=== PATIENT | female | born 1965 | race Caucasian/White ===

== ENCOUNTER 2020-04-22 03:11 | Emergency (ER) | payer MEDICAID, SELFPAY ==
[2020-04-22 03:37] VITALS: BP 126/36; PULSE 95; RESP 16; TEMP 36.9; O2SAT 96; BMI 70.8
[2020-04-22 04:00] VITALS: BP 117/68; PULSE 92; RESP 16; O2SAT 96
--- NOTE | 2020-04-22 04:01 | US_ITS ---
EXAMINATION: US VENOUS ULTRASOUND WITH DOPPLER LOWER EXTREMITY, BILATERAL CLINICAL INFORMATION: Swelling. Pain. COMPARISON: None TECHNIQUE: Ultrasound of the deep veins is performed from the hip to the calf with compression sonography and color and pulse Doppler assessment. Spectral analysis with color-flow imaging is performed. FINDINGS: Examination is somewhat limited by patient body habitus. RIGHT: There is normal venous compression and respiratory variation and augmented flow. The visualized common femoral vein, superficial femoral vein, profunda femoral vein, popliteal vein, and the trifurcation region shows no evidence of deep venous thrombosis. There is no significant popliteal fossa cyst. Subcutaneous edema is present at the calf. A prominent right inguinal lymph node measures 1.3 cm in short axis with a large fatty hilum, within normal limits. LEFT: There is normal venous compression and respiratory variation and augmented flow. The visualized common femoral vein, superficial femoral vein, profunda femoral vein, popliteal vein, and the trifurcation region shows no evidence of deep venous thrombosis. There is no significant popliteal fossa cyst. Subcutaneous edema is present at the calf. If the patient's symptoms persist, followup ultrasound in 5 days 7 days might be of value to exclude proximal propagation from a non-visualized calf vein. US/US venous duplex LE BI IMPRESSION: No DVT demonstrated in the bilateral lower extremities.
--- NOTE | 2020-04-22 04:01 | ED_ITS ---
HPI - Extremity Problem General Chief complaint: Extremity Problem Stated complaint: SWOLLEN LEGS Time Seen by Provider: 04/22/20 04:01 Source: patient and welt edge rounder Mode of arrival: ambulatory History of Present Illness HPI Narrative: This is a 54-year-old female who presents with worsening bilateral lower extremity edema, denies any fevers or chills but states that both of her legs hurt. She states that she does not have diabetes but but is treated for high blood pressure. She denies any recent cough, travel, smoking history. Related Data Allergies Allergy/AdvReac Type Severity Reaction Status Date / Time No Known Allergies Allergy Verified 04/22/20 03:40 Review of Systems Review of Systems: Pertinent positives and negatives as stated in HPI 10 point review systems is otherwise negative. [facility] Past Medical History Source: nursing notes reviewed Social History Social History Alcohol intake: never Smoked in Last 30 Days: No Use of substances other than those prescribed or required for medical reasons: No Advance Directives: No Physical Exam Vital Signs: Vital Signs: Last Vital Signs Temp 98.5 F 04/22/20 03:37 Pulse 91 04/22/20 06:00 Resp 20 04/22/20 06:00 BP 117/68 04/22/20 04:00 Pulse Ox 96 04/22/20 06:00 Body Mass Index 70.8 VITAL SIGNS: Reviewed. GENERAL: Morbidly obese, Well developed, well nourished, in no acute distress. HEAD: Normocephalic/atraumatic, EYES: PERRLA, EOMI NOSE: Nares patent bilateral OROPHARYNX: no oral lesions noted, posterior pharynx clear NECK: Supple, no adenopathy LUNGS: Normal breath sounds. No adventitious sounds or accessory muscle use. SpO2<96> CARDIOVASCULAR: Regular rate and rhythm without noted murmurs, no JVD or lower extremity edema. ABDOMEN: Obese, Soft, non-tender, non-distended with bowel sounds. EXTREMITIES: Bilateral lower extremities with stigmata of venous stasis with skin thickening as well as darkening SKIN: Inspection of the skin reveals no rashes. NEUROLOGIC: Alert and oriented x 4. Course Course Course Narrative: With history and clinical presentation most consistent with chronic venous stasis and skin changes secondary to patient's condition. I doubt DVT, cellulitis, or CHF. On the sedation is reviewed and there are no acute findings. Bilateral venous duplex is negative for evidence of DVT. All results and findings were discussed with the patient at bedside with a detector car operator. She was highly encouraged to follow-up with the primary care provider. MDM - Extremity (Nontraumatic) Lab Data Result diagrams: 04/22/20 04:18 04/22/20 04:18 Labs: Lab Results 04/22/20 04/22/20 04/22/20 Range/Units 04:18 04:18 04:18 WBC 5.5 (4.8-10.8) X10*3/uL RBC 4.44 (4.20-5.50) X10*6/uL Hgb 11.8 L (12.0-16.0) g/dl Hct 38.9 (37-47) % MCV 87.6 (80-98) fL MCH 26.6 L (27.0-33.0) pg MCHC 30.3 L (31.0-35.0) g/dl RDW 13.4 (11.0-16.0) % Plt Count 183 (160-400) X10*3/uL MPV 12.8 H (9.4-12.3) fL Immature Gran % (Auto) 0.2 (0.0-0.4) % Neut % (Auto) 61.2 (45-73) % Lymph % (Auto) 27.5 (20-40) % [place] % (Auto) 10.7 (2-11) % Eos % (Auto) 0.4 (0-4) % Baso % (Auto) 0.0 (0-2) % Lymph # (Auto) 1.5 (1.2-4.9) X10*3/uL [place] # (Auto) 0.6 (0.1-1.2) X10*3/uL Eos # (Auto) 0.0 (0.0-0.4) X10*3/uL Baso # (Auto) 0.0 (0.0-0.2) X10*3/uL Abs Immat Gran (auto) 0.01 (0.00-0.03) X10*3/uL Absolute Neuts (auto) 3.4 (2.0-8.3) X10*3/uL Absolute Nucleated RBC 0.000 (0.0-0.012) X10*3/uL Nucleated RBC % (auto) 0.0 (0.0-0.2) /100WBC Sodium 140 (135-145) mmol/L Potassium 3.8 (3.3-5.1) mmol/l Chloride 103 (96-108) mmol/L Carbon Dioxide 27 (22-29) mmol/L Anion Gap 14 (12-20) BUN 15 (9-16) mg/dL Creatinine 0.76 (0.5-1.4) mg/dL Estim Creat Clear Calc 140.5 Estimated GFR > 60 Random Glucose 118 H (60-115) mg/dL Calcium 9.1 (8.4-10.2) mg/dL Total Bilirubin 0.4 (0.0-1.0) mg/dL AST 21 (5-31) U/L ALT 26 (0-31) U/L Alkaline Phosphatase 108 (39-117) U/L B-Natriuretic Peptide 14 (<100) pg/mL Total Protein 6.7 (6.5-8.0) g/dL Albumin 3.8 (3.5-5.0) g/dL Discharge Plan Discharge Clinical Impression: Venous stasis of both lower extremities Patient Disposition: Home, Self-Care Instructions: Stasis Dermatitis (ED), Venous Insufficiency (DC) Additional Instructions: 1. Recomendar medias de compresi?n para las extremidades inferiores bilaterales. 2. Jody un seguimiento con santamaria proveedor de atenci?n primaria llamando al consultorio esta ma?michelle y programe saskia damaso de seguimiento para santamaria afecci?n. 3. No dude en volver al departamento de emergencias si experimenta un empeoramiento dontrell de thor s?ntomas o dificultad para respirar. Referrals: Physician,Unknown [Primary Care Provider] - 2 days (Re-evaluation of bilateral venous stasis) Print Language: Mauritian
[2020-04-22 04:22] LABS: Eosinophils Percent Auto 0.4 % (0-4); Hematocrit 38.9 % (37-47); Hemoglobin 11.8 g/dl (12.0-16.0); Imm Gran Abs Auto 0.01 X10*3/uL (0.00-0.03); Imm Gran Pct Auto 0.2 % (0.0-0.4); Lymphocytes Absolute Auto 1.5 X10*3/uL (1.2-4.9); Lymphocytes Percent Auto 27.5 % (20-40); MANUAL DIFF FLAG NO; Mean Corpuscular HGB Conc 30.3 g/dl (31.0-35.0); Mean Corpuscular Hemoglobin 26.6 pg (27.0-33.0); Mean Corpuscular Volume 87.6 fL (80-98); Mean Platelet Volume 12.8 fL (9.4-12.3); Monocytes Absolute Auto 0.6 X10*3/uL (0.1-1.2); Monocytes Percent Auto 10.7 % (2-11); Neutrophils Absolute Auto 3.4 X10*3/uL (2.0-8.3); Neutrophils Percent Auto 61.2 % (45-73); Platelet Count 183 X10*3/uL (160-400); Red Blood Count 4.44 X10*6/uL (4.20-5.50); Red Cell Distribution Width 13.4 % (11.0-16.0); White Blood Count 5.5 X10*3/uL (4.8-10.8)
[2020-04-22 04:47] LABS: B Type Natriuretic Peptide 14 pg/mL (<100)
[2020-04-22 04:55] LABS: Alanine Aminotransferase 26 U/L (0-31); Albumin Level 3.8 g/dL (3.5-5.0); Alkaline Phosphatase 108 U/L (39-117); Anion Gap 14 (12-20); Aspartate Amino Transferase 21 U/L (5-31); Bilirubin Total 0.4 mg/dL (0.0-1.0); Blood Urea Nitrogen 15 mg/dL (9-16); Calcium 9.1 mg/dL (8.4-10.2); Carbon Dioxide 27 mmol/L (22-29); Chloride 103 mmol/L (96-108); Creatinine Clr Calc Pharmacy 140.5; Estimated Glomerular Filt Rate > 60; Glucose Random 118 mg/dL (60-115); Potassium 3.8 mmol/l (3.3-5.1); Sodium 140 mmol/L (135-145); Total Protein 6.7 g/dL (6.5-8.0)
[2020-04-22 06:00] VITALS: PULSE 91; RESP 20; O2SAT 96
== END 2020-04-22 07:40 | disposition home or self-care (01) ==
PROVIDERS: Emergency Provider Student in an Organized Health Care Education/Training Program
DX: I87.8 Other specified disorders of veins (principal); I83.12 Varicose veins of left lower extremity with inflammation; I83.11 Varicose veins of right lower extremity with inflammation; M79.662 Pain in left lower leg; M79.661 Pain in right lower leg
CPT/HCPCS: 36415; 80053; 83880; 85025; 93970; 99284

== ENCOUNTER 2020-08-06 20:10 | Emergency (ER) | payer MEDICAID, SELFPAY ==
--- NOTE | ~2020-08-06 | XR_ITS ---
EXAMINATION: XR CHEST CLINICAL INFORMATION: Dyspnea COMPARISON: Multiple previous chest imaging studies with the last chest x-ray of 11/17/2019 and chest CTA of 08/09/2016 TECHNIQUE: Frontal view of the chest was obtained. FINDINGS: The cardiomediastinal silhouette is stable and likely within normal limits for technique. The lungs are hypoexpanded with the crowding of the bronchovascular markings. Mild central pulmonary vasculature prominence is similar to that seen on multiple previous studies. There is no evidence of focal consolidation, changes of overt edema, pleural effusions or pneumothorax. The regional skeleton appears intact. XR/XR chest 1V IMPRESSION: No radiographic evidence of pneumonia or changes of overt pulmonary edema.
[2020-08-06 20:19] VITALS: BP 194/93; PULSE 93; RESP 24; TEMP 36; O2SAT 98; BMI 61.9
[2020-08-06 21:13] VITALS: BP 142/54; PULSE 91; RESP 20; TEMP 36.4; O2SAT 98
--- NOTE | 2020-08-06 21:43 | ECG_ITS ---
Test Reason : CHEST PAIN Blood Pressure : / mmHG Vent. Rate : 091 BPM Atrial Rate : 091 BPM P-R Int : 154 ms QRS Dur : 090 ms QT Int : 370 ms P-R-T Axes : 059 010 075 degrees QTc Int : 455 ms Normal sinus rhythm Normal ECG When compared with ECG of 17-NOV-2019 19:39, No significant change was found Referred By: Harsh Barnes Electronically Signed By:BO SORENSON MD
--- NOTE | 2020-08-06 22:26 | ED.GENADULT ---
HPI - General Adult General Chief complaint: General Medical Stated complaint: SWELLING FEET Time Seen by Provider: 08/06/20 21:21 Source: patient and family (Daughter, Paige) Mode of arrival: ambulatory Limitations: language barrier (Eritrean speaking only, greens cutter used to obtain information) History of Present Illness HPI narrative: 55-year-old female who presents emergency department for evaluation of bilateral lower extremity swelling, dyspnea on exertion and skin breakdown of her left lower extremity. Patient states that she has noticed swelling in both her lower extremities over the past week. She states this is gotten progressively worse. She states that the skin on the medial aspect of the calf has broken down but is not bleeding and does not appear to be red or warm to the touch. She states that she has dyspnea on exertion but no shortness of breath at rest. She states that she had chest pain last night which she describes as a left-sided sharp pain which lasts seconds, this started at midnight and resolved by 1:00 a.m.. The patient states she does have pain in her legs especially when she exerts herself. She states that this pain does not resolve when she rests. She attributes this pain to her lower back pain. She denied fever, chills, cough, myalgias, arthralgias, diarrhea, loss of sense of taste or smell. The patient has not had a COVID-19 infection. She has not been vaccinated for COVID-19. Related Data Previous Rx's Medication Instructions Recorded furosemide 60 mg PO QAM 30 Days #45 tab 08/07/20 potassium chloride 10 meq PO DAILY 30 Days #30 tab 08/07/20 Allergies Allergy/AdvReac Type Severity Reaction Status Date / Time No Known Allergies Allergy Verified 08/06/20 20:26 Review of Systems Review of Systems: Yes all other systems are reviewed and are negative [facility] Past Medical History [facility] Narrative: Past medical history severe hypertension, hyperlipidemia, depression, anxiety, migraines, sleep apnea, umbilical hernia. She has had no previous abdominal surgeries. She denies tobacco, alcohol and drug use. Medical History Asthma Morbid obesity Family History Family History Daughter No problems noted. Daughter No problems noted. Daughter No problems noted. Daughter No problems noted. Daughter No problems noted. Son No problems noted. Social History Social History Alcohol intake: never Smoking Status: Never smoker Smoked in Last 30 Days: No Use of substances other than those prescribed or required for medical reasons: No Advance Directives: No Advance Directives Information Provided: Yes Physical Exam Vital Signs: Vital Signs: Last Vital Signs Temp 97.5 F 08/06/20 21:13 Pulse 94 08/06/20 23:50 Resp 22 H 08/06/20 23:50 BP 159/73 H 08/06/20 23:50 Pulse Ox 97 08/06/20 23:50 Body Mass Index 61.9 Const: General: cooperative Nutritional Appearance: obese morbidly obese Orientation/consciousness: oriented to person and oriented to place Limitations: no limitations HENMT: Head: Yes normal to inspection, Yes normocephalic and Yes atraumatic Ears: external ears normal General nose exam: Normal external nose present Face and sinus: Yes normal facial exam Mouth: Normal oral and palatal mucosa present Throat: Yes posterior oropharynx normal Eyes: Periorbital: periorbital findings normal Eyelids: Yes eyelids normal Conjunctivae: conjunctivae normal Sclerae: sclerae normal Corneas: corneas normal Pupils: Equal, round and reactive pupils present Direct Ophthalmoscopy: normal light reflex Neck: Neck: Yes full ROM, Yes no lymphadenopathy, Yes no meningeal signs, Yes trachea midline and Yes supple Chest: Chest palpation & inspection: normal inspection of the chest and normal palpation of entire chest wall Resp: Effort & Inspection: normal respiratory effort and able to speak in complete sentences Auscultation: clear to auscultation bilaterally Cardio: Rate: regular rate Rhythm: regular rhythm Heart sounds: S1 normal heart sound present, S2 normal heart sound present and no murmurs GI: Inspection: Yes normal to inspection Palpation (GI): Soft to palpation, nontender, no guarding, not rigid, No hepatosplenomegaly present and Other GI palpation findings present (Large, nontender umbilical hernia) Auscultation: normal bowel sounds : General: Yes no CVA tenderness Back/Spine/Pelvis: Back: no CVA tenderness Cervical Spine: normal cervical lordosis Thoracic/Lumbar Spine: thoracic and lumbar spine normal to inspection Skin: Lesions: no lesions Rashes: no rashes Wounds: no wounds Neuro: General: oriented to person, oriented to place and no meningeal signs Cranial nerves: Yes CN's II-XII intact bilaterally and Yes Equal, round and reactive pupils present Cognition (Neuro): normal cognition Motor exam (neuro): 5/5 motor strength present throughout Extrem: Other: One to 2+ pitting edema, symmetric, patient has a 5 x 4 cm partial skin thickness ulcerative lesion to the medial aspect of the left ankle, there is no increased warmth or increased erythema around the skin ulcer. The patient's skin is very dry, there is no erythema or increased warmth her lower extremities Psych: Appearance: well kempt Mental Status: mental status grossly normal Speech and movement: Normal speech and movement present Affect: normal affect Attitude: cooperative Thought process: Normal thought process present Thought content: Normal thought content present Course Course Course Narrative: 53-year-old female who presents emergency department for evaluation of bilateral lower extremity swelling which is symmetric with skin breakdown the left medial aspect of the calf. She has also had dyspnea on exertion with no shortness of breath and atypical chest pain. I did order a CBC, CMP, high sensitivity troponin, chest x-ray an EKG. 0110: The patient's chest x-ray revealed no evidence of pneumonia congestive heart failure. Patient's laboratory evaluation was unremarkable. The patient's troponin was detectable at 10.1 but not elevated. Twelve EKG was normal. The patient's peripheral edema is most likely secondary to fluid overload, I do not think she has congestive heart failure, renal disease or cardiac disease as the cause of the symptoms. The patient will be started on Lasix 60 mg once a day for 1 month. She was also given a prescription for potassium chloride 10 mEq once a day. She was given verbal and printed instructions and discharged home. Medical Decision Making Lab Data Result diagrams: 08/06/20 22:42 08/06/20 22:42 Labs: Lab Results 08/06/20 08/06/20 08/06/20 Range/Units 22:12 22:42 22:42 WBC 6.1 (4.8-10.8) X10*3/uL RBC 4.15 L (4.20-5.50) X10*6/uL Hgb 11.0 L (12.0-16.0) g/dl Hct 37.3 (37-47) % MCV 89.9 (80-98) fL MCH 26.5 L (27.0-33.0) pg MCHC 29.5 L (31.0-35.0) g/dl RDW 14.1 (11.0-16.0) % Plt Count 171 (160-400) X10*3/uL MPV 12.3 (9.4-12.3) fL Immature Gran % (Auto) 0.3 (0.0-0.4) % Neut % (Auto) 66.3 (45-73) % Lymph % (Auto) 25.2 (20-40) % Jones % (Auto) 7.8 (2-11) % Eos % (Auto) 0.2 (0-4) % Baso % (Auto) 0.2 (0-2) % Lymph # (Auto) 1.5 (1.2-4.9) X10*3/uL Jones # (Auto) 0.5 (0.1-1.2) X10*3/uL Eos # (Auto) 0.0 (0.0-0.4) X10*3/uL Baso # (Auto) 0.0 (0.0-0.2) X10*3/uL Abs Immat Gran (auto) 0.02 (0.00-0.03) X10*3/uL Absolute Neuts (auto) 4.0 (2.0-8.3) X10*3/uL Absolute Nucleated RBC 0.000 (0.0-0.012) X10*3/uL Nucleated RBC % (auto) 0.0 (0.0-0.2) /100WBC Sodium 141 (135-145) mmol/L Potassium 4.1 (3.3-5.1) mmol/L Chloride 107 (96-108) mmol/L Carbon Dioxide 22 (22-29) mmol/L Anion Gap 16 (12-20) BUN 16 (9-16) mg/dL Creatinine 0.74 (0.5-1.4) mg/dL Estim Creat Clear Calc 130.2 Estimated GFR > 60 Random Glucose 89 (60-115) mg/dL Calcium 8.7 (8.4-10.2) mg/dL Total Bilirubin 0.3 (0.0-1.0) mg/dL AST 23 (5-31) U/L ALT 23 (0-31) U/L Alkaline Phosphatase 96 (39-117) U/L Troponin I High Sens (<3.5-17.0) ng/L Total Protein 6.6 (6.5-8.0) g/dL Albumin 3.7 (3.5-5.0) g/dL COVID-19 (DERICK) Negative (Negative) COVID-19 Clin Com See Note 08/06/20 Range/Units 22:42 WBC (4.8-10.8) X10*3/uL RBC (4.20-5.50) X10*6/uL Hgb (12.0-16.0) g/dl Hct (37-47) % MCV (80-98) fL MCH (27.0-33.0) pg MCHC (31.0-35.0) g/dl RDW (11.0-16.0) % Plt Count (160-400) X10*3/uL MPV (9.4-12.3) fL Immature Gran % (Auto) (0.0-0.4) % Neut % (Auto) (45-73) % Lymph % (Auto) (20-40) % Jones % (Auto) (2-11) % Eos % (Auto) (0-4) % Baso % (Auto) (0-2) % Lymph # (Auto) (1.2-4.9) X10*3/uL Jones # (Auto) (0.1-1.2) X10*3/uL Eos # (Auto) (0.0-0.4) X10*3/uL Baso # (Auto) (0.0-0.2) X10*3/uL Abs Immat Gran (auto) (0.00-0.03) X10*3/uL Absolute Neuts (auto) (2.0-8.3) X10*3/uL Absolute Nucleated RBC (0.0-0.012) X10*3/uL Nucleated RBC % (auto) (0.0-0.2) /100WBC Sodium (135-145) mmol/L Potassium (3.3-5.1) mmol/L Chloride (96-108) mmol/L Carbon Dioxide (22-29) mmol/L Anion Gap (12-20) BUN (9-16) mg/dL Creatinine (0.5-1.4) mg/dL Estim Creat Clear Calc Estimated GFR Random Glucose (60-115) mg/dL Calcium (8.4-10.2) mg/dL Total Bilirubin (0.0-1.0) mg/dL AST (5-31) U/L ALT (0-31) U/L Alkaline Phosphatase (39-117) U/L Troponin I High Sens 10.1 (<3.5-17.0) ng/L Total Protein (6.5-8.0) g/dL Albumin (3.5-5.0) g/dL COVID-19 (DERICK) (Negative) COVID-19 Clin Com ECG Data Attestation: I personally reviewed and interpreted this ECG as follows: Interpretation: 2159: Normal sinus rhythm rate of 91, normal AR, QRS and QTC intervals, normal T-waves, no ST segment elevation or depression, this is a normal EKG. Discharge Plan Discharge Clinical Impression: Edema of both lower extremities due to peripheral venous insufficiency Skin ulcer Qualifiers: Non-pressure ulcer stage: limited to breakdown of skin Qualified Code(s): L98.491 - Non-pressure chronic ulcer of skin of other sites limited to breakdown of skin Patient Disposition: Home, Self-Care Instructions: Leg Edema (ED) Additional Instructions: Take Lasix (furosemide) 60 mg once a day for 1 month. This is a water pill that will make urinate for 6 hours after you take the medication. Take potassium chloride 10 mEq, 1 pill once a day with the Lasix pill. Your body is holding on to too much fluid and the Lasix will make you urinate out fluid. The goal is to make you urinary out more fluid than you take in. Only drink fluid when your thirsty. Try to restrict the amount of fluid that you drink daily to get into a negative fluid balance. Follow-up with your doctor in 2 days. Please return to the emergency department if your symptoms get worse or if you develop any symptoms that are concerning to you. Prescriptions: New furosemide 40 mg tablet 60 mg PO QAM 30 Days Qty: 45 RF: 0 potassium chloride 10 mEq tablet,ER particles/crystals 10 meq PO DAILY 30 Days Qty: 30 RF: 0
[2020-08-06 22:30] LABS: COVID-19 Test Negative (Negative)
--- NOTE | 2020-08-06 22:35 | PC.NURSE ---
attempted to place a iv, pt a very difficult iv stick due to her obesity. provider made aware and ok to just draw the labs at this time. pt in no distress.
[2020-08-06 22:47] LABS: MANUAL DIFF FLAG NO
[2020-08-06 22:48] LABS: Basophils Percent Auto 0.2 % (0-2); Eosinophils Percent Auto 0.2 % (0-4); Hematocrit 37.3 % (37-47); Imm Gran Abs Auto 0.02 X10*3/uL (0.00-0.03); Imm Gran Pct Auto 0.3 % (0.0-0.4); Lymphocytes Absolute Auto 1.5 X10*3/uL (1.2-4.9); Lymphocytes Percent Auto 25.2 % (20-40); Mean Corpuscular HGB Conc 29.5 g/dl (31.0-35.0); Mean Corpuscular Hemoglobin 26.5 pg (27.0-33.0); Mean Corpuscular Volume 89.9 fL (80-98); Mean Platelet Volume 12.3 fL (9.4-12.3); Monocytes Absolute Auto 0.5 X10*3/uL (0.1-1.2); Monocytes Percent Auto 7.8 % (2-11); Neutrophils Percent Auto 66.3 % (45-73); Platelet Count 171 X10*3/uL (160-400); Red Blood Count 4.15 X10*6/uL (4.20-5.50); Red Cell Distribution Width 14.1 % (11.0-16.0); White Blood Count 6.1 X10*3/uL (4.8-10.8)
[2020-08-06 23:12] LABS: Alanine Aminotransferase 23 U/L (0-31); Albumin Level 3.7 g/dL (3.5-5.0); Alkaline Phosphatase 96 U/L (39-117); Anion Gap 16 (12-20); Aspartate Amino Transferase 23 U/L (5-31); Bilirubin Total 0.3 mg/dL (0.0-1.0); Blood Urea Nitrogen 16 mg/dL (9-16); Calcium 8.7 mg/dL (8.4-10.2); Carbon Dioxide 22 mmol/L (22-29); Chloride 107 mmol/L (96-108); Creatinine Clr Calc Pharmacy 130.2; Estimated Glomerular Filt Rate > 60; Glucose Random 89 mg/dL (60-115); Potassium 4.1 mmol/L (3.3-5.1); Sodium 141 mmol/L (135-145); Total Protein 6.6 g/dL (6.5-8.0)
[2020-08-06 23:16] LABS: Troponin-I High Sensitivity 10.1 ng/L (<3.5-17.0)
[2020-08-06 23:50] VITALS: BP 159/73; PULSE 94; RESP 22; O2SAT 97
== END 2020-08-07 01:30 | disposition home or self-care (01) ==
PROVIDERS: Emergency Provider Emergency Medicine Emergency Medical Services; PCP Internal Medicine
DX: R60.0 Localized edema (principal); L98.491 Non-pressure chronic ulcer of skin of other sites limited to breakdown of skin; I73.9 Peripheral vascular disease, unspecified; Z20.822 Contact with and (suspected) exposure to COVID-19; Z79.899 Other long term (current) drug therapy
CPT/HCPCS: 36415; 71045; 80053; 84484; 85025; 87635; 93005; 99284

== ENCOUNTER 2020-11-04 14:37 | Outpatient (REF) | payer MEDICAID, SELFPAY ==
--- NOTE | ~2020-11-04 | US_ITS ---
EXAMINATION: US VENOUS ULTRASOUND WITH DOPPLER LOWER EXTREMITY, LEFT CLINICAL INFORMATION: Left leg swelling. COMPARISON: Bilateral lower extremity venous Doppler exam 04/22/2020 and 09/16/2019 TECHNIQUE: Ultrasound of the deep veins is performed from the hip to the calf with compression sonography and color and pulse Doppler assessment. Spectral analysis with color-flow imaging is performed. FINDINGS: There is normal venous compression and respiratory variation and augmented flow. The visualized common femoral vein, superficial femoral vein, profunda femoral vein, popliteal vein, and the trifurcation region shows no evidence of deep venous thrombosis. There is no significant popliteal fossa cyst. If the patient's symptoms persist, followup ultrasound in 5 days 7 days might be of value to exclude proximal propagation from a non-visualized calf vein. US/US venous duplex LE IMPRESSION: No DVT demonstrated in the left lower extremity.
== END 2020-11-04 14:38 | disposition home or self-care (01) ==
LOC: HO.HMGCX 14:37
PROVIDERS: Visit Provider Emergency Medicine
DX: R60.0 Localized edema (principal); M79.89 Other specified soft tissue disorders
CPT/HCPCS: 93971

== ENCOUNTER 2020-11-18 09:29 | Outpatient (RCR) | payer MEDICAID, SELFPAY | END 2020-11-22 15:04 | disposition home or self-care (01) | LOC: HO.WCC 09:29 | PROVIDERS: Visit Provider Physician Assistant | DX: I89.0 Lymphedema, not elsewhere classified (principal); E66.01 Morbid (severe) obesity due to excess calories | CPT/HCPCS: 99212 ==

== ENCOUNTER → 2020-11-30 10:16 | Outpatient (REF) | payer MEDICAID, SELFPAY ==
--- NOTE | 2020-11-30 10:20 | CA_ITS ---
Transthoracic Echocardiogram Patient (Last, First, Middle): Kaelyn Samuel, Gender: Female Date of : 1965 Age: 55 Procedure Date: 11/30/2020 Procedure Type: Transthoracic Echocardiogram Location: OP Height: 160.02 cm Weight: 192.78 kg BSA: 2.66 m2 Heart Rate: bpm BP: 120 / 70 mmHg Steel Inspector: ROQUE Referring MD: Maya Wei NP Minibus Driver: Jose Rafael Tran MD Symptoms: DYSPNEA R06.00 Study Quality: Technically Difficult ECG Rhythm: Sinus Conclusions: - 1. Normal LV systolic function with mild LVH with impaired relaxation filling pattern 2. Limited evaluation of cardiac valves with normal cardiac valvular Doppler 3. No gross pericardial effusion Findings Left Ventricle Normal left ventricular size and systolic function. There is mildly increased left ventricular wall thickness. The visually estimated ejection fraction is between 60-65%. Spectral Doppler is indicative of an impaired relaxation filling pattern. Right Ventricle The right ventricle was not well visualized. Atria The left atrium is likely dilated. Interatrial shunt cannot be excluded. The right atrium was not well visualized. Aortic Valve The aortic valve was not well visualized. There is no aortic valve stenosis. There is no aortic valve regurgitation. Mitral Valve Likely normal mitral valve structure and function. There is trace mitral valve regurgitation. There is no mitral valve stenosis. Pulmonic Valve The pulmonic valve was not well visualized. Tricuspid Valve The tricuspid valve was not well visualized. Tricuspid regurgitation envelope is inadequate for calculation of right ventricular systolic pressure. Great Vessels The aorta was not well visualized. The pulmonary artery was not well visualized. Venous The inferior vena cava is normal in size and collapses greater than 50% with inspiration. Pericardium/Pleural There is no evidence of pericardial effusion. Prior Study Comparison No previous study in the last 5 years for comparison Measurements 2D Linear Measurements IVSd: 1.26 0.6-0.9/0.6-1.0 cm LVIDd: 5.32 3.9-5.3/4.2-5.9 cm LVIDd Index: 2.23 2.4-3.2/2.2-3.1 cm/m2 LVIDs: 3.76 2.0-3.6 cm LVPWd: 1.42 0.7-1.1 cm LA Diam: 3.90 2.7-3.8/3.0-4.0 cm LAIDs Index: 1.63 1.5-2.3 cm/m2 LV Mass: 375.89 67-162/88-224 g LV Mass Index: 157.28 43-95/49-115 g/m2 LVOT Diam: 2.10 3.0+(-)1.3 cm 2D Systolic Function EF 2C: 69.60 >55% Mitral Valve MV Pk E: 0.62 MV PK A: 0.81 MV Decel Time: 181.00 E/A: 0.80 E'Lateral: 11.70 E'Medial: 6.74 E/E' Med: 9.20 E/E' Lat: 5.30 PHT: 53.00 MVA PHT: 4.15 Decel [place]: 3.41 Aortic Valve AoV Pk Jayden: 1.28 AoV Pk Grad: 7.00 LVOT LVOT Pk Jayden: 1.09 LVOT Mn Jayden: 0.70 LVOT VTI: 0.25 LVOT Pk Grad: 5.00 LVOT Mn Grad: 2.00 LVOT Diam: 2.10 LVOT Area: 3.46 Diastolic Function MV Pk E: 0.62 MV Pk A: 0.81 E/A: 0.80 E'Medial: 6.74 E/E' Med: 9.20 E' Laterial: 11.70 E/E' Lat: 5.30 Right Ventricle TAPSE (mm): 2.43 Great Vessels Aorta Ao Asc: 3.10 2.1-3.4 cm Updated in Other Vendor System with Status of Final Jose Rafael Tran MD electronically signed on 11/30/2020 1:56:07 PM with status of Final
== END ==
LOC: HO.CARD 10:16
PROVIDERS: Visit Provider Nurse Practitioner Family
DX: R06.00 Dyspnea, unspecified (principal)
CPT/HCPCS: 93306; Q9957

== ENCOUNTER 2021-01-13 15:27 | Emergency (ER) | payer MEDICAID, SELFPAY ==
--- NOTE | ~2021-01-13 | XR_ITS ---
EXAMINATION: XR KNEE, RIGHT CLINICAL INFORMATION: Pain after fall COMPARISON: None TECHNIQUE: Four views of the right knee. FINDINGS: No fracture or subluxation. Mild medial compartment joint space narrowing. Tiny tricompartmental marginal osteophytes. No joint effusion. Soft tissue swelling throughout. XR/XR knee RT 4V IMPRESSION: No acute osseous abnormality. Mild tricompartmental degenerative change.
--- NOTE | ~2021-01-13 | CT_ITS ---
EXAMINATION: CT CHEST WITHOUT CONTRAST CT ABDOMEN AND PELVIS WITHOUT CONTRAST CLINICAL INFORMATION: Fall with right-sided pain COMPARISON: 08/09/2016 TECHNIQUE: Multidetector volumetric imaging was performed through the chest, abdomen and pelvis without contrast. Sagittal and coronal reformatted images were obtained on the technologist's workstation. Axial MIP volume rendering provided. This CT examination was performed using dose optimization techniques as appropriate, variously including the following: *Automated exposure control *Adjustment of mA and/or kV according to patient size (this includes techniques or standardized protocols for targeted exams where dose is matched to indication/reason for exam; i.e. extremities or head) *Use of iterative reconstruction technique DLP: 1710 mGy-cm. FINDINGS: CHEST: Lungs: The central airways are patent. No consolidation. No pleural effusion or pneumothorax. There is a left upper lobe 0.7 cm nodule on series 4 image 179. This had measured 0.5 cm in 2017. Numerous additional smaller nodules are seen scattered in both lungs. For instance right lower lobe 0.4 cm nodule on series 4 image 319. This also is increased in prominence. Calcified granulomata noted. Mediastinum: The heart is of normal size. There is no pericardial effusion. Central vascular structures are unremarkable. No hilar or mediastinal lymphadenopathy. Chest Wall/Axilla: No lymphadenopathy. No chest wall mass. ABDOMEN/PELVIS: Liver, Gallbladder, Biliary Tree: The liver is normal in size, shape, and attenuation. No focal hepatic lesion or biliary ductal dilatation is present. Cholecystectomy. Pancreas: Unremarkable. Spleen: Unremarkable. Adrenal Glands: Unremarkable. Kidneys and Ureters: The kidneys are normal in size, shape, and attenuation. No hydronephrosis, hydroureter or calculi seen. No perinephric stranding. Bladder: Decompressed with no gross abnormality. Gastrointestinal Tract: Evaluation of the bowel in the pelvis is limited due to artifact associated with patient body habitus. The stomach and small bowel appear unremarkable. No dilated loops of bowel or evidence of obstruction. No diverticulosis. No colonic wall thickening or adjacent inflammatory changes. No free air or free fluid. A portion of bowel extends into a prominent ventral abdominal wall hernia. This is not obstructing. Hazy appearance of the fat in the lower abdomen/pelvis is potentially artifactual. Limited evaluation for the appendix. Abdominal Wall: There is a prominent ventral abdominal wall hernia below the level of the umbilicus to the left of midline containing bowel. The hernia neck measures 5.9 cm transverse by 5.3 cm CC. The hernia sac measures 18.8 x 12.6 x 16.5 cm. Lymphovascular Structures: Lymph nodes: Small retroperitoneal lymph nodes without pathologic enlargement.. Vascular: Normal caliber aorta with mild atherosclerotic calcifications. Pelvic Viscera: Anteverted uterus which appears unremarkable. Limited evaluation of the right adnexal structures due to artifact. There does appear to be some fullness in this area. OSSEOUS STRUCTURES: No acute or suspicious osseous abnormality. Degenerative changes are present throughout the spine with multilevel vacuum disc phenomenon and endplate osteophytes. Intact sternum. No displaced rib fracture is seen. The pelvis is intact. CT/CT abdomen pelvis wo con IMPRESSION: Study is limited due to artifact associated with patient body habitus. No acute traumatic findings of the chest, abdomen, or pelvis are identified. Multiple small pulmonary nodules are noted. The largest nodule measures 0.7 cm and the left upper lobe, mildly increased in size from 2017. Additional smaller nodules are also increased in size from that time. Large abdominal wall hernia containing nonobstructed bowel. Limited evaluation of the pelvis. Fullness in the right adnexal region. This can be further evaluated with pelvic ultrasound.
[2021-01-13 15:48] VITALS: BP 154/91; PULSE 104; RESP 26; TEMP 36.6; O2SAT 93; BMI 85.2
--- NOTE | 2021-01-13 19:57 | ED_ITS ---
HPI - Fall General Chief Complaint: Fall Stated Complaint: fall Time Seen by Provider: 01/13/21 19:49 Source: patient and spanish interpreter/translator Mode of arrival: ambulatory Limitations: no limitations History of Present Illness complaint: fall Onset (ago): day(s) (2) Fall from: standing Fall witnessed: no Place fall occurred: home Loss of consciousness: none Prolonged down time: no Context: tripped/slipped Location of injury: other (R flank ) Location of injury - extremities: right: knee Severity: moderate Quality: aching and throbbing Associated symptoms (after fall): other (R flank and knee pain) Related Data Previous Rx's Medication Instructions Recorded furosemide 40 mg tablet 60 mg PO QAM 30 Days #45 tab 08/07/20 potassium chloride 10 mEq 10 meq PO DAILY 30 Days #30 tab 08/07/20 tablet,extended release(part/cryst) cyclobenzaprine 10 mg tablet 10 mg PO TID PRN #14 tab 01/13/21 diclofenac sodium 1 % topical gel 2 g TOPICAL QID #100 g 01/13/21 (Voltaren Arthritis Pain) Allergies Allergy/AdvReac Type Severity Reaction Status Date / Time No Known Allergies Allergy Verified 08/06/20 20:26 Review of Systems Review of Systems: Constitutional : No Fever, No Chills ENT/Mouth : No Ear Pain, No Hoarseness, No sore throat Eyes: No Eye Pain, No Swelling, No Redness, No Foreign Body Cardiovascular : No Chest Pain, No SOB Respiratory : No Cough, No Dyspnea Gastrointestinal : No Nausea, No Vomiting, No Diarrhea, No abdominal Pain, pos flank pain Genitourinary : No Dysuria, No Hematuria Musculoskeletal : positive joint pain, No Myalgias, No Joint Swelling Skin : No Skin lacerations, No rash Neuro : No Weakness, No Numbness, No Loss of Consciousness, No Dizziness, No Headache Psych : No Anxiety/Panic, No Depression Heme/Lymph: no easy bruising, no Lymphadenopathy Endocrine : No Polyuria, No Polydipsia All other systems reviewed and are negative [facility] Past Medical History Attestation statement: The following information was validated with the patient. Medical History Asthma Morbid obesity Family History Family History Daughter No problems noted. Daughter No problems noted. Daughter No problems noted. Daughter No problems noted. Daughter No problems noted. Son No problems noted. Social History Social History (Updated 01/13/21 @ 19:58 by Carito Ann DO) Alcohol intake: never Patient Tobacco Use Status: Never used Tobacco Advance Directives: No Advance Directives Information Provided: Yes Patient : No Physical Exam Vital Signs: Vital Signs: Last Vital Signs Temp 98.2 F 01/13/21 20:17 Pulse 88 01/13/21 20:22 Resp 36 H 01/13/21 20:17 BP 182/71 H 01/13/21 20:17 Pulse Ox 96 01/13/21 20:17 Body Mass Index 85.2 Appearance: Alert. Oriented X3. No acute distress. Eyes: Pupils equal, round and reactive to light. ENT: Pharynx normal. Neck: Normal inspection. Neck supple. CVS: Normal heart rate and rhythm. Pulses normal. Respiratory: No respiratory distress. Breath sounds diffuse end exp wheezes Abdomen: Soft and nontender. very obese reports pain along entire R flank area no trauma seen Skin: Skin warm and dry. Normal skin color. Normal skin turgor. Extremities: No lower extremity edema. R knee ttp but able to ambulate without assistance Neuro: Oriented X 3. No motor deficit. No sensory deficit. Course Course Course Narrative: no acute traumatic findings found, UA contaminated, better after neb - of note she has no RLQ pain to suggest pelvic etiology it is all R flank post fall MDM - Fall MDM Narrative Medical decision making narrative: 55 yo female not on AC therapy reports a mechanical fall on Saturday developed R flank pain after the fall - will need xrays of R knee and R ribs, she is morbidly obese but I do not see any obvious trauma, CT scan for contusion fracture ordered, PO pain medications, needs baseline neb treatment as well, dispo per results and findings. Lab Data Labs: Lab Results 01/13/21 Range/Units 20:20 Urine Color YELLOW Urine Appearance HAZY Urine pH 7.0 (5.0-8.0) Ur Specific [place] 1.020 (1.005-1.025) Urine Protein 1+ H (NEG-TRACE) MG/DL Urine Glucose (UA) NEG (NEG) MG/DL Urine Ketones NEG (NEG) MG/DL Urine Blood TRACE (NEG) Urine Nitrite NEG (NEG) Ur Leukocyte Esterase TRACE H (NEG) Urine RBC 0-2 (0) /HPF Urine WBC 5-9 H (0-4) /HPF Ur Squamous Epith Cells 3+ /LPF Calcium Oxalate Crystal TRACE /LPF Amorphous Sediment TRACE /LPF Urine Bacteria 1+ /LPF Urine Mucus 2+ /LPF Discharge Plan Discharge Clinical Impression: Flank pain, Knee sprain Patient Disposition: Home, Self-Care Instructions: Knee Sprain (ED), Flank Pain (ED) Additional Instructions: return to ED for any worsening symptoms or concerns no acute fractures or trauma seen on xray or CT scan Multiple small pulmonary nodules are noted. The largest nodule measures 0.7 cm and the left upper lobe, mildly increased in size from 2017. Additional smaller nodules are also increased in size from that time. ? Prescriptions: New cyclobenzaprine 10 mg tablet 10 mg PO TID PRN (Reason: muscle spasm) Qty: 14 RF: 0 diclofenac sodium [Voltaren Arthritis Pain] 1 % gel 2 g topical QID Qty: 100 RF: 0 No Action furosemide 40 mg tablet 60 mg PO QAM 30 Days Qty: 45 RF: 0 potassium chloride 10 mEq tablet,ER particles/crystals 10 meq PO DAILY 30 Days Qty: 30 RF: 0 Referrals: Physician,Unknown J [Primary Care Provider] - 3 days (if not better)
[2021-01-13] MEDS: oxyCODONE HCl Immed Release 5 MG TABLET PO (20:06)
[2021-01-13] MEDS: Ondansetron ODT 4 MG TAB.RAPDIS TRANSLINGU (20:06)
[2021-01-13 20:17] VITALS: BP 182/71; PULSE 90; RESP 36; TEMP 36.8; O2SAT 96
[2021-01-13] MEDS: Albuterol Sulfate (0.083%) 2.5 MG/3 ML VIAL.NEB INHALE (20:21)
[2021-01-13 20:22] VITALS: PULSE 88; O2SAT 96
[2021-01-13 20:35] LABS: Appearance Urine HAZY; Color Urine YELLOW; Glucose Urine UA NEG (NEG); Leukocyte Esterase Urine TRACE (NEG); Nitrite Urine NEG (NEG); UACC Culture Trigger YES; Urine Blood TRACE (NEG); Urine Ketones NEG (NEG); Urine Protein 1+ MG/DL (NEG-TRACE)
[2021-01-13 20:37] LABS: Calcium Oxalate Crystals Urine TRACE /LPF; Squamous Epithelial Cell Urine 3+ /LPF
[2021-01-13 20:38] LABS: Mucus Urine 2+ /LPF
[2021-01-13 20:39] LABS: RBC Urine 0-2 /HPF (0)
[2021-01-13 20:40] LABS: Amorphous Sediment Urine TRACE /LPF; Bacteria Urine 1+ /LPF
[2021-01-13 22:32] VITALS: BP 123/60; PULSE 84; RESP 18; TEMP 36.7; O2SAT 97
[2021-01-13 22:36] VITALS: RESP 16
== END 2021-01-13 22:37 | disposition home or self-care (01) ==
PROVIDERS: Emergency Provider Emergency Medicine
DX: R10.9 Unspecified abdominal pain (principal); S83.91XA Sprain of unspecified site of right knee, initial encounter; J45.909 Unspecified asthma, uncomplicated; W01.0XXA Fall on same level from slipping, tripping and stumbling without subsequent striking against object, initial encounter; Y93.9 Activity, unspecified; Y92.009 Unspecified place in unspecified non-institutional (private) residence as the place of occurrence of the external cause; Y99.9 Unspecified external cause status
CPT/HCPCS: 71250; 73564; 74176; 81001; 87086; 94640; 99284

== ENCOUNTER → 2021-08-07 13:04 | Outpatient (BNVA) | payer MEDICAID, SELFPAY | PROVIDERS: PCP Nurse Practitioner Primary Care; Visit Provider Internal Medicine Pulmonary Disease | DX: G47.33 Obstructive sleep apnea (adult) (pediatric) (principal); J45.909 Unspecified asthma, uncomplicated; E66.01 Morbid (severe) obesity due to excess calories; Z68.45 Body mass index [BMI] 70 or greater, adult | CPT/HCPCS: 99202 ==

== ENCOUNTER 2021-08-23 00:16 | Inpatient (IN) | payer MEDICAID, SELFPAY ==
[2021-08-23] VITALS (16 sets, daily range): BP systolic 103–157; BP diastolic 43–81; PULSE 84–115; RESP 14–60; TEMP 36.7–37.7; O2SAT 4–100; BMI 83.0; BMI 87.6
--- NOTE | ~2021-08-23 | CT_ITS ---
EXAMINATION: CT HEAD WITHOUT CONTRAST CLINICAL INFORMATION: Altered mental status COMPARISON: January 23, 2017 TECHNIQUE: Contiguous axial imaging was performed from the skull base to vertex without intravenous administration of contrast. This CT examination was performed using dose optimization techniques as appropriate, variously including the following: *Automated exposure control *Adjustment of mA and/or kV according to patient size (this includes techniques or standardized protocols for targeted exams where dose is matched to indication/reason for exam; i.e. extremities or head) *Use of iterative reconstruction technique DLP: 1071 mGy-cm FINDINGS: There is no evidence of acute intracranial hemorrhage or territorial infarction. No abnormal mass effect or midline shift is seen. Tejeda to white matter differentiation is well preserved. No extra-axial fluid collections are identified. The ventricles are normal in size. There is no abnormal attenuation within the brain parenchyma. The osseous structures and soft tissues are normal. The mastoid air cells and visualized portions of the paranasal sinuses are well aerated. There appears be a partially empty sella. CT/CT head/brain wo con IMPRESSION: No acute intracranial pathology. Partial empty sella.
--- NOTE | ~2021-08-23 | CT_ITS ---
EXAMINATION: CT CHEST WITHOUT CONTRAST CT ABDOMEN AND PELVIS WITHOUT CONTRAST CLINICAL INFORMATION: Short of breath. Tachypnea. Nausea and vomiting. COMPARISON: 01/13/2021 TECHNIQUE: Multidetector volumetric imaging was performed through the chest, abdomen and pelvis without contrast. Sagittal and coronal reformatted images were obtained on the technologist's workstation. Axial MIP volume rendering provided. This CT examination was performed using dose optimization techniques as appropriate, variously including the following: *Automated exposure control *Adjustment of mA and/or kV according to patient size (this includes techniques or standardized protocols for targeted exams where dose is matched to indication/reason for exam; i.e. extremities or head) *Use of iterative reconstruction technique DLP: 1008 mGy-cm. FINDINGS: CHEST: Lungs: Motion is somewhat limiting to the evaluation. The central airways are patent. No consolidation. No pleural effusion or pneumothorax. There is a 0.4 cm nodule in the left lower lobe on series 4 image 362. There may be an additional 0.4 cm nodule in the left lower lobe on image 386. Mediastinum: The heart is of normal size. There is no pericardial effusion. Central vascular structures are unremarkable. No hilar or mediastinal lymphadenopathy. Chest Wall/Axilla: No lymphadenopathy. No chest wall mass. ABDOMEN/PELVIS: Liver, Gallbladder, Biliary Tree: The liver is normal in size, shape, and attenuation. No focal hepatic lesion or biliary ductal dilatation is present. Cholecystectomy. Pancreas: Unremarkable. Spleen: Unremarkable. Adrenal Glands: Unremarkable. Kidneys and Ureters: The kidneys are normal in size, shape, and attenuation. No hydronephrosis or hydroureter. 0.6 cm right lower pole renal calculus is 19 cm from the posterior axillary line. Bladder: Decompressed with Lozano catheter in place. Gastrointestinal Tract: The stomach is decompressed. Normal caliber small bowel. No obstruction. No colonic wall thickening or inflammatory change. The appendix is not seen. There is no pericecal inflammation to suggest acute appendicitis. Abdominal Wall: Prominent inflammatory stranding below the level of the umbilicus. Skin thickening present. Visually. No focal definite collection seen. Lymphovascular Structures: Lymph nodes: Normal. Vascular: Normal caliber aorta with mild atherosclerotic calcification. Pelvic Viscera: The uterus and adnexa are unremarkable. OSSEOUS STRUCTURES: No acute or suspicious osseous abnormality. Mild degenerative changes of the spine. CT/CT abdomen pelvis wo con IMPRESSION: 1. No acute finding in the lungs. Motion does limit the evaluation. 0.4 cm pulmonary nodules are seen. According to the UPDATED 2017 Fleischner Society recommendations, the advised follow-up imaging for solid nodules < 6 mm is: LOW RISK PATIENT: No routine follow-up. HIGH RISK PATIENT: Optional CT at 12 months. 2. Skin thickening of the lower abdomen below the level of the umbilicus with associated inflammatory stranding of the underlying fat. This could represent cellulitis. 3. Nonobstructing right lower pole renal calculus.
--- NOTE | ~2021-08-23 | US_ITS ---
EXAMINATION: US ABDOMEN LIMITED CLINICAL INFORMATION: Elevated LFTs. COMPARISON: CT same day TECHNIQUE: Real-time imaging of the right upper quadrant abdominal viscera. FINDINGS: Pancreas is not adequately visualized. No free fluid in the area. Liver is echogenic. Incompletely visualized. No obvious mass on the imaging submitted. Largely nondiagnostic study due to patient body habitus. Patient is status post cholecystectomy. No definitive visualization of the common duct. The right kidney is 12.2 cm. The roll shop supervisor outlines a few structures which may represent cysts. Again largely limited study due to patient body habitus. US/US abdomen limited IMPRESSION: This exam is extremely limited due to patient body habitus. The liver is incompletely visualized. The partially visualized liver is hyperechoic. This could be consistent with fatty change. Hepatitis cannot be excluded. No adjacent free fluid. Patient is status post cholecystectomy.
--- NOTE | 2021-08-23 00:42 | ECG_ITS ---
Test Reason : altered mental status Blood Pressure : / mmHG Vent. Rate : 104 BPM Atrial Rate : 104 BPM P-R Int : 146 ms QRS Dur : 096 ms QT Int : 340 ms P-R-T Axes : 052 -08 076 degrees QTc Int : 447 ms Sinus tachycardia with Premature atrial complexes Minimal voltage criteria for LVH, may be normal variant ( R in aVL ) Borderline ECG When compared with ECG of 06-AUG-2020 21:59, Premature atrial complexes are now Present Referred By: Yajaira Nieves Electronically Signed By:DANIELLE MAYES
--- NOTE | 2021-08-23 01:16 | ED_ITS ---
HPI - Altered Mental Status General Chief Complaint: Altered Mental Status Stated Complaint: AMS Time Seen by Provider: 08/23/21 00:41 Source: patient, EMS and compliance technician Mode of arrival: EMS History of Present Illness HPI narrative: 56-year-old female who is brought in by EMS and as per family has had altered mental status all day today they do report that she took her meds but did not eat much. Patient is noted by EMS to be a poor historian, however is speaking very clearly with me. She states that she is had chills, nausea, vomiting as well as abdominal discomfort since yesterday. Related Data Previous Rx's Medication Instructions Recorded furosemide 40 mg tablet 60 mg PO QAM 30 Days #45 tab 08/07/20 potassium chloride 10 mEq 10 meq PO DAILY 30 Days #30 tab 08/07/20 tablet,extended release(part/cryst) cyclobenzaprine 10 mg tablet 10 mg PO TID PRN #14 tab 01/13/21 diclofenac sodium 1 % topical gel 2 g TOPICAL QID #100 g 01/13/21 (Voltaren Arthritis Pain) Allergies Allergy/AdvReac Type Severity Reaction Status Date / Time No Known Allergies Allergy Verified 08/23/21 00:40 Review of Systems Review of Systems: Pertinent positives and negatives as stated in HPI 10 point review of systems is otherwise negative. [facility] Past Medical History Source: nursing notes reviewed Medical History Asthma Diabetes HTN (hypertension) Morbid obesity Family History Family History Daughter No problems noted. Daughter No problems noted. Daughter No problems noted. Daughter No problems noted. Daughter No problems noted. Son No problems noted. Social History Social History Alcohol intake: never Patient Tobacco Use Status: Never used Tobacco Use of substances other than those prescribed or required for medical reasons: No Advance Directives: No Physical Exam ED Vital Signs: Vital Signs - 24 hr 08/23/21 00:41 08/23/21 02:00 08/23/21 03:58 Temperature 99.8 F Pulse Rate 109 H 110 H 109 H Respiratory Rate 60 H 45 H 20 Blood Pressure 153/75 H 157/81 H Pulse Oximetry 95 95 94 BMI result Body Mass Index 87.6 VITAL SIGNS: Reviewed. GENERAL: Elevated BMI, chronically ill, in mild distress. HEAD: Normocephalic/atraumatic EYES: PERRLA, EOMI EARS: Ext canals without abnormality OROPHARYNX: no oral lesions noted, posterior pharynx clear LUNGS: Good inspiratory effort but tachypneic, decreased breath sounds bilaterally in the bases. SpO2<95> CARDIOVASCULAR: Regular rate and rhythm without noted murmurs, no JVD but lower extremity edema. ABDOMEN: Soft, non-tender, non-distended with bowel sounds. MUSCULOSKELETAL: No tenderness, deformities, or effusions noted on gross inspection. EXTREMITIES: No cyanosis, clubbing or edema. SKIN: Inspection of the skin reveals no rashes NEUROLOGIC: Alert and oriented x 4. Strength and sensation to light touch were grossly intact x 4. Course Course Course Narrative: 0151: 56-year-old female with history and clinical presentation suggestive of possible asthma exacerbation, CHF exacerbation, viral syndrome, intra-abdominal infection, or UTI. Patient received Xopenex for asthma as well as 80 mg of Lasix for elevated BNP and tachypnea, antibiotics for suspected infection. On review of all investigations findings consistent with abdominal wall cellulitis. Given patient's underlying comorbidities I discussed this case with the inpatient hospitalist who accepts admission. MDM - Altered Mental Status Lab Data Result diagrams: 08/23/21 01:12 08/23/21 01:12 Labs: Lab Results 08/23/21 08/23/21 08/23/21 Range/Units 01:12 01:12 01:12 WBC 15.4 H (4.8-10.8) X10*3/uL RBC 4.76 (4.20-5.50) X10*6/uL Hgb 11.4 L (12.0-16.0) g/dl Hct 38.6 (37.0-47.0) % MCV 81.1 (80.0-98.0) fL MCH 23.9 L (27.0-33.0) pg MCHC 29.5 L (31.0-35.0) g/dl RDW 15.1 (11.0-16.0) % Plt Count 142 L (160-400) X10*3/uL MPV 12.0 (9.4-12.3) fL Immature Gran % (Auto) 0.8 H (0.0-0.4) % Neut % (Auto) 91.8 H (45-73) % Lymph % (Auto) 4.0 L (20-40) % [place] % (Auto) 3.3 (2-11) % Eos % (Auto) 0.0 (0-4) % Baso % (Auto) 0.1 (0-2) % Lymph # (Auto) 0.6 L (1.2-4.9) X10*3/uL [place] # (Auto) 0.5 (0.1-1.2) X10*3/uL Eos # (Auto) 0.0 (0.0-0.4) X10*3/uL Baso # (Auto) 0.0 (0.0-0.2) X10*3/uL Abs Immat Gran (auto) 0.12 H (0.00-0.03) X10*3/uL Absolute Neuts (auto) 14.1 H (2.0-8.3) x10*3/uL Absolute Nucleated RBC 0.000 (0.0-0.012) X10*3/uL Nucleated RBC % (auto) 0.0 (0.0-0.2) /100WBC Smear Tech's Comments VERIFIED PT 15.7 H (9.9-13.0) SEC INR 1.4 H (0.9-1.1) VBG pH (7.32-7.43) VBG pCO2 mmHg VBG pO2 mmHg VBG HCO3 (22-26) mmol/L VBG O2 Saturation % VBG Base Excess mmol/L Sodium 138 (135-145) mmol/L Potassium 3.8 (3.3-5.1) mmol/L Chloride 102 (96-108) mmol/L Carbon Dioxide 26 (22-29) mmol/L Anion Gap 14 (12-20) BUN 12 (9-16) mg/dL Creatinine 0.85 (0.5-1.4) mg/dL Estim Creat Clear Calc 123.3 Estimated GFR > 60 Random Glucose 87 (60-115) mg/dL Lactic Acid (0.5-2.0) mmol/L Calcium 9.5 D (8.4-10.2) mg/dL Magnesium 1.6 (1.6-2.6) mg/dL Total Bilirubin 1.3 H (0.0-1.0) mg/dL AST 36 H D (5-31) U/L ALT 30 (0-31) U/L Alkaline Phosphatase 101 (39-117) U/L Troponin I High Sens (<3.5-17.0) ng/L B-Natriuretic Peptide (<100) pg/mL Total Protein 6.9 (6.5-8.0) g/dL Albumin 4.0 (3.5-5.0) g/dL Lipase 12 (8-78) U/L Urine Color Urine Appearance Urine pH (5.0-8.0) Ur Specific [place] (1.005-1.025) Urine Protein (NEG-TRACE) MG/DL Urine Glucose (UA) (NEG) MG/DL Urine Ketones (NEG) MG/DL Urine Blood (NEG) Urine Nitrite (NEG) Ur Leukocyte Esterase (NEG) Urine RBC (0) /HPF Urine WBC (0-4) /HPF Ur Squamous Epith Cells /LPF Urine Bacteria /LPF COVID-19 (DERICK) (Negative) COVID-19 Clin Com Influenza Type A (SUNITHA) (Negative) Influenza Type B (SUNITHA) (Negative) Influenza A & B Note 08/23/21 08/23/21 08/23/21 Range/Units 01:12 01:48 01:49 WBC (4.8-10.8) X10*3/uL RBC (4.20-5.50) X10*6/uL Hgb (12.0-16.0) g/dl Hct (37.0-47.0) % MCV (80.0-98.0) fL MCH (27.0-33.0) pg MCHC (31.0-35.0) g/dl RDW (11.0-16.0) % Plt Count (160-400) X10*3/uL MPV (9.4-12.3) fL Immature Gran % (Auto) (0.0-0.4) % Neut % (Auto) (45-73) % Lymph % (Auto) (20-40) % [place] % (Auto) (2-11) % Eos % (Auto) (0-4) % Baso % (Auto) (0-2) % Lymph # (Auto) (1.2-4.9) X10*3/uL [place] # (Auto) (0.1-1.2) X10*3/uL Eos # (Auto) (0.0-0.4) X10*3/uL Baso # (Auto) (0.0-0.2) X10*3/uL Abs Immat Gran (auto) (0.00-0.03) X10*3/uL Absolute Neuts (auto) (2.0-8.3) x10*3/uL Absolute Nucleated RBC (0.0-0.012) X10*3/uL Nucleated RBC % (auto) (0.0-0.2) /100WBC Smear Tech's Comments PT (9.9-13.0) SEC INR (0.9-1.1) VBG pH (7.32-7.43) VBG pCO2 mmHg VBG pO2 mmHg VBG HCO3 (22-26) mmol/L VBG O2 Saturation % VBG Base Excess mmol/L Sodium (135-145) mmol/L Potassium (3.3-5.1) mmol/L Chloride (96-108) mmol/L Carbon Dioxide (22-29) mmol/L Anion Gap (12-20) BUN (9-16) mg/dL Creatinine (0.5-1.4) mg/dL Estim Creat Clear Calc Estimated GFR Random Glucose (60-115) mg/dL Lactic Acid 1.8 (0.5-2.0) mmol/L Calcium (8.4-10.2) mg/dL Magnesium (1.6-2.6) mg/dL Total Bilirubin (0.0-1.0) mg/dL AST (5-31) U/L ALT (0-31) U/L Alkaline Phosphatase (39-117) U/L Troponin I High Sens 36.3 H (<3.5-17.0) ng/L B-Natriuretic Peptide 139 H (<100) pg/mL Total Protein (6.5-8.0) g/dL Albumin (3.5-5.0) g/dL Lipase (8-78) U/L Urine Color Urine Appearance Urine pH (5.0-8.0) Ur Specific [place] (1.005-1.025) Urine Protein (NEG-TRACE) MG/DL Urine Glucose (UA) (NEG) MG/DL Urine Ketones (NEG) MG/DL Urine Blood (NEG) Urine Nitrite (NEG) Ur Leukocyte Esterase (NEG) Urine RBC (0) /HPF Urine WBC (0-4) /HPF Ur Squamous Epith Cells /LPF Urine Bacteria /LPF COVID-19 (DERICK) (Negative) COVID-19 Clin Com Influenza Type A (SUNITHA) Negative (Negative) Influenza Type B (SUNITHA) Negative (Negative) Influenza A & B Note See Note 08/23/21 08/23/21 08/23/21 Range/Units 01:49 01:52 04:07 WBC (4.8-10.8) X10*3/uL RBC (4.20-5.50) X10*6/uL Hgb (12.0-16.0) g/dl Hct (37.0-47.0) % MCV (80.0-98.0) fL MCH (27.0-33.0) pg MCHC (31.0-35.0) g/dl RDW (11.0-16.0) % Plt Count (160-400) X10*3/uL MPV (9.4-12.3) fL Immature Gran % (Auto) (0.0-0.4) % Neut % (Auto) (45-73) % Lymph % (Auto) (20-40) % [place] % (Auto) (2-11) % Eos % (Auto) (0-4) % Baso % (Auto) (0-2) % Lymph # (Auto) (1.2-4.9) X10*3/uL [place] # (Auto) (0.1-1.2) X10*3/uL Eos # (Auto) (0.0-0.4) X10*3/uL Baso # (Auto) (0.0-0.2) X10*3/uL Abs Immat Gran (auto) (0.00-0.03) X10*3/uL Absolute Neuts (auto) (2.0-8.3) x10*3/uL Absolute Nucleated RBC (0.0-0.012) X10*3/uL Nucleated RBC % (auto) (0.0-0.2) /100WBC Smear Tech's Comments PT (9.9-13.0) SEC INR (0.9-1.1) VBG pH 7.38 (7.32-7.43) VBG pCO2 47 mmHg VBG pO2 46 mmHg VBG HCO3 28 H (22-26) mmol/L VBG O2 Saturation 74.0 % VBG Base Excess 2.7 mmol/L Sodium (135-145) mmol/L Potassium (3.3-5.1) mmol/L Chloride (96-108) mmol/L Carbon Dioxide (22-29) mmol/L Anion Gap (12-20) BUN (9-16) mg/dL Creatinine (0.5-1.4) mg/dL Estim Creat Clear Calc Estimated GFR Random Glucose (60-115) mg/dL Lactic Acid (0.5-2.0) mmol/L Calcium (8.4-10.2) mg/dL Magnesium (1.6-2.6) mg/dL Total Bilirubin (0.0-1.0) mg/dL AST (5-31) U/L ALT (0-31) U/L Alkaline Phosphatase (39-117) U/L Troponin I High Sens (<3.5-17.0) ng/L B-Natriuretic Peptide (<100) pg/mL Total Protein (6.5-8.0) g/dL Albumin (3.5-5.0) g/dL Lipase (8-78) U/L Urine Color YELLOW Urine Appearance CLEAR Urine pH 6.0 (5.0-8.0) Ur Specific [place] 1.010 (1.005-1.025) Urine Protein NEG (NEG-TRACE) MG/DL Urine Glucose (UA) NEG (NEG) MG/DL Urine Ketones NEG (NEG) MG/DL Urine Blood TRACE (NEG) Urine Nitrite NEG (NEG) Ur Leukocyte Esterase NEG (NEG) Urine RBC 1-4 (0) /HPF Urine WBC 1-4 (0-4) /HPF Ur Squamous Epith Cells 1+ /LPF Urine Bacteria 1+ /LPF COVID-19 (DERICK) Negative (Negative) COVID-19 Clin Com See Note Influenza Type A (SUNITHA) (Negative) Influenza Type B (SUNITHA) (Negative) Influenza A & B Note Procedures EJ/Peripheral Line Arm R: Time Out Performed: No Skin Cleansed in Sterile Fashion: Yes Size (gauge): 20 IV Secured and Dressing Applied: Yes Patient Tolerated Procedure: well Additional Comments: Ultrasound-guided Critical Care Time Critical Care Time Critical Care Time: Yes Total Critical Care Time: 30 Attestation: I personally attest to this time spent taking care of the patient. Discharge Plan Discharge Clinical Impression: Abdominal wall cellulitis, KENZIE (obstructive sleep apnea), Asthma, Morbid obesity, CHF exacerbation Patient Disposition: Admitted As Inpatient Prescriptions: No Action furosemide 40 mg tablet 60 mg PO QAM 30 Days Qty: 45 0RF potassium chloride 10 mEq tablet,ER particles/crystals 10 meq PO DAILY 30 Days Qty: 30 0RF cyclobenzaprine 10 mg tablet 10 mg PO TID PRN (Reason: muscle spasm) Qty: 14 0RF diclofenac sodium [Voltaren Arthritis Pain] 1 % gel 2 g topical QID Qty: 100 0RF Rx Instructions: apply to single elbow, wrist or hand; for hand includes palm/fingers/back of hand
[2021-08-23 01:32] LABS: Basophils Percent Auto 0.1 % (0-2); Mean Corpuscular Volume 81.1 fL (80.0-98.0); Red Cell Distribution Width 15.1 % (11.0-16.0); SCAN SMEAR FLAG 1
[2021-08-23 01:33] LABS: Hematocrit 38.6 % (37.0-47.0); Hemoglobin 11.4 g/dl (12.0-16.0); Imm Gran Abs Auto 0.12 X10*3/uL (0.00-0.03); Imm Gran Pct Auto 0.8 % (0.0-0.4); Lymphocytes Absolute Auto 0.6 X10*3/uL (1.2-4.9); MANUAL DIFF FLAG SCAN; Mean Corpuscular HGB Conc 29.5 g/dl (31.0-35.0); Mean Corpuscular Hemoglobin 23.9 pg (27.0-33.0); Monocytes Absolute Auto 0.5 X10*3/uL (0.1-1.2); Monocytes Percent Auto 3.3 % (2-11); Neutrophils Absolute Auto 14.1 x10*3/uL (2.0-8.3); Neutrophils Percent Auto 91.8 % (45-73); Red Blood Count 4.76 X10*6/uL (4.20-5.50); White Blood Count 15.4 X10*3/uL (4.8-10.8)
[2021-08-23 01:39] LABS: PLT ABN DIST 1
[2021-08-23 01:45] LABS: Alanine Aminotransferase 30 U/L (0-31); Alkaline Phosphatase 101 U/L (39-117); Anion Gap 14 (12-20); Aspartate Amino Transferase 36 U/L (5-31); Bilirubin Total 1.3 mg/dL (0.0-1.0); Blood Urea Nitrogen 12 mg/dL (9-16); Calcium 9.5 mg/dL (8.4-10.2); Carbon Dioxide 26 mmol/L (22-29); Chloride 102 mmol/L (96-108); Creatinine Clr Calc Pharmacy 123.3; Estimated Glomerular Filt Rate > 60; Glucose Random 87 mg/dL (60-115); Lipase 12 U/L (8-78); Magnesium 1.6 mg/dL (1.6-2.6); Potassium 3.8 mmol/L (3.3-5.1); Sodium 138 mmol/L (135-145); Total Protein 6.9 g/dL (6.5-8.0)
[2021-08-23 01:49] LABS: INTERNATIONAL NORM RATIO 1.4 (0.9-1.1); Prothrombin Time 15.7 SEC (9.9-13.0)
[2021-08-23 01:56] LABS: Platelet Count 142 X10*3/uL (160-400); SLIDE REVIEW VERIFIED
[2021-08-23 02:00] LABS: Venous Blood Gas Refer to POC result
[2021-08-23 02:01] LABS: VBG Base Excess 2.7 mmol/L; VBG HCO3 28 mmol/L (22-26); VBG pCO2 47 mmHg; VBG pH 7.38 (7.32-7.43); VBG pO2 46 mmHg
[2021-08-23 02:02] LABS: B Type Natriuretic Peptide 139 pg/mL (<100); Troponin-I High Sensitivity 36.3 ng/L (<3.5-17.0)
[2021-08-23 02:11] LABS: Lactic Acid 1.8 mmol/L (0.5-2.0)
[2021-08-23 02:20] LABS: COVID-19 Test Negative (Negative); IDNOW Serial# 16C4AD1C; Influenza A Negative (Negative); Influenza B2 Negative (Negative)
--- NOTE | 2021-08-23 02:36 | PC.NURSE ---
patient refused EKG 2x. nurse and charge nurse notified
[2021-08-23] MEDS: ondansetron HCL 4 MG/2 ML VIAL IVPUSH (02:50)
[2021-08-23] MEDS: Furosemide 100 MG/10 ML VIAL 80 MG IVPUSH (02:50)
[2021-08-23] MEDS: Piperacillin Sodium/Tazobactam 3.375 GM in 0.9 % Sodium Chloride 50 ML IV ×4 (02:53→23:44)
--- NOTE | 2021-08-23 02:56 | PC.NURSE ---
medicated per provider order. no new orders at this time.
[2021-08-23 04:17] LABS: Appearance Urine CLEAR; Color Urine YELLOW; Glucose Urine UA NEG (NEG); Leukocyte Esterase Urine NEG (NEG); Nitrite Urine NEG (NEG); UACC Culture Trigger NO; Urine Blood TRACE (NEG); Urine Ketones NEG (NEG); Urine Protein NEG (NEG-TRACE)
[2021-08-23 04:51] LABS: Bacteria Urine 1+ /LPF; Squamous Epithelial Cell Urine 1+ /LPF
[2021-08-23] MEDS: Albuterol Sulfate (0.083%) 2.5 MG/3 ML VIAL.NEB 10 MG INHALE (06:45)
--- NOTE | 2021-08-23 09:12 | P.HPHOSP_ITS ---
History of Present Illness Date of Service: 08/23/21 Chief Complaint: confusion This is a 56 yo F with a PMH of morbid obesity, asthma, KENZIE - on CPAP with poor compliance who is brought into the ED by EMS after she was noted to be confused by the family. The patient remains confused and is unable to provide a history. She denies any pain or trouble breathing. She denies any cough. She knows shes in a hospital but otherwise is disoriented. As such, the history is obtained from her daughter Dipti, who lives with the patient. Dipti reports that the day [employer]CRE[employer] PRINTING [employer] was when she first noticed her mother to be confused. She reports this epsidoe was short lived but it reoccurred later in the day. During the second episode, she noticed that her mother was shivering. She also reported a minor cough. Prior to these events, her mother was at her baseline self. No one else at home is sick. There are no reports of nausea/vomiting or diarrhea. Upon arrival to the ED, the patients work up revealed: WBC 15, Bnp 139, trop 36 .3 (repeat pending), T. Bili 1.3, lactate [address]8. Her CT chest was degredaged by motion, but lungs are reported to be clear. CT abdomen/pelvis showed inflammatory stranding below the region of the umbilicus (skin) and a non- obstructing stone ni the R lower kidney. She was given updrafts, IV lasix, IV z osyn and is now being admitted for further work up and treatment. Review of Systems Review of Systems: negative except HPI [facility] Medical History Asthma Diabetes HTN (hypertension) Morbid obesity Family History Daughter No problems noted. Daughter No problems noted. Daughter No problems noted. Daughter No problems noted. Daughter No problems noted. Son No problems noted. Social History Alcohol intake: never Patient Tobacco Use Status: Never used Tobacco Use of substances other than those prescribed or required for medical reasons: No Advance Directives: No Meds Allergies Allergy/AdvReac Type Severity Reaction Status Date / Time No Known Allergies Allergy Verified 08/23/21 00:40 Active Medications: Current Medications Acetaminophen (Acetaminophen 325 Mg Tablet) 650 mg PO Q6H PRN PRN Reason: Pain, Mild (Pain Scale 1-3) Enoxaparin Sodium (Enoxaparin Sodium 40 Mg/0.4 Ml Syringe) 40 mg SUBCUT Q12H [facility] Lactated Ringer's (Lr) 1,000 mls @ 100 mls/hr IVCONT .Q10H [facility] Stop: 08/24/21 05:14 Pharmacy Consult (Consult Rx Perform Med Rec) 1 each MISCELLANE ONCE PRN PRN Reason: Consult order Sodium Chloride (0.9 % Sodium Chloride Flush 3 Ml Syringe) 3 ml IVFLUSH QSHIFT [facility] Home Medications Medication Instructions Recorded Confirmed Last Taken Type albuterol sulfate 90 mcg/actuation 2 puff PO Q4-6H PRN 08/23/21 Unknown History aerosol inhaler (ProAir HFA) amlodipine 5 mg tablet 1 tab PO DAILY 08/23/21 Unknown History atenolol 100 mg tablet 1 tab PO QAM 08/23/21 Unknown History atorvastatin 80 mg tablet 1 tab PO QAM 08/23/21 Unknown History bupropion HCl 150 mg 24 hr tablet, 1 tab PO QAM 08/23/21 Unknown History extended release bupropion HCl 300 mg 24 hr tablet, 1 tab PO QPM 08/23/21 Unknown History extended release buspirone 15 mg tablet 1 tab PO 08/23/21 Unknown History cholecalciferol (vitamin D3) 50 2 cap PO QAM 08/23/21 Unknown History mcg (2,000 unit) capsule fluticasone 250 mcg-salmeterol 50 1 puff PO 08/23/21 Unknown History mcg/dose blistr powdr for inhalation (Advair Diskus) furosemide 40 mg tablet 40 mg PO BID@0900,1200 08/23/21 Unknown History hydralazine 25 mg tablet 1 tab PO 08/23/21 Unknown History hydroxyzine pamoate 50 mg capsule 2 cap PO BEDTIME 08/23/21 Unknown History lanolin alcohols-mineral 1 appl TOPICAL BID 08/23/21 Unknown History oil-w.petrolatum-ceresin topical cream (Minerin Creme) losartan 50 mg tablet 1 tab PO QPM 08/23/21 Unknown History paroxetine HCl 10 mg tablet 1 tab PO QAM 08/23/21 Unknown History paroxetine HCl 40 mg tablet 1 tab PO QAM 08/23/21 Unknown History topiramate 100 mg tablet 1 tab PO BID 08/23/21 Unknown History topiramate 200 mg tablet 1 tab PO BEDTIME 08/23/21 Unknown History Physical Exam Vital Signs and Narrative: Vital Signs: Last Vital Signs Temp 99.6 F 08/23/21 08:58 Pulse 103 H 08/23/21 08:58 Resp 14 08/23/21 08:58 BP 115/47 L 08/23/21 08:58 Pulse Ox 97 08/23/21 08:58 BMI result Body Mass Index 87.6 Const: Other: Constitutional - Awake and Alert, disoriented to situation, place, time; knows shes in the hospital, but thinks she is at [facility] - PERRLA, EOMI, very dry mucous membranes Cardiovascular - S1S2, rates in the low 100s; JVD -- unable to ascertain due to body habitus Respiratory - Mild tachypnea with exp wheezing; no accessory muscle usage Gastrointestinal - mid-line scar; no erythema below the umbilicus appreciated (as mentioned on CT imaging); non-tender with +bowel sounds - No CVA tenderness Extremities - no calf tenderness bilaterally, no swelling Musculoskeletal - Normal inspection Skin - Warm/Dry; b/l LE chronic skin changes without evidence of acute changes Neurological - Disoriented fully; able to obey basic commands such as lift R arm, L leg, etc; speech comprehensible Psychological - Appropriate affect Results Labs CBC and Chem 7: 08/23/21 01:12 08/23/21 01:12 Labs: Laboratory Results - last 24 hr 08/23/21 08/23/21 08/23/21 01:12 01:12 01:12 MCV 81.1 MCH 23.9 L MCHC 29.5 L RDW 15.1 Plt Count 142 L MPV 12.0 Immature Gran % (Auto) 0.8 H Neut % (Auto) 91.8 H Lymph % (Auto) 4.0 L Woodruff % (Auto) 3.3 Eos % (Auto) 0.0 Baso % (Auto) 0.1 Lymph # (Auto) 0.6 L Woodruff # (Auto) 0.5 Eos # (Auto) 0.0 Baso # (Auto) 0.0 Abs Immat Gran (auto) 0.12 H Absolute Neuts (auto) 14.1 H Absolute Nucleated RBC 0.000 Nucleated RBC % (auto) 0.0 Smear Tech's Comments VERIFIED PT 15.7 H INR 1.4 H VBG pH VBG pCO2 VBG pO2 VBG HCO3 VBG O2 Saturation VBG Base Excess Anion Gap 14 Estim Creat Clear Calc 123.3 Estimated GFR > 60 Random Glucose 87 Lactic Acid Calcium 9.5 D Magnesium 1.6 Total Bilirubin 1.3 H AST 36 H D ALT 30 Alkaline Phosphatase 101 Troponin I High Sens B-Natriuretic Peptide Total Protein 6.9 Albumin 4.0 Lipase 12 Urine Color Urine Appearance Urine pH Ur Specific [place] Urine Protein Urine Glucose (UA) Urine Ketones Urine Blood Urine Nitrite Ur Leukocyte Esterase Urine RBC Urine WBC Ur Squamous Epith Cells Urine Bacteria COVID-19 (DERICK) COVID-19 Clin Com Influenza Type A (SUNITHA) Influenza Type B (SUNITHA) Influenza A & B Note 08/23/21 08/23/21 08/23/21 01:12 01:48 01:49 MCV MCH MCHC RDW Plt Count MPV Immature Gran % (Auto) Neut % (Auto) Lymph % (Auto) Woodruff % (Auto) Eos % (Auto) Baso % (Auto) Lymph # (Auto) Woodruff # (Auto) Eos # (Auto) Baso # (Auto) Abs Immat Gran (auto) Absolute Neuts (auto) Absolute Nucleated RBC Nucleated RBC % (auto) Smear Tech's Comments PT INR VBG pH VBG pCO2 VBG pO2 VBG HCO3 VBG O2 Saturation VBG Base Excess Anion Gap Estim Creat Clear Calc Estimated GFR Random Glucose Lactic Acid 1.8 Calcium Magnesium Total Bilirubin AST ALT Alkaline Phosphatase Troponin I High Sens 36.3 H B-Natriuretic Peptide 139 H Total Protein Albumin Lipase Urine Color Urine Appearance Urine pH Ur Specific [place] Urine Protein Urine Glucose (UA) Urine Ketones Urine Blood Urine Nitrite Ur Leukocyte Esterase Urine RBC Urine WBC Ur Squamous Epith Cells Urine Bacteria COVID-19 (DERICK) COVID-19 Clin Com Influenza Type A (SUNITHA) Negative Influenza Type B (SUNITHA) Negative Influenza A & B Note See Note 08/23/21 08/23/21 08/23/21 01:49 01:52 04:07 MCV MCH MCHC RDW Plt Count MPV Immature Gran % (Auto) Neut % (Auto) Lymph % (Auto) Woodruff % (Auto) Eos % (Auto) Baso % (Auto) Lymph # (Auto) Woodruff # (Auto) Eos # (Auto) Baso # (Auto) Abs Immat Gran (auto) Absolute Neuts (auto) Absolute Nucleated RBC Nucleated RBC % (auto) Smear Tech's Comments PT INR VBG pH 7.38 VBG pCO2 47 VBG pO2 46 VBG HCO3 28 H VBG O2 Saturation 74.0 VBG Base Excess 2.7 Anion Gap Estim Creat Clear Calc Estimated GFR Random Glucose Lactic Acid Calcium Magnesium Total Bilirubin AST ALT Alkaline Phosphatase Troponin I High Sens B-Natriuretic Peptide Total Protein Albumin Lipase Urine Color YELLOW Urine Appearance CLEAR Urine pH 6.0 Ur Specific [place] 1.010 Urine Protein NEG Urine Glucose (UA) NEG Urine Ketones NEG Urine Blood TRACE Urine Nitrite NEG Ur Leukocyte Esterase NEG Urine RBC 1-4 Urine WBC 1-4 Ur Squamous Epith Cells 1+ Urine Bacteria 1+ COVID-19 (DERICK) Negative COVID-19 Clin Com See Note Influenza Type A (SUNITHA) Influenza Type B (SUNITHA) Influenza A & B Note Imaging Radiologist's Impressions: Impressions Abdomen/Pelvis CT 08/23/21 05:20 IMPRESSION: 1. No acute finding in the lungs. Motion does limit the evaluation. 0.4 cm pulmonary nodules are seen. According to the UPDATED 2017 Fleischner Society recommendations, the advised follow-up imaging for solid nodules < 6 mm is: LOW RISK PATIENT: No routine follow-up. HIGH RISK PATIENT: Optional CT at 12 months. 2. Skin thickening of the lower abdomen below the level of the umbilicus with associated inflammatory stranding of the underlying fat. This could represent cellulitis. 3. Nonobstructing right lower pole renal calculus. Chest CT 08/23/21 05:20 IMPRESSION: 1. No acute finding in the lungs. Motion does limit the evaluation. 0.4 cm pulmonary nodules are seen. According to the UPDATED 2017 Fleischner Society recommendations, the advised follow-up imaging for solid nodules < 6 mm is: LOW RISK PATIENT: No routine follow-up. HIGH RISK PATIENT: Optional CT at 12 months. 2. Skin thickening of the lower abdomen below the level of the umbilicus with associated inflammatory stranding of the underlying fat. This could represent cellulitis. 3. Nonobstructing right lower pole renal calculus. Assessment and Plan (1) Toxic metabolic encephalopathy: Status: Acute Plan This is a morbidly obese 56 yo F with a PMH of asthma, KENZIE on CPAP with intermittent compliance, ? mood disorder, who presents to the hospital with a 1 day history of sudden onset confusion, which was initially waxing and waning, but is now persistent. She was found to have wheezing in the ED but otherwise no definitive source of an infectious etiology has been identified. She will now be admitted for further work up and treatment. 1. Acute Encephalopathy -- suspected Toxic/Metabolic due to infectious etiology Patient at baseline has normal orientation; Currently she is fully disoriented. Exam is non-focal, but nonetheless will start with CT head; VBG does not show significant CO2 retention; Will check ammonia levels. 2. SIRS Tachycardia/tachypnea and leukocytosis; no confirmed source will start empiric zosyn + doxy follow culture data 3. Asthma exacerbation updrafts + IV steroids 4. Hyperbilirubinemia mild abd ultrasound to eval for stones 5. Elevated BNP/HS trop-I does not appear to be in CHF clinically repeat trop now last echo from Nov 2020 showed preserved EF with impaired relaxation 6. KENZIE CPAP at night 7. Morbid obesity would benefit from outpatient weight management / bariatric referral Full Code DVT pptx -- Lovenox BID Med Rec pending -- start home meds as appropriate once completed Quality Stroke Does the patient have a stroke diagnosis?: No VTE Prior VTE?: No VTE Risk Level:: Medical - moderate - high VTE Device Contraindication: Treatment Not Indicated VTE Drug Contraindication: N/A - Med Ordered
[2021-08-23 09:29] LABS: Ammonia 48 umol/L (13-55)
[2021-08-23] MEDS: methylPREDNISolone Sod Succ 125 MG/2 ML VIAL 60 MG IVPUSH ×2 (11:24→23:44)
[2021-08-23] MEDS: Enoxaparin Sodium 40 MG/0.4 ML SYRINGE SUBCUT ×2 (11:25→23:47)
[2021-08-23] MEDS: Doxycycline Hyclate 100 MG in 0.9 % Sodium Chloride 250 ML 166.67 MG IV (12:35)
[2021-08-23] MEDS: Ipratropium Bromide 0.5 MG/2.5 ML SOLUTION INHALE ×2 (12:40→16:18)
[2021-08-23 13:17] LABS: VBG Base Excess 0.4 mmol/L; VBG HCO3 25 mmol/L (22-26); VBG pCO2 41 mmHg; VBG pH 7.39 (7.32-7.43); VBG pO2 57 mmHg
[2021-08-23 13:18] LABS: Venous Blood Gas Refer to POC result
--- NOTE | 2021-08-23 13:25 | PHA.MEDREC ---
Pharmacy Consult ? Medication Reconciliation Pharmacy has completed the medication reconciliation. med rec obtained from pharmacy and pt's daughter
[2021-08-23 13:42] LABS: Troponin-I High Sensitivity 92.1 ng/L (<3.5-17.0)
--- NOTE | 2021-08-23 13:50 | PC.NURSE ---
Dr. Mancia and respiratory therapy made aware of patients respirations being high
[2021-08-23] MEDS: 0.9 % Sodium Chloride Flush 3 ML SYRINGE IVFLUSH (17:20)
--- NOTE | 2021-08-23 19:01 | MHC.CM.PN ---
Pt unable to answer CM questions due to confusion and AMS. CM called primary contact/daughter Dipti Hutchinson ([phone]) to conduct interview. sheet metal shop supervisor used as pt is Russian speaking only.Dipti tells CM that her mother is normally A&Ox4. She lives with her daughters, uses a walker and CPAP, and had a position Bed that broke secondary to pt weight. Pt is 447.7 lbs, with a BMI of 87.6. Dipti tells CM pt can walk with assistance. Pt sleeps on the sofa, as she cannot lie flat in a bed. Dipti is her HEDGE FUND MANAGER, 23.5 hours/week. Pt only received J&J vaccination and no booster. PCP is Adriel Bautista at [facility]. Dipti does not believe her mother has a HCP and there is not a HCP on file. Pt is confused, so HCP cannot be addressed tonight. D/C plan pending hospital course. ?VNA vs STR. Daughter will provide transportation home. CM to follow for D/C needs. Will need to interview pt when more alert.
[2021-08-23] MEDS: Losartan Potassium 50 MG TABLET PO (23:35)
[2021-08-23] MEDS: hydrALAZINE HCl 25 MG TABLET PO (23:35)
[2021-08-24] VITALS (10 sets, daily range): BP systolic 120–150; BP diastolic 54–69; PULSE 68–94; RESP 17–26; TEMP 36.1–37.2; O2SAT 92–98; BMI 85.9
[2021-08-24] MEDS: Doxycycline Hyclate 100 MG in 0.9 % Sodium Chloride 250 ML 166.7 MG IV (00:14)
--- NOTE | 2021-08-24 01:43 | PM.EVENT ---
Event Note Date of Service: 08/24/21 Event Note: Block culture from 08/23--Gram positive cocci, 05/10, starting Vanco and DC doxy
[2021-08-24] MEDS: Piperacillin Sodium/Tazobactam 3.375 GM in 0.9 % Sodium Chloride 50 ML IV ×2 (06:00→11:19)
[2021-08-24 06:40] LABS: Hematocrit 35.4 % (37.0-47.0); Hemoglobin 10.5 g/dl (12.0-16.0); Mean Corpuscular HGB Conc 29.7 g/dl (31.0-35.0); Mean Corpuscular Hemoglobin 24.2 pg (27.0-33.0); Mean Corpuscular Volume 81.8 fL (80.0-98.0); Mean Platelet Volume 13.7 fL (9.4-12.3); Platelet Count 136 X10*3/uL (160-400); Red Blood Count 4.33 X10*6/uL (4.20-5.50); Red Cell Distribution Width 15.3 % (11.0-16.0); White Blood Count 13.7 X10*3/uL (4.8-10.8)
--- NOTE | 2021-08-24 07:00 | CA_ITS ---
Transthoracic Echocardiogram Patient (Last, First, Middle): Kaelyn Samuel, Gender: Female Date of : 1965 Age: 56 Procedure Date: 08/24/2021 Procedure Type: Transthoracic Echocardiogram Location: S3E Height: 152.4 cm Weight: 203.21 kg BSA: 2.63 m2 Heart Rate: bpm BP: 115 / 47 mmHg Pediatric Dietician: TO/YR Referring MD: Tank Mancia MD Symptoms: elevated troponin; Study Quality: Technically Difficult/contrast ECG Rhythm: Sinus Conclusions: - The left ventricular systolic function is normal. The visually estimated ejection fraction is between 60-65%. - No obvious valvular pathology seen on this study. Findings Procedure Information Contrast agent, definity, is being given per protocol without apparent complications. Left Ventricle Normal left ventricular cavity size. There is mildly increased left ventricular wall thickness. The left ventricular systolic function is normal. The visually estimated ejection fraction is between 60-65%. There is no evidence of regional wall motion abnormalities. Diastolic function is normal for age. Right Ventricle Normal right ventricular cavity size and systolic function. Atria The left atrium is normal in size. The right atrium is normal in size. Aortic Valve There is a normal trileaflet aortic valve. There is no aortic valve stenosis. There is no aortic valve regurgitation. Mitral Valve The mitral valve appears normal. There is no mitral valve regurgitation. There is no mitral valve stenosis. Pulmonic Valve The pulmonic valve was not well visualized. Tricuspid Valve The tricuspid valve was not well visualized. There is trace tricuspid valve regurgitation. Tricuspid regurgitation envelope is inadequate for calculation of right ventricular systolic pressure. Great Vessels The sinuses of valsalva and asc aorta are normal in size. Small plaque is seen in the sino tubular ridge. Venous The inferior vena cava was not well visualized. Pericardium/Pleural There is no evidence of pericardial effusion. Prior Study Comparison No significant change compared to prior study dated: 11/30/2020. Recommendations, Care & Conclusions No obvious valvular pathology seen on this study. Measurements 2D Linear Measurements IVSd: 1.56 0.6-0.9/0.6-1.0 cm LVIDd: 4.95 3.9-5.3/4.2-5.9 cm LVIDd Index: 1.88 2.4-3.2/2.2-3.1 cm/m2 LVIDs: 3.01 2.0-3.6 cm LVPWd: 1.16 0.7-1.1 cm LA Diam: 3.50 2.7-3.8/3.0-4.0 cm LAIDs Index: 1.33 1.5-2.3 cm/m2 LV Mass: 343.13 67-162/88-224 g LV Mass Index: 130.47 43-95/49-115 g/m2 LVOT Diam: 2.30 3.0+(-)1.3 cm Mitral Valve MV Pk E: 0.82 MV PK A: 0.63 MV Decel Time: 182.00 E/A: 1.30 E'Lateral: 9.46 E'Medial: 7.40 E/E' Med: 11.10 E/E' Lat: 8.60 PHT: 53.00 MVA PHT: 4.15 Decel Inyo: 4.49 Aortic Valve AoV Pk Jayden: 1.45 AoV Mn Jayden: 1.02 AoV VTI: 0.29 AoV Pk Grad: 8.00 Aov Mn Grad: 5.00 SANTI Cont.VTI: 2.28 LVOT LVOT Pk Jayden: 0.85 LVOT Mn Jayden: 0.63 LVOT VTI: 0.16 LVOT Pk Grad: 3.00 LVOT Mn Grad: 2.00 LVOT Diam: 2.30 LVOT Area: 4.15 Diastolic Function MV Pk E: 0.82 MV Pk A: 0.63 E/A: 1.30 E'Medial: 7.40 E/E' Med: 11.10 E' Laterial: 9.46 E/E' Lat: 8.60 Right Ventricle TAPSE (mm): 19.40 TVS' Jayden: 11.60 Great Vessels Aorta Sinus of Valsalva: 3.54 2.0-3.[address] Ridge: 2.38 1.7-3.4 cm Ao Asc: 3.50 2.1-3.4 cm Updated in Other Vendor System with Status of Final Roby Chu MD electronically signed on 08/24/2021 4:57:21 PM with status of Final
[2021-08-24 07:04] LABS: Anion Gap 12 (12-20); Blood Urea Nitrogen 15 mg/dL (9-16); Carbon Dioxide 30 mmol/L (22-29); Chloride 103 mmol/L (96-108); Creatinine Clr Calc Pharmacy 139.6; Estimated Glomerular Filt Rate > 60; Glucose Random 191 mg/dL (60-115); Potassium 3.8 mmol/L (3.3-5.1); Sodium 141 mmol/L (135-145)
--- NOTE | 2021-08-24 07:51 | PHA.PROG ---
Admission Date/Time: August 23, 2021 09:08 Indication: BACTEREMIA Weight in k.6 kg Adjusted body weight in K.9 Rapidan body weight in K.5 Obesity Dosing Indication % IBW:337% OVER IBW Serum Creatinine - Last 168 Hours 08/23/21 08/24/21 01:12 05:24 Creatinine 0.85 0.77 Estimated CrCl and GFR - Last 168 Hours 08/23/21 08/24/21 01:12 05:24 Estim Creat Clear Calc 123.3 139.6 Estimated GFR > 60 > 60 Vancomycin Loading Dose: 2000 Current Vancomycin Dosing Regimen:1000 MG Q 12 HOURS Vancomycin Monitoring using AUC goal of 400 - 600 range with trough as surrogate marker: Date and Time for next Vancomycin Level to be drawn: Pharmacist Comments on Vancomycin Plan:PREDICTED AUC OF 445, WILL CHECK LEVEL 08/25/21 AT 1300 Vancomycin dosing will take advantage of [employer] as a clinical decision support tool that uses Bayesian modeling to calculate individual patient's pharmacokinetic parameters and forecast the patient's drug concentration time course with the target goal AUC 24 range of 400 - 600 mg/L/hr.
[2021-08-24] MEDS: Ipratropium Bromide 0.5 MG/2.5 ML SOLUTION INHALE ×3 (08:32→15:27)
[2021-08-24 09:19] LABS: Thyroid Stimulating Hormone 1.08 uIU/mL (0.32-4.0)
[2021-08-24 10:00] LABS: Cortisol Random 5.3 ug/dL
[2021-08-24] MEDS: Atorvastatin Calcium 80 MG TABLET PO (11:20)
[2021-08-24] MEDS: Cholecalciferol (Vitamin D3) 25 MCG TABLET 100 MCG PO (11:20)
[2021-08-24] MEDS: atenoloL 100 MG TABLET PO (11:20)
[2021-08-24] MEDS: Enoxaparin Sodium 40 MG/0.4 ML SYRINGE SUBCUT ×2 (11:20→21:44)
[2021-08-24] MEDS: methylPREDNISolone Sod Succ 125 MG/2 ML VIAL 60 MG IVPUSH ×2 (11:20→20:45)
[2021-08-24] MEDS: 0.9 % Sodium Chloride Flush 3 ML SYRINGE IVFLUSH ×2 (11:21→15:48)
[2021-08-24] MEDS: hydrALAZINE HCl 25 MG TABLET PO ×2 (11:21→20:46)
--- NOTE | 2021-08-24 11:46 | HO.PM.IMPN ---
Subjective Subjective Date of Service: 08/24/21 Interval History: the patient was seen and evaluated this morning Laying in bed, feels comfortable with improvement in mental status Denies any fever, chills or skin changes Having positive blood cultures No reported other overnight events. Systemic review: No fever, chills or weakness No chest pain, palpitation No shortness of breath or coughing No abdominal pain, nausea or vomiting No urinary symptoms denying any new rash or wounds Physical Exam Vital Signs: Vital Signs: Last Vital Signs Temp 98.9 F 08/24/21 11:24 Pulse 85 08/24/21 11:29 Resp 19 08/24/21 11:29 BP 137/67 08/24/21 11:24 Pulse Ox 95 08/24/21 11:24 BMI result Body Mass Index 85.9 Const: Other: Constitutional : Alert, interactive, morbidly obese,not in distress Neck : Normal inspection, Supple Cardiovascular : RRR, no JVP, no lower extremity edema Respiratory : decreased bilateral air entry, no crackles, wheezes or rhonchi Gastrointestinal: soft, lax, Normal bowel sounds, Non tender Skin : Warm, Dry, chronic skin changes in lower extremities but no open wounds or cellulitis, could not evaluate the back properly Neurological : Alert & oriented x3, No focal deficit , CN 2-12 within normal Objective Data Active Medications Acetaminophen (Acetaminophen 325 Mg Tablet) 650 mg PO Q6H PRN PRN Reason: Pain, Mild (Pain Scale 1-3) Amlodipine Besylate (Amlodipine Besylate 5 Mg Tablet) 5 mg PO DAILY@1200 [facility]; Protocol Atenolol (Atenolol 100 Mg Tablet) 100 mg PO DAILY [facility]; Protocol Last Admin: 08/24/21 11:20 Dose: 100 mg Documented by: ASHLEIGH Atorvastatin Calcium (Atorvastatin Calcium 80 Mg Tablet) 80 mg PO DAILY [facility] Last Admin: 08/24/21 11:20 Dose: 80 mg Documented by: ASHLEIGH Enoxaparin Sodium (Enoxaparin Sodium 40 Mg/0.4 Ml Syringe) 40 mg SUBCUT Q12H [facility] Last Admin: 08/24/21 11:20 Dose: 40 mg Documented by: ASHLEIGH Hydralazine HCl (Hydralazine Hcl 25 Mg Tablet) 25 mg PO BID [facility]; Protocol Last Admin: 08/24/21 11:21 Dose: 25 mg Documented by: ASHLEIGH Piperacillin Sod/Tazobactam (Sod 3.375 gm/ Sodium Chloride) 50 mls @ 100 mls/hr IV Q6H [facility] Last Admin: 08/24/21 11:19 Dose: 100 mls/hr Documented by: ASHLEIGH Vancomycin HCl 1,000 mg/ (Sodium Chloride) 270 mls @ 270 mls/hr IV Q12H [facility] Ipratropium Palmer (Ipratropium [place] 0.5 Mg/2.5 Ml Solution) 0.5 mg INHALE RQ4H WHILE AWAKE [facility] Last Admin: 08/24/21 11:11 Dose: 0.5 mg Documented by: COY Levalbuterol HCl (Levalbuterol Hcl 1.25 Mg/0.5 Ml Vial.Neb) 1.25 mg INHALE RQ4H WHILE AWAKE [facility] Last Admin: 08/24/21 11:11 Dose: 1.25 mg Documented by: COY Lidocaine (Lidocaine 4 % Patch Adh..Patch) 2 patch TRANSDERMA DAILY [facility]; Protocol Losartan Potassium (Losartan Potassium 50 Mg Tablet) 50 mg PO BEDTIME [facility]; Protocol Last Admin: 08/23/21 23:35 Dose: 50 mg Documented by: SUGEY Methylprednisolone Sodium Succinate (Methylprednisolone Sod Succ 125 Mg/2 Ml Vial) 60 mg IVPUSH BID [facility] Last Admin: 08/24/21 11:20 Dose: 60 mg Documented by: ASHLEIGH Pharmacy Consult (Consult Rx Perform Med Rec) 1 each MISCELLANE ONCE PRN PRN Reason: Consult order Pharmacy Consult (Consult Rx Vancomycin Dosing) 1 each MISCELLANE DAILY PRN PRN Reason: Consult order Sodium Chloride (0.9 % Sodium Chloride Flush 3 Ml Syringe) 3 ml IVFLUSH QSHIFT [facility] Last Admin: 08/24/21 11:21 Dose: 3 ml Documented by: ASHLEIGH Vitamin D (Cholecalciferol (Vitamin D3) 25 Mcg Tablet) 100 mcg PO DAILY [facility] Last Admin: 08/24/21 11:20 Dose: 100 mcg Documented by: ASHLEIGH Labs CBC & Chem 7: 08/24/21 05:24 08/24/21 05:24 Labs: Laboratory Results - last 24 hr 08/23/21 08/23/21 08/24/21 13:04 13:06 05:24 MCV 81.8 MCH 24.2 L MCHC 29.7 L RDW 15.3 Plt Count 136 L MPV 13.7 H Absolute Nucleated RBC 0.000 Nucleated RBC % (auto) 0.0 VBG pH 7.39 VBG pCO2 41 VBG pO2 57 VBG HCO3 25 VBG O2 Saturation 85.0 VBG Base Excess 0.4 Anion Gap Estim Creat Clear Calc Estimated GFR Random Glucose Calcium Troponin I High Sens 92.1 H* TSH Random Cortisol 08/24/21 08/24/21 05:24 05:24 MCV MCH MCHC RDW Plt Count MPV Absolute Nucleated RBC Nucleated RBC % (auto) VBG pH VBG pCO2 VBG pO2 VBG HCO3 VBG O2 Saturation VBG Base Excess Anion Gap 12 Estim Creat Clear Calc 139.6 Estimated GFR > 60 Random Glucose 191 H Calcium 9.0 Troponin I High Sens TSH 1.08 Random Cortisol 5.3 Microbiology Microbiology Results: Microbiology 08/23/21 01:12 Blood Culture - Preliminary Blood - Venous Strep agalactiae (Grp B) 08/23/21 01:48 Blood Culture - Preliminary Blood - Venous Prelim: GPC Gram Stain only Assessment and Plan (1) Toxic metabolic encephalopathy: Status: Acute (2) Bacteremia: Status: Acute Plan This is a morbidly obese 56 yo F with a PMH of asthma, KENZIE on CPAP with intermittent compliance, ? mood disorder, who presents to the hospital with a 1 day history of sudden onset confusion, which was initially waxing and waning, but is now persistent. She was found to have wheezing in the ED but otherwise no definitive source of an infectious etiology has been identified. She will now be admitted for further work up and treatment. Acute toxic Encephalopathy due to infectious etiology Resolving, to monitor Gram-positive bacteremia pending final cultures, 1 bottle growing GBS Continue vancomycin Zosyn follow culture data pending ID evaluation Asthma exacerbation updrafts + IV steroids Hyperbilirubinemia mild abd ultrasound Unable to report given body habitus Elevated BNP/HS trop-I does not appear to be in CHF clinically repeated drop went below last echo from Nov 2020 showed preserved EF with impaired relaxation KENZIE CPAP at night Morbid obesity would benefit from outpatient weight management / bariatric referral Full Code DVT pptx -- Lovenox BID the patient will continue to need overnight hospital stay and the blood cultures finalized while on IV antibiotic to prevent any decompensation for severe sepsis. Quality Stroke Does the patient have a stroke diagnosis?: No VTE Prior VTE?: No VTE Risk Level:: Medical - moderate - high VTE Device Contraindication: Treatment Not Indicated VTE Drug Contraindication: N/A - Med Ordered
--- NOTE | 2021-08-24 12:43 | P.CDIC_ITS ---
CDI Concurrent Query Documentation Clarification: PHYSICIAN'S DOCUMENTATION REQUEST Date of Query: 08/24/21 1243 Patient Name: Kaelyn Samuel Admit Date: 08/23/21 Dear Doctor, Please review the following and provide your response in the progress notes. Clinical Indicators: The diagnosis of asthma was documented in the record on [enter date]. Additional clinical indicators from the record include: Risk Factors/Clinical Indicators/Treatments H&P: 08/23 - Assessment/plan: Asthma exacerbation Updrafts and IV Steroids. Based on the above, please clarify in the Progress Notes further specificity regarding the type and acuity of the asthma: Type: * Mild intermittent - less than 2x/week * Mild persistent - more than 2x/week but not daily * Moderate persistent - daily and may restrict physical activity * Severe persistent - throughout the day with frequent attacks, limiting activities * Other ? please specify * Unable to determine Acuity: * With acute exacerbation * With status asthmaticus * Uncomplicated * Unable to determine Use of terms such as suspected, likely, concern for, or probable (associated with a specific diagnosis that is being evaluated, monitored, or treated as if it exists) are acceptable and can be coded in the inpatient setting, when documented at the time of discharge. Thank you, Kenya Oreilly [facility], CDIS Extension: [phone] Please use your independent medical judgment in providing your response. THIS QUERY IS PART OF THE PERMANENT MEDICAL RECORD Provider Response: Other Other Diagnosis: mild intermittent asthma , stable disease
[2021-08-24] MEDS: Acetaminophen 325 MG TABLET 650 MG PO ×2 (15:47→21:44)
[2021-08-24] MEDS: amLODIPine Besylate 5 MG TABLET PO (15:48)
[2021-08-24] MEDS: cefTRIAXone sodium 2 GM in 0.9 % Sodium Chloride 50 ML IV (15:48)
[2021-08-24] MEDS: Lidocaine 4 % Patch ADH..PATCH 2 PATCH TRANSDERMA (16:16)
[2021-08-24] MEDS: Losartan Potassium 50 MG TABLET PO (20:46)
[2021-08-24] MEDS: ondansetron HCL 4 MG/2 ML VIAL IVPUSH (21:44)
--- NOTE | 2021-08-24 22:40 | W.PM.IDCN ---
History of Present Illness Data of Consult Service Date: 08/24/21 Requesting physician: hTuan Mcgraw Primary Care Provider: Unknown Physician HPI Reason for consult: encephalopathy,bacteremia She presents with confusion brought in by family. She has bacteremia,Group B strep. She has abdominal wall redness and discomfort in pannus area. Review of Systems Review of Systems: Yes all other systems are reviewed and are negative [facility] Past Medical History Medical History Asthma Diabetes HTN (hypertension) Morbid obesity Family History Family History Daughter No problems noted. Daughter No problems noted. Daughter No problems noted. Daughter No problems noted. Daughter No problems noted. Son No problems noted. Family history: reviewed and not pertinent Social History Social History Household Members: Children Housing: Apartment Alcohol intake: never Patient Tobacco Use Status: Never used Tobacco service: No Current occupational status: unemployed Meds Allergies Allergy/AdvReac Type Severity Reaction Status Date / Time No Known Allergies Allergy Verified 08/23/21 00:40 Active Medications: Current Medications Acetaminophen (Acetaminophen 325 Mg Tablet) 650 mg PO Q6H PRN PRN Reason: Pain, Mild (Pain Scale 1-3) Last Admin: 08/24/21 21:44 Dose: 650 mg Documented by: Amlodipine Besylate (Amlodipine Besylate 5 Mg Tablet) 5 mg PO DAILY@1200 [facility]; Protocol Last Admin: 08/24/21 15:48 Dose: 5 mg Documented by: Atenolol (Atenolol 100 Mg Tablet) 100 mg PO DAILY [facility]; Protocol Last Admin: 08/24/21 11:20 Dose: 100 mg Documented by: Atorvastatin Calcium (Atorvastatin Calcium 80 Mg Tablet) 80 mg PO DAILY [facility] Last Admin: 08/24/21 11:20 Dose: 80 mg Documented by: Enoxaparin Sodium (Enoxaparin Sodium 40 Mg/0.4 Ml Syringe) 40 mg SUBCUT Q12H [facility] Last Admin: 08/24/21 21:44 Dose: 40 mg Documented by: Hydralazine HCl (Hydralazine Hcl 25 Mg Tablet) 25 mg PO BID [facility]; Protocol Last Admin: 08/24/21 20:46 Dose: 25 mg Documented by: Ceftriaxone Sodium 2 gm/ (Sodium Chloride) 50 mls @ 100 mls/hr IV Q24H [facility] Last Infusion: 08/24/21 16:24 Dose: Infused Documented by: Ipratropium [place] (Ipratropium [place] 0.5 Mg/2.5 Ml Solution) 0.5 mg INHALE RQ4H WHILE AWAKE [facility] Last Admin: 08/24/21 19:55 Dose: Not Given Documented by: Levalbuterol HCl (Levalbuterol Hcl 1.25 Mg/0.5 Ml Vial.Neb) 1.25 mg INHALE RQ4H WHILE AWAKE [facility] Last Admin: 08/24/21 19:55 Dose: Not Given Documented by: Lidocaine (Lidocaine 4 % Patch Adh..Patch) 2 patch TRANSDERMA DAILY [facility]; Protocol Last Admin: 08/24/21 16:16 Dose: 2 patch Documented by: Losartan Potassium (Losartan Potassium 50 Mg Tablet) 50 mg PO BEDTIME [facility]; Protocol Last Admin: 08/24/21 20:46 Dose: 50 mg Documented by: Melatonin (Melatonin 3 Mg Tablet) 6 mg PO BEDTIME PRN PRN Reason: Sleep Methylprednisolone Sodium Succinate (Methylprednisolone Sod Succ 125 Mg/2 Ml Vial) 60 mg IVPUSH BID [facility] Last Admin: 08/24/21 20:45 Dose: 60 mg Documented by: Ondansetron HCl (Ondansetron Hcl 4 Mg/2 Ml Vial) 4 mg IVPUSH Q8H PRN PRN Reason: Nausea and Vomiting Last Admin: 08/24/21 21:44 Dose: 4 mg Documented by: Pharmacy Consult (Consult Rx Perform Med Rec) 1 each MISCELLANE ONCE PRN PRN Reason: Consult order Pharmacy Consult (Consult Rx Vancomycin Dosing) 1 each MISCELLANE DAILY PRN PRN Reason: Consult order Sodium Chloride (0.9 % Sodium Chloride Flush 3 Ml Syringe) 3 ml IVFLUSH QSHIFT [facility] Last Admin: 08/24/21 15:48 Dose: 3 ml Documented by: Vitamin D (Cholecalciferol (Vitamin D3) 25 Mcg Tablet) 100 mcg PO DAILY [facility] Last Admin: 08/24/21 11:20 Dose: 100 mcg Documented by: Home Medications Medication Instructions Recorded Confirmed Last Taken Type albuterol sulfate 0.63 mg/3 mL 1 amp INHALATION Q4-6H PRN 08/23/21 08/23/21 Unknown History solution for nebulization albuterol sulfate 90 mcg/actuation 2 puff PO Q4-6H PRN 08/23/21 08/23/21 Unknown History aerosol inhaler (ProAir HFA) amlodipine 5 mg tablet 1 tab PO DAILY@1200 08/23/21 08/23/21 08/22/21 History atenolol 100 mg tablet 1 tab PO DAILY 08/23/21 08/23/21 08/23/21 History atorvastatin 80 mg tablet 1 tab PO QAM 08/23/21 08/23/21 08/22/21 History budesonide-formoterol HFA 160 2 puff INHALATION BID 08/23/21 08/23/21 08/23/21 History mcg-4.5 mcg/actuation aerosol inhaler (Symbicort) bupropion HCl 150 mg 24 hr tablet, 1 tab PO QAM 08/23/21 08/23/21 08/23/21 History extended release bupropion HCl 300 mg 24 hr tablet, 1 tab PO QPM 08/23/21 08/23/21 08/22/21 History extended release buspirone 15 mg tablet 1 tab PO BID 08/23/21 08/23/21 08/23/21 History cholecalciferol (vitamin D3) 50 2 cap PO DAILY 08/23/21 08/23/21 08/23/21 History mcg (2,000 unit) capsule furosemide 40 mg tablet 40 mg PO BID@0900,1200 08/23/21 08/23/21 08/23/21 History hydralazine 25 mg tablet 1 tab PO BID 08/23/21 08/23/21 08/23/21 History hydroxyzine pamoate 50 mg capsule 2 cap PO BEDTIME 08/23/21 08/23/21 08/22/21 History lanolin alcohols-mineral 1 appl TOPICAL BID 08/23/21 08/23/21 Unknown History oil-w.petrolatum-ceresin topical cream (Minerin Creme) losartan 50 mg tablet 1 tab PO QPM 08/23/21 08/23/21 08/22/21 History paroxetine HCl 10 mg tablet 1 tab PO DAILY 08/23/21 08/23/21 08/23/21 History paroxetine HCl 40 mg tablet 1 tab PO DAILY 08/23/21 08/23/21 08/23/21 History topiramate 100 mg tablet 1 tab PO BID@0900,1800 08/23/21 08/23/21 08/23/21 History topiramate 200 mg tablet 1 tab PO BEDTIME 08/23/21 08/23/21 08/22/21 History Physical Exam Vital Signs: Vital Signs: Last Vital Signs Temp 96.9 F 08/24/21 20:00 Pulse 70 08/24/21 20:00 Resp 18 08/24/21 20:00 BP 131/69 08/24/21 20:00 Pulse Ox 92 08/24/21 20:00 BMI result Body Mass Index 85.9 Const: General: cooperative Eyes: General: appearance normal, both eyes and all related structures Resp: Effort & Inspection: normal respiratory effort Cardio: Rate: regular rate Rhythm: regular rhythm GI: Palpation (GI): Soft to palpation and nontender Skin: Other: discomfort and erythema pannus area Results Labs CBC & Chem 7: 08/24/21 05:24 08/24/21 05:24 Labs: Short CBC 08/24/21 Range/Units 05:24 WBC 13.7 H (4.8-10.8) X10*3/uL Hgb 10.5 L (12.0-16.0) g/dl Hct 35.4 L (37.0-47.0) % Plt Count 136 L (160-400) X10*3/uL BMP 08/24/21 05:24 Sodium 141 Potassium 3.8 Chloride 103 Carbon Dioxide 30 H BUN 15 Creatinine 0.77 Calcium 9.0 Microbiology Microbiology Results: Microbiology 08/23/21 01:12 Blood - Venous Blood Culture - Preliminary Strep agalactiae (Grp B) 08/23/21 01:48 Blood - Venous Blood Culture - Preliminary Prelim: GPC Gram Stain only Assessment and Plan (1) Bacteremia: Status: Acute Group B strep is likely due to abdominal wall cellulitis. She is at risk due to BMI This likely caused encephalopathy. (2) Toxic metabolic encephalopathy: Status: Acute Plan Would stop Vancomycin and Zosyn. Ceftriaxone cover bacteremia. Check echo due to encephalopathy as wel If no endocarditis finish with po Ceftin 500 mg po bid for 14 d
[2021-08-25] VITALS (7 sets, daily range): BP systolic 118–139; BP diastolic 56–68; PULSE 62–72; RESP 15–20; TEMP 36–36.9; O2SAT 91–96
[2021-08-25] MEDS: 0.9 % Sodium Chloride Flush 3 ML SYRINGE IVFLUSH ×2 (00:02→09:20)
[2021-08-25] MEDS: Acetaminophen 325 MG TABLET 650 MG PO ×2 (02:59→11:47)
[2021-08-25 05:43] LABS: Hemoglobin 10.3 g/dl (12.0-16.0); PLT ABN DIST 1; PLT CLUMP 1
[2021-08-25 05:45] LABS: Hematocrit 34.6 % (37.0-47.0); Mean Corpuscular HGB Conc 29.8 g/dl (31.0-35.0); Mean Corpuscular Hemoglobin 24.3 pg (27.0-33.0); Mean Corpuscular Volume 81.6 fL (80.0-98.0); Red Blood Count 4.24 X10*6/uL (4.20-5.50); Red Cell Distribution Width 15.6 % (11.0-16.0)
[2021-08-25 05:49] LABS: Platelet Count 153 X10*3/uL (160-400); White Blood Count 12.8 X10*3/uL (4.8-10.8)
[2021-08-25 06:02] LABS: Anion Gap 10 (12-20); Blood Urea Nitrogen 24 mg/dL (9-16); Calcium 9.2 mg/dL (8.4-10.2); Carbon Dioxide 31 mmol/L (22-29); Chloride 101 mmol/L (96-108); Creatinine Clr Calc Pharmacy 126.5; Estimated Glomerular Filt Rate > 60; Glucose Random 262 mg/dL (60-115); Potassium 4.2 mmol/L (3.3-5.1); Sodium 138 mmol/L (135-145)
[2021-08-25] MEDS: Ipratropium Bromide 0.5 MG/2.5 ML SOLUTION INHALE ×2 (08:08→11:31)
[2021-08-25] MEDS: Lidocaine 4 % Patch ADH..PATCH 2 PATCH TRANSDERMA (09:20)
[2021-08-25] MEDS: hydrALAZINE HCl 25 MG TABLET PO (09:21)
[2021-08-25] MEDS: atenoloL 100 MG TABLET PO (09:21)
[2021-08-25] MEDS: Enoxaparin Sodium 40 MG/0.4 ML SYRINGE SUBCUT (09:21)
[2021-08-25] MEDS: Atorvastatin Calcium 80 MG TABLET PO (09:21)
[2021-08-25] MEDS: methylPREDNISolone Sod Succ 125 MG/2 ML VIAL 60 MG IVPUSH (09:21)
[2021-08-25] MEDS: Cholecalciferol (Vitamin D3) 25 MCG TABLET 100 MCG PO (09:21)
[2021-08-25] MEDS: amLODIPine Besylate 5 MG TABLET PO (11:44)
--- NOTE | 2021-08-25 12:06 | PM.DS ---
DS: Providers Provider Date of Service: 08/25/21 Date of admission: 08/23/21 09:08 Primary care physician: Adriel Bautista MD Consults: 08/24/21 01:45 Consult to Infectious Diseases Routine Consulting Provider: Roseanna Parker Reason for consultation: gram positive cocci bacteremia Has provider been notified: No DS: Diagnosis Discharge Diagnosis (1) Bacteremia: Status: Acute (2) Toxic metabolic encephalopathy: Status: Acute (3) Asthma: Status: Acute (4) Asthma: Status: Acute (5) Abdominal wall cellulitis: Status: Acute DS: Summary Hospital Course Hospital Course: admission note HPI This is a 56 yo F with a PMH of morbid obesity, asthma, KENZIE - on CPAP with poor compliance who is brought into the ED by EMS after she was noted to be confused by the family. The patient remains confused and is unable to provide a history. She denies any pain or trouble breathing. She denies any cough. She knows shes in a hospital but otherwise is disoriented. As such, the history is obtained from her daughter Dipti, who lives with the patient. Dipti reports that the day [employer] was when she first noticed her mother to be confused. She reports this epsidoe was short lived but it reoccurred later in the day. During the second episode, she noticed that her mother was shivering. She also reported a minor cough. Prior to these events, her mother was at her baseline self. No one else at home is sick. There are no reports of nausea/vomiting or diarrhea. Upon arrival to the ED, the patients work up revealed: WBC 15, Bnp 139, trop 36.3 (repeat pending), T. Bili 1.3, lactate 1.8. Her CT chest was degredaged by motion, but lungs are reported to be clear. CT abdomen/pelvis showed inflammatory stranding below the region of the umbilicus (skin) and a non-obstructing stone ni the R lower kidney. She was given updrafts, IV lasix, IV zosyn and is now being admitted for further work up and treatment. Hospital course The patient was admitted to the hospital for evaluation of altered mentation and difficulty breathing. Found to have an evidence of skin infection her abdominal wall treated with broad-spectrum antibiotics of Zosyn and addition of vancomycin as her blood cultures grew gram-positive cocci. Final cultures showed group B Streptococcus in 1 bottle and coagulase negative Staph in the other bottle. Evaluated by infectious disease specialist who recommended treatment with 500 mg of Ceftin twice daily for the next 14 days. her mental status improved back to baseline. She was treated with bronchodilator nebulizers and steroids for asthma exacerbation with fair response. To continue 14 days of oral Ceftin continue prednisone for 3 more days Time Spent with Patient Time attestation: Total time spent providing and/or coordinating discharge services: Discharge coordination time: Greater than 30 minutes Quality: Safe Use of Opioids Does Pt have an Active Cancer Diagnosis on the Problem List?: No Quality: Stroke Does the patient have a stroke diagnosis?: No Physical Exam Vital Signs: Vital Signs: Last Vital Signs Temp 97.8 F 08/25/21 11:26 Pulse 72 08/25/21 11:32 Resp 20 08/25/21 11:32 BP 139/68 08/25/21 11:26 Pulse Ox 94 08/25/21 11:26 BMI result Body Mass Index 85.9 Const: Other: Constitutional : Alert, interactive, morbidly obese,not in distress Neck : Normal inspection, Supple Cardiovascular : RRR, no JVP, no lower extremity edema Respiratory : decreased bilateral air entry, no crackles, wheezes or rhonchi Gastrointestinal: soft, lax, Normal bowel sounds, Non tender Skin : Warm, Dry, chronic skin changes in lower extremities but no open wounds or cellulitis , abdominal wall cellulitis with decreased tenderness and erythema. Neurological : Alert & oriented x3, No focal deficit , CN 2-12 within normal DS: Data Data Completed and Pending Labs on day of discharge: Laboratory Results - last 24 hr 08/25/21 08/25/21 05:17 05:17 WBC 12.8 H RBC 4.24 Hgb 10.3 L Hct 34.6 L MCV 81.6 MCH 24.3 L MCHC 29.8 L RDW 15.6 Plt Count 153 L MPV TNP Absolute Nucleated RBC 0.000 Nucleated RBC % (auto) 0.0 Sodium 138 Potassium 4.2 Chloride 101 Carbon Dioxide 31 H Anion Gap 10 L BUN 24 H D Creatinine 0.85 Estim Creat Clear Calc 126.5 Estimated GFR > 60 Random Glucose 262 H Calcium 9.2 Preliminary micro results at discharge 08/24/21 08:37 Blood Culture - Preliminary Blood - Venous No growth after 24 hours. 08/24/21 08:42 Blood Culture - Preliminary Blood - Venous No growth after 24 hours. Discharge Plan Discharge Patient Disposition: Home, Self-Care Discharge Diagnosis: group B Streptococcus bacteremia Skin infection Referrals: Name,MD Adriel [Primary Care Provider] - 1 Week Discharge Medications: New cefuroxime axetil 500 mg tablet 500 mg PO BID Qty: 28 0RF prednisone 20 mg tablet 40 mg PO DAILY Qty: 6 0RF Continued diclofenac sodium [Voltaren Arthritis Pain] 1 % gel 2 g topical QID Qty: 100 0RF Rx Instructions: apply to single elbow, wrist or hand; for hand includes palm/fingers/back of hand losartan 50 mg tablet 1 tab PO QPM 0RF atorvastatin 80 mg tablet 1 tab PO QAM 0RF paroxetine HCl 10 mg tablet 1 tab PO DAILY 0RF atenolol 100 mg tablet 1 tab PO DAILY 0RF hydroxyzine pamoate 50 mg capsule 2 cap PO BEDTIME 0RF hydralazine 25 mg tablet 1 tab PO BID 0RF amlodipine 5 mg tablet 1 tab PO DAILY@1200 0RF topiramate 200 mg tablet 1 tab PO BEDTIME 0RF albuterol sulfate [ProAir HFA] 90 mcg/actuation HFA aerosol inhaler 2 puff PO Q4-6H PRN (Reason: Wheezing) 0RF paroxetine HCl 40 mg tablet 1 tab PO DAILY 0RF topiramate 100 mg tablet 1 tab PO BID@0900,1800 0RF buspirone 15 mg tablet 1 tab PO BID 0RF bupropion HCl 300 mg tablet extended release 24 hr 1 tab PO QPM 0RF bupropion HCl 150 mg tablet extended release 24 hr 1 tab PO QAM 0RF cholecalciferol (vitamin D3) 50 mcg (2,000 unit) capsule 2 cap PO DAILY 0RF Minerin Creme Cream 1 appl topical BID 0RF furosemide 40 mg tablet 40 mg PO BID@0900,1200 0RF albuterol sulfate 0.63 mg/3 mL solution for nebulization 1 amp inhalation Q4-6H PRN (Reason: wheezing) 0RF budesonide-formoterol [Symbicort] 160-4.5 mcg/actuation HFA aerosol inhaler 2 puff inhalation BID 0RF Discharge Orders: Discharge Order (Routine); Ordered 08/25/21 Ordered By: Khaled Abuhashmeh Diet: advance to usual diet and low salt diet Activity on Discharge: As tolerated Stand Alone Forms: Patient Portal Discharge page Care Plan Goals: Read below Health Concerns: Read below Plan of Treatment: Read below Assessment: you were admitted to the hospital for evaluation of altered mentation. Found to have been evidence of skin infection as your blood culture grew group B Streptococcus in your blood. Evaluated by infectious disease specialist who recommended 2 weeks of oral Ceftin at home. Continue prednisone for asthma exacerbation along with your home Medications
--- NOTE | 2021-08-25 12:18 | MHC.CM.PN ---
PATIENT IS DC HOME - SELF CARE. FAMILY TO TRANSPORT.
[2021-08-25] MEDS: Omeprazole 40 MG CAPSULE.DR PO (13:48)
[2021-08-25] MEDS: cefTRIAXone sodium 2 GM in 0.9 % Sodium Chloride 50 ML IV (13:48)
[2021-08-25 14:39] LABS: Vancomycin Trough < 3.0 mcg/mL (10.0-20.0)
== END 2021-08-25 18:05 | disposition home or self-care (01) | DRG 141 ==
LOC: HO.ED 06:23 → HO.EDOVER 09:20 → HO.S3 08-24 03:51
PROVIDERS: Internal Medicine; Admitting Provider Family Medicine; Emergency Provider Student in an Organized Health Care Education/Training Program; PCP Internal Medicine Geriatric Medicine; Visit Provider Student in an Organized Health Care Education/Training Program
DX: J45.21 Mild intermittent asthma with (acute) exacerbation (principal); G92.8 Other toxic encephalopathy; R78.81 Bacteremia; L03.311 Cellulitis of abdominal wall; Z68.45 Body mass index [BMI] 70 or greater, adult; E66.01 Morbid (severe) obesity due to excess calories; G47.33 Obstructive sleep apnea (adult) (pediatric); Z20.822 Contact with and (suspected) exposure to COVID-19; Z91.19 Patient's noncompliance with other medical treatment and regimen; Z79.52 Long term (current) use of systemic steroids; Z79.899 Other long term (current) drug therapy; B95.1 Streptococcus, group B, as the cause of diseases classified elsewhere
CPT/HCPCS: 36415; 70450; 71250; 74176; 76705; 80048; 80053; 80202; 81001; 82140; 82533; 82803; 83605; 83690; 83735; 83880; 84443; 84484; 85025; 85027; 85610; 87040; 87147; 87186; 87205; 87502; 87635; 93005; 93306; 94640; 94644; 96365; 96375; 99285; J0696; J1650; J1940; J2405; J2543; J2930; J3370; Q9957

== ENCOUNTER 2021-10-11 14:45 | Emergency (ER) | payer MEDICAID, SELFPAY ==
--- NOTE | ~2021-10-11 | XR_ITS ---
EXAMINATION: XR CHEST CLINICAL INFORMATION: Shortness of breath. COMPARISON: 10/11/2021 from earlier today. TECHNIQUE: Frontal view of the chest was obtained. FINDINGS: No significant abnormality is noted involving the heart, lungs, mediastinum, bony thorax or soft tissues. XR/XR chest 1V IMPRESSION: No acute cardiopulmonary process.
--- NOTE | ~2021-10-11 | XR_ITS ---
EXAMINATION: XR CHEST CLINICAL INFORMATION: Difficulty breathing COMPARISON: August 06, 2020 TECHNIQUE: AP view of the chest was obtained. FINDINGS: Evaluation is somewhat limited due to underpenetration related to large body habitus. No confluent disease identified. There is some prominence of central vasculature but without evidence of airspace edema or significant interstitial edema. The heart is upper limits of normal in size. No pneumothorax or pleural effusion identified. XR/XR chest 1V IMPRESSION: No significant acute parenchymal disease appreciated.
[2021-10-11 15:05] VITALS: BP 157/70; PULSE 94; RESP 18; TEMP 36.7; O2SAT 97; BMI 185.7
[2021-10-11 20:22] VITALS: BP 194/68; PULSE 80; RESP 26; O2SAT 95
--- NOTE | 2021-10-11 20:36 | ED_ITS ---
HPI - General Adult General Chief complaint: General Medical Stated complaint: high bp, Time Seen by Provider: 10/11/21 20:32 Source: patient Mode of arrival: ambulatory Limitations: language barrier History of Present Illness HPI narrative: 56-year-old female presents for elevated blood pressure, shortness of breath, abdominal pain, UTI symptoms, and lower extremity edema. She presents from her ic designer custom's appointment. She was referred to the emergency department by cardiology [employer]CHNICIAN to be evaluated for elevated blood pressure. Onset (ago): unknown Radiation: non-radiation Severity: moderate Relieving factors: none Exacerbating factors: movement Associated symptoms: shortness of breath Treatments prior to arrival: none Related Data Home Medications Medication Instructions Recorded Confirmed albuterol sulfate 0.63 mg/3 mL 1 amp inhalation Q4-6H PRN wheezing 08/23/21 08/23/21 solution for nebulization albuterol sulfate 90 mcg/actuation 2 puff PO Q4-6H PRN Wheezing 08/23/21 08/23/21 aerosol inhaler (ProAir HFA) amlodipine 5 mg tablet 1 tab PO DAILY@1200 08/23/21 08/23/21 atenolol 100 mg tablet 1 tab PO DAILY 08/23/21 08/23/21 atorvastatin 80 mg tablet 1 tab PO QAM 08/23/21 08/23/21 budesonide-formoterol HFA 160 2 puff inhalation BID 08/23/21 08/23/21 mcg-4.5 mcg/actuation aerosol inhaler (Symbicort) bupropion HCl 150 mg 24 hr tablet, 1 tab PO QAM 08/23/21 08/23/21 extended release bupropion HCl 300 mg 24 hr tablet, 1 tab PO QPM 08/23/21 08/23/21 extended release buspirone 15 mg tablet 1 tab PO BID 08/23/21 08/23/21 cholecalciferol (vitamin D3) 50 2 cap PO DAILY 08/23/21 08/23/21 mcg (2,000 unit) capsule furosemide 40 mg tablet 40 mg PO BID@0900,1200 08/23/21 08/23/21 hydralazine 25 mg tablet 1 tab PO BID 08/23/21 08/23/21 hydroxyzine pamoate 50 mg capsule 2 cap PO BEDTIME 08/23/21 08/23/21 lanolin alcohols-mineral 1 appl topical BID 08/23/21 08/23/21 oil-w.petrolatum-ceresin topical cream (Minerin Creme) losartan 50 mg tablet 1 tab PO QPM 08/23/21 08/23/21 paroxetine HCl 10 mg tablet 1 tab PO DAILY 08/23/21 08/23/21 paroxetine HCl 40 mg tablet 1 tab PO DAILY 08/23/21 08/23/21 topiramate 100 mg tablet 1 tab PO BID@0900,1800 08/23/21 08/23/21 topiramate 200 mg tablet 1 tab PO BEDTIME 08/23/21 08/23/21 Previous Rx's Medication Instructions Recorded diclofenac sodium 1 % topical gel 2 g topical QID #100 grams 01/13/21 (Voltaren Arthritis Pain) cefuroxime axetil 500 mg tablet 500 mg PO BID #28 tabs 08/25/21 prednisone 20 mg tablet 40 mg PO DAILY #6 tabs 08/25/21 fluconazole 150 mg tablet 150 mg PO ONCE 1 day #1 tab 10/11/21 (Diflucan) Allergies Allergy/AdvReac Type Severity Reaction Status Date / Time No Known Allergies Allergy Verified 10/11/21 15:05 Review of Systems Review of Systems: Constitutional: No Fever, No Chills ENT/Mouth: No Ear Pain, No Hoarseness, No sore throat Eyes: No Eye Pain, No Swelling, No Redness, No Foreign Body Cardiovascular: No Chest Pain, positive SOB, positive edema Respiratory: No Cough, positive Dyspnea Gastrointestinal: No Nausea, No Vomiting, No Diarrhea, positive abdominal Pain Genitourinary: Positive Dysuria, No Hematuria Musculoskeletal: No joint pain, positive Myalgias, No Joint Swelling Skin: No Skin lacerations, No rash Neuro: No Weakness, No Numbness, No Paresthesias, No Loss of Consciousness, No Dizziness, No Headache Psych: No Anxiety/Panic, No Depression Heme/Lymph: no easy bruising, no Lymphadenopathy Endocrine: No Polyuria, No Polydipsia Yes all other systems are reviewed and are negative [facility] Past Medical History Attestation statement: The following information was validated with the patient. Source: old records reviewed Medical History Asthma Asthma Diabetes HTN (hypertension) Morbid obesity KENZIE (obstructive sleep apnea) Family History Family History Daughter No problems noted. Daughter No problems noted. Daughter No problems noted. Daughter No problems noted. Daughter No problems noted. Son No problems noted. Social History Social History Household Members: Children Housing: Apartment Alcohol intake: never Patient Tobacco Use Status: Never used Tobacco Advance Directives: No Advance Directives Information Provided: Yes service: No Current occupational status: unemployed Physical Exam ED Vital Signs: Vital Signs - 24 hr 10/11/21 15:05 10/11/21 20:22 10/11/21 22:14 Temperature 98.0 F Pulse Rate 94 80 91 Respiratory Rate 18 26 H 18 Blood Pressure 157/70 H 194/68 H 154/72 H Pulse Oximetry 97 95 98 Oxygen Delivery Method Room Air Room Air Room Air BMI result Body Mass Index 185.7 Appearance: Alert. Oriented X3. No acute distress. Eyes: Pupils equal, round and reactive to light. Sclera nonicteric. ENT: Pharynx normal. Neck: Normal inspection. Neck supple. CVS: Normal heart rate and rhythm. Pulses normal. Respiratory: No respiratory distress. Breath sounds normal. Abdomen: Soft and nontender. Morbidly obese. Skin: Skin warm and dry. Normal skin color. Normal skin turgor. Extremities: Bilateral nonpitting edema. Neuro: No motor deficit. No sensory deficit. Cranial nerves 2-12 intact Course Course Course Narrative: 56-year-old female with past medical history of morbid obesity, asthma, ob structive sleep apnea with poor compliance with CPAP, edema, hypertension, hyperlipidemia, depression and anxiety presents from her ic designer custom's office for elevated blood pressure. Patient also reports multiple other complaints which seemed to be chronic for her which include edema, chronically elevated blood pressure, and shortness of breath. Labs were drawn and resulted while patient was in the emergency department waiting room. White cell count is 3.8 which is consistent with prior values, improved from 08/25 which was 12.8, does have chronic anemia, hemoglobin 11.2 which is consistent with prior values, chemistries are within normal limits. No indication of LEIDY. Creatinine is 0.77 which is consistent with prior values, GFR is greater than 60. Glucose at this time is 01:06 which is a significant improvement from her prior values of 262. Troponin is 10.6, prior value on 08/06 8 was 105. Chest x-ray indicates no acute cardiopulmonary process. EKG is normal sinus with LVH, consistent with prior EKGs in the past and COPD. Urinalysis is negative. Blood pressures continue to be elevated at 157/70, however this blood pressure is not elevated enough for emergent intervention. Case reviewed by Dr. Barnes, he agrees with my plan of care discharge home as patient does not have any significant values requiring treatment or indication for admission. Patient does complain of dysuria, does have a yeast rash to skin folds under the abdomen, between the groin, and under the breasts. Will order Diflucan 1 tablet here and have patient repeat in 3 days from now. Is highly recommended that patient be compliant with her medications, and CPAP. Will have patient follow- up with her primary care physician. Patient's family use as supervisor partial denture department per patient request. Patient verbalized understanding of and agrees to plan of care discharge home. Verbalized understanding of signs and symptoms indicating need for emergent intervention. Medical Decision Making Differential Diagnosis Differential Diagnosis: Hypertension, cellulitis, edema, pneumonia, ACS Medical Records Medical records reviewed: Yes I reviewed the patient's medical records. Lab Data Lab results reviewed: Yes I reviewed the patient's lab results. Result diagrams: 10/11/21 20:22 10/11/21 20:22 Labs: Lab Results 10/11/21 10/11/21 10/11/21 Range/Units 20:22 20:22 20:22 WBC 3.8 L (4.8-10.8) X10*3/uL RBC 4.44 (4.20-5.50) X10*6/uL Hgb 11.2 L (12.0-16.0) g/dl Hct 38.2 (37.0-47.0) % MCV 86.0 (80.0-98.0) fL MCH 25.2 L (27.0-33.0) pg MCHC 29.3 L (31.0-35.0) g/dl RDW 15.3 (11.0-16.0) % Plt Count 170 (160-400) X10*3/uL MPV 12.4 H (9.4-12.3) fL Immature Gran % (Auto) 0.5 H (0.0-0.4) % Neut % (Auto) 57.4 (45-73) % Lymph % (Auto) 32.2 (20-40) % [place] % (Auto) 9.6 (2-11) % Eos % (Auto) 0.0 (0-4) % Baso % (Auto) 0.3 (0-2) % Lymph # (Auto) 1.2 (1.2-4.9) X10*3/uL [place] # (Auto) 0.4 (0.1-1.2) X10*3/uL Eos # (Auto) 0.0 (0.0-0.4) X10*3/uL Baso # (Auto) 0.0 (0.0-0.2) X10*3/uL Abs Immat Gran (auto) 0.02 (0.00-0.03) X10*3/uL Absolute Neuts (auto) 2.2 (2.0-8.3) x10*3/uL Absolute Nucleated RBC 0.000 (0.0-0.012) X10*3/uL Nucleated RBC % (auto) 0.0 (0.0-0.2) /100WBC Sodium 142 (135-145) mmol/L Potassium 4.2 (3.3-5.1) mmol/L Chloride 107 (96-108) mmol/L Carbon Dioxide 28 (22-29) mmol/L Anion Gap 11 L (12-20) BUN 9 D (9-16) mg/dL Creatinine 0.77 (0.5-1.4) mg/dL Estim Creat Clear Calc 92.8 Estimated GFR > 60 Random Glucose 106 (60-115) mg/dL Calcium 9.1 (8.4-10.2) mg/dL Magnesium 1.8 (1.6-2.6) mg/dL Total Bilirubin 0.3 (0.0-1.0) mg/dL Direct Bilirubin < 0.2 (0.0-0.5) mg/dL AST 28 (5-31) U/L ALT 27 (0-31) U/L Alkaline Phosphatase 100 (39-117) U/L Troponin I High Sens (<3.5-17.0) ng/L B-Natriuretic Peptide (<100) pg/mL Total Protein 6.9 (6.5-8.0) g/dL Albumin 4.0 (3.5-5.0) g/dL Lipase 22 (8-78) U/L Urine Color YELLOW Urine Appearance HAZY Urine pH 7.5 (5.0-8.0) Ur Specific [place] 1.020 (1.005-1.025) Urine Protein NEG (NEG-TRACE) MG/DL Urine Glucose (UA) NEG (NEG) MG/DL Urine Ketones NEG (NEG) MG/DL Urine Blood NEG (NEG) Urine Nitrite NEG (NEG) Ur Leukocyte Esterase NEG (NEG) COVID-19 (DERICK) (Negative) COVID-19 Clin Com Influenza Type A (SUNITHA) (Negative) Influenza Type B (SUNITHA) (Negative) Influenza A & B Note 10/11/21 10/11/21 10/11/21 Range/Units 20:22 20:50 20:50 WBC (4.8-10.8) X10*3/uL RBC (4.20-5.50) X10*6/uL Hgb (12.0-16.0) g/dl Hct (37.0-47.0) % MCV (80.0-98.0) fL MCH (27.0-33.0) pg MCHC (31.0-35.0) g/dl RDW (11.0-16.0) % Plt Count (160-400) X10*3/uL MPV (9.4-12.3) fL Immature Gran % (Auto) (0.0-0.4) % Neut % (Auto) (45-73) % Lymph % (Auto) (20-40) % [place] % (Auto) (2-11) % Eos % (Auto) (0-4) % Baso % (Auto) (0-2) % Lymph # (Auto) (1.2-4.9) X10*3/uL [place] # (Auto) (0.1-1.2) X10*3/uL Eos # (Auto) (0.0-0.4) X10*3/uL Baso # (Auto) (0.0-0.2) X10*3/uL Abs Immat Gran (auto) (0.00-0.03) X10*3/uL Absolute Neuts (auto) (2.0-8.3) x10*3/uL Absolute Nucleated RBC (0.0-0.012) X10*3/uL Nucleated RBC % (auto) (0.0-0.2) /100WBC Sodium (135-145) mmol/L Potassium (3.3-5.1) mmol/L Chloride (96-108) mmol/L Carbon Dioxide (22-29) mmol/L Anion Gap (12-20) BUN (9-16) mg/dL Creatinine (0.5-1.4) mg/dL Estim Creat Clear Calc Estimated GFR Random Glucose (60-115) mg/dL Calcium (8.4-10.2) mg/dL Magnesium (1.6-2.6) mg/dL Total Bilirubin (0.0-1.0) mg/dL Direct Bilirubin (0.0-0.5) mg/dL AST (5-31) U/L ALT (0-31) U/L Alkaline Phosphatase (39-117) U/L Troponin I High Sens 10.6 D (<3.5-17.0) ng/L B-Natriuretic Peptide 17 (<100) pg/mL Total Protein (6.5-8.0) g/dL Albumin (3.5-5.0) g/dL Lipase (8-78) U/L Urine Color Urine Appearance Urine pH (5.0-8.0) Ur Specific [place] (1.005-1.025) Urine Protein (NEG-TRACE) MG/DL Urine Glucose (UA) (NEG) MG/DL Urine Ketones (NEG) MG/DL Urine Blood (NEG) Urine Nitrite (NEG) Ur Leukocyte Esterase (NEG) COVID-19 (DERICK) Negative (Negative) COVID-19 Clin Com See Note Influenza Type A (SUNITHA) Negative (Negative) Influenza Type B (SUNITHA) Negative (Negative) Influenza A & B Note See Note Imaging Data Chest x-ray: Attestation: I personally reviewed and interpreted this imaging study as follows: Radiologist's impression: EXAMINATION: XR CHEST CLINICAL INFORMATION: Shortness of breath. COMPARISON: 10/11/2021 from earlier today. TECHNIQUE: Frontal view of the chest was obtained. FINDINGS: No significant abnormality is noted involving the heart, lungs, mediastinum, bony thorax or soft tissues. XR/XR chest 1V IMPRESSION: No acute cardiopulmonary process. ? ECG Data Attestation: I personally reviewed and interpreted this ECG as follows: Prior ECG tracings: available for review Interpretation: Vent. rate 89 BPM MN interval 178 ms QRS duration 88 ms QT/QTc 370/450 ms P-R-T axes 51 4 67 Normal sinus rhythm Minimal voltage criteria for LVH, may be normal variant ( R in aVL ) Borderline ECG When compared with ECG of 23-AUG-2021 08:49, Premature atrial complexes are no longer Present 11-OCT-2021 20:46:14 Scores Heart Score History: -1- moderately suspicious ECG: -1- non specific repolarization disturbance Age: -1- >45 - <65 Risk factory: -1- 1 or 2 risk factors Troponin: -0- < or = normal limit Score: 4 Risk: 16.6% Discharge Plan Discharge Clinical Impression: Chronic shortness of breath, Hypertension, Edema, Yeast infection of the skin Patient Disposition: Home, Self-Care Instructions: Asthma (ED), Hypertension (ED), Skin Yeast Infection (ED), Shortness of Breath (ED) Additional Instructions: Fuiste evaluado por m?ltiples quejas. Santamaria CBC estuvo dentro de sydney l?mites normales. No hay indicios de infecci?n. [place] qu?micas son normales. [place] enzimas card?acas son negativas. Santamaria radiograf?a de t?rax es normal. Santamaria electr ocardiograma es normal. Santamaria an?lisis de orina es negativo. El ardor al orinar es consistente con s[place]ia candidiasis en la piel. Le dieron 1 dosis de Diflucan mientras estaba en el departamento de emergencias. [place] segunda dosis dentro de 3 d?as a partir de ahora. Holli un seguimiento con santamaria m?dico de atenci?n primaria esta semana. Contin?e tomando sydney medicamentos para la presi?n arterial. Filippo por elegir jose miguel departamento de emergencias para santamaria evaluaci?n. Por favor, holli un seguimiento con el m?dico de atenci?n primaria seg?n sea necesario. Regrese al departamento de emergencias por cualquier s?ntoma nuevo, preocupante o que empeore. You were evaluated for multiple complaints. Your CBC was within your normal limits. There is no indication of infection. Your chemistries are normal. Her cardiac enzymes are negative. Your chest x-ray is normal. Your EKG is normal. Your urinalysis is negative. The burning on urination is consistent with a skin yeast infection. Gave you 1 dose of Diflucan while you were in the emergency department. Please take a 2nd dose in 3 days from now. Follow up with her primary care physician this week. Please continue to take your blood pressure medications. Thank you for choosing this emergency department for evaluation. Please follow-up with primary care physician as needed. Return to the emergency department for any new, concerning, or worsening symptoms. Prescriptions: New fluconazole [Diflucan] 150 mg tablet 150 mg PO ONCE 1 Days Qty: 1 0RF Rx Instructions: Take medication on 10/14/2021. First dose given in the emergency department on 10/11/2021 No Action diclofenac sodium [Voltaren Arthritis Pain] 1 % gel 2 g topical QID Qty: 100 0RF Rx Instructions: apply to single elbow, wrist or hand; for hand includes palm/fingers/back of hand losartan 50 mg tablet 1 tab PO QPM atorvastatin 80 mg tablet 1 tab PO QAM paroxetine HCl 10 mg tablet 1 tab PO DAILY atenolol 100 mg tablet 1 tab PO DAILY hydroxyzine pamoate 50 mg capsule 2 cap PO BEDTIME hydralazine 25 mg tablet 1 tab PO BID amlodipine 5 mg tablet 1 tab PO DAILY@1200 topiramate 200 mg tablet 1 tab PO BEDTIME albuterol sulfate [ProAir HFA] 90 mcg/actuation HFA aerosol inhaler 2 puff PO Q4-6H PRN (Reason: Wheezing) paroxetine HCl 40 mg tablet 1 tab PO DAILY topiramate 100 mg tablet 1 tab PO BID@0900,1800 buspirone 15 mg tablet 1 tab PO BID bupropion HCl 300 mg tablet extended release 24 hr 1 tab PO QPM bupropion HCl 150 mg tablet extended release 24 hr 1 tab PO QAM cholecalciferol (vitamin D3) 50 mcg (2,000 unit) capsule 2 cap PO DAILY Minerin Creme Cream 1 appl topical BID furosemide 40 mg tablet 40 mg PO BID@0900,1200 albuterol sulfate 0.63 mg/3 mL solution for nebulization 1 amp inhalation Q4-6H PRN (Reason: wheezing) budesonide-formoterol [Symbicort] 160-4.5 mcg/actuation HFA aerosol inhaler 2 puff inhalation BID cefuroxime axetil 500 mg tablet 500 mg PO BID Qty: 28 0RF prednisone 20 mg tablet 40 mg PO DAILY Qty: 6 0RF Interventions: ED Discharge Assessment Last Done: 10/11/21 22:33 Discharge Date/Time: 10/11/21 22:35
--- NOTE | 2021-10-11 20:37 | ECG_ITS ---
Test Reason : DYSPNEA Blood Pressure : / mmHG Vent. Rate : 089 BPM Atrial Rate : 089 BPM P-R Int : 178 ms QRS Dur : 088 ms QT Int : 370 ms P-R-T Axes : 051 004 067 degrees QTc Int : 450 ms Normal sinus rhythm Minimal voltage criteria for LVH, may be normal variant ( R in aVL ) Borderline ECG When compared with ECG of 23-AUG-2021 08:49, Premature atrial complexes are no longer Present Referred By: Thelma Jeffery Electronically Signed By:Sabas Maldonado
[2021-10-11 20:48] LABS: MANUAL DIFF FLAG NO
[2021-10-11 20:51] LABS: Appearance Urine HAZY; Basophils Percent Auto 0.3 % (0-2); Color Urine YELLOW; Glucose Urine UA NEG (NEG); Hematocrit 38.2 % (37.0-47.0); Hemoglobin 11.2 g/dl (12.0-16.0); Imm Gran Abs Auto 0.02 X10*3/uL (0.00-0.03); Imm Gran Pct Auto 0.5 % (0.0-0.4); Leukocyte Esterase Urine NEG (NEG); Lymphocytes Absolute Auto 1.2 X10*3/uL (1.2-4.9); Lymphocytes Percent Auto 32.2 % (20-40); Mean Corpuscular HGB Conc 29.3 g/dl (31.0-35.0); Mean Corpuscular Hemoglobin 25.2 pg (27.0-33.0); Mean Platelet Volume 12.4 fL (9.4-12.3); Monocytes Absolute Auto 0.4 X10*3/uL (0.1-1.2); Monocytes Percent Auto 9.6 % (2-11); Neutrophils Absolute Auto 2.2 x10*3/uL (2.0-8.3); Neutrophils Percent Auto 57.4 % (45-73); Nitrite Urine NEG (NEG); PH 7.5 (5.0-8.0); Platelet Count 170 X10*3/uL (160-400); Red Blood Count 4.44 X10*6/uL (4.20-5.50); Red Cell Distribution Width 15.3 % (11.0-16.0); Urine Blood NEG (NEG); Urine Ketones NEG (NEG); Urine Protein NEG (NEG-TRACE); White Blood Count 3.8 X10*3/uL (4.8-10.8)
[2021-10-11 21:05] LABS: Alanine Aminotransferase 27 U/L (0-31); Alkaline Phosphatase 100 U/L (39-117); Aspartate Amino Transferase 28 U/L (5-31); Bilirubin Direct < 0.2 mg/dL (0.0-0.5); Bilirubin Total 0.3 mg/dL (0.0-1.0); Lipase 22 U/L (8-78); Magnesium 1.8 mg/dL (1.6-2.6); Total Protein 6.9 g/dL (6.5-8.0)
[2021-10-11 21:09] LABS: COVID-19 Test Negative (Negative); IDNOW Serial# 16C4AD1C; Influenza A Negative (Negative); Influenza B2 Negative (Negative)
[2021-10-11 21:12] LABS: B Type Natriuretic Peptide 17 pg/mL (<100); Troponin-I High Sensitivity 10.6 ng/L (<3.5-17.0)
[2021-10-11 21:38] LABS: Anion Gap 11 (12-20); Blood Urea Nitrogen 9 mg/dL (9-16); Calcium 9.1 mg/dL (8.4-10.2); Carbon Dioxide 28 mmol/L (22-29); Chloride 107 mmol/L (96-108); Creatinine Clr Calc Pharmacy 92.8; Estimated Glomerular Filt Rate > 60; Glucose Random 106 mg/dL (60-115); Potassium 4.2 mmol/L (3.3-5.1); Sodium 142 mmol/L (135-145)
[2021-10-11 22:14] VITALS: BP 154/72; PULSE 91; RESP 18; O2SAT 98
[2021-10-11] MEDS: Fluconazole 150 MG TABLET PO (22:19)
== END 2021-10-11 22:35 | disposition home or self-care (01) ==
PROVIDERS: Emergency Provider Nurse Practitioner Family
DX: R06.02 Shortness of breath (principal); I10 Essential (primary) hypertension; R60.0 Localized edema; B37.2 Candidiasis of skin and nail; Z20.822 Contact with and (suspected) exposure to COVID-19; E11.9 Type 2 diabetes mellitus without complications; J45.909 Unspecified asthma, uncomplicated
CPT/HCPCS: 36415; 71045; 80048; 80076; 81003; 83690; 83735; 83880; 84484; 85025; 87502; 87635; 93005; 99202; 99212; 99283

== ENCOUNTER → 2021-10-26 13:05 | Outpatient (BNVA) | payer MEDICAID, SELFPAY | PROVIDERS: PCP Nurse Practitioner Primary Care; Visit Provider Physician Assistant Surgical | DX: E66.01 Morbid (severe) obesity due to excess calories (principal); Z68.45 Body mass index [BMI] 70 or greater, adult | CPT/HCPCS: 99202; 99212 ==

== ENCOUNTER → 2021-11-15 15:03 | Outpatient (BNVA) | payer MEDICAID, SELFPAY | PROVIDERS: PCP Nurse Practitioner Primary Care; Visit Provider Physician Assistant Surgical | DX: E66.01 Morbid (severe) obesity due to excess calories (principal); Z68.45 Body mass index [BMI] 70 or greater, adult | CPT/HCPCS: 99212 ==

== ENCOUNTER 2021-11-24 12:51 | Outpatient (REF) | payer MEDICAID, SELFPAY ==
--- NOTE | 2021-11-24 17:31 | PFT_ITS ---
FLOWS: FEV1 61% of predicted at 1.58 L. FVC 57% of predicted at 1.85 L. FEV1 to FVC ratio of 0.86. No bronchodilator response. LUNG VOLUMES: Total lung capacity 72% of predicted at 3.57 L. Residual volume 97% of predicted at 1.81 L. Slow vital capacity 57% of predicted at 1.76 L. Expiratory reserve volume 23% of predicted at 0.21 L. Diffusion capacity is mildly decreased, diffusion capacity corrects to normal after adjustment for alveolar ventilation. IMPRESSION: Moderate restrictive ventilatory defect with no bronchodilator response. Decreased expiratory reserve volume suggests extrathoracic restriction likely secondary to abdominal obesity. Kaleb Brar MD AP/MODL / [id number]
== END 2021-11-24 12:52 | disposition home or self-care (01) ==
LOC: HO.RESP 12:51
PROVIDERS: PCP Nurse Practitioner Primary Care; Visit Provider Internal Medicine Pulmonary Disease
DX: R06.00 Dyspnea, unspecified (principal); J45.909 Unspecified asthma, uncomplicated
CPT/HCPCS: 94060; 94727; 94729

== ENCOUNTER → 2021-12-18 14:03 | Outpatient (BNVA) | payer MEDICAID, SELFPAY | PROVIDERS: PCP Nurse Practitioner Primary Care; Visit Provider Physician Assistant Surgical | DX: E66.01 Morbid (severe) obesity due to excess calories (principal); Z68.45 Body mass index [BMI] 70 or greater, adult | CPT/HCPCS: 99212 ==

== ENCOUNTER 2022-10-09 01:43 | Emergency (ER) | payer MEDICAID, SELFPAY ==
[2022-10-09] VITALS (9 sets, daily range): BP systolic 126–155; BP diastolic 36–70; PULSE 66–79; RESP 16–20; TEMP 36.1–36.7; O2SAT 93–96; BMI 80.2
--- NOTE | 2022-10-09 | ECG_ITS ---
Test Reason : CHEST PAIN Blood Pressure : / mmHG Vent. Rate : 074 BPM Atrial Rate : 074 BPM P-R Int : 180 ms QRS Dur : 094 ms QT Int : 380 ms P-R-T Axes : 000 180 116 degrees QTc Int : 421 ms Normal sinus rhythm Right axis deviation Abnormal ECG When compared with ECG of 11-OCT-2021 20:46, QRS axis Shifted right - could be related to lead placement
--- NOTE | 2022-10-09 02:08 | MHC.EDTECH ---
PATIENT CAME IN VIA [facility] ,PATIENT CLOTHING WAS SOAKED ,PATIENT WAS ASSISTED TO CHANGE INTO HOSPITAL ATTIRE ,EKG TAKEN AND WAS READ BY DR PHILIPPE ,VITALS SIGN TAKEN AND PATIENT WAS HOOKED UP TO SHUTTLE BUS DRIVER ,LYLE GARCIA IN ROOM TRIAGING PATIENT ,DAUGHTER AT BEDSIDE .
--- NOTE | 2022-10-09 02:34 | MHC.EDTECH ---
PATIENT BLOOD DRAWN AND SENT TO LAB .
--- OUTSIDE RECORDS SUMMARY | 2022-10-09 02:34 | XMS_ITS | Continuity of Care Document ---
Author Name Unknown Organization [facility] Address Unknown Care Team Providers Care It Audit Manager Name Role Phone Onel KHAN, Bryant Ley Primary Care Physician [place] [facility] [place]13[place] - 03/15/21 [facility] Allergies, Adverse Reactions, Alerts Substance Reaction Severity Status NKA Active
--- OUTSIDE RECORDS SUMMARY | 2022-10-09 02:34 | XMS_ITS | Continuity of Care Document ---
Demographics [place] [id number]
--- NOTE | 2022-10-09 03:45 | MHC.EDTECH ---
Patient asked for help using the bathroom. Staff was able to get a bariatric commode. Patient needed staff and security assistance to get off the bed and on to the commode. Patient did urinate on the floor a little but most of the urine was in the commode. Patient was cleaned and assisted back into bed and made more comfortable. Patient showing no signs of distress at this time. Patient still stating that they are having chest pain. Nurse aware.
--- NOTE | 2022-10-09 03:55 | ED.CHESTPAIN ---
HPI - Chest Pain General Chief Complaint: Chest Pain Stated Complaint: chest pain and shortness of breath Time Seen by Provider: 10/09/22 03:31 Source: patient Mode of arrival: EMS Limitations: no limitations History of Present Illness HPI narrative: Patient comes in the emergency room complaining of chest pain that started around noon yesterday, 15 hours ago. Patient states that it hurts mostly when she coughs. Patient states that approximately 15 hours ago when she started coughing and having chest pain she called 911, EMS wanted to bring her to the hospital but then she refused. Prior to arrival, patient called 911 and accepted to come to the emergency room. Patient states it is substernal chest pain with coughing. MD complaint: chest pain Related Data Home Medications Medication Instructions Recorded Confirmed albuterol sulfate 0.63 mg/3 mL 1 amp inhalation Q4-6H PRN wheezing 08/23/21 12/18/21 solution for nebulization albuterol sulfate 90 mcg/actuation 2 puff PO Q4-6H PRN Wheezing 08/23/21 12/18/21 aerosol inhaler (ProAir HFA) amlodipine 5 mg tablet 1 tab PO DAILY@1200 08/23/21 12/18/21 atenolol 100 mg tablet 1 tab PO DAILY 08/23/21 12/18/21 atorvastatin 80 mg tablet 1 tab PO QAM 08/23/21 12/18/21 budesonide-formoterol HFA 160 2 puff inhalation BID 08/23/21 12/18/21 mcg-4.5 mcg/actuation aerosol inhaler (Symbicort) bupropion HCl 150 mg 24 hr tablet, 1 tab PO QAM 08/23/21 12/18/21 extended release bupropion HCl 300 mg 24 hr tablet, 1 tab PO QPM 08/23/21 12/18/21 extended release buspirone 15 mg tablet 1 tab PO BID 08/23/21 12/18/21 cholecalciferol (vitamin D3) 50 2 cap PO DAILY 08/23/21 12/18/21 mcg (2,000 unit) capsule furosemide 40 mg tablet 40 mg PO BID@0900,1200 08/23/21 12/18/21 hydralazine 25 mg tablet 1 tab PO BID 08/23/21 12/18/21 hydroxyzine pamoate 50 mg capsule 2 cap PO BEDTIME 08/23/21 12/18/21 lanolin alcohols-mineral 1 appl topical BID 08/23/21 12/18/21 oil-w.petrolatum-ceresin topical cream (Minerin Creme topical) losartan 50 mg tablet 1 tab PO QPM 08/23/21 12/18/21 paroxetine HCl 10 mg tablet 1 tab PO DAILY 08/23/21 12/18/21 paroxetine HCl 40 mg tablet 1 tab PO DAILY 08/23/21 12/18/21 topiramate 100 mg tablet 1 tab PO BID@0900,1800 08/23/21 12/18/21 topiramate 200 mg tablet 1 tab PO BEDTIME 08/23/21 12/18/21 Previous Rx's Medication Instructions Recorded diclofenac sodium 1 % topical gel 2 g topical QID #100 grams 01/13/21 (Voltaren Arthritis Pain) Allergies Allergy/AdvReac Type Severity Reaction Status Date / Time No Known Allergies Allergy Verified 12/18/21 14:14 Review of Systems Review of Systems: Constitutional : No Weight loss, No Fever, No Chills, No Night Sweats, No Fatigue, No Malaise ENT/Mouth : No Hearing loss, No Ear Pain, No Nasal Congestion, No Sinus Pain, No Hoarseness, No sore throat, No Rhinorrhea, No Swallowing Difficulty Eyes: No Eye Pain, No Swelling, No Redness, No Foreign Body, No Discharge, No Vision Changes Cardiovascular : Chest pain with coughing No SOB, No Dyspnea on Exertion, No Orthopnea, No Edema, No Palpitations Respiratory : DrAditi Cough, No Sputum, No Wheezing, No Smoke Exposure, No Dyspnea Gastrointestinal : No Nausea, No Vomiting, No Diarrhea, No Constipation, No abdominal Pain, No Hematochezia, No Melena Genitourinary : no irregular bleeding, No Dysuria, No Urinary Frequency, No Hematuria, No Urinary Incontinence, No Urgency, No Flank Pain, No Urinary Flow Changes, No Hesitancy Musculoskeletal : No joint pain, No Myalgias, No Joint Swelling Skin : Complaining of lower extremity pain with walking Neuro : No Weakness, No Numbness, No Paresthesias, No Loss of Consciousness, No Dizziness, No Headache Psych : No Anxiety/Panic, No Depression, No SI/HI/AH/VH, No Social Issues, Heme/Lymph: No Bruising, No Bleeding,No Lymphadenopathy Endocrine : No Polyuria, No Polydipsia, No Temperature Intolerance [facility] Past Medical History Medical History Asthma Asthma Diabetes HTN (hypertension) Morbid obesity KENZIE (obstructive sleep apnea) Family History Family History Daughter No problems noted. Daughter No problems noted. Daughter No problems noted. Daughter No problems noted. Daughter No problems noted. Son No problems noted. Social History Social History Household Members: Children Housing: Apartment Alcohol intake: never Patient Tobacco Use Status: Never used Tobacco Smoked in Last 30 Days: No Use of substances other than those prescribed or required for medical reasons: No Advance Directives: No Advance Directives Information Provided: Yes Patient : No service: No Current occupational status: unemployed Physical Exam Vital Signs: Vital Signs: Last Vital Signs Temp 97.7 F 10/09/22 05:12 Pulse 66 10/09/22 05:12 Resp 20 10/09/22 05:12 BP 139/45 L 10/09/22 05:12 Pulse Ox 93 10/09/22 05:12 O2 Del Method Room Air 10/09/22 05:12 BMI result Body Mass Index 80.2 Const: Other: Appearance: Alert. Oriented X3. No acute distress. Eyes: Pupils equal, round and reactive to light. ENT: Pharynx normal. Neck: Normal inspection. Neck supple. No lymph nodes noted. No crepitus CVS: Normal heart rate and rhythm. Pulses normal. Normal S1 and S2 Respiratory: No respiratory distress. Breath sounds normal. No Wheezing. No rales Abdomen: Soft and nontender. No rigidity. No distention. Skin: Skin warm and dry. Normal skin color. Normal skin turgor. Extremities: Patient has chronic lymphedema. Neuro: Oriented X 3. No motor deficit. No sensory deficit. Moving all extremities. No slurred speech. CN 2 through 12 grossly intact Psych: calm, cooperative, normal affect Medical Decision Making Medical Decision Making MDM Narrative: -patient came in complaining of shortness of breath, chest pain, admission was considered -after a prolonged conversation with the patient, patient finally stated that the chest pain is specific to coughing episodes -my interpretation of EKG: Normal sinus rhythm, heart rate 74, no ST segment depression or elevation, no T-wave inversion, QTC 421 -I reviewed the patient's labs, patient's troponin negative given after 12 hours of symptoms. Unlikely to be chest pain of cardiac etiology, most likely musculoskeletal from coughing. -chest x-ray my interpretation difficult to read, does not seem to have consolidations -patient also states that she has trouble walking, she has 2 daughters who help take care of her at home but she needs more help. Patient requesting to b seen by case management -case management consult pending -difficulty walking due to body habitus Differential Diagnosis Differential Diagnoses: The differential diagnosis associated with the presentation includes (Asthma exacerbation, pneumonia) Admission/Observation Consideration of admission/observation: Escalation of care including admission/observation considered Lab Data MDM Lab Attestation statement: I reviewed the patient's lab results. 10/09/22 02:28 10/09/22 02:28 Labs: Lab Results 10/09/22 10/09/22 10/09/22 Range/Units 02:28 02:28 02:28 WBC 6.8 (4.8-10.8) X10*3/uL RBC 4.58 (4.20-5.50) X10*6/uL Hgb 12.0 (12.0-16.0) g/dl Hct 40.4 (37.0-47.0) % MCV 88.2 (80.0-98.0) fL MCH 26.2 L (27.0-33.0) pg MCHC 29.7 L (31.0-35.0) g/dl RDW 14.0 (11.0-16.0) % Plt Count 167 (160-400) X10*3/uL MPV 12.7 H (9.4-12.3) fL Immature Gran % (Auto) 0.6 H (0.0-0.4) % Neut % (Auto) 60.1 (45-73) % Lymph % (Auto) 28.8 (20-40) % [place] % (Auto) 10.1 (2-11) % Eos % (Auto) 0.1 (0-4) % Baso % (Auto) 0.3 (0-2) % Lymph # (Auto) 2.0 (1.2-4.9) X10*3/uL [place] # (Auto) 0.7 (0.1-1.2) X10*3/uL Eos # (Auto) 0.0 (0.0-0.4) X10*3/uL Baso # (Auto) 0.0 (0.0-0.2) X10*3/uL Abs Immat Gran (auto) 0.04 H (0.00-0.03) X10*3/uL Absolute Neuts (auto) 4.1 (2.0-8.3) x10*3/uL Absolute Nucleated RBC 0.000 (0.0-0.012) X10*3/uL Nucleated RBC % (auto) 0.0 (0.0-0.2) /100WBC Sodium 140 (135-145) mmol/L Potassium 4.3 (3.3-5.1) mmol/L Chloride 103 (96-108) mmol/L Carbon Dioxide 27 (22-29) mmol/L Anion Gap 14 (12-20) BUN 14 (9-16) mg/dL Creatinine 0.77 (0.5-1.4) mg/dL Estim Creat Clear Calc 161.9 Estimated GFR > 60 Random Glucose 97 (60-115) mg/dL Calcium 9.7 D (8.4-10.2) mg/dL Total Bilirubin 0.5 (0.0-1.0) mg/dL AST 21 (5-31) U/L ALT 21 (0-31) U/L Alkaline Phosphatase 99 (39-117) U/L Troponin I High Sens 6.7 (<3.5-17.0) ng/L B-Natriuretic Peptide (<100) pg/mL Total Protein 7.3 (6.5-8.0) g/dL Albumin 3.9 (3.5-5.0) g/dL COVID-19 (DERICK) (Negative) COVID-19 Clin Com 10/09/22 10/09/22 Range/Units 02:28 02:28 WBC (4.8-10.8) X10*3/uL RBC (4.20-5.50) X10*6/uL Hgb (12.0-16.0) g/dl Hct (37.0-47.0) % MCV (80.0-98.0) fL MCH (27.0-33.0) pg MCHC (31.0-35.0) g/dl RDW (11.0-16.0) % Plt Count (160-400) X10*3/uL MPV (9.4-12.3) fL Immature Gran % (Auto) (0.0-0.4) % Neut % (Auto) (45-73) % Lymph % (Auto) (20-40) % [place] % (Auto) (2-11) % Eos % (Auto) (0-4) % Baso % (Auto) (0-2) % Lymph # (Auto) (1.2-4.9) X10*3/uL [place] # (Auto) (0.1-1.2) X10*3/uL Eos # (Auto) (0.0-0.4) X10*3/uL Baso # (Auto) (0.0-0.2) X10*3/uL Abs Immat Gran (auto) (0.00-0.03) X10*3/uL Absolute Neuts (auto) (2.0-8.3) x10*3/uL Absolute Nucleated RBC (0.0-0.012) X10*3/uL Nucleated RBC % (auto) (0.0-0.2) /100WBC Sodium (135-145) mmol/L Potassium (3.3-5.1) mmol/L Chloride (96-108) mmol/L Carbon Dioxide (22-29) mmol/L Anion Gap (12-20) BUN (9-16) mg/dL Creatinine (0.5-1.4) mg/dL Estim Creat Clear Calc Estimated GFR Random Glucose (60-115) mg/dL Calcium (8.4-10.2) mg/dL Total Bilirubin (0.0-1.0) mg/dL AST (5-31) U/L ALT (0-31) U/L Alkaline Phosphatase (39-117) U/L Troponin I High Sens (<3.5-17.0) ng/L B-Natriuretic Peptide 34 (<100) pg/mL Total Protein (6.5-8.0) g/dL Albumin (3.5-5.0) g/dL COVID-19 (DERICK) Negative (Negative) COVID-19 Clin Com See Note Radiology Impression Discussion of test interpretation with radiology: I have reviewed the radiologist's reading. Radiologist Impression: FINDINGS: No significant abnormality is noted involving the heart, lungs, mediastinum, bony thorax or soft tissues. XR/XR chest 1V IMPRESSION: Unremarkable examination. Critical Care Time Critical Care Time Critical Care Time: Yes Total Critical Care Time: 30 Attestation: I have personally provided critical care time. Time includes review of lab data, radiology results, discussion with consultants, and monitoring for potential decompensation. Intervention performed as documented. Discharge Plan Discharge Clinical Impression: Atypical chest pain, Difficulty walking Patient Disposition: Still a Patient Prescriptions: No Action diclofenac sodium [Voltaren Arthritis Pain] 1 % gel 2 g topical QID Qty: 100 0RF Rx Instructions: apply to single elbow, wrist or hand; for hand includes palm/fingers/back of hand losartan 50 mg tablet 1 tab PO QPM atorvastatin 80 mg tablet 1 tab PO QAM paroxetine HCl 10 mg tablet 1 tab PO DAILY atenolol 100 mg tablet 1 tab PO DAILY hydroxyzine pamoate 50 mg capsule 2 cap PO BEDTIME hydralazine 25 mg tablet 1 tab PO BID amlodipine 5 mg tablet 1 tab PO DAILY@1200 topiramate 200 mg tablet 1 tab PO BEDTIME albuterol sulfate [ProAir HFA] 90 mcg/actuation HFA aerosol inhaler 2 puff PO Q4-6H PRN (Reason: Wheezing) paroxetine HCl 40 mg tablet 1 tab PO DAILY topiramate 100 mg tablet 1 tab PO BID@0900,1800 buspirone 15 mg tablet 1 tab PO BID bupropion HCl 300 mg tablet extended release 24 hr 1 tab PO QPM bupropion HCl 150 mg tablet extended release 24 hr 1 tab PO QAM cholecalciferol (vitamin D3) 50 mcg (2,000 unit) capsule 2 cap PO DAILY Minerin Creme Cream 1 appl topical BID furosemide 40 mg tablet 40 mg PO BID@0900,1200 albuterol sulfate 0.63 mg/3 mL solution for nebulization 1 amp inhalation Q4-6H PRN (Reason: wheezing) budesonide-formoterol [Symbicort] 160-4.5 mcg/actuation HFA aerosol inhaler 2 puff inhalation BID
--- NOTE | 2022-10-09 03:59 | PC.NURSE ---
Pt assisted to commode with 2 assist. Pt maintaining O2 saturation 95%
--- NOTE | 2022-10-09 04:58 | PC.NURSE ---
On arrival, pt required multiple staff members to assist with pivot from EMS stretcher to hospital stretcher. transfer completed safely. Pt c/o acute on chronic chest pain and shortness of breath. pt brought in on 10L via mask for comfort per EMS. Room air saturation as documented in triage. pt stated chest pain primarily precipitated by eating. Labs ordered and EKG performed. MD made aware of pt arrival.
--- NOTE | 2022-10-09 08:40 | PC.NURSE ---
Addendum entered by Vero Singh 10/09/22 08:47: attempt to use pam steady for transfer was unsuccessful. Pt's knees can't fit between the bars of the device. Original Note: late entry for aprox 8am. Pt was moved to overflow and assisted to transfer to a bariatric bed. Pt was able to stand with assist to a walker and urinated by squatting over a bed dela cruz. daughter assisted with bed dela cruz. transfer into/out of beds is spencer difficult with high risk for fall. patient refuses to try a pure wick for safety at this time. pt is SOB with minimal exertion. report given at bedside to Garth ALVARENGA.
--- NOTE | 2022-10-09 08:53 | PHA.MEDREC ---
Pharmacy Consult ? Medication Reconciliation Pharmacy has completed the medication reconciliation.Spoke with pt and daughter at bedside. Neither one knows any names or doses of medications. States that they only take medications from, [facility]. Used claim history to complete med rec. Pt and daughter claim she is still taking all confirmed medications once I listed names and explained what they were for or described them.
--- NOTE | 2022-10-09 11:13 | MHC.CM.ED ---
Received consult for assessment of d/c needs: Attempted to meet with pt: both pt and her guest were sleeping: pt asked CM to return at a later time. Per EMR and discussion w/RN: pt not able to manage at home d/t mobility limitations (BMI 80) and lack of caregivers and equipment to assist her. PT eval ordered and will be completed on 10/10. ED CM to return later today w/clay pigeon setter as pt is more comfortable w/Serbian.
--- NOTE | 2022-10-09 14:15 | PC.NURSE ---
Gave this patient her 9am dose at 11:15 am as patient was not in Overflow yet and had to wait for med reconcile to be done. per pharmacy they said to do a unscheduled give of this medication which I did and gave her for 1400 pm.
--- NOTE | 2022-10-09 15:25 | MHC.CM.ED ---
Received consult for assessment of d/c needs: Pt presented to ED w/chest pain and bilat thigh pain/swelling/weakness. No clinical finding to admit: Met w/pt using tumbling instructor: pt states she lives alone, has 6 hours of COUNT TEAM CLERK care per day and support w/transportation from her daughters. PCP is a male provider at [facility]. HCP offered but declined at this time. Pt has a walker but would like a w/c. Pt understands PT will see her tomorrow and assess for home vs STR. Pt receptive to broad referral search (will be difficult to place d/t body habitus: BMI 80 and Medicaid payor source) Referrals initiated. ED CM to follow.
--- NOTE | 2022-10-09 18:32 | PC.NURSE ---
Had to use a purewick for patient today as unable to physically get up or use a bedpan due to the size of this patient.
[2022-10-10] VITALS: TEMP 36.3
--- NOTE | 2022-10-10 01:14 | PC.NURSE ---
Assumed care of patient at 2300. Patient resting quietly at present. Will continue to monitor.
[2022-10-10 05:21] VITALS: BP 144/67; PULSE 68; RESP 18; TEMP 36.4; O2SAT 93
--- NOTE | 2022-10-10 09:33 | PC.NURSE ---
Spoke with ed case manager regarding plan for patient. Patient is to be discharged home today with VNA services. Son will be at this facility at approximately 11am to bring patient home.
--- NOTE | 2022-10-10 09:36 | MHC.CM.ED ---
Addendum entered by Juju Almaguer 10/10/22 09:57: At this time [facility] is only agency able to accept patient. Will not be able to start care for 3-4 days. Katherine RAO aware and agreeable. Original Note: Patient remains in ER overflow. Physical therapy eval completed. Home PT & OT are being recommended. Referral being broadcasted at this time. Attempted to meet with patient in regards to discharge planning. Patient is currently in the bathroom. Patient's daughter is bedside. Daughter aware patient will discharge home with VNA. Patient's son will be here around 1030am to transport patient home. Patient, daughter, Kathleen ALVARENGA and Katherine RAO aware. Continue to monitor for d/c needs.
--- NOTE | 2022-10-10 10:00 | PC.NURSE ---
Patient washed up with daughter.
[2022-10-10 11:30] VITALS: BP 133/72; PULSE 65; RESP 20; O2SAT 94
== END 2022-10-10 11:35 | disposition home or self-care (01) ==
PROVIDERS: Emergency Provider Emergency Medicine; PCP Nurse Practitioner Primary Care
DX: R07.89 Other chest pain (principal); R26.2 Difficulty in walking, not elsewhere classified; R06.02 Shortness of breath; I10 Essential (primary) hypertension; E11.9 Type 2 diabetes mellitus without complications; J45.909 Unspecified asthma, uncomplicated; G47.33 Obstructive sleep apnea (adult) (pediatric); E66.01 Morbid (severe) obesity due to excess calories; Z68.45 Body mass index [BMI] 70 or greater, adult
CPT/HCPCS: 71045; 80053; 82947; 83880; 84484; 85025; 87635; 93005; 97162; 99285

== ENCOUNTER 2023-03-02 15:46 | Emergency (ER) | payer MEDICAID, SELFPAY ==
--- NOTE | ~2023-03-02 | XR_ITS ---
EXAMINATION: XR CHEST CLINICAL INFORMATION: Shortness of breath COMPARISON: 10/09/2022 TECHNIQUE: Frontal view of the chest was obtained. FINDINGS: Examination is technically limited due to the patient's body habitus. Lungs are poorly expanded but clear. Cardiomediastinal silhouette is prominent. XR/XR chest 1V IMPRESSION: No active cardiopulmonary disease. Limited study
--- NOTE | ~2023-03-02 | US_ITS ---
EXAMINATION: US PELVIS CLINICAL INFORMATION: Pain and bleeding COMPARISON: CT abdomen pelvis 08/23/2021 TECHNIQUE: Ultrasound of the pelvis is performed using both transabdominal and transvaginal transducers along with Doppler. Transvaginal imaging is performed due to inadequate visualization transabdominally, however the transvaginal portion had to be terminated as the patient could not tolerate this. FINDINGS: The uterus and neither ovary could could not be seen transabdominally. The exam had to be terminated because the patient was unable to tolerate the endovaginal study. US/US pelvic and transvaginal IMPRESSION: Nondiagnostic study with nonvisualization of uterus or ovaries. On the prior CT scan from August 2021, uterus and adnexa appeared normal.
--- NOTE | ~2023-03-02 | CT_ITS ---
EXAMINATION: CT ABDOMEN AND PELVIS WITH CONTRAST CLINICAL INFORMATION: Pelvic pain and bloating. COMPARISON: Pelvic ultrasound dated 03/02/2023; abdominal ultrasound dated 08/23/2021; CT abdomen and pelvis dated 08/23/2021. TECHNIQUE: Multidetector volumetric images were obtained from the superior aspect of the liver through the pubic symphysis following administration of 100 mL of Omnipaque 350 intravenous contrast. Sagittal and coronal reformatted images were obtained on the technologist's workstation. Oral contrast: No This CT examination was performed using dose optimization techniques as appropriate, variously including the following: *Automated exposure control *Adjustment of mA and/or kV according to patient size (this includes techniques or standardized protocols for targeted exams where dose is matched to indication/reason for exam; i.e. extremities or head) *Use of iterative reconstruction technique DLP: 1590 mGy-cm FINDINGS: LUNG BASES: There is mild scar/subsegmental atelectasis at the medial right base. There is an adjacent benign, calcified granuloma. LIVER, GALLBLADDER, AND BILIARY TREE: The liver is normal in size, shape, and generally diminished in attenuation. No focal hepatic lesion or biliary ductal dilatation is present. The gallbladder is surgically absent. PANCREAS: Unremarkable. SPLEEN: Unremarkable. ADRENAL GLANDS: Unremarkable. KIDNEYS AND URETERS: The kidneys are normal in size, shape, and attenuation. Multiple nonobstructing bilateral renal calculi are seen, the largest on the right at the lower pole, measuring 1.3 cm, and on the left at the lower pole, measuring 6 mm (3:36 and 37). No perinephric stranding. BLADDER: Unremarkable. GASTROINTESTINAL TRACT: There is vigorous fat stranding of the mesentery, most pronounced adjacent to the mid sigmoid colon (3:72). The possibility of diverticulitis is raised. There is only a very mild underlying mild colonic diverticulosis. No obstruction, free intraperitoneal air or abscess is seen. There is no focal bowel wall thickening. The vermiform appendix is not identified with certainty; however, there is no finding to suggest appendicitis. ABDOMINAL WALL: There is a diastases rectus. There is a healed infraumbilical incision. No sizable hernia defect is noted. LYMPH NODES: Normal. VASCULAR: There is mild aortoiliac atherosclerotic calcification. No abdominal aortic aneurysm or dissection is seen. PELVIC VISCERA: The uterus and adnexa are unremarkable. There is fat stranding within the left adnexal region abutting the ovary and uterine fundus. OSSEOUS STRUCTURES: There is multi-level marked lower thoracic spondylosis. There is marked degenerative disc disease at T10-T11 and L5-S1. No acute or aggressive osseous finding is noted. CT/CT abdomen pelvis w IV con IMPRESSION: 1. There is vigorous mesenteric fat stranding, most pronounced adjacent to the mid sigmoid colon and left adnexal region. The possibility of acute diverticulitis is raised. Recommend clinical correlation and follow-up imaging as clinically indicated to ensure resolution. No obstruction, free intraperitoneal air or abscess is seen. The vermiform appendix is not identified; however, there is no finding to suggest appendicitis. 2. There is hepatic steatosis. 3. There are nonobstructing bilateral renal calculi. 4. There are multi-level degenerative changes of the thoracolumbar spine. Degenerative disc disease is most pronounced at T10-T11 and L5-S1. Fleischner guidelines were followed.
[2023-03-02 16:09] VITALS: BP 192/80; PULSE 105; RESP 24; TEMP 36.2; O2SAT 93; BMI 62.6
--- NOTE | 2023-03-02 16:09 | ED_ITS ---
HPI - General Adult General Chief complaint: GI Bleed Stated complaint: rectal bleeding Time Seen by Provider: 03/02/23 17:33 Source: patient, family, RN notes reviewed, old records reviewed and spanish medical interpreter Mode of arrival: ambulatory Limitations: language barrier History of Present Illness HPI narrative: 57-year-old female with past medical history significant for obstructive sleep apnea, morbid obesity, hypertension, asthma presents for evaluation of vaginal bleeding. Per the patient and her daughter who is bedside, the patient has had topical treatment for hemorrhoids about one month ago. Per the patient's daughter, the patient started to have bleeding about 1 week ago. They suspected it may have been rectal bleeding but were unsure if it was more vaginal bleeding. She is not on any anticoagulation Denies any history of similar The patient is postmenopausal She denies any significant pain from the area but has noticed blood clots Denies any burning with urination Related Data Home Medications Medication Instructions Recorded Confirmed albuterol sulfate 0.63 mg/3 mL 1 amp inhalation Q4-6H PRN wheezing 08/23/21 10/09/22 solution for nebulization albuterol sulfate 90 mcg/actuation 2 puff PO Q4-6H PRN Wheezing 08/23/21 10/09/22 aerosol inhaler (ProAir HFA) amlodipine 5 mg tablet 1 tab PO DAILY@1200 08/23/21 10/09/22 atenolol 100 mg tablet 100 mg PO DAILY 08/23/21 10/09/22 atorvastatin 80 mg tablet 1 tab PO DAILY 08/23/21 10/09/22 budesonide-formoterol HFA 160 2 puff inhalation BID 08/23/21 10/09/22 mcg-4.5 mcg/actuation aerosol inhaler (Symbicort) bupropion HCl 150 mg 24 hr tablet, 1 tab PO DAILY 08/23/21 10/09/22 extended release bupropion HCl 300 mg 24 hr tablet, 1 tab PO BEDTIME 08/23/21 10/09/22 extended release cholecalciferol (vitamin D3) 50 2 cap PO DAILY 08/23/21 10/09/22 mcg (2,000 unit) capsule furosemide 40 mg tablet 40 mg PO BID@0900,1200 08/23/21 10/09/22 hydralazine 25 mg tablet 1 tab PO BIDWM 08/23/21 10/09/22 hydroxyzine pamoate 50 mg capsule 2 cap PO BEDTIME 08/23/21 10/09/22 lanolin alcohols-mineral 1 appl topical BID 08/23/21 10/09/22 oil-w.petrolatum-ceresin topical cream (Minerin Creme topical) losartan 50 mg tablet 1 tab PO BEDTIME 08/23/21 10/09/22 paroxetine HCl 10 mg tablet 1 tab PO DAILY 08/23/21 10/09/22 paroxetine HCl 40 mg tablet 1 tab PO DAILY 08/23/21 10/09/22 topiramate 100 mg tablet 1 tab PO BID@0900,1800 08/23/21 10/09/22 topiramate 200 mg tablet 1 tab PO BEDTIME 08/23/21 10/09/22 buspirone 10 mg tablet 10 mg PO BEDTIME 10/09/22 10/09/22 buspirone 15 mg tablet 15 mg PO BID@0900,1800 10/09/22 10/09/22 Previous Rx's Medication Instructions Recorded diclofenac sodium 1 % topical gel 2 g topical QID #100 grams 01/13/21 (Voltaren Arthritis Pain) amoxicillin 875 mg-potassium 1 tab PO TID #20 tabs 03/02/23 clavulanate 125 mg tablet Allergies Allergy/AdvReac Type Severity Reaction Status Date / Time No Known Allergies Allergy Verified 03/02/23 16:15 Review of Systems 2 Constitutional: Constitutional: Denies chills and Denies fever(s) Cardiovascular: Cardiovascular: Denies chest pain and Denies dyspnea Respiratory: Respiratory: Denies cough and Denies dyspnea Gastrointestinal: Gastrointestinal: Reports abdominal pain (LLQ) and Reports hematochezia Genitourinary: Genitourinary: Reports abnormal vaginal bleeding Musculoskeletal: Musculoskeletal: Denies back pain Integumentary/Breasts: Skin/Breast: Denies rash PMFSH Past Medical History Medical History Asthma Asthma Diabetes HTN (hypertension) Morbid obesity KENZIE (obstructive sleep apnea) Family History Family History Daughter No problems noted. Daughter No problems noted. Daughter No problems noted. Daughter No problems noted. Daughter No problems noted. Son No problems noted. Social History Household Members: Children Housing: Apartment Alcohol intake: never Patient Tobacco Use Status: Never used Tobacco Smoked in Last 30 Days: No Use of substances other than those prescribed or required for medical reasons: No Advance Directives: No Advance Directives Information Provided: No service: No Current occupational status: unemployed Physical Exam ED Vital Signs: Vital Signs - 24 hr 03/02/23 16:09 03/02/23 19:53 03/02/23 22:13 Temperature 97.2 F 97.6 F Pulse Rate 105 H 86 79 Respiratory Rate 24 H 26 H 28 H Blood Pressure 192/80 H 168/70 H 162/72 H Pulse Oximetry 93 97 96 Oxygen Delivery Method Room Air Room Air Room Air BMI result Body Mass Index 62.6 Const General: healthy appearing, comfortable, no acute distress, alert and awake Nutritional Appearance: well nourished Orientation/consciousness: patient oriented x3 HENMT Head: Yes normocephalic and Yes atraumatic Eyes Eyelids: Yes eyelids normal Conjunctivae: conjunctivae normal Sclerae: sclerae normal Corneas: corneas normal Pupils: Equal, round and reactive pupils present EOM: EOMs intact bilaterally Neck Neck: Yes full ROM Resp Effort & Inspection: normal respiratory effort, able to speak in complete sentences and not labored Cardio Rate: regular rate Rhythm: regular rhythm GI Other: Visual inspection of the rectum was difficult due to patient's large body habitus. There were not any obvious external hemorrhoids or obvious source rectal bleeding. Inspection: No distended, Yes Abdominal panniculus present and Yes obesity (morbid obesity) Palpation (GI): Soft to palpation, not firm, nontender, no guarding and not rigid Rectal Exam - Female: visual inspection normal and No External hemorrhoid(s) present General: Yes no CVA tenderness Back/Spine/Pelvis Back: no CVA tenderness Skin General skin exam: elasticity normal Neuro General: patient oriented x3 Cranial nerves: Yes Equal, round and reactive pupils present and Yes Bilaterally intact EOM present Cognition (Neuro): normal cognition Extrem Other: Moving all extremities well without any obvious deformities Course Course Course Narrative: RME:?57 year old female w/ hx of KENZIE (on cpap), morbid obesity, DM, HTN, asthma, presents to ED today for eval of LLQ pain and rectal bleeding x1 week. Reports dark blood in the toilet bowl and bright red blood on wiping. Admits to passing clots. Reports hx of hemorrhoids 1 week ago which resolved with ointment. States this is different in that there is more blood/ clotting. Last BM this morning. LLQ pain does not radiate. Reports chronic SOB, worsening over last 3 days. Does not use home O2. PE: rrr, lungs cta b/l. obese abd. TTP of LLQ. no rebound or guarding. Plan: labs, OBS Full HPI, ROS and PE to be performed by the primary ED provider. Reevaluation(s) Reevaluation #1: Unfortunately patient's pelvic ultrasound was 9 diagnostic likely due to body habitus. A CT scan was ordered which shows possible sigmoid diverticulitis. The uterus appears normal on CT scan. I discussed with the patient. She declined pelvic examination at this time. We will treat her UTI and diverticulitis with Augmentin which should cover both. Time: 23:16 Medications Administered Discontinued Medications Generic Name Dose Route Start Last Admin Trade Name Jovana PRN Reason Stop Dose Admin Acetaminophen 975 mg 03/02/23 19:59 03/02/23 20:03 Acetaminophen 325 Mg Tablet PO 03/02/23 20:00 975 mg ONCE ONE Administration Iohexol 100 ml 03/02/23 20:52 03/02/23 20:52 Iohexol 350 Mg/Ml 100 Ml Infus..Btl IV 03/02/23 20:53 100 ml ONCE ONE Administration Medical Decision Making Medical Decision Making [facility] Narrative: [age] of female presents for evaluation of bleeding that appears to be more pelvic bleeding/vaginal bleeding as there are blood clots within the vaginal introitus. No obvious lesions to the skin or perineum. Will attempt to get a pelvic ultrasound. I discussed with CT scan, the patient should be able to get a pelvic CT if recommended based on weight but clear unsure if the patient's size would prohibit CT imaging. Patient's H&H are stable when compared to baseline. Differential Diagnosis Differential Diagnoses: The differential diagnosis associated with the presentation includes Admission/Observation Consideration of admission/observation: Escalation of care including admission/observation considered Lab Data MDM Lab Attestation statement: I reviewed the patient's lab results. Patient has a mild leukopenia and mild anemia consistent with baseline. No significant electrolyte abnormalities. Glucose elevated to 119 with no evidence of DKA 03/02/23 17:12 03/02/23 17:12 Labs: Lab Results 03/02/23 03/02/23 03/02/23 Range/Units 16:56 17:12 18:07 WBC 4.7 L (4.8-10.8) X10*3/uL RBC 4.62 (4.20-5.50) X10*6/uL Hgb 11.8 L (12.0-16.0) g/dl Hct 40.2 (37.0-47.0) % MCV 87.0 (80.0-98.0) fL MCH 25.5 L (27.0-33.0) pg MCHC 29.4 L (31.0-35.0) g/dl RDW 15.3 (11.0-16.0) % Plt Count 195 (160-400) X10*3/uL MPV 12.1 (9.4-12.3) fL Immature Gran % (Auto) 0.2 (0.0-0.4) % Neut % (Auto) 69.4 (45-73) % Lymph % (Auto) 22.7 (20-40) % [place] % (Auto) 7.3 (2-11) % Eos % (Auto) 0.4 (0-4) % Baso % (Auto) 0.0 (0-2) % Lymph # (Auto) 1.1 L (1.2-4.9) X10*3/uL [place] # (Auto) 0.3 (0.1-1.2) X10*3/uL Eos # (Auto) 0.0 (0.0-0.4) X10*3/uL Baso # (Auto) 0.0 (0.0-0.2) X10*3/uL Abs Immat Gran (auto) 0.01 (0.00-0.03) X10*3/uL Absolute Neuts (auto) 3.2 (2.0-8.3) x10*3/uL Absolute Nucleated RBC 0.000 (0.0-0.012) X10*3/uL Nucleated RBC % (auto) 0.0 (0.0-0.2) /100WBC PT 12.5 (11.1-13.3) SEC INR 1.0 (0.9-1.1) Sodium 143 (135-145) mmol/L Potassium 4.1 (3.3-5.1) mmol/L Chloride 107 (96-108) mmol/L Carbon Dioxide 28 (22-29) mmol/L Anion Gap 12 (12-20) BUN 10 (9-16) mg/dL Creatinine 0.73 (0.5-1.4) mg/dL Estim Creat Clear Calc 148.8 Estimated GFR > 60 Random Glucose 119 H (60-115) mg/dL Calcium 9.3 (8.4-10.2) mg/dL Magnesium 1.7 (1.6-2.6) mg/dL Total Bilirubin 0.4 (0.0-1.0) mg/dL AST 23 (5-31) U/L ALT 21 (0-31) U/L Alkaline Phosphatase 103 (39-117) U/L Total Protein 7.7 (6.5-8.0) g/dL Albumin 3.6 (3.5-5.0) g/dL Lipase 13 (8-78) U/L Urine Color Red A Urine Appearance Turbid Urine pH 6.5 (5.0-9.0) Ur Specific [place] 1.020 (1.005-1.025) Urine Protein 100 (2+) H (Neg-Trace) mg/dL Urine Glucose (UA) Negative (Negative) mg/dL Urine Ketones Negative (Negative) mg/dL Urine Blood Large (3+) H (Negative) Urine Nitrite Positive H (Negative) Ur Leukocyte Esterase Moderate (2+) H (Negative) Urine RBC >20 H (0-2) /HPF Urine WBC 21-50 H (0-5) /HPF Ur Squamous Epith Cells 0-2 (0-2) /HPF Urine Bacteria 4+ (None Seen) Hyaline Casts 0-2 (0-2) /LPF COVID-19 (DERICK) Negative (Negative) COVID-19 Clin Com See Note Radiology Impression Discussion of test interpretation with radiology: I have reviewed the radiologist's reading. (Concern for diverticulitis is raised) Discharge Plan Discharge Clinical Impression: Anovulatory (dysfunctional uterine) bleeding, Diverticulitis, UTI (urinary tract infection) Patient Disposition: Home, Self-Care Instructions: Diverticulitis (ED) Additional Instructions: Take Augmentin 3 times daily for the next 7 days This will treat both diverticulitis and urinary tract infection Call Dr. Fair OBJUNITO office Saturday to schedule follow-up Return for new or worsening symptoms Prescriptions: New amoxicillin-pot clavulanate 875-125 mg tablet 1 tab PO TID Qty: 20 0RF No Action diclofenac sodium [Voltaren Arthritis Pain] 1 % gel 2 g topical QID Qty: 100 0RF Rx Instructions: apply to single elbow, wrist or hand; for hand includes palm/fingers/back of hand losartan 50 mg tablet 1 tab PO BEDTIME atorvastatin 80 mg tablet 1 tab PO DAILY paroxetine HCl 10 mg tablet 1 tab PO DAILY atenolol 100 mg tablet 100 mg PO DAILY hydroxyzine pamoate 50 mg capsule 2 cap PO BEDTIME hydralazine 25 mg tablet 1 tab PO BIDWM amlodipine 5 mg tablet 1 tab PO DAILY@1200 topiramate 200 mg tablet 1 tab PO BEDTIME albuterol sulfate [ProAir HFA] 90 mcg/actuation HFA aerosol inhaler 2 puff PO Q4-6H PRN (Reason: Wheezing) paroxetine HCl 40 mg tablet 1 tab PO DAILY topiramate 100 mg tablet 1 tab PO BID@0900,1800 bupropion HCl 300 mg tablet extended release 24 hr 1 tab PO BEDTIME bupropion HCl 150 mg tablet extended release 24 hr 1 tab PO DAILY cholecalciferol (vitamin D3) 50 mcg (2,000 unit) capsule 2 cap PO DAILY Minerin Creme Cream 1 appl topical BID furosemide 40 mg tablet 40 mg PO BID@0900,1200 albuterol sulfate 0.63 mg/3 mL solution for nebulization 1 amp inhalation Q4-6H PRN (Reason: wheezing) budesonide-formoterol [Symbicort] 160-4.5 mcg/actuation HFA aerosol inhaler 2 puff inhalation BID buspirone 10 mg tablet 10 mg PO BEDTIME buspirone 15 mg tablet 15 mg PO BID@0900,1800 Referrals: Tony Fair MD [Physician] - (dysfunctional uterine bleeding)
--- NOTE | 2023-03-02 17:07 | PC.NURSE ---
pt brought straight from triage to ER bay. a@o x4, pleasant, calm, and cooperative. attempted to get OBS, no success due to position of pt and unable to roll. when placing purewick for pt, noted that bleeding appears to be coming from vagina. large clot noted. purewick in place. 22G IV placed to left forearm. tech currently grabbing labs. pt daughter and granddaughter at bedside. call mchugh within reach.
[2023-03-02 17:17] LABS: MANUAL DIFF FLAG NO
[2023-03-02 17:18] LABS: COVID-19 Test Negative (Negative); IDNOW Serial# 08D9AD1C
[2023-03-02 17:19] LABS: Eosinophils Percent Auto 0.4 % (0-4); Hematocrit 40.2 % (37.0-47.0); Hemoglobin 11.8 g/dl (12.0-16.0); Imm Gran Abs Auto 0.01 X10*3/uL (0.00-0.03); Imm Gran Pct Auto 0.2 % (0.0-0.4); Lymphocytes Absolute Auto 1.1 X10*3/uL (1.2-4.9); Lymphocytes Percent Auto 22.7 % (20-40); Mean Corpuscular HGB Conc 29.4 g/dl (31.0-35.0); Mean Corpuscular Hemoglobin 25.5 pg (27.0-33.0); Mean Platelet Volume 12.1 fL (9.4-12.3); Monocytes Absolute Auto 0.3 X10*3/uL (0.1-1.2); Monocytes Percent Auto 7.3 % (2-11); Neutrophils Absolute Auto 3.2 x10*3/uL (2.0-8.3); Neutrophils Percent Auto 69.4 % (45-73); Platelet Count 195 X10*3/uL (160-400); Red Blood Count 4.62 X10*6/uL (4.20-5.50); Red Cell Distribution Width 15.3 % (11.0-16.0); White Blood Count 4.7 X10*3/uL (4.8-10.8)
[2023-03-02 17:24] LABS: Prothrombin Time 12.5 SEC (11.1-13.3)
[2023-03-02 17:35] LABS: Alanine Aminotransferase 21 U/L (0-31); Albumin Level 3.6 g/dL (3.5-5.0); Alkaline Phosphatase 103 U/L (39-117); Anion Gap 12 (12-20); Aspartate Amino Transferase 23 U/L (5-31); Bilirubin Total 0.4 mg/dL (0.0-1.0); Blood Urea Nitrogen 10 mg/dL (9-16); Calcium 9.3 mg/dL (8.4-10.2); Carbon Dioxide 28 mmol/L (22-29); Chloride 107 mmol/L (96-108); Creatinine Clr Calc Pharmacy 148.8; Estimated Glomerular Filt Rate > 60; Glucose Random 119 mg/dL (60-115); Lipase 13 U/L (8-78); Magnesium 1.7 mg/dL (1.6-2.6); Potassium 4.1 mmol/L (3.3-5.1); Sodium 143 mmol/L (135-145); Total Protein 7.7 g/dL (6.5-8.0)
[2023-03-02 18:20] LABS: Appearance Urine Turbid; Color Urine Red; Glucose Urine UA Negative (Negative); Leukocyte Esterase Urine Moderate (2+) (Negative); Nitrite Urine Positive (Negative); PH 6.5 (5.0-9.0); UMIC TRIGGER UACC YES; Urine Blood Large (3+) (Negative); Urine Ketones Negative (Negative); Urine Protein 100 (2+) mg/dL (Neg-Trace)
[2023-03-02 18:21] LABS: Bacteria Urine 4+ (None Seen); Hyaline Casts Urine 0-2 /LPF (0-2); RBC Urine >20 /HPF (0-2); Squamous Epithelial Cell Urine 0-2 /HPF (0-2); UACC Culture Trigger YES; WBC Urine 21-50 /HPF (0-5)
--- NOTE | 2023-03-02 18:44 | PC.NURSE ---
non destructive testing technician attempted trans vaginal ultrasound on pt. pt not able to tolerate due to pain. pt cleaned up and new purewick put in place. pt resting quietly with daughter at bedside. rr even/unlabored. pt sating 98% on room air.
[2023-03-02 19:53] VITALS: BP 168/70; PULSE 86; RESP 26; TEMP 36.4; O2SAT 97
[2023-03-02] MEDS: Acetaminophen 325 MG TABLET 975 MG PO (20:03)
[2023-03-02] MEDS: iohexoL 350 MG/ML 100 ML INFUS..BTL IV (20:52)
[2023-03-02 22:13] VITALS: BP 162/72; PULSE 79; RESP 28; O2SAT 96
[2023-03-02 23:48] VITALS: BP 142/48; PULSE 88; RESP 26; O2SAT 99
[2023-03-02] MEDS: Amoxicillin/Potassium Clav 875 MG TABLET PO (23:49)
== END 2023-03-03 00:17 | disposition home or self-care (01) ==
PROVIDERS: Physician Assistant; Physician Assistant Medical; Emergency Provider Emergency Medicine Emergency Medical Services
DX: N97.0 Female infertility associated with anovulation (principal); K57.32 Diverticulitis of large intestine without perforation or abscess without bleeding; N39.0 Urinary tract infection, site not specified; Z11.52 Encounter for screening for COVID-19; E11.9 Type 2 diabetes mellitus without complications; I10 Essential (primary) hypertension; G47.33 Obstructive sleep apnea (adult) (pediatric); Z79.899 Other long term (current) drug therapy
CPT/HCPCS: 36415; 71045; 74177; 76830; 76856; 80053; 81001; 83690; 83735; 85025; 85610; 87086; 87088; 87186; 87635; 99284; Q9967

== ENCOUNTER 2023-04-04 10:52 | Observation (INO) | payer MEDICAID, SELFPAY ==
[2023-04-04] VITALS (12 sets, daily range): BP systolic 119–190; BP diastolic 53–71; PULSE 93–113; RESP 19–32; TEMP 36.2–36.7; O2SAT 92–99; BMI 53.1
--- NOTE | ~2023-04-04 | US_ITS ---
EXAMINATION: US EXTREMITY NONVASCULAR CLINICAL INFORMATION: Redness and pain right distal thigh COMPARISON: None available. TECHNIQUE: Real-time ultrasound of the right distal thigh over the area of redness and pain indicated by the patient FINDINGS: Ultrasound of the right distal thigh over the area of redness and pain indicated by the patient demonstrates no focal fluid collection or other abnormality to suggest an abscess. US/US extremity nonvascular IMPRESSION: No abscess demonstrated.
--- NOTE | ~2023-04-04 | XR_ITS ---
EXAMINATION: XR CHEST CLINICAL INFORMATION: Wheezing and abnormal breath sounds COMPARISON: 03/02/2023 TECHNIQUE: 2 views of the chest were obtained. FINDINGS: Heart size normal with normal caliber pulmonary vessels. Lungs grossly clear. XR/XR chest 2V IMPRESSION: No active disease. No change.
--- NOTE | ~2023-04-04 | CT_ITS ---
EXAMINATION: CT ABDOMEN AND PELVIS WITHOUT CONTRAST CLINICAL INFORMATION: Left lower quadrant pain/rectal bleed. COMPARISON: CT abdomen/pelvis 03/02/2023. TECHNIQUE: Multidetector volumetric imaging was performed from the superior aspect of the liver through the pubic symphysis. Sagittal and coronal reformatted images were obtained on the technologist's workstation. This CT examination was performed using dose optimization techniques as appropriate, variously including the following: *Automated exposure control *Adjustment of mA and/or kV according to patient size (this includes techniques or standardized protocols for targeted exams where dose is matched to indication/reason for exam; i.e. extremities or head) *Use of iterative reconstruction technique DLP: 1758 mGy-cm FINDINGS: Limited examination secondary to patient body habitus, motion and lack of IV contrast. LUNG BASES: The visualized lung bases are unremarkable. LIVER, GALLBLADDER, AND BILIARY TREE: The liver is enlarged measuring 20 cm craniocaudally and demonstrates decreased attenuation consistent with hepatic steatosis. Otherwise, the liver is normal in shape without discrete focal lesion. Cholecystectomy. No biliary ductal dilatation. PANCREAS: Limited examination in the absence of IV contrast and secondary to motion. No main ductal dilatation. No significant peripancreatic fat stranding or free fluid. SPLEEN: Unremarkable. ADRENAL GLANDS: Unremarkable. KIDNEYS AND URETERS: Multiple right greater than left nonobstructive renal calculi measuring up to approximately 4 mm in the right kidney. No hydronephrosis. No perinephric fat stranding. BLADDER: Unremarkable. GASTROINTESTINAL TRACT: The stomach and the small bowel are nondilated. No significant inflammatory changes in the right lower quadrant to suspect acute appendicitis. Mild colonic diverticulosis without significant pericolonic fat stranding or free fluid. No bowel obstruction. ABDOMINAL WALL: Scarring and stranding in the midline lower abdominal wall, unchanged. No significant hernia. LYMPH NODES: No lymphadenopathy. VASCULAR: Atherosclerotic disease within normal caliber of the abdominal aorta. PELVIC VISCERA: Redemonstration of a left ovarian/adnexal mass measuring 4 x 3.8 cm attenuation of 63 Hounsfield units, not significantly changed compared to 03/02/2023, new compared to 08/23/2021. OSSEOUS STRUCTURES: No acute or aggressive appearing osseous findings. Degenerative changes of the spine. CT/CT abdomen pelvis wo IV con IMPRESSION: Limited examination secondary to patient habitus, motion and lack of IV contrast; evaluation of acute GI bleed is essentially nondiagnostic in the absence of IV contrast. 1. Hepatomegaly and hepatic steatosis. 2. Right greater than left nonobstructive bilateral renal calculi. 3. Colonic diverticulosis without findings to indicate acute diverticulitis. No significant pericolonic nor perirectal inflammatory changes. No evidence of bowel obstruction. 4. Redemonstration of a complicated left ovarian/adnexal mass measuring 4 cm, 63 Hounsfield units, unchanged compared to 03/02/2023 but new compared to 08/23/2021. Recommend prompt further characterization with pelvic ultrasound.
--- NOTE | 2023-04-04 11:22 | ED.SKABFB ---
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 She also notes a brief episode of chest pain she cannot describe happening at rest yesterday. She had to walk into the hospital and had significant wheezing which she states happens to her every day. She uses nebs and INH but her wheezes never improves. She notes she is compliant with her medications. She finally came for the ulcer today as it is getting bigger and she has hx of skin infection before. MD complaint: rash and lesion Onset (ago): day(s) (4) Tetanus up to date: yes Location: RLE Severity: moderate Quality: aching, dull and constant Pain Consistency: constant Relieving factors: rest Exacerbating factors: palpation and movement Context: other (hx of group b strep) Associated symptoms: fever and other (asthma exacerbation post having to walk into ED) Related Data Home Medications Medication Instructions Recorded Confirmed albuterol sulfate 0.63 mg/3 mL 1 amp inhalation Q4-6H PRN wheezing 08/23/21 04/04/23 solution for nebulization albuterol sulfate 90 mcg/actuation 2 puff PO Q4-6H PRN Wheezing 08/23/21 04/04/23 aerosol inhaler (ProAir HFA) amlodipine 5 mg tablet 1 tab PO DAILY@1200 08/23/21 04/04/23 atenolol 100 mg tablet 100 mg PO DAILY 08/23/21 04/04/23 atorvastatin 80 mg tablet 1 tab PO DAILY 08/23/21 04/04/23 budesonide-formoterol HFA 160 2 puff inhalation BID 08/23/21 04/04/23 mcg-4.5 mcg/actuation aerosol inhaler (Symbicort) bupropion HCl 150 mg 24 hr tablet, 1 tab PO DAILY 08/23/21 04/04/23 extended release bupropion HCl 300 mg 24 hr tablet, 1 tab PO BEDTIME 08/23/21 04/04/23 extended release cholecalciferol (vitamin D3) 50 2 cap PO DAILY 08/23/21 04/04/23 mcg (2,000 unit) capsule furosemide 40 mg tablet 40 mg PO BID@0900,1200 08/23/21 04/04/23 hydralazine 25 mg tablet 1 tab PO BIDWM 08/23/21 04/04/23 lanolin alcohols-mineral 1 appl topical BID PRN Dry Skin 08/23/21 04/04/23 oil-w.petrolatum-ceresin topical cream (Minerin Creme topical) losartan 50 mg tablet 1 tab PO BEDTIME 08/23/21 04/04/23 paroxetine HCl 10 mg tablet 1 tab PO DAILY 08/23/21 04/04/23 paroxetine HCl 40 mg tablet 1 tab PO DAILY 08/23/21 04/04/23 topiramate 100 mg tablet 1 tab PO BID@0900,1800 08/23/21 04/04/23 topiramate 200 mg tablet 1 tab PO BEDTIME 08/23/21 04/04/23 buspirone 10 mg tablet 10 mg PO BEDTIME 10/09/22 04/04/23 buspirone 15 mg tablet 15 mg PO BID@0900,1800 10/09/22 04/04/23 dulaglutide 1.5 mg/0.5 mL 1.5 mg subcut TH@0900 04/04/23 04/04/23 subcutaneous pen injector (Trulicity) sennosides 8.6 mg-docusate sodium 1 tab PO DAILY 04/04/23 04/04/23 50 mg tablet (Stimulant Laxative Plus) Allergies Allergy/AdvReac Type Severity Reaction Status Date / Time No Known Allergies Allergy Verified 03/02/23 16:15 Review of Systems Review of Systems: Constitutional : No Fever, No Chills ENT/Mouth : No Hoarseness, No sore throat, No Rhinorrhea Eyes: No Redness, No Discharge, No Vision Changes Cardiovascular : No Chest Pain, positive SOB, positive Dyspnea on Exertion, No Edema Respiratory : positive Cough, No Sputum, positive Wheezing, Gastrointestinal : No Nausea, No Vomiting, No Diarrhea, No abdominal Pain Genitourinary : No Dysuria, No Hematuria Musculoskeletal : No joint pain, No Myalgias Skin : No rash, pos skin lesion Neuro : No Weakness, No Numbness, No Headache Psych : No anxiety, depression Heme/Lymph: No Bruising, No Bleeding Endocrine : No Polyuria, No Polydipsia All other systems reviewed and are negative [facility] Past Medical History Attestation statement: The following information was validated with the patient. Source: old records reviewed Medical History Asthma Asthma Diabetes HTN (hypertension) Morbid obesity KENZIE (obstructive sleep apnea) Family History Family History Daughter No problems noted. Daughter No problems noted. Daughter No problems noted. Daughter No problems noted. Daughter No problems noted. Son No problems noted. Social History Social History Household Members: Children Housing: Apartment Alcohol intake: never Patient Tobacco Use Status: Never used Tobacco Advance Directives: No Advance Directives Information Provided: Yes service: No Current occupational status: unemployed Physical Exam Vital Signs: Vital Signs: Last Vital Signs Temp 97.9 F 04/04/23 13:43 Pulse 100 04/04/23 13:43 Resp 25 H 04/04/23 13:43 BP 142/53 H 04/04/23 13:43 Pulse Ox 97 04/04/23 13:43 O2 Del Method Room Air 04/04/23 13:43 BMI result Body Mass Index 53.1 Appearance: Alert. Oriented X3. Mild acute distress. Eyes: Pupils equal, round and reactive to light. ENT: Pharynx normal. Neck: Normal inspection. Neck supple. CVS: Normal heart rate and rhythm. Pulses normal. Respiratory: mild respiratory distress retractions and tachypnea. Breath sounds bilateral diffuse insp and exp wheezes - audible Abdomen: Soft and nontender. Skin: Skin warm and dry. Normal skin color. Normal skin turgor. Extremities: 2+ pitting bilateral LE edema - inside R knee there is diffuse erythema and warmth with ulcerated rash noted and yellow drainage but not nila purulence it is tender to touch, no fluctuance no crepitus Neuro: Oriented X 3. No motor deficit. No sensory deficit. Course Course Course Narrative: RME:?57 yo female w/ phx of KENZIE, DM, HTN, asthma here w/ open wound to right thigh, worsening x4 days. reports swelling, redness, blistering to right thigh. +subjective fevers at home. on lasix. endorses increasing SOB > wheezing worsening. denies chest pain/ palpitations. exam limited in triage. +audible wheezing, dyspnea at rest. +bilateral expiratory wheezes Plan: labs, CXR, Full HPI, ROS and PE to be performed by the primary ED provider. Reevaluation(s) Reevaluation #1: lactic acid increased due to albuterol use and not infection or severe sepsis Medications Administered Discontinued Medications Generic Name Dose Route Start Last Admin Trade Name Freq PRN Reason Stop Dose Admin Albuterol Sulfate 12 puff 04/04/23 12:11 04/04/23 12:22 Albuterol Sulfate 90 Mcg 8 Gm Inhaler INHALE 04/04/23 12:12 12 puff ONCE ONE Administration Albuterol Sulfate 2.5 mg/ 0 mg 04/04/23 12:32 04/04/23 12:35 Albuterol/Ipratropium 3 ml INHALE 04/04/23 12:33 Not Given ONCE ONE Albuterol Sulfate 5 mg/ 0 mg 04/04/23 12:34 04/04/23 12:36 Albuterol/Ipratropium 3 ml INHALE 04/04/23 12:35 7.5 each ONCE ONE Administration Piperacillin Sod/Tazobactam 50 mls @ 100 mls/hr 04/04/23 12:46 04/04/23 14:33 Sod 3.375 gm/ Sodium Chloride IV 04/04/23 13:15 Infused ONCE ONE Infusion Sodium Chloride 500 mls @ 500 mls/hr 04/04/23 13:15 04/04/23 13:08 Ns IV 04/04/23 14:14 500 mls/hr .Q1H FREDA Administration Methylprednisolone Sodium Succinate 60 mg 04/04/23 12:46 04/04/23 13:08 Methylprednisolone Sod Succ 125 Mg/2 Ml Vial IVPUSH 04/04/23 12:47 60 mg ONCE ONE Administration Medical Decision Making Medical Decision Making MDM Narrative: 57 yo female with PMH of KENZIE, DM, HTN, morbid obesity, asthma not on home O2, chronic lower ext edema, group b strep bacteremia at this time 2 complaints 1.) RLE cellulitis - labs, cultures, IV zosyn and DVT study. 2.) asthma after walking into the ED repeat nebs, viral panel, IV steroids - she will need admission for her leg. At this time doubt VTE but DVT study is ordered. Planned admit. Differential Diagnosis Differential Diagnoses: The differential diagnosis associated with the presentation includes cellulitis, asthma, morbidy obesity Admission/Observation Consideration of admission/observation: Escalation of care including admission/observation considered admit for IV antibiotics Consult Healthcare Provider Management of the patient was discussed with: Hospitalist (will admit) Lab Data MDM Lab Attestation statement: I reviewed the patient's lab results. 04/04/23 11:40 04/04/23 11:40 Labs: Lab Results 04/04/23 04/04/23 Range/Units 11:40 14:18 WBC 6.5 (4.8-10.8) X10*3/uL RBC 4.65 (4.20-5.50) X10*6/uL Hgb 11.8 L (12.0-16.0) g/dl Hct 40.7 (37.0-47.0) % MCV 87.5 (80.0-98.0) fL MCH 25.4 L (27.0-33.0) pg MCHC 29.0 L (31.0-35.0) g/dl RDW 15.1 (11.0-16.0) % Plt Count 207 (160-400) X10*3/uL MPV 12.0 (9.4-12.3) fL Immature Gran % (Auto) 0.5 H (0.0-0.4) % Neut % (Auto) 63.3 (45-73) % Lymph % (Auto) 29.8 (20-40) % [place] % (Auto) 6.1 (2-11) % Eos % (Auto) 0.3 (0-4) % Baso % (Auto) 0.0 (0-2) % Lymph # (Auto) 1.9 (1.2-4.9) X10*3/uL [place] # (Auto) 0.4 (0.1-1.2) X10*3/uL Eos # (Auto) 0.0 (0.0-0.4) X10*3/uL Baso # (Auto) 0.0 (0.0-0.2) X10*3/uL Abs Immat Gran (auto) 0.03 (0.00-0.03) X10*3/uL Absolute Neuts (auto) 4.1 (2.0-8.3) x10*3/uL Absolute Nucleated RBC 0.000 (0.0-0.012) X10*3/uL Nucleated RBC % (auto) 0.0 (0.0-0.2) /100WBC ESR 59 H (0-20) MM/HR PT 12.2 (11.1-13.3) SEC INR 1.0 (0.9-1.1) Sodium 141 (135-145) mmol/L Potassium 3.8 (3.3-5.1) mmol/L Chloride 105 (96-108) mmol/L Carbon Dioxide 29 (22-29) mmol/L Anion Gap 11 L (12-20) BUN 12 (9-16) mg/dL Creatinine 0.77 (0.5-1.4) mg/dL Estim Creat Clear Calc 110.6 Estimated GFR > 60 Random Glucose 138 H (60-115) mg/dL Lactic Acid 2.7 H* (0.5-2.0) mmol/L Lactic Acid F/U @ 2Hr 3.0 H* (0.5-2.0) mmol/L Calcium 9.3 (8.4-10.2) mg/dL Magnesium 1.8 (1.6-2.6) mg/dL Total Bilirubin 0.4 (0.0-1.0) mg/dL AST 25 (5-31) U/L ALT 20 (0-31) U/L Alkaline Phosphatase 111 (39-117) U/L Troponin I High Sens 5.3 (<3.5-17.0) ng/L C-Reactive Protein 2.44 H (< or = 0.50) mg/dL B-Natriuretic Peptide 13 (<100) pg/mL Total Protein 7.9 (6.5-8.0) g/dL Albumin 3.8 (3.5-5.0) g/dL Lipase 13 (8-78) U/L Influenza Type A (PCR) NEGATIVE (Negative) Influenza Type B (PCR) NEGATIVE (Negative) RSV RNA Qual (PCR) NEGATIVE (Negative) SARS-CoV-2 RNA (RT-PCR) NEGATIVE (Negative) Independent Interpretation I performed an independent interpretation of an: EKG, Plain X-Ray and Ultrasound (could not do DVT study per tech - only able to do R pop patient would not tolerate groin study) Interpretation: Rate: 100 Rhythm: NSR [place]: left, LVH Normal P waves. Normal DONNELL. Normal QRS complex. ST T wave : inverted t wave aVL, no ADAM qTC: 448 prior studies: unchanged from prior The study has been interpreted contemporaneously by me. . Radiology Impression Discussion of test interpretation with radiology: I have reviewed the radiologist's reading. External Record Review External record reviewed: Inpatient record Critical Care Time Critical Care Time Critical Care Time: Yes Total Critical Care Time: 40 Attestation: repeat hour long neb, immediate respiratory intervention for asthma I attest to this time spent taking care of the patient Discharge Plan Discharge Clinical Impression: Morbid obesity Asthma Qualifiers: Asthma severity: moderate Asthma persistence: persistent Asthma complication type: with acute exacerbation Qualified Code(s): J45.41 - Moderate persistent asthma with (acute) exacerbation Cellulitis Qualifiers: Site of cellulitis: extremity Site of cellulitis of extremity: lower extremity Laterality: right Qualified Code(s): L03.115 - Cellulitis of right lower limb Patient Disposition: Admitted As Inpatient
[2023-04-04 11:50] LABS: MANUAL DIFF FLAG NO
[2023-04-04 11:52] LABS: Eosinophils Percent Auto 0.3 % (0-4); Hematocrit 40.7 % (37.0-47.0); Hemoglobin 11.8 g/dl (12.0-16.0); Imm Gran Abs Auto 0.03 X10*3/uL (0.00-0.03); Imm Gran Pct Auto 0.5 % (0.0-0.4); Lymphocytes Absolute Auto 1.9 X10*3/uL (1.2-4.9); Lymphocytes Percent Auto 29.8 % (20-40); Mean Corpuscular Hemoglobin 25.4 pg (27.0-33.0); Mean Corpuscular Volume 87.5 fL (80.0-98.0); Monocytes Absolute Auto 0.4 X10*3/uL (0.1-1.2); Monocytes Percent Auto 6.1 % (2-11); Neutrophils Absolute Auto 4.1 x10*3/uL (2.0-8.3); Neutrophils Percent Auto 63.3 % (45-73); Platelet Count 207 X10*3/uL (160-400); Red Blood Count 4.65 X10*6/uL (4.20-5.50); Red Cell Distribution Width 15.1 % (11.0-16.0); White Blood Count 6.5 X10*3/uL (4.8-10.8)
[2023-04-04 12:01] LABS: Prothrombin Time 12.2 SEC (11.1-13.3)
[2023-04-04 12:07] LABS: Alanine Aminotransferase 20 U/L (0-31); Albumin Level 3.8 g/dL (3.5-5.0); Alkaline Phosphatase 111 U/L (39-117); Anion Gap 11 (12-20); Aspartate Amino Transferase 25 U/L (5-31); Bilirubin Total 0.4 mg/dL (0.0-1.0); Blood Urea Nitrogen 12 mg/dL (9-16); C Reactive Protein 2.44 mg/dL (< or = 0.50); Calcium 9.3 mg/dL (8.4-10.2); Carbon Dioxide 29 mmol/L (22-29); Chloride 105 mmol/L (96-108); Creatinine Clr Calc Pharmacy 110.6; Estimated Glomerular Filt Rate > 60; Glucose Random 138 mg/dL (60-115); Lactic Acid 2.7 mmol/L (0.5-2.0); Lipase 13 U/L (8-78); Magnesium 1.8 mg/dL (1.6-2.6); Potassium 3.8 mmol/L (3.3-5.1); Sodium 141 mmol/L (135-145); Total Protein 7.9 g/dL (6.5-8.0)
[2023-04-04] MEDS: Albuterol Sulfate 90 MCG 8 GM INHALER 12 PUFF INHALE (12:22)
--- NOTE | 2023-04-04 12:30 | ECG_ITS ---
Test Reason : DYSPNEA Blood Pressure : / mmHG Vent. Rate : 100 BPM Atrial Rate : 100 BPM P-R Int : 170 ms QRS Dur : 094 ms QT Int : 348 ms P-R-T Axes : 052 001 070 degrees QTc Int : 448 ms Normal sinus rhythm Minimal voltage criteria for LVH, may be normal variant ( R in aVL ) Borderline ECG When compared with ECG of 09-OCT-2022 01:55, QRS axis Shifted left Referred By: Lacey Ann Electronically Signed By:DANIELLE MAYES
[2023-04-04 12:31] LABS: Influenza A PCR NEGATIVE (Negative); Influenza B PCR NEGATIVE (Negative); Resp Syncy Virus RNA Qual PCR NEGATIVE (Negative); SARS COV2 PCR INHOUSE NEGATIVE (Negative)
[2023-04-04 12:33] LABS: Erythrocyte Sedimentation Rate 59 MM/HR (0-20)
[2023-04-04] MEDS: Albuterol Sulfate 5 MG, Albuterol/Iprat 2.5/0.5MG 3 ML 3 ML INHALE (12:36)
[2023-04-04 12:54] LABS: Troponin-I High Sensitivity 5.3 ng/L (<3.5-17.0)
[2023-04-04 12:58] LABS: B Type Natriuretic Peptide 13 pg/mL (<100)
[2023-04-04] MEDS: Piperacillin Sodium/Tazobactam 3.375 GM in 0.9 % Sodium Chloride 50 ML IV ×2 (13:06→18:12)
[2023-04-04] MEDS: 0.9 % Sodium Chloride 500 ML IV (13:08)
[2023-04-04] MEDS: methylPREDNISolone Sod Succ 125 MG/2 ML VIAL 60 MG IVPUSH (13:08)
[2023-04-04 13:48] LABS: Reflex Lactate? Lactic Acid Added
--- NOTE | 2023-04-04 14:54 | PHA.MEDREC ---
Pharmacy Consult ? Medication Reconciliation Pharmacy has completed the medication reconciliation. Utilized animal caregiver services. Patient confirmed Trulicity, inhalers, minerin creme. Called pharmacy per patient's request to confirm medbox meds. Medbox department at pharmacy stated that buspirone 10mg at bedtime was not in medbox, but received in separate vial. Bupropion 300mg XL at PM and 150 mg XL at AM.
[2023-04-04] MEDS: Albuterol/Iprat 2.5/0.5MG 3 ML AMPUL.NEB INHALE ×3 (15:56→23:08)
[2023-04-04 16:21] LABS: Reflex Lactate? 2 Y
--- NOTE | 2023-04-04 16:21 | P.HPHOSP_ITS ---
History of Present Illness Date of Service: 04/04/23 Attending physician on admission: Shady Malhotra Chief Complaint: lower thigh cellulitis right side 57 yo female with PMH of KENZIE, DM, HTN, morbid obesity, asthma not on home O2, chronic lower ext edema, group b strep bacteremia here with c/o R leg cellulitis 4-5 days duration-patient is poor historian even with the help of stapler hand: She says that she had some question of blister initially on the right lower thigh area and which subsequently become more painful and now has more cellulitis in the area and even could not able to tell where it is due to her body habitus, and as well as given history of strep B bacteremia in the past ED physician requested admission for IV antibiotics since chances of getting cellulitis worsening more with self-care and also has history of group B strep bacteremia. In addition patient has shortness of breath when she came and wheezing: Patient has history of asthma received nebs and steroids in the ED, still short of breath with minimal exertion. Denies any new complaint of chest pain or abdominal pain or fever or chills or nausea or vomiting Denies any cough Denies any weakness or numbness. labs,imaging ,ekg reviewed: CBC: Seems fine, BMP: fine. crp: 2.44 lactic acid elevated 2.7-3 US/US extremity nonvascular IMPRESSION: No abscess demonstrated. ekg: nsr,lvh seems similar to previous. Review of Systems 2 Review of Systems: Yes all other systems are reviewed and are negative [facility] Medical History Asthma HTN (hypertension) Diabetes KENZIE (obstructive sleep apnea) Morbid obesity Asthma Family History Daughter No problems noted. Daughter No problems noted. Daughter No problems noted. Daughter No problems noted. Daughter No problems noted. Son No problems noted. Social History Household Members: Children Housing: Apartment Alcohol intake: never Patient Tobacco Use Status: Never used Tobacco Advance Directives: No Advance Directives Information Provided: Yes service: No Current occupational status: unemployed Meds Allergies Allergy/AdvReac Type Severity Reaction Status Date / Time No Known Allergies Allergy Verified 03/02/23 16:15 Active Medications: Current Medications Albuterol/Ipratropium (Albuterol/Iprat 2.5/0.5mg 3 Ml Ampul.Neb) 3 ml INHALE RQ4H [facility] Last Admin: 04/04/23 15:56 Dose: 3 ml Albuterol/Ipratropium (Albuterol/Iprat 2.5/0.5mg 3 Ml Ampul.Neb) 3 ml INHALE Q3H PRN PRN Reason: sob Amlodipine Besylate (Amlodipine Besylate 5 Mg Tablet) 5 mg PO DAILY@1200 [facility]; Protocol Atenolol (Atenolol 100 Mg Tablet) 100 mg PO DAILY FREDA; Protocol Atorvastatin Calcium (Atorvastatin Calcium 80 Mg Tablet) 80 mg PO DAILY [facility] Bupropion HCl (Bupropion Hcl Xl 150 Mg Tab.Er.24h) 150 mg PO DAILY [facility] Bupropion HCl (Bupropion Hcl Xl 300 Mg Tab.Er.24h) 300 mg PO BEDTIME [facility] Buspirone HCl (Buspirone Hcl 10 Mg Tablet) 10 mg PO BEDTIME [facility]EDA Buspirone HCl (Buspirone Hcl 5 Mg Tablet) 15 mg PO BID@0900,1800 [facility] Fluticasone/Vilanterol (Fluticasone/Vilanterol 200/25 Blst.W.Dev) 1 puff INHALE RDAILY [facility] Furosemide (Furosemide 40 Mg Tablet) 40 mg PO BID@0900,1200 [facility]; Protocol Hydralazine HCl (Hydralazine Hcl 25 Mg Tablet) 25 mg PO BIDWM [facility]; Protocol Losartan Potassium (Losartan Potassium 50 Mg Tablet) 50 mg PO BEDTIME [facility]; Protocol Methylprednisolone Sodium Succinate (Methylprednisolone Sod Succ 40 Mg/Ml Vial) 40 mg IVPUSH DAILY [facility] Multi-Ingred Cream/Lotion/Oil/Oint (Mineral Oil/Petrolatum,White 106 Gm Tube) 1 appl TOPICAL BID PRN PRN Reason: Dry Skin Paroxetine HCl (Paroxetine Hcl 10 Mg Tablet) 10 mg PO DAILY [facility] Paroxetine HCl (Paroxetine Hcl 40 Mg Tablet) 40 mg PO DAILY [facility] Senna/Docusate Sodium (Sennosides/Docusate Sodium Tablet) 1 tab PO DAILY [facility] Sodium Chloride (0.9 % Sodium Chloride Flush 3 Ml Syringe) 3 ml IVFLUSH QSHIFT [facility] Last Admin: 04/04/23 16:04 Dose: Not Given Topiramate (Topiramate 100 Mg Tablet) 100 mg PO BID@0900,1800 [facility] Topiramate (Topiramate 100 Mg Tablet) 200 mg PO BEDTIME [facility] Vitamin D (Cholecalciferol (Vitamin D3) 25 Mcg Tablet) 100 mcg PO DAILY [facility] Home Medications Medication Instructions Recorded Confirmed Last Taken Type albuterol sulfate 0.63 mg/3 mL 1 amp inhalation Q4-6H PRN wheezing 08/23/21 04/04/23 Unknown History solution for nebulization albuterol sulfate 90 mcg/actuation 2 puff PO Q4-6H PRN Wheezing 08/23/21 04/04/23 Unknown History aerosol inhaler (ProAir HFA) amlodipine 5 mg tablet 1 tab PO DAILY@1200 08/23/21 04/04/23 04/04/23 09:00 History atenolol 100 mg tablet 100 mg PO DAILY 08/23/21 04/04/23 04/04/23 09:00 History atorvastatin 80 mg tablet 1 tab PO DAILY 08/23/21 04/04/23 04/04/23 09:00 History budesonide-formoterol HFA 160 2 puff inhalation BID 08/23/21 04/04/23 04/04/23 09:00 History mcg-4.5 mcg/actuation aerosol inhaler (Symbicort) bupropion HCl 150 mg 24 hr tablet, 1 tab PO DAILY 08/23/21 04/04/23 04/04/23 09:00 History extended release bupropion HCl 300 mg 24 hr tablet, 1 tab PO BEDTIME 08/23/21 04/04/23 10/08/22 History extended release cholecalciferol (vitamin D3) 50 2 cap PO DAILY 08/23/21 04/04/23 04/04/23 09:00 History mcg (2,000 unit) capsule furosemide 40 mg tablet 40 mg PO BID@0900,1200 08/23/21 04/04/23 04/04/23 09:00 History hydralazine 25 mg tablet 1 tab PO BIDWM 08/23/21 04/04/23 04/04/23 09:00 History lanolin alcohols-mineral 1 appl topical BID PRN Dry Skin 08/23/21 04/04/23 10/08/22 History oil-w.petrolatum-ceresin topical cream (Minerin Creme topical) losartan 50 mg tablet 1 tab PO BEDTIME 08/23/21 04/04/23 10/08/22 History paroxetine HCl 10 mg tablet 1 tab PO DAILY 08/23/21 04/04/23 04/04/23 09:00 History paroxetine HCl 40 mg tablet 1 tab PO DAILY 08/23/21 04/04/23 04/04/23 09:00 History topiramate 100 mg tablet 1 tab PO BID@0900,1800 08/23/21 04/04/23 04/04/23 09:00 History topiramate 200 mg tablet 1 tab PO BEDTIME 08/23/21 04/04/23 10/08/22 History buspirone 10 mg tablet 10 mg PO BEDTIME 10/09/22 04/04/23 10/08/22 History buspirone 15 mg tablet 15 mg PO BID@0900,1800 10/09/22 04/04/23 04/04/23 09:00 History dulaglutide 1.5 mg/0.5 mL 1.5 mg subcut TH@0900 04/04/23 04/04/23 03/28/23 History subcutaneous pen injector (Trulicity) sennosides 8.6 mg-docusate sodium 1 tab PO DAILY 04/04/23 04/04/23 04/04/23 09:00 History 50 mg tablet (Stimulant Laxative Plus) Physical Exam 2 Vital Signs and Narrative: Vital Signs: Last Vital Signs Temp 97.9 F 04/04/23 13:43 Pulse 106 H 04/04/23 15:56 Resp 21 H 04/04/23 15:56 BP 142/53 H 04/04/23 13:43 Pulse Ox 97 04/04/23 13:43 O2 Del Method Room Air 04/04/23 13:43 BMI result Body Mass Index 53.1 Appearance: Alert.? Oriented X3.sob. Eyes: Pupils equal, round and reactive to light.? Sclera nonicteric.? ENT: Pharynx normal.? Moist mucous membranes. cvs: rrr, [id number]. res: air entry diminshed at bases ,has wheezing. abd: no rebound or guarding ,nt, bs present. ext pulses present , no cyanosis ,right lower thigh -some swellin ,erosion/erythema . neuro: axo3 , nonfocal. Results Labs 04/04/23 11:40 04/04/23 11:40 Labs: Laboratory Results - last 24 hr 04/04/23 04/04/23 11:40 14:18 MCV 87.5 MCH 25.4 L MCHC 29.0 L RDW 15.1 Plt Count 207 MPV 12.0 Immature Gran % (Auto) 0.5 H Neut % (Auto) 63.3 Lymph % (Auto) 29.8 [place] % (Auto) 6.1 Eos % (Auto) 0.3 Baso % (Auto) 0.0 Lymph # (Auto) 1.9 [place] # (Auto) 0.4 Eos # (Auto) 0.0 Baso # (Auto) 0.0 Abs Immat Gran (auto) 0.03 Absolute Neuts (auto) 4.1 Absolute Nucleated RBC 0.000 Nucleated RBC % (auto) 0.0 ESR 59 H PT 12.2 INR 1.0 Anion Gap 11 L Estim Creat Clear Calc 110.6 Estimated GFR > 60 Random Glucose 138 H Lactic Acid 2.7 H* Lactic Acid F/U @ 2Hr 3.0 H* Calcium 9.3 Magnesium 1.8 Total Bilirubin 0.4 AST 25 ALT 20 Alkaline Phosphatase 111 C-Reactive Protein 2.44 H B-Natriuretic Peptide 13 Total Protein 7.9 Albumin 3.8 Lipase 13 Influenza Type A (PCR) NEGATIVE Influenza Type B (PCR) NEGATIVE RSV RNA Qual (PCR) NEGATIVE SARS-CoV-2 RNA (RT-PCR) NEGATIVE Imaging Radiologist's Impressions: Impressions Chest X-Ray 04/04/23 11:51 IMPRESSION: No active disease. No change. Extremity Ultrasound 04/04/23 13:17 IMPRESSION: No abscess demonstrated. Assessment and Plan (1) Cellulitis: Qualifiers: Laterality: right Site of cellulitis: extremity Site of cellulitis of extremity: lower extremity Qualified Code(s): L03.115 - Cellulitis of right lower limb Status: Acute (2) KENZIE (obstructive sleep apnea): Status: Acute (3) Morbid obesity: Status: Acute (4) Asthma: Qualifiers: Asthma severity: moderate Asthma persistence: persistent Asthma complication type: with acute exacerbation Qualified Code(s): J45.41 - Moderate persistent asthma with (acute) exacerbation Status: Acute Plan 57 yo female with PMH of KENZIE, DM, HTN, morbid obesity, asthma not on home O2, chronic lower ext edema, group b strep bacteremia here with c/o R leg cellulitis 4-5 days duration-possible asthma execerbation and cellulitis . Asthma exacerbation(possible mild persistent asthma): tachycardia ,tachypnea sec to asthma/nebs. Continue nebs, steroids. possible cellulitis aof right leg: not septic mild elevated crp,blood culture pending Turn, out out of bed to chair, incentive spirometry continue zosyn acute lactic acidosis: possible realted to nebs . No further trending unless clinically worsening. KENZIE-seems noncompliant with CPAP Will start CPAP if agrees. ? hx dm: not on any meds mild hyperglycemia sec to steriods will check hba1c levels moniter fs Hypertension: Blood pressure stable. Continue home medications Morbid obesity: Advised to lose weight and cutdown calories. PT evaluation Patient patient may benefit from 24-48 hour stay: Due to cellulitis of upper leg in the setting of morbid obesity, also concern of self-care which might cause worsening of cellulitis, history of strep bacteremia-need IV antibiotics, in addition patient need IV steroids and nebs for asthma exacerbation. Above management discussed the patient detail and she understand and agreement with above plan, time spent 70 minute. Quality Stroke Does the patient have a stroke diagnosis?: No VTE Prior VTE?: No VTE Risk Level:: Medical - moderate - high VTE Device Contraindication: N/A - Device Ordered VTE Drug Contraindication: N/A - Med Ordered
[2023-04-04 16:36] LABS: MRSA Nasal PCR NEGATIVE (Negative); SA Nasal PCR NEGATIVE (Negative)
[2023-04-04 17:00] LABS: Glucose, Whole Blood 173 mg/dL (60-115)
[2023-04-04] MEDS: Enoxaparin Sodium 40 MG/0.4 ML SYRINGE SUBCUT (17:17)
[2023-04-04] MEDS: Topiramate 100 MG TABLET PO (17:17)
[2023-04-04] MEDS: busPIRone HCl 5 MG TABLET 15 MG PO (17:18)
[2023-04-04] MEDS: hydrALAZINE HCl 25 MG TABLET PO (17:18)
[2023-04-04 17:20] LABS: ~Lactic Acid-LAB USE ONLY 3.8 mmol/L (0.5-2.0)
[2023-04-04 17:43] LABS: Estimated Average Glucose 108 mg/dL; Hemoglobin A1c % 5.4 % (<6.0)
--- NOTE | 2023-04-04 18:09 | PC.NURSE ---
Critical lab results given to this RN, Lactic acid 3.8, previous lactic acid 3.0. MD Dr Vincent and Dr Malhotra notified. No new orders. Per MD Dr Malhotra stop trending unless she has any clinical deterioration. Pt resting in bed with meal tray on bedside table, alert and oriented, respirations even and unlabored, no complaints of pain.
[2023-04-04] MEDS: Acetaminophen 325 MG TABLET 650 MG PO (19:18)
[2023-04-04] MEDS: Losartan Potassium 50 MG TABLET PO (20:33)
[2023-04-04] MEDS: Topiramate 100 MG TABLET 200 MG PO (20:33)
[2023-04-04] MEDS: busPIRone HCl 10 MG TABLET PO (20:33)
[2023-04-04] MEDS: buPROPion HCl XL 300 MG TAB.ER.24H PO (20:33)
[2023-04-04] MEDS: 0.9 % Sodium Chloride Flush 3 ML SYRINGE IVFLUSH (20:34)
[2023-04-04 21:01] LABS: Glucose, Whole Blood 194 mg/dL (60-115)
[2023-04-05] VITALS (13 sets, daily range): BP systolic 133–171; BP diastolic 61–78; PULSE 64–102; RESP 16–20; TEMP 35.8–36.4; O2SAT 92–97
[2023-04-05] MEDS: Piperacillin Sodium/Tazobactam 3.375 GM in 0.9 % Sodium Chloride 50 ML IV ×3 (00:45→12:36)
[2023-04-05] MEDS: Albuterol/Iprat 2.5/0.5MG 3 ML AMPUL.NEB INHALE ×5 (04:16→20:31)
[2023-04-05] MEDS: Acetaminophen 325 MG TABLET 650 MG PO ×3 (06:37→21:05)
[2023-04-05] MEDS: Fluticasone/Vilanterol 200/25 BLST.W.DEV 1 PUFF INHALE (08:33)
[2023-04-05] MEDS: buPROPion HCl XL 150 MG TAB.ER.24H PO (09:13)
[2023-04-05] MEDS: methylPREDNISolone Sod Succ 40 MG/ML VIAL IVPUSH (09:13)
[2023-04-05] MEDS: PARoxetine HCL 10 MG TABLET PO (09:13)
[2023-04-05] MEDS: Cholecalciferol (Vitamin D3) 25 MCG TABLET 100 MCG PO (09:13)
[2023-04-05] MEDS: Atorvastatin Calcium 80 MG TABLET PO (09:13)
[2023-04-05] MEDS: busPIRone HCl 5 MG TABLET 15 MG PO ×2 (09:13→17:06)
[2023-04-05] MEDS: 0.9 % Sodium Chloride Flush 3 ML SYRINGE IVFLUSH ×3 (09:13→21:06)
[2023-04-05] MEDS: atenoloL 100 MG TABLET PO (09:14)
[2023-04-05] MEDS: hydrALAZINE HCl 25 MG TABLET PO ×2 (09:14→17:06)
[2023-04-05] MEDS: Furosemide 40 MG TABLET PO ×2 (09:14→12:36)
[2023-04-05] MEDS: Topiramate 100 MG TABLET PO ×2 (09:14→17:06)
[2023-04-05] MEDS: PARoxetine HCL 40 MG TABLET PO (09:14)
[2023-04-05] MEDS: Sennosides/Docusate Sodium TABLET 1 TAB PO (09:14)
--- NOTE | 2023-04-05 09:16 | MHC.CM.PN ---
Addendum entered by Hannah Whitney 04/05/23 14:38: [facility] declined to accept the patient. Additional referrals were sent. [facility] and [facility] are both following for discharge. She has been changed from OBS to INPT. DP STR via BLS. Original Note: B[place]TON 04/05/23 Female 57 DX cellulitis. Patient lives with her Dtr/PCP Nico. A new HCP has been documented today. Patient uses a walker to ambulate. AUTOMATION DRIVER assists with ADLs. PT evaluated the patient this morning. The recommendation is STR. Met with Pt and dtr via phone. Preferences for STR were obtained. The referrals were sent. [facility] is 1st choice. DP STR via BLS.
[2023-04-05] MEDS: predniSONE 20 MG TABLET 40 MG PO (10:21)
--- NOTE | 2023-04-05 12:13 | HO.PM.IMPN ---
Subjective Subjective Date of Service: 04/05/23 Interval History: sob improving now has b/l areas of cellulitis lower thigh,soraness no fever Review of Systems Review of Systems: Yes all other systems are reviewed and are negative Physical Exam Vital Signs: Vital Signs: Last Vital Signs Temp 96.8 F 04/05/23 11:49 Pulse 87 04/05/23 11:49 Resp 19 04/05/23 11:49 BP 147/69 H 04/05/23 11:49 Pulse Ox 95 04/05/23 11:49 O2 Del Method Room Air 04/05/23 11:49 BMI result Body Mass Index 53.1 Appearance: Alert.? Oriented X3.sob improving. cvs: rrr, [id number]. res: air entry diminshed at bases ,has wheezing. abd: no rebound or guarding ,nt, bs present. ext pulses present , no cyanosis ,b/l lower thigh -some swellin ,erosion/erythema . neuro: axo3 , nonfocal. Objective Data Active Medications Acetaminophen (Acetaminophen 325 Mg Tablet) 650 mg PO Q6H PRN PRN Reason: Pain, Mild (Pain Scale 1-3) Last Admin: 04/05/23 06:37 Dose: 650 mg Documented By: CONRAD Albuterol/Ipratropium (Albuterol/Iprat 2.5/0.5mg 3 Ml Ampul.Neb) 3 ml INHALE RQ4H [facility] Last Admin: 04/05/23 11:30 Dose: 3 ml Documented By: YM Albuterol/Ipratropium (Albuterol/Iprat 2.5/0.5mg 3 Ml Ampul.Neb) 3 ml INHALE Q3H PRN PRN Reason: sob Amlodipine Besylate (Amlodipine Besylate 5 Mg Tablet) 5 mg PO DAILY@1200 [facility]; Protocol Atenolol (Atenolol 100 Mg Tablet) 100 mg PO DAILY [facility]; Protocol Last Admin: 04/05/23 09:14 Dose: 100 mg Documented By: BECKI Atorvastatin Calcium (Atorvastatin Calcium 80 Mg Tablet) 80 mg PO DAILY [facility] Last Admin: 04/05/23 09:13 Dose: 80 mg Documented By: BECKI Bupropion HCl (Bupropion Hcl Xl 150 Mg Tab.Er.24h) 150 mg PO DAILY [facility] Last Admin: 04/05/23 09:13 Dose: 150 mg Documented By: BECKI Bupropion HCl (Bupropion Hcl Xl 300 Mg Tab.Er.24h) 300 mg PO BEDTIME [facility] Last Admin: 04/04/23 20:33 Dose: 300 mg Documented By: CONRAD Buspirone HCl (Buspirone Hcl 10 Mg Tablet) 10 mg PO BEDTIME [facility] Last Admin: 04/04/23 20:33 Dose: 10 mg Documented By: CONRAD Buspirone HCl (Buspirone Hcl 5 Mg Tablet) 15 mg PO BID@0900,1800 [facility] Last Admin: 04/05/23 09:13 Dose: 15 mg Documented By: BECKI Enoxaparin Sodium (Enoxaparin Sodium 40 Mg/0.4 Ml Syringe) 40 mg SUBCUT Q24H [facility] Last Admin: 04/04/23 17:17 Dose: 40 mg Documented By: LD Fluticasone/Vilanterol (Fluticasone/Vilanterol 200/25 Blst.W.Dev) 1 puff INHALE RDAILY [facility] Last Admin: 04/05/23 08:33 Dose: 1 puff Documented By: MY Furosemide (Furosemide 40 Mg Tablet) 40 mg PO BID@0900,1200 [facility]; Protocol Last Admin: 04/05/23 09:14 Dose: 40 mg Documented By: BECKI Hydralazine HCl (Hydralazine Hcl 25 Mg Tablet) 25 mg PO BIDWM [facility]; Protocol Last Admin: 04/05/23 09:14 Dose: 25 mg Documented By: BECKI Piperacillin Sod/Tazobactam (Sod 3.375 gm/ Sodium Chloride) 50 mls @ 100 mls/hr IV Q6H [facility] Last Infusion: 04/05/23 07:06 Dose: Infused Documented By: BECKI Losartan Potassium (Losartan Potassium 50 Mg Tablet) 50 mg PO BEDTIME [facility]; Protocol Last Admin: 04/04/23 20:33 Dose: 50 mg Documented By: CONRAD Multi-Ingred Cream/Lotion/Oil/Oint (Mineral Oil/Petrolatum,White 106 Gm Tube) 1 appl TOPICAL BID PRN PRN Reason: Dry Skin Paroxetine HCl (Paroxetine Hcl 10 Mg Tablet) 10 mg PO DAILY [facility] Last Admin: 04/05/23 09:13 Dose: 10 mg Documented By: BECKI Paroxetine HCl (Paroxetine Hcl 40 Mg Tablet) 40 mg PO DAILY [facility] Last Admin: 04/05/23 09:14 Dose: 40 mg Documented By: BECKI Prednisone (Prednisone 20 Mg Tablet) 40 mg PO DAILY [facility] Last Admin: 04/05/23 10:21 Dose: 40 mg Documented By: BECKI Senna/Docusate Sodium (Sennosides/Docusate Sodium Tablet) 1 tab PO DAILY [facility] Last Admin: 04/05/23 09:14 Dose: 1 tab Documented By: BECKI Sodium Chloride (0.9 % Sodium Chloride Flush 3 Ml Syringe) 3 ml IVFLUSH QSHIFT [facility] Last Admin: 04/05/23 09:13 Dose: 3 ml Documented By: BECKI Topiramate (Topiramate 100 Mg Tablet) 100 mg PO BID@0900,1800 [facility] Last Admin: 04/05/23 09:14 Dose: 100 mg Documented By: BECKI Topiramate (Topiramate 100 Mg Tablet) 200 mg PO BEDTIME [facility] Last Admin: 04/04/23 20:33 Dose: 200 mg Documented By: CONRAD Vitamin D (Cholecalciferol (Vitamin D3) 25 Mcg Tablet) 100 mcg PO DAILY [facility] Last Admin: 04/05/23 09:13 Dose: 100 mcg Documented By: BECKI Labs 04/04/23 11:40 04/04/23 11:40 Labs: Laboratory Results - last 24 hr 04/04/23 04/04/23 04/04/23 11:40 13:57 14:18 ESR 59 H POC Glucose Estimat Average Glucose Hemoglobin A1c % Lactic Acid F/U @ 2Hr 3.0 H* Lactic Acid F/U @ 4Hr B-Natriuretic Peptide 13 Nasal Screen MRSA (PCR) NEGATIVE Nasal S. aureus Screen NEGATIVE Nasal MRSA/S.aureus Interp SEE NOTE Influenza Type A (PCR) NEGATIVE Influenza Type B (PCR) NEGATIVE RSV RNA Qual (PCR) NEGATIVE SARS-CoV-2 RNA (RT-PCR) NEGATIVE 04/04/23 04/04/23 04/04/23 16:51 17:01 17:31 ESR POC Glucose 173 H Estimat Average Glucose 108 Hemoglobin A1c % 5.4 Lactic Acid F/U @ 2Hr Lactic Acid F/U @ 4Hr 3.8 H* B-Natriuretic Peptide Nasal Screen MRSA (PCR) Nasal S. aureus Screen Nasal MRSA/S.aureus Interp Influenza Type A (PCR) Influenza Type B (PCR) RSV RNA Qual (PCR) SARS-CoV-2 RNA (RT-PCR) 04/04/23 20:50 ESR POC Glucose 194 H Estimat Average Glucose Hemoglobin A1c % Lactic Acid F/U @ 2Hr Lactic Acid F/U @ 4Hr B-Natriuretic Peptide Nasal Screen MRSA (PCR) Nasal S. aureus Screen Nasal MRSA/S.aureus Interp Influenza Type A (PCR) Influenza Type B (PCR) RSV RNA Qual (PCR) SARS-CoV-2 RNA (RT-PCR) Assessment and Plan (1) Cellulitis: Status: Acute (2) KENZIE (obstructive sleep apnea): Status: Acute Plan 57 yo female with PMH of KENZIE, DM, HTN, morbid obesity, asthma not on home O2, chronic lower ext edema, group b strep bacteremia here with c/o R leg cellulitis 4-5 days duration-possible asthma execerbation and cellulitis . Asthma exacerbation(possible mild persistent asthma): sob seems improving tachycardia ,tachypnea improved. Continue nebs, steroids. possible cellulitis aof right leg: not septic mild elevated crp,blood culture pending Turn, out out of bed to chair, incentive spirometry continue zosyn acute lactic acidosis: possible realted to nebs . No further trending unless clinically worsening. KENZIE-seems noncompliant with CPAP Will start CPAP if agrees. ? hx dm: not on any meds mild hyperglycemia sec to steriods will check hba1c levels moniter fs Hypertension: Blood pressure stable. Continue home medications Morbid obesity: Advised to lose weight and cutdown calories. PT evaluation Patient patient may benefit from 48-72 hour stay: Due to cellulitis of upper leg (not improving), now also has left lower thigh cellulitis also in the setting of morbid obesity, also concern of self-care which might cause worsening of cellulitis, history of strep bacteremia-need IV antibiotics, in addition patient needs steroids and nebs for asthma exacerbation Quality Stroke Does the patient have a stroke diagnosis?: No VTE Prior VTE?: No VTE Risk Level:: Medical - moderate - high VTE Device Contraindication: N/A - Device Ordered VTE Drug Contraindication: N/A - Med Ordered
[2023-04-05] MEDS: amLODIPine Besylate 5 MG TABLET PO (12:36)
--- NOTE | 2023-04-05 13:41 | P.CONGS_ITS ---
History of Present Illness Consult details Consult date: 04/05/23 Requesting physician: Shady Malhotra Narrative: 57 yo female with PMH of KENZIE, DM, HTN, morbid obesity, asthma, chronic lower extremity edema, group b strep bacteremia here with complaints of R leg redness and pain of her inner thigh. Patient reports symptoms began 4-5 days ago. She is a poor historian. She thinks she had a small blister on her right inner thigh. This area then became red and more painful and she sought evaluation. US of the extremity showed no abscess. She was admitted to the hospitalist service for IV abx. She denies fever, chills at home. Review of Systems 2 Constitutional: Constitutional: Denies chills and Denies fever(s) Cardiovascular: Cardiovascular: Denies chest pain Gastrointestinal: Gastrointestinal: Denies abdominal pain, Denies diarrhea and Denies nausea Integumentary/Breasts: Skin/Breast: Reports as per [facility] Past Medical History Medical History Asthma HTN (hypertension) Diabetes KENZIE (obstructive sleep apnea) Morbid obesity Asthma Family History Family History Daughter No problems noted. Daughter No problems noted. Daughter No problems noted. Daughter No problems noted. Daughter No problems noted. Son No problems noted. Social History Social History Household Members: Children Housing: Apartment Alcohol intake: never Patient Tobacco Use Status: Never used Tobacco Currently Displaying Signs/Symptoms of Drug Intoxication Withdrawal: No Advance Directives: No Advance Directives Information Provided: Yes service: No Current occupational status: unemployed Meds Allergies Allergy/AdvReac Type Severity Reaction Status Date / Time No Known Allergies Allergy Verified 03/02/23 16:15 Active Medications: Current Medications Acetaminophen (Acetaminophen 325 Mg Tablet) 650 mg PO Q6H PRN PRN Reason: Pain, Mild (Pain Scale 1-3) Last Admin: 04/05/23 06:37 Dose: 650 mg Albuterol/Ipratropium (Albuterol/Iprat 2.5/0.5mg 3 Ml Ampul.Neb) 3 ml INHALE RQ4H [facility] Last Admin: 04/05/23 11:30 Dose: 3 ml Albuterol/Ipratropium (Albuterol/Iprat 2.5/0.5mg 3 Ml Ampul.Neb) 3 ml INHALE Q3H PRN PRN Reason: sob Amlodipine Besylate (Amlodipine Besylate 5 Mg Tablet) 5 mg PO DAILY@1200 [facility]; Protocol Last Admin: 04/05/23 12:36 Dose: 5 mg Atenolol (Atenolol 100 Mg Tablet) 100 mg PO DAILY [facility]; Protocol Last Admin: 04/05/23 09:14 Dose: 100 mg Atorvastatin Calcium (Atorvastatin Calcium 80 Mg Tablet) 80 mg PO DAILY [facility] Last Admin: 04/05/23 09:13 Dose: 80 mg Bupropion HCl (Bupropion Hcl Xl 150 Mg Tab.Er.24h) 150 mg PO DAILY [facility] Last Admin: 04/05/23 09:13 Dose: 150 mg Bupropion HCl (Bupropion Hcl Xl 300 Mg Tab.Er.24h) 300 mg PO BEDTIME [facility] Last Admin: 04/04/23 20:33 Dose: 300 mg Buspirone HCl (Buspirone Hcl 10 Mg Tablet) 10 mg PO BEDTIME [facility] Last Admin: 04/04/23 20:33 Dose: 10 mg Buspirone HCl (Buspirone Hcl 5 Mg Tablet) 15 mg PO BID@0900,1800 [facility] Last Admin: 04/05/23 09:13 Dose: 15 mg Enoxaparin Sodium (Enoxaparin Sodium 40 Mg/0.4 Ml Syringe) 40 mg SUBCUT Q24H [facility] Last Admin: 04/04/23 17:17 Dose: 40 mg Fluticasone/Vilanterol (Fluticasone/Vilanterol 200/25 Blst.W.Dev) 1 puff INHALE RDAILY [facility] Last Admin: 04/05/23 08:33 Dose: 1 puff Furosemide (Furosemide 40 Mg Tablet) 40 mg PO BID@0900,1200 [facility]; Protocol Last Admin: 04/05/23 12:36 Dose: 40 mg Hydralazine HCl (Hydralazine Hcl 25 Mg Tablet) 25 mg PO BIDWM [facility]; Protocol Last Admin: 04/05/23 09:14 Dose: 25 mg Piperacillin Sod/Tazobactam (Sod 3.375 gm/ Sodium Chloride) 50 mls @ 100 mls/hr IV Q6H [facility] Last Infusion: 04/05/23 13:10 Dose: Infused Losartan Potassium (Losartan Potassium 50 Mg Tablet) 50 mg PO BEDTIME [facility]; Protocol Last Admin: 04/04/23 20:33 Dose: 50 mg Multi-Ingred Cream/Lotion/Oil/Oint (Mineral Oil/Petrolatum,White 106 Gm Tube) 1 appl TOPICAL BID PRN PRN Reason: Dry Skin Paroxetine HCl (Paroxetine Hcl 10 Mg Tablet) 10 mg PO DAILY [facility] Last Admin: 04/05/23 09:13 Dose: 10 mg Paroxetine HCl (Paroxetine Hcl 40 Mg Tablet) 40 mg PO DAILY [facility] Last Admin: 04/05/23 09:14 Dose: 40 mg Prednisone (Prednisone 20 Mg Tablet) 40 mg PO DAILY [facility] Last Admin: 04/05/23 10:21 Dose: 40 mg Senna/Docusate Sodium (Sennosides/Docusate Sodium Tablet) 1 tab PO DAILY [facility] Last Admin: 04/05/23 09:14 Dose: 1 tab Sodium Chloride (0.9 % Sodium Chloride Flush 3 Ml Syringe) 3 ml IVFLUSH QSHIFT [facility] Last Admin: 04/05/23 09:13 Dose: 3 ml Topiramate (Topiramate 100 Mg Tablet) 100 mg PO BID@0900,1800 [facility] Last Admin: 04/05/23 09:14 Dose: 100 mg Topiramate (Topiramate 100 Mg Tablet) 200 mg PO BEDTIME [facility] Last Admin: 04/04/23 20:33 Dose: 200 mg Vitamin D (Cholecalciferol (Vitamin D3) 25 Mcg Tablet) 100 mcg PO DAILY [facility] Last Admin: 04/05/23 09:13 Dose: 100 mcg Home Medications Medication Instructions Recorded Confirmed Last Taken Type albuterol sulfate 0.63 mg/3 mL 1 amp inhalation Q4-6H PRN wheezing 08/23/21 04/04/23 Unknown History solution for nebulization albuterol sulfate 90 mcg/actuation 2 puff PO Q4-6H PRN Wheezing 08/23/21 04/04/23 Unknown History aerosol inhaler (ProAir HFA) amlodipine 5 mg tablet 1 tab PO DAILY@1200 08/23/21 04/04/23 04/04/23 09:00 History atenolol 100 mg tablet 100 mg PO DAILY 08/23/21 04/04/23 04/04/23 09:00 History atorvastatin 80 mg tablet 1 tab PO DAILY 08/23/21 04/04/23 04/04/23 09:00 History budesonide-formoterol HFA 160 2 puff inhalation BID 08/23/21 04/04/23 04/04/23 09:00 History mcg-4.5 mcg/actuation aerosol inhaler (Symbicort) bupropion HCl 150 mg 24 hr tablet, 1 tab PO DAILY 08/23/21 04/04/23 04/04/23 09:00 History extended release bupropion HCl 300 mg 24 hr tablet, 1 tab PO BEDTIME 08/23/21 04/04/23 10/08/22 History extended release cholecalciferol (vitamin D3) 50 2 cap PO DAILY 08/23/21 04/04/23 04/04/23 09:00 History mcg (2,000 unit) capsule furosemide 40 mg tablet 40 mg PO BID@0900,1200 08/23/21 04/04/23 04/04/23 09:00 History hydralazine 25 mg tablet 1 tab PO BIDWM 08/23/21 04/04/23 04/04/23 09:00 History lanolin alcohols-mineral 1 appl topical BID PRN Dry Skin 08/23/21 04/04/23 10/08/22 History oil-w.petrolatum-ceresin topical cream (Minerin Creme topical) losartan 50 mg tablet 1 tab PO BEDTIME 08/23/21 04/04/23 10/08/22 History paroxetine HCl 10 mg tablet 1 tab PO DAILY 08/23/21 04/04/23 04/04/23 09:00 History paroxetine HCl 40 mg tablet 1 tab PO DAILY 08/23/21 04/04/23 04/04/23 09:00 History topiramate 100 mg tablet 1 tab PO BID@0900,1800 08/23/21 04/04/23 04/04/23 09:00 History topiramate 200 mg tablet 1 tab PO BEDTIME 08/23/21 04/04/23 10/08/22 History buspirone 10 mg tablet 10 mg PO BEDTIME 10/09/22 04/04/23 10/08/22 History buspirone 15 mg tablet 15 mg PO BID@0900,1800 10/09/22 04/04/23 04/04/23 09:00 History dulaglutide 1.5 mg/0.5 mL 1.5 mg subcut TH@0900 04/04/23 04/04/23 03/28/23 History subcutaneous pen injector (Trulicity) sennosides 8.6 mg-docusate sodium 1 tab PO DAILY 04/04/23 04/04/23 04/04/23 09:00 History 50 mg tablet (Stimulant Laxative Plus) Physical Exam 2 Vital Signs: Vital Signs: Last Vital Signs Temp 96.8 F 04/05/23 11:49 Pulse 87 04/05/23 11:49 Resp 19 04/05/23 11:49 BP 147/69 H 04/05/23 11:49 Pulse Ox 95 04/05/23 11:49 O2 Del Method Room Air 04/05/23 11:49 BMI result Body Mass Index 53.1 Const: General: comfortable, no acute distress and alert Nutritional Appearance: obese (morbidly ) Orientation/consciousness: patient oriented x3 Resp: Effort & Inspection: normal respiratory effort Cardio: Rate: regular rate Neuro: General: patient oriented x3 Extrem: Other: right lower extremity, upper medial aspect centrally with deep erythema with maceration of skin and superficial skin breakdown, no palpable fluctuance, b/l legs edematous Results Labs 04/04/23 11:40 04/04/23 11:40 Labs: Abnormal lab results 04/04/23 04/04/23 04/04/23 Range/Units 14:18 16:51 17:01 POC Glucose 173 H (60-115) mg/dL Lactic Acid F/U @ 2Hr 3.0 H* (0.5-2.0) mmol/L Lactic Acid F/U @ 4Hr 3.8 H* (0.5-2.0) mmol/L 04/04/23 Range/Units 20:50 POC Glucose 194 H (60-115) mg/dL Lactic Acid F/U @ 2Hr (0.5-2.0) mmol/L Lactic Acid F/U @ 4Hr (0.5-2.0) mmol/L All other labs normal. Assessment and Plan (1) Cellulitis: Qualifiers: Laterality: right Site of cellulitis: extremity Site of cellulitis of extremity: lower extremity Qualified Code(s): L03.115 - Cellulitis of right lower limb Status: Acute Plan 57 yo female with PMH of KENZIE, DM, HTN, morbid obesity, asthma, chronic lower extremity edema admitted for right lower leg cellulitis. No appreciable abscess on exam or suggested on ultrasound. No acute intervention currently necessary. Continue abx, leg elevation to reduce edema, weight loss recommended. Procedures Date of Service Date of Service: 04/05/23
--- NOTE | 2023-04-05 15:33 | MHC.CLN ---
RECOMMEND 1800DM DIET TO PROMOTE WT LOSS A1C WNL MONITOR PO INTAKE
[2023-04-05] MEDS: Enoxaparin Sodium 40 MG/0.4 ML SYRINGE SUBCUT (17:05)
[2023-04-05] MEDS: Linezolid 600 MG TABLET PO (17:06)
[2023-04-05] MEDS: buPROPion HCl XL 300 MG TAB.ER.24H PO (21:05)
[2023-04-05] MEDS: Losartan Potassium 50 MG TABLET PO (21:05)
[2023-04-05] MEDS: busPIRone HCl 10 MG TABLET PO (21:05)
[2023-04-05] MEDS: Topiramate 100 MG TABLET 200 MG PO (21:06)
[2023-04-06] VITALS (13 sets, daily range): BP systolic 119–169; BP diastolic 57–78; PULSE 59–82; RESP 16–24; TEMP 36.3–37.1; O2SAT 92–97
[2023-04-06] MEDS: Albuterol/Iprat 2.5/0.5MG 3 ML AMPUL.NEB INHALE ×5 (00:16→20:12)
[2023-04-06] MEDS: Acetaminophen 325 MG TABLET 650 MG PO (04:32)
[2023-04-06] MEDS: Linezolid 600 MG TABLET PO ×2 (04:32→15:59)
[2023-04-06] MEDS: Morphine Sulfate 2 MG/ML CARTRIDGE IVPUSH (05:54)
[2023-04-06] MEDS: Fluticasone/Vilanterol 200/25 BLST.W.DEV 1 PUFF INHALE (09:21)
[2023-04-06] MEDS: 0.9 % Sodium Chloride Flush 3 ML SYRINGE IVFLUSH ×3 (10:01→20:41)
[2023-04-06] MEDS: oxyCODONE HCl Immed Release 5 MG TABLET PO ×2 (10:01→18:10)
[2023-04-06] MEDS: atenoloL 100 MG TABLET PO (10:02)
[2023-04-06] MEDS: busPIRone HCl 5 MG TABLET 15 MG PO ×2 (10:02→18:07)
[2023-04-06] MEDS: Gabapentin 100 MG CAPSULE PO ×3 (10:02→20:40)
[2023-04-06] MEDS: predniSONE 20 MG TABLET 40 MG PO (10:02)
[2023-04-06] MEDS: PARoxetine HCL 40 MG TABLET PO (10:02)
[2023-04-06] MEDS: PARoxetine HCL 10 MG TABLET PO (10:02)
[2023-04-06] MEDS: Cholecalciferol (Vitamin D3) 25 MCG TABLET 100 MCG PO (10:02)
[2023-04-06] MEDS: Sennosides/Docusate Sodium TABLET 1 TAB PO (10:03)
[2023-04-06] MEDS: hydrALAZINE HCl 25 MG TABLET PO ×2 (10:03→15:59)
[2023-04-06] MEDS: buPROPion HCl XL 150 MG TAB.ER.24H PO (10:03)
[2023-04-06] MEDS: Topiramate 100 MG TABLET PO ×2 (10:03→18:07)
[2023-04-06] MEDS: Atorvastatin Calcium 80 MG TABLET PO (10:03)
[2023-04-06] MEDS: Furosemide 40 MG TABLET PO ×2 (10:03→11:48)
--- NOTE | 2023-04-06 11:22 | HO.PM.IMPN ---
Subjective Subjective Date of Service: 04/06/23 Interval History: sob improved now has b/l areas of cellulitis lower thigh,soraness no fever Review of Systems Review of Systems: Yes all other systems are reviewed and are negative Physical Exam Vital Signs: Vital Signs: Last Vital Signs Temp 98.2 F 04/06/23 11:20 Pulse 73 04/06/23 11:20 Resp 22 H 04/06/23 11:20 BP 119/57 L 04/06/23 11:20 Pulse Ox 94 04/06/23 11:20 O2 Del Method Room Air 04/06/23 11:20 BMI result Body Mass Index 53.1 Appearance: Alert.? Oriented X3.sob improving. cvs: [id number], [id number]. res: air entry diminshed at bases ,has wheezing. abd: no rebound or guarding ,nt, bs present. ext pulses present , no cyanosis ,b/l lower thigh -erosion/erythema with some improving. neuro: axo3 , nonfocal. Objective Data Active Medications Acetaminophen (Acetaminophen 325 Mg Tablet) 650 mg PO Q6H PRN PRN Reason: Pain, Mild (Pain Scale 1-3) Last Admin: 04/06/23 04:32 Dose: 650 mg Documented By: BRENDA Albuterol/Ipratropium (Albuterol/Iprat 2.5/0.5mg 3 Ml Ampul.Neb) 3 ml INHALE RQ4H [facility] Last Admin: 04/06/23 09:21 Dose: 3 ml Documented By: MY Albuterol/Ipratropium (Albuterol/Iprat 2.5/0.5mg 3 Ml Ampul.Neb) 3 ml INHALE Q3H PRN PRN Reason: sob Amlodipine Besylate (Amlodipine Besylate 5 Mg Tablet) 5 mg PO DAILY@1200 [facility]; Protocol Last Admin: 04/05/23 12:36 Dose: 5 mg Documented By: BECKI Atenolol (Atenolol 100 Mg Tablet) 100 mg PO DAILY [facility]; Protocol Last Admin: 04/06/23 10:02 Dose: 100 mg Documented By: BECKI Atorvastatin Calcium (Atorvastatin Calcium 80 Mg Tablet) 80 mg PO DAILY [facility] Last Admin: 04/06/23 10:03 Dose: 80 mg Documented By: BECKI Bupropion HCl (Bupropion Hcl Xl 150 Mg Tab.Er.24h) 150 mg PO DAILY [facility] Last Admin: 04/06/23 10:03 Dose: 150 mg Documented By: BECKI Bupropion HCl (Bupropion Hcl Xl 300 Mg Tab.Er.24h) 300 mg PO BEDTIME [facility] Last Admin: 04/05/23 21:05 Dose: 300 mg Documented By: BRENDA Buspirone HCl (Buspirone Hcl 10 Mg Tablet) 10 mg PO BEDTIME [facility] Last Admin: 04/05/23 21:05 Dose: 10 mg Documented By: BRENDA Buspirone HCl (Buspirone Hcl 5 Mg Tablet) 15 mg PO BID@0900,1800 [facility] Last Admin: 04/06/23 10:02 Dose: 15 mg Documented By: BECKI Enoxaparin Sodium (Enoxaparin Sodium 40 Mg/0.4 Ml Syringe) 40 mg SUBCUT Q24H [facility] Last Admin: 04/05/23 17:05 Dose: 40 mg Documented By: BECKI Fluticasone/Vilanterol (Fluticasone/Vilanterol 200/25 Blst.W.Dev) 1 puff INHALE RDAILY [facility] Last Admin: 04/06/23 09:21 Dose: 1 puff Documented By: MY Furosemide (Furosemide 40 Mg Tablet) 40 mg PO BID@0900,1200 [facility]; Protocol Last Admin: 04/06/23 10:03 Dose: 40 mg Documented By: BECKI Gabapentin (Gabapentin 100 Mg Capsule) 100 mg PO TID [facility] Last Admin: 04/06/23 10:02 Dose: 100 mg Documented By: BECKI Hydralazine HCl (Hydralazine Hcl 25 Mg Tablet) 25 mg PO BIDWM [facility]; Protocol Last Admin: 04/06/23 10:03 Dose: 25 mg Documented By: BECKI Linezolid (Linezolid 600 Mg Tablet) 600 mg PO Q12H [facility] Last Admin: 04/06/23 04:32 Dose: 600 mg Documented By: BRENDA Losartan Potassium (Losartan Potassium 50 Mg Tablet) 50 mg PO BEDTIME [facility]; Protocol Last Admin: 04/05/23 21:05 Dose: 50 mg Documented By: HO.OZORALB Multi-Ingred Cream/Lotion/Oil/Oint (Mineral Oil/Petrolatum,White 106 Gm Tube) 1 appl TOPICAL BID PRN PRN Reason: Dry Skin Oxycodone HCl (Oxycodone Hcl Immed Release 5 Mg Tablet) 5 mg PO Q6H PRN PRN Reason: Pain, Mild (Pain Scale 1-3) Last Admin: 04/06/23 10:01 Dose: 5 mg Documented By: BECKI Paroxetine HCl (Paroxetine Hcl 10 Mg Tablet) 10 mg PO DAILY [facility] Last Admin: 04/06/23 10:02 Dose: 10 mg Documented By: BECKI Paroxetine HCl (Paroxetine Hcl 40 Mg Tablet) 40 mg PO DAILY [facility] Last Admin: 04/06/23 10:02 Dose: 40 mg Documented By: BECKI Prednisone (Prednisone 20 Mg Tablet) 40 mg PO DAILY [facility] Last Admin: 04/06/23 10:02 Dose: 40 mg Documented By: BECKI Senna/Docusate Sodium (Sennosides/Docusate Sodium Tablet) 1 tab PO DAILY [facility] Last Admin: 04/06/23 10:03 Dose: 1 tab Documented By: BECKI Sodium Chloride (0.9 % Sodium Chloride Flush 3 Ml Syringe) 3 ml IVFLUSH QSHIFT [facility] Last Admin: 04/06/23 10:01 Dose: 3 ml Documented By: BECKI Topiramate (Topiramate 100 Mg Tablet) 100 mg PO BID@0900,1800 [facility] Last Admin: 04/06/23 10:03 Dose: 100 mg Documented By: BECKI Topiramate (Topiramate 100 Mg Tablet) 200 mg PO BEDTIME [facility] Last Admin: 04/05/23 21:06 Dose: 200 mg Documented By: BRENDA Vitamin D (Cholecalciferol (Vitamin D3) 25 Mcg Tablet) 100 mcg PO DAILY [facility] Last Admin: 04/06/23 10:02 Dose: 100 mcg Documented By: BECKI Labs 04/04/23 11:40 04/04/23 11:40 Microbiology Microbiology Results: Microbiology 04/04/23 12:34 Blood Culture - Preliminary Blood - Venous No growth after 24 hours. 04/04/23 11:40 Blood Culture - Preliminary Blood - Venous No growth after 24 hours. Assessment and Plan (1) Cellulitis: Status: Acute (2) KENZIE (obstructive sleep apnea): Status: Acute Plan 57 yo female with PMH of KENZIE, DM, HTN, morbid obesity, asthma not on home O2, chronic lower ext edema, group b strep bacteremia here with c/o R leg cellulitis 4-5 days duration-possible asthma execerbation and cellulitis . Asthma exacerbation(possible mild persistent asthma): sob seems improving tachycardia ,tachypnea improved. Continue nebs, steroids. possible cellulitis aof right leg: not septic mild elevated crp,blood culture pending Turn, out out of bed to chair, incentive spirometry continue zosyn acute lactic acidosis: possible realted to nebs . No further trending unless clinically worsening. KENZIE-seems noncompliant with CPAP Will start CPAP if agrees. ? hx dm: not on any meds mild hyperglycemia sec to steriods will check hba1c levels moniter fs Hypertension: Blood pressure stable. Continue home medications Morbid obesity: Advised to lose weight and cutdown calories. PT evaluation Patient patient may benefit from 48-72 hour stay: Due to cellulitis of upper leg (not improving), now also has left lower thigh cellulitis also in the setting of morbid obesity, also concern of self-care which might cause worsening of cellulitis, history of strep bacteremia-need IV antibiotics, in addition patient needs steroids and nebs for asthma exacerbation Quality Stroke Does the patient have a stroke diagnosis?: No VTE Prior VTE?: No VTE Risk Level:: Medical - moderate - high VTE Device Contraindication: N/A - Device Ordered VTE Drug Contraindication: N/A - Med Ordered
[2023-04-06] MEDS: amLODIPine Besylate 5 MG TABLET PO (11:48)
[2023-04-06] MEDS: Enoxaparin Sodium 40 MG/0.4 ML SYRINGE SUBCUT (15:58)
[2023-04-06] MEDS: busPIRone HCl 10 MG TABLET PO (20:39)
[2023-04-06] MEDS: buPROPion HCl XL 300 MG TAB.ER.24H PO (20:39)
[2023-04-06] MEDS: Losartan Potassium 50 MG TABLET PO (20:39)
[2023-04-06] MEDS: Topiramate 100 MG TABLET 200 MG PO (20:40)
[2023-04-07] VITALS (12 sets, daily range): BP systolic 117–137; BP diastolic 54–68; PULSE 58–80; RESP 16–25; TEMP 36.1–36.7; O2SAT 93–98
[2023-04-07] MEDS: oxyCODONE HCl Immed Release 5 MG TABLET PO ×3 (02:14→20:28)
[2023-04-07] MEDS: Acetaminophen 325 MG TABLET 650 MG PO ×3 (02:14→20:27)
[2023-04-07] MEDS: Albuterol/Iprat 2.5/0.5MG 3 ML AMPUL.NEB INHALE ×4 (04:12→19:29)
[2023-04-07] MEDS: Linezolid 600 MG TABLET PO ×2 (05:41→17:59)
[2023-04-07] MEDS: Morphine Sulfate 2 MG/ML CARTRIDGE IVPUSH (06:24)
[2023-04-07] MEDS: Fluticasone/Vilanterol 200/25 BLST.W.DEV 1 PUFF INHALE (08:21)
[2023-04-07] MEDS: 0.9 % Sodium Chloride Flush 3 ML SYRINGE IVFLUSH ×3 (09:59→20:16)
[2023-04-07] MEDS: buPROPion HCl XL 150 MG TAB.ER.24H PO (09:59)
[2023-04-07] MEDS: Cholecalciferol (Vitamin D3) 25 MCG TABLET 100 MCG PO (09:59)
[2023-04-07] MEDS: PARoxetine HCL 10 MG TABLET PO (10:00)
[2023-04-07] MEDS: atenoloL 100 MG TABLET PO (10:00)
[2023-04-07] MEDS: Furosemide 40 MG TABLET PO ×2 (10:00→12:15)
[2023-04-07] MEDS: Atorvastatin Calcium 80 MG TABLET PO (10:00)
[2023-04-07] MEDS: PARoxetine HCL 40 MG TABLET PO (10:00)
[2023-04-07] MEDS: busPIRone HCl 5 MG TABLET 15 MG PO ×2 (10:00→17:59)
[2023-04-07] MEDS: Gabapentin 100 MG CAPSULE PO ×3 (10:00→20:16)
[2023-04-07] MEDS: predniSONE 20 MG TABLET 40 MG PO (10:00)
[2023-04-07] MEDS: Sennosides/Docusate Sodium TABLET 1 TAB PO (10:00)
[2023-04-07] MEDS: hydrALAZINE HCl 25 MG TABLET PO ×2 (10:00→17:59)
[2023-04-07] MEDS: Topiramate 100 MG TABLET PO ×2 (10:00→17:59)
[2023-04-07] MEDS: amLODIPine Besylate 5 MG TABLET PO (12:15)
--- NOTE | 2023-04-07 13:48 | HO.PM.IMPN ---
Subjective Subjective Date of Service: 04/07/23 Interval History: b/l areas of cellulitis lower thigh Review of Systems seems improving,less pain Physical Exam Vital Signs: Vital Signs: Last Vital Signs Temp 97.7 F 04/07/23 12:00 Pulse 58 04/07/23 12:33 Resp 18 04/07/23 12:33 BP 125/60 04/07/23 12:00 Pulse Ox 95 04/07/23 12:00 O2 Del Method Nasal Cannula 04/07/23 12:00 O2 Flow Rate 2 04/07/23 12:00 BMI result Body Mass Index 53.1 Appearance: Alert.? Oriented X3.sob improving. cvs: rrr, [id number]. res: air entry diminshed at bases ,has wheezing. abd: no rebound or guarding ,nt, bs present. ext pulses present , no cyanosis ,b/l lower thigh -erosion/erythema with some improving. neuro: axo3 , nonfocal. Objective Data Active Medications Acetaminophen (Acetaminophen 325 Mg Tablet) 650 mg PO Q6H PRN PRN Reason: Pain, Mild (Pain Scale 1-3) Last Admin: 04/07/23 10:26 Dose: 650 mg Documented By: BECKI Albuterol/Ipratropium (Albuterol/Iprat 2.5/0.5mg 3 Ml Ampul.Neb) 3 ml INHALE RQ4H [facility] Last Admin: 04/07/23 12:33 Dose: 3 ml Documented By: MY Albuterol/Ipratropium (Albuterol/Iprat 2.5/0.5mg 3 Ml Ampul.Neb) 3 ml INHALE Q3H PRN PRN Reason: sob Amlodipine Besylate (Amlodipine Besylate 5 Mg Tablet) 5 mg PO DAILY@1200 [facility]; Protocol Last Admin: 04/07/23 12:15 Dose: 5 mg Documented By: BECKI Atenolol (Atenolol 100 Mg Tablet) 100 mg PO DAILY [facility]; Protocol Last Admin: 04/07/23 10:00 Dose: 100 mg Documented By: BECKI Atorvastatin Calcium (Atorvastatin Calcium 80 Mg Tablet) 80 mg PO DAILY [facility] Last Admin: 04/07/23 10:00 Dose: 80 mg Documented By: BECKI Bupropion HCl (Bupropion Hcl Xl 150 Mg Tab.Er.24h) 150 mg PO DAILY [facility] Last Admin: 04/07/23 09:59 Dose: 150 mg Documented By: BECKI Bupropion HCl (Bupropion Hcl Xl 300 Mg Tab.Er.24h) 300 mg PO BEDTIME [facility] Last Admin: 04/06/23 20:39 Dose: 300 mg Documented By: BRENDA Buspirone HCl (Buspirone Hcl 10 Mg Tablet) 10 mg PO BEDTIME [facility] Last Admin: 04/06/23 20:39 Dose: 10 mg Documented By: BRENDA Buspirone HCl (Buspirone Hcl 5 Mg Tablet) 15 mg PO BID@0900,1800 [facility] Last Admin: 04/07/23 10:00 Dose: 15 mg Documented By: BECKI Enoxaparin Sodium (Enoxaparin Sodium 40 Mg/0.4 Ml Syringe) 40 mg SUBCUT Q24H [facility] Last Admin: 04/06/23 15:58 Dose: 40 mg Documented By: BECKI Fluticasone/Vilanterol (Fluticasone/Vilanterol 200/25 Blst.W.Dev) 1 puff INHALE RDAILY [facility] Last Admin: 04/07/23 08:21 Dose: 1 puff Documented By: DEVEN Furosemide (Furosemide 40 Mg Tablet) 40 mg PO BID@0900,1200 [facility]; Protocol Last Admin: 04/07/23 12:15 Dose: 40 mg Documented By: BECKI Gabapentin (Gabapentin 100 Mg Capsule) 100 mg PO TID [facility] Last Admin: 04/07/23 10:00 Dose: 100 mg Documented By: BECKI Hydralazine HCl (Hydralazine Hcl 25 Mg Tablet) 25 mg PO BIDWM [facility]; Protocol Last Admin: 04/07/23 10:00 Dose: 25 mg Documented By: BECKI Linezolid (Linezolid 600 Mg Tablet) 600 mg PO Q12H [facility] Last Admin: 04/07/23 05:41 Dose: 600 mg Documented By: BRENDA Losartan Potassium (Losartan Potassium 50 Mg Tablet) 50 mg PO BEDTIME [facility]; Protocol Last Admin: 04/06/23 20:39 Dose: 50 mg Documented By: BRENDA Multi-Ingred Cream/Lotion/Oil/Oint (Mineral Oil/Petrolatum,White 106 Gm Tube) 1 appl TOPICAL BID PRN PRN Reason: Dry Skin Oxycodone HCl (Oxycodone Hcl Immed Release 5 Mg Tablet) 5 mg PO Q6H PRN PRN Reason: Pain, Mild (Pain Scale 1-3) Last Admin: 04/07/23 10:26 Dose: 5 mg Documented By: BECKI Paroxetine HCl (Paroxetine Hcl 10 Mg Tablet) 10 mg PO DAILY [facility] Last Admin: 04/07/23 10:00 Dose: 10 mg Documented By: BECKI Paroxetine HCl (Paroxetine Hcl 40 Mg Tablet) 40 mg PO DAILY [facility] Last Admin: 04/07/23 10:00 Dose: 40 mg Documented By: BECKI Prednisone (Prednisone 20 Mg Tablet) 40 mg PO DAILY [facility] Last Admin: 04/07/23 10:00 Dose: 40 mg Documented By: BECKI Senna/Docusate Sodium (Sennosides/Docusate Sodium Tablet) 1 tab PO DAILY [facility] Last Admin: 04/07/23 10:00 Dose: 1 tab Documented By: BECKI Sodium Chloride (0.9 % Sodium Chloride Flush 3 Ml Syringe) 3 ml IVFLUSH QSHIFT [facility] Last Admin: 04/07/23 09:59 Dose: 3 ml Documented By: BECKI Topiramate (Topiramate 100 Mg Tablet) 100 mg PO BID@0900,1800 [facility] Last Admin: 04/07/23 10:00 Dose: 100 mg Documented By: BECKI Topiramate (Topiramate 100 Mg Tablet) 200 mg PO BEDTIME [facility] Last Admin: 04/06/23 20:40 Dose: 200 mg Documented By: BRENDA Vitamin D (Cholecalciferol (Vitamin D3) 25 Mcg Tablet) 100 mcg PO DAILY [facility] Last Admin: 04/07/23 09:59 Dose: 100 mcg Documented By: BECKI Labs 04/04/23 11:40 04/04/23 11:40 Microbiology Microbiology Results: Microbiology 04/04/23 12:34 Blood Culture - Preliminary Blood - Venous No growth after 48 hours. 04/04/23 11:40 Blood Culture - Preliminary Blood - Venous No growth after 48 hours. Assessment and Plan (1) Cellulitis: Status: Acute (2) KENZIE (obstructive sleep apnea): Status: Acute Plan 57 yo female with PMH of KENZIE, DM, HTN, morbid obesity, asthma not on home O2, chronic lower ext edema, group b strep bacteremia here with c/o R leg cellulitis 4-5 days duration-possible asthma execerbation and cellulitis . Asthma exacerbation(possible mild persistent asthma): sob seems improving tachycardia ,tachypnea improved. Continue nebs, steroids. possible cellulitis aof right leg: not septic mild elevated crp,blood culture pending Turn, out out of bed to chair, incentive spirometry continue zosyn acute lactic acidosis: possible realted to nebs . No further trending unless clinically worsening. KENZIE-seems noncompliant with CPAP CPAP if agrees. ? hx dm: not on any meds mild hyperglycemia sec to steriods hba1c levels: 5.4 moniter fs Hypertension: Blood pressure stable. Continue home medications Morbid obesity: Advised to lose weight and cutdown calories. PT evaluation-need rehab. ongoing hospitlisation need : need rehab placement. Quality Stroke Does the patient have a stroke diagnosis?: No VTE Prior VTE?: No VTE Risk Level:: Medical - moderate - high VTE Device Contraindication: N/A - Device Ordered VTE Drug Contraindication: N/A - Med Ordered
[2023-04-07 16:20] LABS: Hematocrit 39.6 % (37.0-47.0); Hemoglobin 11.4 g/dl (12.0-16.0); Mean Corpuscular HGB Conc 28.8 g/dl (31.0-35.0); Mean Corpuscular Hemoglobin 25.7 pg (27.0-33.0); Mean Corpuscular Volume 89.2 fL (80.0-98.0); Mean Platelet Volume 12.9 fL (9.4-12.3); Platelet Count 208 X10*3/uL (160-400); Red Blood Count 4.44 X10*6/uL (4.20-5.50); Red Cell Distribution Width 15.5 % (11.0-16.0); White Blood Count 6.2 X10*3/uL (4.8-10.8)
[2023-04-07 16:40] LABS: Anion Gap 14 (12-20); Blood Urea Nitrogen 21 mg/dL (9-16); Calcium 9.4 mg/dL (8.4-10.2); Carbon Dioxide 27 mmol/L (22-29); Chloride 104 mmol/L (96-108); Creatinine Clr Calc Pharmacy 102.6; Estimated Glomerular Filt Rate > 60; Glucose Random 146 mg/dL (60-115); Potassium 4.2 mmol/L (3.3-5.1); Sodium 141 mmol/L (135-145)
[2023-04-07] MEDS: Piperacillin Sodium/Tazobactam 3.375 GM in 0.9 % Sodium Chloride 50 ML IV ×2 (17:53→22:22)
[2023-04-07 18:31] LABS: OBS Int Ctl Valid YES; OBS1 NEGATIVE (NEGATIVE)
[2023-04-07] MEDS: Topiramate 100 MG TABLET 200 MG PO (20:16)
[2023-04-07] MEDS: busPIRone HCl 10 MG TABLET PO (20:16)
[2023-04-07] MEDS: Losartan Potassium 50 MG TABLET PO (20:16)
[2023-04-07] MEDS: buPROPion HCl XL 300 MG TAB.ER.24H PO (20:16)
--- NOTE | 2023-04-07 23:39 | W.PM.IDCN ---
History of Present Illness Data of Consult Service Date: 04/06/23 Requesting physician: Sahdy Malhotra Primary Care Provider: [facility] Reason for consult: erythema bilateral legs She presents with redness bilateral legs. She has this present worsening for last two days. She had prior abdominal cellultis. Review of Systems Review of Systems: Yes all other systems are reviewed and are negative [facility] Past Medical History Medical History Asthma HTN (hypertension) Diabetes KENZIE (obstructive sleep apnea) Morbid obesity Asthma Family History Family History Daughter No problems noted. Daughter No problems noted. Daughter No problems noted. Daughter No problems noted. Daughter No problems noted. Son No problems noted. Family history: reviewed and not pertinent Social History Social History Household Members: Children Housing: Apartment Alcohol intake: never Patient Tobacco Use Status: Never used Tobacco Currently Displaying Signs/Symptoms of Drug Intoxication Withdrawal: No Advance Directives: No Advance Directives Information Provided: Yes service: No Current occupational status: unemployed Meds Allergies Allergy/AdvReac Type Severity Reaction Status Date / Time No Known Allergies Allergy Verified 03/02/23 16:15 Active Medications: Current Medications Acetaminophen (Acetaminophen 325 Mg Tablet) 650 mg PO Q6H PRN PRN Reason: Pain, Mild (Pain Scale 1-3) Last Admin: 04/07/23 20:27 Dose: 650 mg Albuterol/Ipratropium (Albuterol/Iprat 2.5/0.5mg 3 Ml Ampul.Neb) 3 ml INHALE RQ4H [facility] Last Admin: 04/07/23 19:29 Dose: 3 ml Albuterol/Ipratropium (Albuterol/Iprat 2.5/0.5mg 3 Ml Ampul.Neb) 3 ml INHALE Q3H PRN PRN Reason: sob Amlodipine Besylate (Amlodipine Besylate 5 Mg Tablet) 5 mg PO DAILY@1200 [facility]; Protocol Last Admin: 04/07/23 12:15 Dose: 5 mg Atenolol (Atenolol 100 Mg Tablet) 100 mg PO DAILY [facility]; Protocol Last Admin: 04/07/23 10:00 Dose: 100 mg Atorvastatin Calcium (Atorvastatin Calcium 80 Mg Tablet) 80 mg PO DAILY [facility] Last Admin: 04/07/23 10:00 Dose: 80 mg Bupropion HCl (Bupropion Hcl Xl 150 Mg Tab.Er.24h) 150 mg PO DAILY [facility] [place] Last Admin: 04/07/23 09:59 Dose: 150 mg Bupropion HCl (Bupropion Hcl Xl 300 Mg Tab.Er.24h) 300 mg PO BEDTIME [facility] Last Admin: 04/07/23 20:16 Dose: 300 mg Buspirone HCl (Buspirone Hcl 10 Mg Tablet) 10 mg PO BEDTIME [facility] Last Admin: 04/07/23 20:16 Dose: 10 mg Buspirone HCl (Buspirone Hcl 5 Mg Tablet) 15 mg PO BID@0900,1800 [facility] [place] Last Admin: 04/07/23 17:59 Dose: 15 mg Enoxaparin Sodium (Enoxaparin Sodium 40 Mg/0.4 Ml Syringe) 40 mg SUBCUT Q24H [facility] Last Admin: 04/07/23 15:45 Dose: Not Given Fluticasone/Vilanterol (Fluticasone/Vilanterol 200/25 Blst.W.Dev) 1 puff INHALE RDAILY [facility] [place] Last Admin: 04/07/23 08:21 Dose: 1 puff Furosemide (Furosemide 40 Mg Tablet) 40 mg PO BID@0900,1200 [facility] [place]; Protocol Last Admin: 04/07/23 12:15 Dose: 40 mg Gabapentin (Gabapentin 100 Mg Capsule) 100 mg PO TID [facility] [place] Last Admin: 04/07/23 20:16 Dose: 100 mg Hydralazine HCl (Hydralazine Hcl 25 Mg Tablet) 25 mg PO BIDWM [facility]; Protocol Last Admin: 04/07/23 17:59 Dose: 25 mg Piperacillin Sod/Tazobactam (Sod 3.375 gm/ Sodium Chloride) 50 mls @ 100 mls/hr IV Q6H [facility] [place] Last Infusion: 04/07/23 23:29 Dose: Infused Linezolid (Linezolid 600 Mg Tablet) 600 mg PO Q12H [facility] [place] Last Admin: 04/07/23 17:59 Dose: 600 mg Losartan Potassium (Losartan Potassium 50 Mg Tablet) 50 mg PO BEDTIME [facility] [place]; Protocol Last Admin: 04/07/23 20:16 Dose: 50 mg Morphine Sulfate (Morphine Sulfate 2 Mg/Ml Cartridge) 2 mg IVPUSH Q4H [facility]; Protocol PRN Reason: Pain, Mild (Pain Scale 1-3) Multi-Ingred Cream/Lotion/Oil/Oint (Mineral Oil/Petrolatum,White 106 Gm Tube) 1 appl TOPICAL BID PRN PRN Reason: Dry Skin Oxycodone HCl (Oxycodone Hcl Immed Release 5 Mg Tablet) 5 mg PO Q6H PRN PRN Reason: Pain, Mild (Pain Scale 1-3) Last Admin: 04/07/23 20:28 Dose: 5 mg Paroxetine HCl (Paroxetine Hcl 10 Mg Tablet) 10 mg PO DAILY [facility] [place] Last Admin: 04/07/23 10:00 Dose: 10 mg Paroxetine HCl (Paroxetine Hcl 40 Mg Tablet) 40 mg PO DAILY [facility] [place] Last Admin: 04/07/23 10:00 Dose: 40 mg Prednisone (Prednisone 20 Mg Tablet) 40 mg PO DAILY [facility] [place] Last Admin: 04/07/23 10:00 Dose: 40 mg Senna/Docusate Sodium (Sennosides/Docusate Sodium Tablet) 1 tab PO DAILY [facility] [place] Last Admin: 04/07/23 10:00 Dose: 1 tab Sodium Chloride (0.9 % Sodium Chloride Flush 3 Ml Syringe) 3 ml IVFLUSH QSHIFT [facility] [place] Last Admin: 04/07/23 20:16 Dose: 3 ml Topiramate (Topiramate 100 Mg Tablet) 100 mg PO BID@0900,1800 [facility] [place] Last Admin: 04/07/23 17:59 Dose: 100 mg Topiramate (Topiramate 100 Mg Tablet) 200 mg PO BEDTIME [facility] [place] Last Admin: 04/07/23 20:16 Dose: 200 mg Vitamin D (Cholecalciferol (Vitamin D3) 25 Mcg Tablet) 100 mcg PO DAILY [facility] [place] Last Admin: 04/07/23 09:59 Dose: 100 mcg Home Medications Medication Instructions Recorded Confirmed Last Taken Type albuterol sulfate 0.63 mg/3 mL 1 amp inhalation Q4-6H PRN wheezing 08/23/21 04/04/23 Unknown History solution for nebulization albuterol sulfate 90 mcg/actuation 2 puff PO Q4-6H PRN Wheezing 08/23/21 04/04/23 Unknown History aerosol inhaler (ProAir HFA) amlodipine 5 mg tablet 1 tab PO DAILY@1200 05/04/04/23 04/04/23 09:00 History atenolol 100 mg tablet 100 mg PO DAILY 08/23/21 04/04/23 04/04/23 09:00 History atorvastatin 80 mg tablet 1 tab PO DAILY 08/23/21 04/04/23 04/04/23 09:00 History budesonide-formoterol HFA 160 2 puff inhalation BID 08/23/21 04/04/23 04/04/23 09:00 History mcg-4.5 mcg/actuation aerosol inhaler (Symbicort) bupropion HCl 150 mg 24 hr tablet, 1 tab PO DAILY 08/23/21 04/04/23 04/04/23 09:00 History extended release bupropion HCl 300 mg 24 hr tablet, 1 tab PO BEDTIME 08/23/21 04/04/23 10/08/22 History extended release cholecalciferol (vitamin D3) 50 2 cap PO DAILY 08/23/21 04/04/23 04/04/23 09:00 History mcg (2,000 unit) capsule furosemide 40 mg tablet 40 mg PO BID@0900,1200 08/23/21 04/04/23 04/04/23 09:00 History hydralazine 25 mg tablet 1 tab PO BIDWM 08/23/21 04/04/23 04/04/23 09:00 History lanolin alcohols-mineral 1 appl topical BID PRN Dry Skin 08/23/21 04/04/23 10/08/22 History oil-w.petrolatum-ceresin topical cream (Minerin Creme topical) losartan 50 mg tablet 1 tab PO BEDTIME 08/23/21 04/04/23 10/08/22 History paroxetine HCl 10 mg tablet 1 tab PO DAILY 08/23/21 04/04/23 04/04/23 09:00 History paroxetine HCl 40 mg tablet 1 tab PO DAILY 08/23/21 04/04/23 04/04/23 09:00 History topiramate 100 mg tablet 1 tab PO BID@0900,1800 08/23/21 04/04/23 04/04/23 09:00 History topiramate 200 mg tablet 1 tab PO BEDTIME 08/23/21 04/04/23 10/08/22 History buspirone 10 mg tablet 10 mg PO BEDTIME 10/09/22 04/04/23 10/08/22 History buspirone 15 mg tablet 15 mg PO BID@0900,1800 10/09/22 04/04/23 04/04/23 09:00 History dulaglutide 1.5 mg/0.5 mL 1.5 mg subcut TH@0900 04/04/23 04/04/23 03/28/23 History subcutaneous pen injector (Trulicity) sennosides 8.6 mg-docusate sodium 1 tab PO DAILY 04/04/23 04/04/23 04/04/23 09:00 History 50 mg tablet (Stimulant Laxative Plus) Physical Exam Vital Signs: Vital Signs: Last Vital Signs Temp 96.9 F 04/07/23 20:00 Pulse 80 04/07/23 20:00 Resp 20 04/07/23 20:00 BP 117/54 L 04/07/23 20:00 Pulse Ox 94 04/07/23 20:00 O2 Del Method Room Air 04/07/23 20:00 O2 Flow Rate 2 04/07/23 16:00 BMI result Body Mass Index 53.1 Const: General: cooperative HEENT: Head: Yes normal to inspection Face and sinus: Yes normal facial exam Mouth: Normal oral and palatal mucosa present Teeth and gingiva: dentition normal Eyes: General: appearance normal, both eyes and all related structures Pupils: Equal, round and reactive pupils present Resp: Effort & Inspection: normal respiratory effort Cardio: Rate: regular rate Rhythm: regular rhythm GI: Palpation (GI): Soft to palpation and nontender : General: Yes no CVA tenderness Back/Spine/Pelvis: Back: no CVA tenderness Skin: General skin exam: no rashes or lesions noted Neuro: General: moves all extremities Cranial nerves: Yes Equal, round and reactive pupils present Extrem: Other: mild erythema bilateral legs Psych: Appearance: grossly normal Results Labs 04/07/23 16:05 04/07/23 16:05 Labs: Short CBC 04/07/23 Range/Units 16:05 WBC 6.2 (4.8-10.8) X10*3/uL Hgb 11.4 L (12.0-16.0) g/dl Hct 39.6 (37.0-47.0) % Plt Count 208 (160-400) X10*3/uL BMP 04/07/23 16:05 Sodium 141 Potassium 4.2 Chloride 104 Carbon Dioxide 27 BUN 21 H Creatinine 0.83 Calcium 9.4 Microbiology Microbiology Results: Microbiology 04/04/23 12:34 Blood - Venous Blood Culture - Preliminary No growth after 48 hours. 04/04/23 11:40 Blood - Venous Blood Culture - Preliminary No growth after 48 hours. Assessment and Plan (1) Cellulitis: Qualifiers: Laterality: right Site of cellulitis: extremity Site of cellulitis of extremity: lower extremity Qualified Code(s): L03.115 - Cellulitis of right lower limb Status: Acute She has cellulitis ,strep or staph. Prior Group B strep abdominal wall. (2) Diabetes: Status: Acute Plan As long as continues to improve po linezolid for 10 days.
[2023-04-08] VITALS (12 sets, daily range): BP systolic 110–137; BP diastolic 57–69; PULSE 64–78; RESP 16–20; TEMP 36.1–36.9; O2SAT 65–96
[2023-04-08] MEDS: Albuterol/Iprat 2.5/0.5MG 3 ML AMPUL.NEB INHALE ×6 (00:15→19:29)
[2023-04-08] MEDS: Linezolid 600 MG TABLET PO ×2 (04:26→16:59)
[2023-04-08] MEDS: Piperacillin Sodium/Tazobactam 3.375 GM in 0.9 % Sodium Chloride 50 ML IV (04:27)
[2023-04-08] MEDS: Acetaminophen 325 MG TABLET 650 MG PO ×2 (04:27→10:55)
[2023-04-08] MEDS: oxyCODONE HCl Immed Release 5 MG TABLET PO ×3 (04:27→16:59)
[2023-04-08] MEDS: Fluticasone/Vilanterol 200/25 BLST.W.DEV 1 PUFF INHALE (08:12)
[2023-04-08] MEDS: PARoxetine HCL 10 MG TABLET PO (08:17)
[2023-04-08] MEDS: Sennosides/Docusate Sodium TABLET 1 TAB PO (08:17)
[2023-04-08] MEDS: Topiramate 100 MG TABLET PO ×2 (08:17→16:59)
[2023-04-08] MEDS: Cholecalciferol (Vitamin D3) 25 MCG TABLET 100 MCG PO (08:17)
[2023-04-08] MEDS: buPROPion HCl XL 150 MG TAB.ER.24H PO (08:17)
[2023-04-08] MEDS: Atorvastatin Calcium 80 MG TABLET PO (08:17)
[2023-04-08] MEDS: Gabapentin 100 MG CAPSULE PO ×3 (08:17→19:57)
[2023-04-08] MEDS: PARoxetine HCL 40 MG TABLET PO (08:17)
[2023-04-08] MEDS: atenoloL 100 MG TABLET PO (08:17)
[2023-04-08] MEDS: hydrALAZINE HCl 25 MG TABLET PO ×2 (08:17→16:59)
[2023-04-08] MEDS: Furosemide 40 MG TABLET PO ×2 (08:17→11:41)
[2023-04-08] MEDS: busPIRone HCl 5 MG TABLET 15 MG PO ×2 (08:17→16:59)
[2023-04-08] MEDS: predniSONE 20 MG TABLET 40 MG PO (08:17)
[2023-04-08] MEDS: 0.9 % Sodium Chloride Flush 3 ML SYRINGE IVFLUSH ×3 (08:18→19:57)
[2023-04-08 09:15] LABS: Hematocrit 39.1 % (37.0-47.0); Hemoglobin 11.3 g/dl (12.0-16.0)
[2023-04-08] MEDS: amLODIPine Besylate 5 MG TABLET PO (11:41)
--- NOTE | 2023-04-08 11:54 | PM.GICN ---
History of Present Illness Data of Consult Service Date: 04/08/23 Requesting physician: Shady Malhotra Primary Care Provider: [facility] Reason for consult: LLQ abdominal pain, rectal bleeding PMFSH Past Medical History Medical History Asthma HTN (hypertension) Diabetes KENZIE (obstructive sleep apnea) Morbid obesity Asthma Family History Family History Daughter No problems noted. Daughter No problems noted. Daughter No problems noted. Daughter No problems noted. Daughter No problems noted. Son No problems noted. Family history: reviewed and not pertinent Social History Social History Household Members: Children Housing: Apartment Alcohol intake: never Patient Tobacco Use Status: Never used Tobacco Currently Displaying Signs/Symptoms of Drug Intoxication Withdrawal: No Advance Directives: No Advance Directives Information Provided: Yes service: No Current occupational status: unemployed Meds Allergies Allergy/AdvReac Type Severity Reaction Status Date / Time No Known Allergies Allergy Verified 03/02/23 16:15 Active Medications: Current Medications Acetaminophen (Acetaminophen 325 Mg Tablet) 650 mg PO Q6H PRN PRN Reason: Pain, Mild (Pain Scale 1-3) Last Admin: 04/08/23 10:55 Dose: 650 mg Albuterol/Ipratropium (Albuterol/Iprat 2.5/0.5mg 3 Ml Ampul.Neb) 3 ml INHALE RQ4H [facility] Last Admin: 04/08/23 08:12 Dose: 3 ml Albuterol/Ipratropium (Albuterol/Iprat 2.5/0.5mg 3 Ml Ampul.Neb) 3 ml INHALE Q3H PRN PRN Reason: sob Amlodipine Besylate (Amlodipine Besylate 5 Mg Tablet) 5 mg PO DAILY@1200 [facility]; Protocol Last Admin: 04/08/23 11:41 Dose: 5 mg Atenolol (Atenolol 100 Mg Tablet) 100 mg PO DAILY [facility]; Protocol Last Admin: 04/08/23 08:17 Dose: 100 mg Atorvastatin Calcium (Atorvastatin Calcium 80 Mg Tablet) 80 mg PO DAILY [facility] Last Admin: 04/08/23 08:17 Dose: 80 mg Bupropion HCl (Bupropion Hcl Xl 150 Mg Tab.Er.24h) 150 mg PO DAILY [facility] Last Admin: 04/08/23 08:17 Dose: 150 mg Bupropion HCl (Bupropion Hcl Xl 300 Mg Tab.Er.24h) 300 mg PO BEDTIME [facility] Last Admin: 04/07/23 20:16 Dose: 300 mg Buspirone HCl (Buspirone Hcl 10 Mg Tablet) 10 mg PO BEDTIME [facility] Last Admin: 04/07/23 20:16 Dose: 10 mg Buspirone HCl (Buspirone Hcl 5 Mg Tablet) 15 mg PO BID@0900,1800 [facility] Last Admin: 04/08/23 08:17 Dose: 15 mg Enoxaparin Sodium (Enoxaparin Sodium 40 Mg/0.4 Ml Syringe) 40 mg SUBCUT Q24H [facility] Last Admin: 04/07/23 15:45 Dose: Not Given Fluticasone/Vilanterol (Fluticasone/Vilanterol 200/25 Blst.W.Dev) 1 puff INHALE RDAILY [facility] Last Admin: 04/08/23 08:12 Dose: 1 puff Furosemide (Furosemide 40 Mg Tablet) 40 mg PO BID@0900,1200 [facility]; Protocol Last Admin: 04/08/23 11:41 Dose: 40 mg Gabapentin (Gabapentin 100 Mg Capsule) 100 mg PO TID [facility] Last Admin: 04/08/23 08:17 Dose: 100 mg Hydralazine HCl (Hydralazine Hcl 25 Mg Tablet) 25 mg PO BIDWM [facility]; Protocol Last Admin: 04/08/23 08:17 Dose: 25 mg Linezolid (Linezolid 600 Mg Tablet) 600 mg PO Q12H [facility] Last Admin: 04/08/23 04:26 Dose: 600 mg Losartan Potassium (Losartan Potassium 50 Mg Tablet) 50 mg PO BEDTIME [facility]; Protocol Last Admin: 04/07/23 20:16 Dose: 50 mg Morphine Sulfate (Morphine Sulfate 2 Mg/Ml Cartridge) 2 mg IVPUSH Q4H PRN; Protocol PRN Reason: Pain, Mild (Pain Scale 1-3) Multi-Ingred Cream/Lotion/Oil/Oint (Mineral Oil/Petrolatum,White 106 Gm Tube) 1 appl TOPICAL BID PRN PRN Reason: Dry Skin Oxycodone HCl (Oxycodone Hcl Immed Release 5 Mg Tablet) 5 mg PO Q6H PRN PRN Reason: Pain, Mild (Pain Scale 1-3) Last Admin: 04/08/23 10:55 Dose: 5 mg Paroxetine HCl (Paroxetine Hcl 10 Mg Tablet) 10 mg PO DAILY [facility] Last Admin: 04/08/23 08:17 Dose: 10 mg Paroxetine HCl (Paroxetine Hcl 40 Mg Tablet) 40 mg PO DAILY [facility] Last Admin: 04/08/23 08:17 Dose: 40 mg Prednisone (Prednisone 20 Mg Tablet) 40 mg PO DAILY [facility] Last Admin: 04/08/23 08:17 Dose: 40 mg Senna/Docusate Sodium (Sennosides/Docusate Sodium Tablet) 1 tab PO DAILY [facility] Last Admin: 04/08/23 08:17 Dose: 1 tab Sodium Chloride (0.9 % Sodium Chloride Flush 3 Ml Syringe) 3 ml IVFLUSH QSHIFT [facility] Last Admin: 04/08/23 08:18 Dose: 3 ml Topiramate (Topiramate 100 Mg Tablet) 100 mg PO BID@0900,1800 [facility] Last Admin: 04/08/23 08:17 Dose: 100 mg Topiramate (Topiramate 100 Mg Tablet) 200 mg PO BEDTIME [facility] Last Admin: 04/07/23 20:16 Dose: 200 mg Vitamin D (Cholecalciferol (Vitamin D3) 25 Mcg Tablet) 100 mcg PO DAILY [facility] Last Admin: 04/08/23 08:17 Dose: 100 mcg Home Medications Medication Instructions Recorded Confirmed Last Taken Type albuterol sulfate 0.63 mg/3 mL 1 amp inhalation Q4-6H PRN wheezing 08/23/21 04/04/23 Unknown History solution for nebulization albuterol sulfate 90 mcg/actuation 2 puff PO Q4-6H PRN Wheezing 08/23/21 04/04/23 Unknown History aerosol inhaler (ProAir HFA) amlodipine 5 mg tablet 1 tab PO DAILY@1200 08/23/21 04/04/23 04/04/23 09:00 History atenolol 100 mg tablet 100 mg PO DAILY 08/23/21 04/04/23 04/04/23 09:00 History atorvastatin 80 mg tablet 1 tab PO DAILY 08/23/21 04/04/23 04/04/23 09:00 History budesonide-formoterol HFA 160 2 puff inhalation BID 08/23/21 04/04/23 04/04/23 09:00 History mcg-4.5 mcg/actuation aerosol inhaler (Symbicort) bupropion HCl 150 mg 24 hr tablet, 1 tab PO DAILY 08/23/21 04/04/23 04/04/23 09:00 History extended release bupropion HCl 300 mg 24 hr tablet, 1 tab PO BEDTIME 08/23/21 04/04/23 10/08/22 History extended release cholecalciferol (vitamin D3) 50 2 cap PO DAILY 08/23/21 04/04/23 04/04/23 09:00 History mcg (2,000 unit) capsule furosemide 40 mg tablet 40 mg PO BID@0900,1200 08/23/21 04/04/23 04/04/23 09:00 History hydralazine 25 mg tablet 1 tab PO BIDWM 08/23/21 04/04/23 04/04/23 09:00 History lanolin alcohols-mineral 1 appl topical BID PRN Dry Skin 08/23/21 04/04/23 10/08/22 History oil-w.petrolatum-ceresin topical cream (Minerin Creme topical) losartan 50 mg tablet 1 tab PO BEDTIME 08/23/21 04/04/23 10/08/22 History paroxetine HCl 10 mg tablet 1 tab PO DAILY 08/23/21 04/04/23 04/04/23 09:00 History paroxetine HCl 40 mg tablet 1 tab PO DAILY 08/23/21 04/04/23 04/04/23 09:00 History topiramate 100 mg tablet 1 tab PO BID@0900,1800 08/23/21 04/04/23 04/04/23 09:00 History topiramate 200 mg tablet 1 tab PO BEDTIME 08/23/21 04/04/23 10/08/22 History buspirone 10 mg tablet 10 mg PO BEDTIME 10/09/22 04/04/23 10/08/22 History buspirone 15 mg tablet 15 mg PO BID@0900,1800 10/09/22 04/04/23 04/04/23 09:00 History dulaglutide 1.5 mg/0.5 mL 1.5 mg subcut TH@0900 04/04/23 04/04/23 03/28/23 History subcutaneous pen injector (Trulicity) sennosides 8.6 mg-docusate sodium 1 tab PO DAILY 04/04/23 04/04/23 04/04/23 09:00 History 50 mg tablet (Stimulant Laxative Plus) Physical Exam Vital Signs: Vital Signs: Last Vital Signs Temp 97.7 F 04/08/23 07:15 Pulse 74 04/08/23 08:12 Resp 18 04/08/23 08:12 BP 110/57 L 04/08/23 11:39 Pulse Ox 65 L 04/08/23 11:39 O2 Del Method Room Air 04/08/23 07:15 O2 Flow Rate 2 04/07/23 16:00 BMI result Body Mass Index 53.1 Results Labs 04/08/23 08:31 04/07/23 16:05 Labs: Short CBC 04/07/23 04/08/23 Range/Units 16:05 08:31 WBC 6.2 (4.8-10.8) X10*3/uL Hgb 11.4 L 11.3 L (12.0-16.0) g/dl Hct 39.6 39.1 (37.0-47.0) % Plt Count 208 (160-400) X10*3/uL BMP 04/07/23 16:05 Sodium 141 Potassium 4.2 Chloride 104 Carbon Dioxide 27 BUN 21 H Creatinine 0.83 Calcium 9.4 Microbiology Microbiology Results: Microbiology 04/04/23 12:34 Blood - Venous Blood Culture - Preliminary No growth after 48 hours. 04/04/23 11:40 Blood - Venous Blood Culture - Preliminary No growth after 48 hours. Procedures Date of Service Date of Service: 04/08/23
--- NOTE | 2023-04-08 14:44 | P.PNIM_ITS ---
Subjective Subjective Date of Service: 04/08/23 Interval History: ? possible vaginal /rectal bleedin Review of Systems as per family-she had some bleeding overnight also had llq pain no fevers Physical Exam 2 Vital Signs: Vital Signs: Last Vital Signs Temp 97.7 F 04/08/23 07:15 Pulse 68 04/08/23 12:02 Resp 18 04/08/23 12:02 BP 110/57 L 04/08/23 11:39 Pulse Ox 65 L 04/08/23 11:39 O2 Del Method Room Air 04/08/23 07:15 O2 Flow Rate 2 04/07/23 16:00 BMI result Body Mass Index 53.1 Appearance: Alert.? Oriented X3.sob improving. cvs: rrr, [id number]. res: air entry diminshed at bases ,has wheezing. abd: no rebound or guarding ,llq pain similar, bs present. ext pulses present , no cyanosis ,b/l lower thigh -erosion/erythema with some improving. neuro: axo3 , nonfocal Objective Data Active Medications Acetaminophen (Acetaminophen 325 Mg Tablet) 650 mg PO Q6H PRN PRN Reason: Pain, Mild (Pain Scale 1-3) Last Admin: 04/08/23 10:55 Dose: 650 mg Documented By: TUNG Albuterol/Ipratropium (Albuterol/Iprat 2.5/0.5mg 3 Ml Ampul.Neb) 3 ml INHALE RQ4H [facility] Last Admin: 04/08/23 12:02 Dose: 3 ml Documented By: DEVIN Albuterol/Ipratropium (Albuterol/Iprat 2.5/0.5mg 3 Ml Ampul.Neb) 3 ml INHALE Q3H PRN PRN Reason: sob Amlodipine Besylate (Amlodipine Besylate 5 Mg Tablet) 5 mg PO DAILY@1200 [facility]; Protocol Last Admin: 04/08/23 11:41 Dose: 5 mg Documented By: LD Atenolol (Atenolol 100 Mg Tablet) 100 mg PO DAILY [facility]; Protocol Last Admin: 04/08/23 08:17 Dose: 100 mg Documented By: LD Atorvastatin Calcium (Atorvastatin Calcium 80 Mg Tablet) 80 mg PO DAILY [facility] Last Admin: 04/08/23 08:17 Dose: 80 mg Documented By: LD Bupropion HCl (Bupropion Hcl Xl 150 Mg Tab.Er.24h) 150 mg PO DAILY [facility] Last Admin: 04/08/23 08:17 Dose: 150 mg Documented By: LD Bupropion HCl (Bupropion Hcl Xl 300 Mg Tab.Er.24h) 300 mg PO BEDTIME [facility] Last Admin: 04/07/23 20:16 Dose: 300 mg Documented By: SADIA Buspirone HCl (Buspirone Hcl 10 Mg Tablet) 10 mg PO BEDTIME [facility] Last Admin: 04/07/23 20:16 Dose: 10 mg Documented By: SADIA Buspirone HCl (Buspirone Hcl 5 Mg Tablet) 15 mg PO BID@0900,1800 [facility] Last Admin: 04/08/23 08:17 Dose: 15 mg Documented By: LD Enoxaparin Sodium (Enoxaparin Sodium 40 Mg/0.4 Ml Syringe) 40 mg SUBCUT Q24H [facility] Last Admin: 04/07/23 15:45 Dose: Not Given Documented By: BECKI Non-Admin Reason: vaginal and rectal bleeding Fluticasone/Vilanterol (Fluticasone/Vilanterol 200/25 Blst.W.Dev) 1 puff INHALE RDAILY [facility] Last Admin: 04/08/23 08:12 Dose: 1 puff Documented By: DEVIN Furosemide (Furosemide 40 Mg Tablet) 40 mg PO BID@0900,1200 [facility]; Protocol Last Admin: 04/08/23 11:41 Dose: 40 mg Documented By: LD Gabapentin (Gabapentin 100 Mg Capsule) 100 mg PO TID [facility] Last Admin: 04/08/23 08:17 Dose: 100 mg Documented By: LD Hydralazine HCl (Hydralazine Hcl 25 Mg Tablet) 25 mg PO BIDWM [facility]; Protocol Last Admin: 04/08/23 08:17 Dose: 25 mg Documented By: LD Linezolid (Linezolid 600 Mg Tablet) 600 mg PO Q12H [facility] Last Admin: 04/08/23 04:26 Dose: 600 mg Documented By: SADIA Losartan Potassium (Losartan Potassium 50 Mg Tablet) 50 mg PO BEDTIME [facility]; Protocol Last Admin: 04/07/23 20:16 Dose: 50 mg Documented By: SADIA Morphine Sulfate (Morphine Sulfate 2 Mg/Ml Cartridge) 2 mg IVPUSH Q4H PRN; Protocol PRN Reason: Pain, Mild (Pain Scale 1-3) Multi-Ingred Cream/Lotion/Oil/Oint (Mineral Oil/Petrolatum,White 106 Gm Tube) 1 appl TOPICAL BID PRN PRN Reason: Dry Skin Oxycodone HCl (Oxycodone Hcl Immed Release 5 Mg Tablet) 5 mg PO Q6H PRN PRN Reason: Pain, Mild (Pain Scale 1-3) Last Admin: 04/08/23 10:55 Dose: 5 mg Documented By: TUNG Paroxetine HCl (Paroxetine Hcl 10 Mg Tablet) 10 mg PO DAILY [facility] Last Admin: 04/08/23 08:17 Dose: 10 mg Documented By: LD Paroxetine HCl (Paroxetine Hcl 40 Mg Tablet) 40 mg PO DAILY [facility] Last Admin: 04/08/23 08:17 Dose: 40 mg Documented By: LD Prednisone (Prednisone 20 Mg Tablet) 40 mg PO DAILY [facility] Last Admin: 04/08/23 08:17 Dose: 40 mg Documented By: LD Senna/Docusate Sodium (Sennosides/Docusate Sodium Tablet) 1 tab PO DAILY [facility] Last Admin: 04/08/23 08:17 Dose: 1 tab Documented By: LD Sodium Chloride (0.9 % Sodium Chloride Flush 3 Ml Syringe) 3 ml IVFLUSH QSHIFT [facility] Last Admin: 04/08/23 08:18 Dose: 3 ml Documented By: LD Topiramate (Topiramate 100 Mg Tablet) 100 mg PO BID@0900,1800 [facility] Last Admin: 04/08/23 08:17 Dose: 100 mg Documented By: LD Topiramate (Topiramate 100 Mg Tablet) 200 mg PO BEDTIME [facility] Last Admin: 04/07/23 20:16 Dose: 200 mg Documented By: SADIA Vitamin D (Cholecalciferol (Vitamin D3) 25 Mcg Tablet) 100 mcg PO DAILY [facility] Last Admin: 04/08/23 08:17 Dose: 100 mcg Documented By: LD Labs 04/08/23 08:31 04/07/23 16:05 Labs: Laboratory Results - last 24 hr 04/07/23 04/07/23 04/07/23 16:05 16:28 18:20 MCV 89.2 MCH 25.7 L MCHC 28.8 L RDW 15.5 Plt Count 208 MPV 12.9 H Absolute Nucleated RBC 0.000 Nucleated RBC % (auto) 0.0 Anion Gap 14 Estim Creat Clear Calc 102.6 Estimated GFR > 60 Random Glucose 146 H Calcium 9.4 Stool Occult Blood NEGATIVE Blood Type A Positive Antibody Screen NEGATIVE Assessment and Plan (1) Cellulitis: Status: Acute (2) Vaginal bleeding: Status: Acute Plan 57 yo female with PMH of KENZIE, DM, HTN, morbid obesity, asthma not on home O2, chronic lower ext edema, group b strep bacteremia here with c/o R leg cellulitis 4-5 days duration-possible asthma execerbation and cellulitis . ? vaginal bleeding rectal bleed hx as per family -last time thought to be due to diverticulitis last night 1 episode bleedin h/hstable ,type and cross ct abd: hepatic steatosis,diverticulosis ,left complicated left ovarian/adnexal mass measuring 4 cm. need Polymer Engineer eval -considering left adnexal mass, bleeding,? Question vaginal bleeding , also need IV pain medications for pain in left lower quadrant area. Gi- d/w may need outpatient colonoscopy . Asthma exacerbation(possible mild persistent asthma): sob seems improving tachycardia ,tachypnea improved. Continue nebs, hold steroids-bleeding. possible cellulitis aof right leg: not septic mild elevated crp, blood culture negative@48hrs Turn, out out of bed to chair, incentive spirometry switched to linezolid. acute lactic acidosis: possible realted to nebs . No further trending unless clinically worsening. KENZIE-seems noncompliant with CPAP CPAP if agrees. ? hx dm: not on any meds mild hyperglycemia sec to steriods hba1c levels: 5.4 moniter fs Hypertension: Blood pressure stable. Continue home medications Morbid obesity: Advised to lose weight and cutdown calories. PT evaluation-need rehab. ongoing hospitlisation need : vaginal bleed?: need h/h monitering ,adenxalmass - need ivpain meds and need expert yarn man consultation for adenxal mass. Quality Stroke Does the patient have a stroke diagnosis?: No VTE Prior VTE?: No VTE Risk Level:: Medical - moderate - high VTE Device Contraindication: N/A - Device Ordered VTE Drug Contraindication: N/A - Med Ordered
[2023-04-08] MEDS: Morphine Sulfate 2 MG/ML CARTRIDGE IVPUSH (19:24)
[2023-04-08] MEDS: Topiramate 100 MG TABLET 200 MG PO (19:56)
[2023-04-08] MEDS: busPIRone HCl 10 MG TABLET PO (19:57)
[2023-04-08] MEDS: Losartan Potassium 50 MG TABLET PO (19:57)
[2023-04-08] MEDS: buPROPion HCl XL 300 MG TAB.ER.24H PO (19:57)
[2023-04-09] VITALS (10 sets, daily range): BP systolic 125–139; BP diastolic 60–63; PULSE 68–81; RESP 18–21; TEMP 36.4; O2SAT 93–98
[2023-04-09] MEDS: Albuterol/Iprat 2.5/0.5MG 3 ML AMPUL.NEB INHALE ×5 (01:09→19:49)
[2023-04-09] MEDS: Morphine Sulfate 2 MG/ML CARTRIDGE IVPUSH ×3 (03:48→17:17)
[2023-04-09] MEDS: Linezolid 600 MG TABLET PO ×2 (03:49→17:09)
[2023-04-09 07:02] LABS: Hematocrit 39.8 % (37.0-47.0); Hemoglobin 11.4 g/dl (12.0-16.0); Mean Corpuscular HGB Conc 28.6 g/dl (31.0-35.0); Mean Corpuscular Hemoglobin 25.7 pg (27.0-33.0); Mean Corpuscular Volume 89.6 fL (80.0-98.0); Platelet Count 202 X10*3/uL (160-400); Red Blood Count 4.44 X10*6/uL (4.20-5.50); Red Cell Distribution Width 15.4 % (11.0-16.0); White Blood Count 9.5 X10*3/uL (4.8-10.8)
[2023-04-09] MEDS: Fluticasone/Vilanterol 200/25 BLST.W.DEV 1 PUFF INHALE (08:10)
[2023-04-09] MEDS: 0.9 % Sodium Chloride Flush 3 ML SYRINGE IVFLUSH ×3 (09:05→21:52)
[2023-04-09] MEDS: atenoloL 100 MG TABLET PO (09:11)
[2023-04-09] MEDS: hydrALAZINE HCl 25 MG TABLET PO ×2 (09:11→17:09)
[2023-04-09] MEDS: Sennosides/Docusate Sodium TABLET 1 TAB PO (09:11)
[2023-04-09] MEDS: buPROPion HCl XL 150 MG TAB.ER.24H PO (09:11)
[2023-04-09] MEDS: Atorvastatin Calcium 80 MG TABLET PO (09:11)
[2023-04-09] MEDS: PARoxetine HCL 40 MG TABLET PO (09:11)
[2023-04-09] MEDS: Gabapentin 100 MG CAPSULE PO ×3 (09:11→21:51)
[2023-04-09] MEDS: busPIRone HCl 5 MG TABLET 15 MG PO ×2 (09:11→17:09)
[2023-04-09] MEDS: Topiramate 100 MG TABLET PO ×2 (09:12→17:09)
[2023-04-09] MEDS: Furosemide 40 MG TABLET PO ×2 (09:12→11:32)
[2023-04-09] MEDS: predniSONE 20 MG TABLET 40 MG PO (09:12)
[2023-04-09] MEDS: PARoxetine HCL 10 MG TABLET PO (09:12)
[2023-04-09] MEDS: amLODIPine Besylate 5 MG TABLET PO (11:32)
--- NOTE | 2023-04-09 14:57 | HO.PM.IMPN ---
Subjective Subjective Date of Service: 04/09/23 Interval History: No acute issues overnight Review of Systems Denies chest pain Denies shortness of breath Denies nausea vomiting diarrhea Denies fever chills Physical Exam Vital Signs: Vital Signs: Last Vital Signs Temp 97.5 F 04/09/23 08:00 Pulse 81 04/09/23 12:17 Resp 19 04/09/23 12:17 BP 139/61 04/09/23 08:00 Pulse Ox 95 04/09/23 08:00 O2 Del Method Room Air 04/09/23 08:00 O2 Flow Rate 2 04/07/23 16:00 BMI result Body Mass Index 53.1 Const: Other: Awake alert no acute distress Resp: Other: Clear to auscultation bilaterally no rales rhonchi or wheezes Cardio: Other: No S4; positive S1-S2; no S3 murmurs rubs or gallops GI: Other: Soft nontender nondistended normoactive bowel sounds Extrem: Other: Bilateral edema Objective Data Active Medications Acetaminophen (Acetaminophen 325 Mg Tablet) 650 mg PO Q6H PRN PRN Reason: Pain, Mild (Pain Scale 1-3) Last Admin: 04/08/23 10:55 Dose: 650 mg Documented By: TUNG Albuterol/Ipratropium (Albuterol/Iprat 2.5/0.5mg 3 Ml Ampul.Neb) 3 ml INHALE RQ4H [facility] Last Admin: 04/09/23 12:16 Dose: 3 ml Documented By: ELIAN Albuterol/Ipratropium (Albuterol/Iprat 2.5/0.5mg 3 Ml Ampul.Neb) 3 ml INHALE Q3H PRN PRN Reason: sob Amlodipine Besylate (Amlodipine Besylate 5 Mg Tablet) 5 mg PO DAILY@1200 [facility]; Protocol Last Admin: 04/09/23 11:32 Dose: 5 mg Documented By: BEBE Atenolol (Atenolol 100 Mg Tablet) 100 mg PO DAILY [facility]; Protocol Last Admin: 04/09/23 09:11 Dose: 100 mg Documented By: BEBE Atorvastatin Calcium (Atorvastatin Calcium 80 Mg Tablet) 80 mg PO DAILY [facility] Last Admin: 04/09/23 09:11 Dose: 80 mg Documented By: BEBE Bupropion HCl (Bupropion Hcl Xl 150 Mg Tab.Er.24h) 150 mg PO DAILY [facility] Last Admin: 04/09/23 09:11 Dose: 150 mg Documented By: BEBE Bupropion HCl (Bupropion Hcl Xl 300 Mg Tab.Er.24h) 300 mg PO BEDTIME [facility] Last Admin: 04/08/23 19:57 Dose: 300 mg Documented By: SADIA Buspirone HCl (Buspirone Hcl 10 Mg Tablet) 10 mg PO BEDTIME [facility] Last Admin: 04/08/23 19:57 Dose: 10 mg Documented By: SADIA Buspirone HCl (Buspirone Hcl 5 Mg Tablet) 15 mg PO BID@0900,1800 [facility] Last Admin: 04/09/23 09:11 Dose: 15 mg Documented By: BEBE Enoxaparin Sodium (Enoxaparin Sodium 40 Mg/0.4 Ml Syringe) 40 mg SUBCUT Q24H [facility] Last Admin: 04/08/23 15:44 Dose: Not Given Documented By: DL Non-Admin Reason: Patient Refused Fluticasone/Vilanterol (Fluticasone/Vilanterol 200/25 Blst.W.Dev) 1 puff INHALE RDAILY [facility] Last Admin: 04/09/23 08:10 Dose: 1 puff Documented By: AGNES Furosemide (Furosemide 40 Mg Tablet) 40 mg PO BID@0900,1200 [facility]; Protocol Last Admin: 04/09/23 11:32 Dose: 40 mg Documented By: BEBE Gabapentin (Gabapentin 100 Mg Capsule) 100 mg PO TID [facility] Last Admin: 04/09/23 09:11 Dose: 100 mg Documented By: BEBE Hydralazine HCl (Hydralazine Hcl 25 Mg Tablet) 25 mg PO BIDWM [facility]; Protocol Last Admin: 04/09/23 09:11 Dose: 25 mg Documented By: BEBE Linezolid (Linezolid 600 Mg Tablet) 600 mg PO Q12H [facility] Last Admin: 04/09/23 03:49 Dose: 600 mg Documented By: SADIA Losartan Potassium (Losartan Potassium 50 Mg Tablet) 50 mg PO BEDTIME [facility]; Protocol Last Admin: 04/08/23 19:57 Dose: 50 mg Documented By: SADIA Morphine Sulfate (Morphine Sulfate 2 Mg/Ml Cartridge) 2 mg IVPUSH Q4H PRN; Protocol PRN Reason: Pain, Mild (Pain Scale 1-3) Last Admin: 04/09/23 09:10 Dose: 2 mg Documented By: BEBE Multi-Ingred Cream/Lotion/Oil/Oint (Mineral Oil/Petrolatum,White 106 Gm Tube) 1 appl TOPICAL BID PRN PRN Reason: Dry Skin Oxycodone HCl (Oxycodone Hcl Immed Release 5 Mg Tablet) 5 mg PO Q6H PRN PRN Reason: Pain, Mild (Pain Scale 1-3) Last Admin: 04/08/23 16:59 Dose: 5 mg Documented By: LD Paroxetine HCl (Paroxetine Hcl 10 Mg Tablet) 10 mg PO DAILY [facility] Last Admin: 04/09/23 09:12 Dose: 10 mg Documented By: BEBE Paroxetine HCl (Paroxetine Hcl 40 Mg Tablet) 40 mg PO DAILY [facility] Last Admin: 04/09/23 09:11 Dose: 40 mg Documented By: BEBE Prednisone (Prednisone 20 Mg Tablet) 40 mg PO DAILY [facility] Last Admin: 04/09/23 09:12 Dose: 40 mg Documented By: BEBE Senna/Docusate Sodium (Sennosides/Docusate Sodium Tablet) 1 tab PO DAILY [facility] Last Admin: 04/09/23 09:11 Dose: 1 tab Documented By: BEBE Sodium Chloride (0.9 % Sodium Chloride Flush 3 Ml Syringe) 3 ml IVFLUSH QSHIFT [facility] Last Admin: 04/09/23 09:05 Dose: 3 ml Documented By: BEBE Topiramate (Topiramate 100 Mg Tablet) 100 mg PO BID@0900,1800 [facility] Last Admin: 04/09/23 09:12 Dose: 100 mg Documented By: BEBE Topiramate (Topiramate 100 Mg Tablet) 200 mg PO BEDTIME [facility] Last Admin: 04/08/23 19:56 Dose: 200 mg Documented By: SADIA Vitamin D (Cholecalciferol (Vitamin D3) 25 Mcg Tablet) 100 mcg PO DAILY [facility] Last Admin: 04/09/23 10:37 Dose: Not Given Documented By: BEBE Non-Admin Reason: Med Not Available Labs 04/09/23 06:01 04/07/23 16:05 Labs: Laboratory Results - last 24 hr 04/09/23 06:01 MCV 89.6 MCH 25.7 L MCHC 28.6 L RDW 15.4 Plt Count 202 MPV 13.0 H Absolute Nucleated RBC 0.000 Nucleated RBC % (auto) 0.0 Microbiology Microbiology Results: Microbiology 04/04/23 12:34 Blood Culture - Final Blood - Venous No growth after 5 days. 04/04/23 11:40 Blood Culture - Final Blood - Venous No growth after 5 days. Assessment and Plan (1) Asthma: Status: Acute (2) Cellulitis: Status: Acute Plan 57 yo female with PMH of KENZIE, DM, HTN, morbid obesity, asthma not on home O2, chronic lower ext edema, group b strep bacteremia here with c/o R leg cellulitis 4-5 days duration-possible asthma execerbation and cellulitis . 1.Asthma exacerbation(possible mild persistent asthma): Minimal exacerbation this admission. Responded well to therapies -continue outpatient therapies -titrate O2 2.Cellulitis RLE Responded well to initial therapy; started on p.o. linezolid without issue -complete 10 day course of linezolid -outpatient follow-up 3.Hypertension Not her major issue this admission. Well controlled -adjust as indicated Lovenox Full code Requires ongoing hospitalization pending safe placement Quality Stroke Does the patient have a stroke diagnosis?: No VTE Prior VTE?: No VTE Risk Level:: Medical - moderate - high VTE Device Contraindication: N/A - Device Ordered VTE Drug Contraindication: N/A - Med Ordered
[2023-04-09] MEDS: Enoxaparin Sodium 40 MG/0.4 ML SYRINGE SUBCUT (15:26)
--- NOTE | 2023-04-09 16:03 | MHC.CM.PN ---
[facility] HAS OFFERED A BED PENDING EC APPROVAL AND LESS THAN 30 DAY STAY ORDER. PT UPDATED AND IS DECLINING REHAB. DAUGHTER/HCP/CAREGIVER IS UNABLE TO TAKE PT HOME UNTIL AFTER REHAB SHE CANNOT PHYSICALLY CARE FOR HER UNTIL SHE IS STRONGER. CM WILL CONTINUE TO ENCOURAGE REHAB AND FOLLOW FOR ANY CHANGE IN DC PLAN
[2023-04-09] MEDS: Topiramate 100 MG TABLET 200 MG PO (21:50)
[2023-04-09] MEDS: busPIRone HCl 10 MG TABLET PO (21:51)
[2023-04-09] MEDS: buPROPion HCl XL 300 MG TAB.ER.24H PO (21:51)
[2023-04-09] MEDS: Losartan Potassium 50 MG TABLET PO (21:51)
[2023-04-10] VITALS (11 sets, daily range): BP systolic 112–126; BP diastolic 56–64; PULSE 62–73; RESP 16–21; TEMP 36.1–36.4; O2SAT 91–96
[2023-04-10] MEDS: Morphine Sulfate 2 MG/ML CARTRIDGE IVPUSH ×3 (00:34→13:27)
[2023-04-10] MEDS: Albuterol/Iprat 2.5/0.5MG 3 ML AMPUL.NEB INHALE ×7 (00:55→23:05)
[2023-04-10] MEDS: Linezolid 600 MG TABLET PO ×2 (05:14→16:24)
[2023-04-10] MEDS: Acetaminophen 325 MG TABLET 650 MG PO ×2 (05:18→22:15)
[2023-04-10] MEDS: oxyCODONE HCl Immed Release 5 MG TABLET PO ×2 (05:19→22:14)
[2023-04-10 06:08] LABS: MANUAL DIFF FLAG NO
[2023-04-10 06:18] LABS: Basophils Percent Auto 0.1 % (0-2); Eosinophils Percent Auto 0.3 % (0-4); Hematocrit 40.3 % (37.0-47.0); Hemoglobin 11.7 g/dl (12.0-16.0); Imm Gran Abs Auto 0.04 X10*3/uL (0.00-0.03); Imm Gran Pct Auto 0.4 % (0.0-0.4); Lymphocytes Absolute Auto 2.6 X10*3/uL (1.2-4.9); Lymphocytes Percent Auto 28.7 % (20-40); Mean Corpuscular Hemoglobin 25.3 pg (27.0-33.0); Mean Corpuscular Volume 87.2 fL (80.0-98.0); Mean Platelet Volume 12.3 fL (9.4-12.3); Monocytes Absolute Auto 0.8 X10*3/uL (0.1-1.2); Monocytes Percent Auto 9.1 % (2-11); Neutrophils Absolute Auto 5.6 x10*3/uL (2.0-8.3); Neutrophils Percent Auto 61.4 % (45-73); Platelet Count 199 X10*3/uL (160-400); Red Blood Count 4.62 X10*6/uL (4.20-5.50); Red Cell Distribution Width 15.7 % (11.0-16.0); White Blood Count 9.1 X10*3/uL (4.8-10.8)
[2023-04-10 06:32] LABS: Alanine Aminotransferase 26 U/L (0-31); Albumin Level 3.8 g/dL (3.5-5.0); Alkaline Phosphatase 89 U/L (39-117); Anion Gap 12 (12-20); Aspartate Amino Transferase 21 U/L (5-31); Bilirubin Total 0.3 mg/dL (0.0-1.0); Blood Urea Nitrogen 21 mg/dL (9-16); Calcium 9.2 mg/dL (8.4-10.2); Carbon Dioxide 31 mmol/L (22-29); Chloride 104 mmol/L (96-108); Creatinine Clr Calc Pharmacy 101.3; Estimated Glomerular Filt Rate > 60; Glucose Fasting 98 mg/dL (60-99); Potassium 3.8 mmol/L (3.3-5.1); Sodium 143 mmol/L (135-145); Total Protein 7.5 g/dL (6.5-8.0)
[2023-04-10] MEDS: 0.9 % Sodium Chloride Flush 3 ML SYRINGE IVFLUSH ×3 (08:29→19:44)
[2023-04-10] MEDS: predniSONE 20 MG TABLET 40 MG PO (08:30)
[2023-04-10] MEDS: Cholecalciferol (Vitamin D3) 25 MCG TABLET 100 MCG PO (08:30)
[2023-04-10] MEDS: Topiramate 100 MG TABLET PO ×2 (08:30→17:31)
[2023-04-10] MEDS: busPIRone HCl 5 MG TABLET 15 MG PO ×2 (08:30→17:32)
[2023-04-10] MEDS: Gabapentin 100 MG CAPSULE PO ×3 (08:30→19:37)
[2023-04-10] MEDS: Furosemide 40 MG TABLET PO ×2 (08:30→13:29)
[2023-04-10] MEDS: buPROPion HCl XL 150 MG TAB.ER.24H PO (08:30)
[2023-04-10] MEDS: Sennosides/Docusate Sodium TABLET 1 TAB PO (08:30)
[2023-04-10] MEDS: hydrALAZINE HCl 25 MG TABLET PO ×2 (08:31→16:24)
[2023-04-10] MEDS: atenoloL 100 MG TABLET PO (08:31)
[2023-04-10] MEDS: Atorvastatin Calcium 80 MG TABLET PO (08:31)
[2023-04-10] MEDS: PARoxetine HCL 40 MG TABLET PO (08:31)
[2023-04-10] MEDS: PARoxetine HCL 10 MG TABLET PO (08:31)
[2023-04-10] MEDS: Fluticasone/Vilanterol 200/25 BLST.W.DEV 1 PUFF INHALE (08:33)
[2023-04-10] MEDS: amLODIPine Besylate 5 MG TABLET PO (13:28)
--- NOTE | 2023-04-10 13:55 | HO.PM.IMPN ---
Subjective Subjective Date of Service: 04/10/23 Interval History: No acute issues overnight;willing to accept placement Review of Systems Denies chest pain Denies shortness of breath Denies nausea vomiting diarrhea Denies fever chills Physical Exam Vital Signs: Vital Signs: Last Vital Signs Temp 97.3 F 04/10/23 07:34 Pulse 66 04/10/23 11:54 Resp 18 04/10/23 11:54 BP 112/56 L 04/10/23 07:34 Pulse Ox 91 L 04/10/23 07:34 O2 Del Method Room Air 04/10/23 07:34 O2 Flow Rate 2 04/07/23 16:00 BMI result Body Mass Index 53.1 Const: Other: Awake alert no acute distress Resp: Other: Clear to auscultation bilaterally no rales rhonchi or wheezes Cardio: Other: No S4; positive S1-S2; no S3 murmurs rubs or gallops GI: Other: Soft nontender nondistended normoactive bowel sounds Extrem: Other: Bilateral edema Objective Data Active Medications Acetaminophen (Acetaminophen 325 Mg Tablet) 650 mg PO Q6H PRN PRN Reason: Pain, Mild (Pain Scale 1-3) Last Admin: 04/10/23 05:18 Dose: 650 mg Documented By: JIMMY Albuterol/Ipratropium (Albuterol/Iprat 2.5/0.5mg 3 Ml Ampul.Neb) 3 ml INHALE RQ4H [facility] Last Admin: 04/10/23 11:54 Dose: 3 ml Documented By: MY Albuterol/Ipratropium (Albuterol/Iprat 2.5/0.5mg 3 Ml Ampul.Neb) 3 ml INHALE Q3H PRN PRN Reason: sob Amlodipine Besylate (Amlodipine Besylate 5 Mg Tablet) 5 mg PO DAILY@1200 [facility]; Protocol Last Admin: 04/10/23 13:28 Dose: 5 mg Documented By: BEBE Atenolol (Atenolol 100 Mg Tablet) 100 mg PO DAILY [facility]; Protocol Last Admin: 04/10/23 08:31 Dose: 100 mg Documented By: BEBE Atorvastatin Calcium (Atorvastatin Calcium 80 Mg Tablet) 80 mg PO DAILY [facility] Last Admin: 04/10/23 08:31 Dose: 80 mg Documented By: BEBE Bupropion HCl (Bupropion Hcl Xl 150 Mg Tab.Er.24h) 150 mg PO DAILY [facility] Last Admin: 04/10/23 08:30 Dose: 150 mg Documented By: BEBE Bupropion HCl (Bupropion Hcl Xl 300 Mg Tab.Er.24h) 300 mg PO BEDTIME [facility] Last Admin: 04/09/23 21:51 Dose: 300 mg Documented By: JIMMY Buspirone HCl (Buspirone Hcl 10 Mg Tablet) 10 mg PO BEDTIME [facility] Last Admin: 04/09/23 21:51 Dose: 10 mg Documented By: JIMMY Buspirone HCl (Buspirone Hcl 5 Mg Tablet) 15 mg PO BID@0900,1800 [facility] Last Admin: 04/10/23 08:30 Dose: 15 mg Documented By: BEBE Enoxaparin Sodium (Enoxaparin Sodium 40 Mg/0.4 Ml Syringe) 40 mg SUBCUT Q24H [facility] Last Admin: 04/09/23 15:26 Dose: 40 mg Documented By: BEBE Fluticasone/Vilanterol (Fluticasone/Vilanterol 200/25 Blst.W.Dev) 1 puff INHALE RDAILY [facility] Last Admin: 04/10/23 08:33 Dose: 1 puff Documented By: LORI Furosemide (Furosemide 40 Mg Tablet) 40 mg PO BID@0900,1200 [facility]; Protocol Last Admin: 04/10/23 13:29 Dose: 40 mg Documented By: BEBE Gabapentin (Gabapentin 100 Mg Capsule) 100 mg PO TID [facility] Last Admin: 04/10/23 08:30 Dose: 100 mg Documented By: BEBE Hydralazine HCl (Hydralazine Hcl 25 Mg Tablet) 25 mg PO BIDWM [facility]; Protocol Last Admin: 04/10/23 08:31 Dose: 25 mg Documented By: BEBE Linezolid (Linezolid 600 Mg Tablet) 600 mg PO Q12H [facility] Last Admin: 04/10/23 05:14 Dose: 600 mg Documented By: JIMMY Losartan Potassium (Losartan Potassium 50 Mg Tablet) 50 mg PO BEDTIME [facility]; Protocol Last Admin: 04/09/23 21:51 Dose: 50 mg Documented By: JIMMY Morphine Sulfate (Morphine Sulfate 2 Mg/Ml Cartridge) 2 mg IVPUSH Q4H PRN; Protocol PRN Reason: Pain, Mild (Pain Scale 1-3) Last Admin: 04/10/23 13:27 Dose: 2 mg Documented By: BEBE Multi-Ingred Cream/Lotion/Oil/Oint (Mineral Oil/Petrolatum,White 106 Gm Tube) 1 appl TOPICAL BID PRN PRN Reason: Dry Skin Oxycodone HCl (Oxycodone Hcl Immed Release 5 Mg Tablet) 5 mg PO Q6H PRN PRN Reason: Pain, Mild (Pain Scale 1-3) Last Admin: 04/10/23 05:19 Dose: 5 mg Documented By: JMIMY Paroxetine HCl (Paroxetine Hcl 10 Mg Tablet) 10 mg PO DAILY [facility] Last Admin: 04/10/23 08:31 Dose: 10 mg Documented By: BEBE Paroxetine HCl (Paroxetine Hcl 40 Mg Tablet) 40 mg PO DAILY [facility] Last Admin: 04/10/23 08:31 Dose: 40 mg Documented By: BEBE Prednisone (Prednisone 20 Mg Tablet) 40 mg PO DAILY [facility] Last Admin: 04/10/23 08:30 Dose: 40 mg Documented By: BEBE Senna/Docusate Sodium (Sennosides/Docusate Sodium Tablet) 1 tab PO DAILY [facility] Last Admin: 04/10/23 08:30 Dose: 1 tab Documented By: BEBE Sodium Chloride (0.9 % Sodium Chloride Flush 3 Ml Syringe) 3 ml IVFLUSH QSHIFT [facility] Last Admin: 04/10/23 08:29 Dose: 3 ml Documented By: BEBE Topiramate (Topiramate 100 Mg Tablet) 100 mg PO BID@0900,1800 [facility] Last Admin: 04/10/23 08:30 Dose: 100 mg Documented By: BEBE Topiramate (Topiramate 100 Mg Tablet) 200 mg PO BEDTIME [facility] Last Admin: 04/09/23 21:50 Dose: 200 mg Documented By: JIMMY Vitamin D (Cholecalciferol (Vitamin D3) 25 Mcg Tablet) 100 mcg PO DAILY [facility] Last Admin: 04/10/23 08:30 Dose: 100 mcg Documented By: BEBE Labs 04/10/23 05:57 04/10/23 05:57 Labs: Laboratory Results - last 24 hr 04/10/23 05:57 MCV 87.2 MCH 25.3 L MCHC 29.0 L RDW 15.7 Plt Count 199 MPV 12.3 Immature Gran % (Auto) 0.4 Neut % (Auto) 61.4 Lymph % (Auto) 28.7 [place] % (Auto) 9.1 Eos % (Auto) 0.3 Baso % (Auto) 0.1 Lymph # (Auto) 2.6 [place] # (Auto) 0.8 Eos # (Auto) 0.0 Baso # (Auto) 0.0 Abs Immat Gran (auto) 0.04 H Absolute Neuts (auto) 5.6 Absolute Nucleated RBC 0.000 Nucleated RBC % (auto) 0.0 Anion Gap 12 Estim Creat Clear Calc 101.3 Estimated GFR > 60 Fasting Glucose 98 Calcium 9.2 Total Bilirubin 0.3 AST 21 ALT 26 Alkaline Phosphatase 89 Total Protein 7.5 Albumin 3.8 Microbiology Microbiology Results: Microbiology 04/04/23 12:34 Blood Culture - Final Blood - Venous No growth after 5 days. 04/04/23 11:40 Blood Culture - Final Blood - Venous No growth after 5 days. Assessment and Plan (1) Cellulitis: Status: Acute Plan 57 yo female with PMH of KENZIE, DM, HTN, morbid obesity, asthma not on home O2, chronic lower ext edema, group b strep bacteremia here with c/o R leg cellulitis 4-5 days duration-possible asthma execerbation and cellulitis . 1.Asthma exacerbation(possible mild persistent asthma): Minimal exacerbation this admission. Responded well to therapies -continue outpatient therapies -titrate O2 2.Cellulitis RLE Responded well to initial therapy; started on p.o. linezolid without issue -complete 10 day course of linezolid (last dose 04/15/2023) -outpatient follow-up 3.Hypertension Not her major issue this admission. Well controlled -adjust as indicated Lovenox Full code Requires ongoing hospitalization pending safe placement Quality Stroke Does the patient have a stroke diagnosis?: No VTE Prior VTE?: No VTE Risk Level:: Medical - moderate - high VTE Device Contraindication: N/A - Device Ordered VTE Drug Contraindication: N/A - Med Ordered
--- NOTE | 2023-04-10 15:08 | MHC.CM.PN ---
Patient given IV morphine this morning. Plan is transition to PO today [facility] is offering a bed pending [facility] review and acceptance and patient tolerating PO pain medication. Plan would be to transfer patient tomorrow (04/11/2023) to facility
[2023-04-10] MEDS: Enoxaparin Sodium 40 MG/0.4 ML SYRINGE SUBCUT (16:24)
[2023-04-10] MEDS: busPIRone HCl 10 MG TABLET PO (19:37)
[2023-04-10] MEDS: buPROPion HCl XL 300 MG TAB.ER.24H PO (19:37)
[2023-04-10] MEDS: Losartan Potassium 50 MG TABLET PO (19:37)
[2023-04-10] MEDS: Topiramate 100 MG TABLET 200 MG PO (19:40)
[2023-04-11] VITALS (8 sets, daily range): BP systolic 118–132; BP diastolic 61–66; PULSE 70–74; RESP 16–20; TEMP 36.2–36.8; O2SAT 90–96
[2023-04-11] MEDS: Albuterol/Iprat 2.5/0.5MG 3 ML AMPUL.NEB INHALE ×3 (04:08→11:52)
[2023-04-11] MEDS: Linezolid 600 MG TABLET PO ×2 (04:20→17:17)
[2023-04-11] MEDS: Acetaminophen 325 MG TABLET 650 MG PO (04:20)
[2023-04-11] MEDS: oxyCODONE HCl Immed Release 5 MG TABLET PO (04:20)
[2023-04-11] MEDS: Fluticasone/Vilanterol 200/25 BLST.W.DEV 1 PUFF INHALE (07:52)
[2023-04-11] MEDS: 0.9 % Sodium Chloride Flush 3 ML SYRINGE IVFLUSH ×2 (08:59→15:42)
[2023-04-11] MEDS: Cholecalciferol (Vitamin D3) 25 MCG TABLET 100 MCG PO (09:00)
[2023-04-11] MEDS: hydrALAZINE HCl 25 MG TABLET PO ×2 (09:00→17:18)
[2023-04-11] MEDS: Topiramate 100 MG TABLET PO ×2 (09:00→17:17)
[2023-04-11] MEDS: PARoxetine HCL 10 MG TABLET PO (09:00)
[2023-04-11] MEDS: Sennosides/Docusate Sodium TABLET 1 TAB PO (09:00)
[2023-04-11] MEDS: atenoloL 100 MG TABLET PO (09:01)
[2023-04-11] MEDS: Furosemide 40 MG TABLET PO ×2 (09:01→12:11)
[2023-04-11] MEDS: PARoxetine HCL 40 MG TABLET PO (09:01)
[2023-04-11] MEDS: Atorvastatin Calcium 80 MG TABLET PO (09:01)
[2023-04-11] MEDS: buPROPion HCl XL 150 MG TAB.ER.24H PO (09:01)
[2023-04-11] MEDS: predniSONE 20 MG TABLET 40 MG PO (09:01)
[2023-04-11] MEDS: busPIRone HCl 5 MG TABLET 15 MG PO (09:02)
[2023-04-11] MEDS: amLODIPine Besylate 5 MG TABLET PO (12:11)
--- NOTE | 2023-04-11 12:34 | HO.PM.IMPN ---
Subjective Subjective Date of Service: 04/11/23 Interval History: No acute issues. Awaiting placement Review of Systems Denies chest pain Denies shortness of breath Denies nausea vomiting diarrhea Denies fever chills Physical Exam Vital Signs: Vital Signs: Last Vital Signs Temp 97.6 F 04/11/23 08:00 Pulse 73 04/11/23 11:52 Resp 18 04/11/23 11:52 BP 132/61 04/11/23 10:16 Pulse Ox 91 L 04/11/23 10:16 O2 Del Method Room Air 04/11/23 08:00 O2 Flow Rate 2 04/10/23 19:32 BMI result Body Mass Index 53.1 Const: Other: Awake alert no acute distress Resp: Other: Clear to auscultation bilaterally no rales rhonchi or wheezes Cardio: Other: No S4; positive S1-S2; no S3 murmurs rubs or gallops GI: Other: Soft nontender nondistended normoactive bowel sounds Extrem: Other: Bilateral edema Objective Data Active Medications Acetaminophen (Acetaminophen 325 Mg Tablet) 650 mg PO Q6H PRN PRN Reason: Pain, Mild (Pain Scale 1-3) Last Admin: 04/11/23 04:20 Dose: 650 mg Documented By: JIMMY Albuterol/Ipratropium (Albuterol/Iprat 2.5/0.5mg 3 Ml Ampul.Neb) 3 ml INHALE RQ4H [facility] Last Admin: 04/11/23 11:52 Dose: 3 ml Documented By: MY Albuterol/Ipratropium (Albuterol/Iprat 2.5/0.5mg 3 Ml Ampul.Neb) 3 ml INHALE Q3H PRN PRN Reason: sob Amlodipine Besylate (Amlodipine Besylate 5 Mg Tablet) 5 mg PO DAILY@1200 [facility]; Protocol Last Admin: 04/11/23 12:11 Dose: 5 mg Documented By: BOLA Atenolol (Atenolol 100 Mg Tablet) 100 mg PO DAILY [facility]; Protocol Last Admin: 04/11/23 09:01 Dose: 100 mg Documented By: BOLA Atorvastatin Calcium (Atorvastatin Calcium 80 Mg Tablet) 80 mg PO DAILY [facility] Last Admin: 04/11/23 09:01 Dose: 80 mg Documented By: BOLA Bupropion HCl (Bupropion Hcl Xl 150 Mg Tab.Er.24h) 150 mg PO DAILY [facility] Last Admin: 04/11/23 09:01 Dose: 150 mg Documented By: BOLA Bupropion HCl (Bupropion Hcl Xl 300 Mg Tab.Er.24h) 300 mg PO BEDTIME [facility] Last Admin: 04/10/23 19:37 Dose: 300 mg Documented By: JIMMY Buspirone HCl (Buspirone Hcl 10 Mg Tablet) 10 mg PO BEDTIME [facility] Last Admin: 04/10/23 19:37 Dose: 10 mg Documented By: JIMMY Buspirone HCl (Buspirone Hcl 5 Mg Tablet) 15 mg PO BID@0900,1800 [facility] Last Admin: 04/11/23 09:02 Dose: 15 mg Documented By: BOLA Enoxaparin Sodium (Enoxaparin Sodium 40 Mg/0.4 Ml Syringe) 40 mg SUBCUT Q24H [facility] Last Admin: 04/10/23 16:24 Dose: 40 mg Documented By: BEBE Fluticasone/Vilanterol (Fluticasone/Vilanterol 200/25 Blst.W.Dev) 1 puff INHALE RDAILY [facility] Last Admin: 04/11/23 07:52 Dose: 1 puff Documented By: MY Furosemide (Furosemide 40 Mg Tablet) 40 mg PO BID@0900,1200 [facility]; Protocol Last Admin: 04/11/23 12:11 Dose: 40 mg Documented By: BOLA Gabapentin (Gabapentin 100 Mg Capsule) 100 mg PO TID [facility] Last Admin: 04/11/23 09:02 Dose: 100 mg Documented By: BOLA Hydralazine HCl (Hydralazine Hcl 25 Mg Tablet) 25 mg PO BIDWM [facility]; Protocol Last Admin: 04/11/23 09:00 Dose: 25 mg Documented By: BOLA Linezolid (Linezolid 600 Mg Tablet) 600 mg PO Q12H [facility] Last Admin: 04/11/23 04:20 Dose: 600 mg Documented By: JIMMY Losartan Potassium (Losartan Potassium 50 Mg Tablet) 50 mg PO BEDTIME [facility]; Protocol Last Admin: 04/10/23 19:37 Dose: 50 mg Documented By: JIMMY Multi-Ingred Cream/Lotion/Oil/Oint (Mineral Oil/Petrolatum,White 106 Gm Tube) 1 appl TOPICAL BID PRN PRN Reason: Dry Skin Paroxetine HCl (Paroxetine Hcl 10 Mg Tablet) 10 mg PO DAILY [facility] Last Admin: 04/11/23 09:00 Dose: 10 mg Documented By: BOLA Paroxetine HCl (Paroxetine Hcl 40 Mg Tablet) 40 mg PO DAILY [facility] Last Admin: 04/11/23 09:01 Dose: 40 mg Documented By: BOLA Prednisone (Prednisone 20 Mg Tablet) 40 mg PO DAILY [facility] Last Admin: 04/11/23 09:01 Dose: 40 mg Documented By: BOLA Senna/Docusate Sodium (Sennosides/Docusate Sodium Tablet) 1 tab PO DAILY [facility] Last Admin: 04/11/23 09:00 Dose: 1 tab Documented By: BOLA Sodium Chloride (0.9 % Sodium Chloride Flush 3 Ml Syringe) 3 ml IVFLUSH QSHIFT [facility] Last Admin: 04/11/23 08:59 Dose: 3 ml Documented By: BOLA Topiramate (Topiramate 100 Mg Tablet) 100 mg PO BID@0900,1800 [facility] Last Admin: 04/11/23 09:00 Dose: 100 mg Documented By: BOLA Topiramate (Topiramate 100 Mg Tablet) 200 mg PO BEDTIME [facility] Last Admin: 04/10/23 19:40 Dose: 200 mg Documented By: JIMMY Comments: pt gos to bed early Vitamin D (Cholecalciferol (Vitamin D3) 25 Mcg Tablet) 100 mcg PO DAILY [facility] Last Admin: 04/11/23 09:00 Dose: 100 mcg Documented By: BOLA Labs 04/10/23 05:57 04/10/23 05:57 Assessment and Plan (1) Asthma: Status: Acute Plan 57 yo female with PMH of KENZIE, DM, HTN, morbid obesity, asthma not on home O2, chronic lower ext edema, group b strep bacteremia here with c/o R leg cellulitis 4-5 days duration-possible asthma execerbation and cellulitis . 1.Asthma exacerbation(possible mild persistent asthma): Minimal exacerbation this admission. Responded well to therapies -continue outpatient therapies -titrate O2 2.Cellulitis RLE Responded well to initial therapy; started on p.o. linezolid without issue -complete 10 day course of linezolid (last dose 04/15/2023) -outpatient follow-up 3.Hypertension Not her major issue this admission. Well controlled -adjust as indicated Lovenox Full code Requires ongoing hospitalization pending safe placement Quality Stroke Does the patient have a stroke diagnosis?: No VTE Prior VTE?: No VTE Risk Level:: Medical - moderate - high VTE Device Contraindication: N/A - Device Ordered VTE Drug Contraindication: N/A - Med Ordered
--- NOTE | 2023-04-11 13:22 | MHC.CM.PN ---
Addendum entered by Evelyn Soria 04/11/23 15:57: PLAN IS FOR PT TO DC TO [facility] TOMORROW PENDING [facility] APPROVAL Original Note: PT WAITING FOR [facility] APPROVAL TO GO TO [facility] CM SPOKE TO [facility] LIAISON WHO STILL HAD NOT HEARD BACK FROM [facility] CM SPOKE TO NOELLE GONSALEZ AT [facility], SHE INDICATED SHE WAS MISSING PTS MH FORM AND A COPY OF THE [facility] FAXED HER PTS MH FORM AND SENT HER FAX NUMBER TO DANIEL AT [facility] WHO STATED SHE WOULD SEND A COPY OF PTS PAS CM WILL SEND PTS DCS AND LESS THAN 30 ORDER TO [facility] ONCE AVAILABLE
--- NOTE | 2023-04-11 14:59 | PM.DS ---
DS: Providers Provider Date of Service: 04/11/23 Date of admission: 04/04/23 15:31 Date of discharge: 04/11/23 Primary care physician: Alea Salinas NP Consults: 04/06/23 08:00 Consult to Infectious Diseases ONCE Consulting Provider: [facility] Infectious Disease Reason for consultation: LINEZOLID 04/07/23 16:18 Consult to Gastroenterology Routine Consulting Provider: [facility] Gastroenterology Services Reason for consultation: llq pain -hx of diverticulitis /renal stone Has provider been notified: No 04/08/23 14:40 Consult to Obstetrics / Gynecology Routine Consulting Provider: Tony Fair Reason for consultation: vaginal bleeding/left adexal mass Has provider been notified: No DS: Diagnosis Discharge Diagnosis (1) Asthma: Status: Inactive DS: Summary Hospital Course Hospital Course: History of presenting illness. Date of Service: 04/04/23 Attending physician on admission: Shady Malhotra Chief Complaint: lower thigh cellulitis right side 57 yo female with PMH of KENZIE, DM, HTN, morbid obesity, asthma not on home O2, chronic lower ext edema, group b strep bacteremia here with c/o R leg cellulitis 4-5 days duration-patient is poor historian even with the help of japanese interpreter: She says that she had some question of blister initially on the right lower thigh area and which subsequently become more painful and now has more cellulitis in the area and even could not able to tell where it is due to her body habitus, and as well as given history of strep B bacteremia in the past ED physician requested admission for IV antibiotics since chances of getting cellulitis worsening more with self-care and also has history of group B strep bacteremia. In addition patient has shortness of breath when she came and wheezing: Patient has history of asthma received nebs and steroids in the ED, still short of breath with minimal exertion. Denies any new complaint of chest pain or abdominal pain or fever or chills or nausea or vomiting Denies any cough Denies any weakness or numbness. labs,imaging ,ekg reviewed: CBC: Seems fine, BMP: fine. crp: 2.44 lactic acid elevated 2.7-3 US/US extremity nonvascular IMPRESSION: No abscess demonstrated. ekg: nsr,lvh seems similar to previous. Hospital course: 57 yo female with PMH of KENZIE, DM, HTN, morbid obesity, asthma not on home O2, chronic lower ext edema, group b strep bacteremia here with c/o R leg cellulitis 4-5 days duration-admitted for right leg cellulitis and asthma execerbation . 1.Asthma exacerbation with history of possible mild persistent asthma patient treated with nebulizers and steroids with good response, currently oxygenation stable on room air will discharge on home inhalers. 2.Cellulitis RLE patient treated with IV Zosyn initially later seen by infectious disease she recommended linezolid for total 10 days, end date 04/15/2023 3.Hypertension continue home medications,Stable blood pressures. 4. Question Vaginal bleed patient noted to have blood on pad question vaginal versus rectal bleed, urine is clear, as per family patient has history of rectal bleed, CT abdomen and pelvis showed hepatic steatosis, diverticulosis, left complicated left ovarian/adnexal mass measuring 4 cm, recommend outpatient controlled area checker evaluation, and outpatient colonoscopy , hematocrit stable, stool guaiac negative, no active bleeding noted prior to discharge. Time Attestation Discharge coordination time: Greater than 30 minutes Quality: Safe Use of Opioids Does Pt have an Active Cancer Diagnosis on the Problem List?: No Quality: Stroke Does the patient have a stroke diagnosis?: No Physical Exam Vital Signs: Vital Signs: Last Vital Signs Temp 97.6 F 04/11/23 08:00 Pulse 73 04/11/23 11:52 Resp 18 04/11/23 11:52 BP 132/61 04/11/23 10:16 Pulse Ox 91 L 04/11/23 10:16 O2 Del Method Room Air 04/11/23 08:00 O2 Flow Rate 2 04/10/23 19:32 BMI result Body Mass Index 53.1 Const: Other: Awake alert no acute distress Resp: Other: Clear to auscultation bilaterally no rales rhonchi or wheezes Cardio: Other: No S4; positive S1-S2; no S3 murmurs rubs or gallops GI: Other: Soft nontender nondistended normoactive bowel sounds Extrem: Other: Bilateral edema DS: Data Data Completed and Pending Completed studies during hospitalization [Text1]: Procedures Insertion of Infusion Device into Upper Vein, Percutaneous Approach (08/23/21) Discharge Plan Discharge Patient Disposition: Xfer Inpatient Rehab Fac Discharge Diagnosis: cellulitis Referrals: [facility] [Outside] Salinas,Alea, [facility] [Primary Care Provider] - 1 Week Discharge Medications: New linezolid 600 mg Tablet 600 mg PO Q12H Qty: 14 0RF Continued losartan 50 mg tablet 1 tab PO BEDTIME atorvastatin 80 mg tablet 1 tab PO DAILY paroxetine HCl 10 mg tablet 1 tab PO DAILY Rx Instructions: with 40 mg atenolol 100 mg tablet 100 mg PO DAILY hydralazine 25 mg tablet 1 tab PO BIDWM amlodipine 5 mg tablet 1 tab PO DAILY@1200 topiramate 200 mg tablet 1 tab PO BEDTIME albuterol sulfate [ProAir HFA] 90 mcg/actuation HFA aerosol inhaler 2 puff PO Q4-6H PRN (Reason: Wheezing) paroxetine HCl 40 mg tablet 1 tab PO DAILY Rx Instructions: with 10 mg topiramate 100 mg tablet 1 tab PO BID@0900,1800 bupropion HCl 300 mg tablet extended release 24 hr 1 tab PO BEDTIME bupropion HCl 150 mg tablet extended release 24 hr 1 tab PO DAILY cholecalciferol (vitamin D3) 50 mcg (2,000 unit) capsule 2 cap PO DAILY Minerin Creme Cream 1 appl topical BID PRN (Reason: Dry Skin) furosemide 40 mg tablet 40 mg PO BID@0900,1200 albuterol sulfate 0.63 mg/3 mL solution for nebulization 1 amp inhalation Q4-6H PRN (Reason: wheezing) budesonide-formoterol [Symbicort] 160-4.5 mcg/actuation HFA aerosol inhaler 2 puff inhalation BID buspirone 10 mg tablet 10 mg PO BEDTIME buspirone 15 mg tablet 15 mg PO BID@0900,1800 sennosides-docusate sodium [Stimulant Laxative Plus] 8.6-50 mg tablet 1 tab PO DAILY Trulicity 1.5 mg/0.5 mL pen injector 1.5 mg subcut TH@0900 Discharge Orders: Discharge Order (Routine); Ordered 04/12/23 Ordered By: Maggy Vincent Diet: Diabetic diet Activity on Discharge: As tolerated Stand Alone Forms: Patient Portal Discharge page Care Plan Goals: Resume all prehospital meds Outpatient certified orthotist follow-up, outpatient colonoscopy. Health Concerns: complete Linezolid as ordered Plan of Treatment: as per receiving facility Assessment: see dc summary Discharge Date/Time: 04/12/23 15:12
[2023-04-11] MEDS: Enoxaparin Sodium 40 MG/0.4 ML SYRINGE SUBCUT (15:41)
[2023-04-11] MEDS: Topiramate 100 MG TABLET 200 MG PO (21:26)
[2023-04-11] MEDS: Losartan Potassium 50 MG TABLET PO (21:26)
[2023-04-12] MEDS: 0.9 % Sodium Chloride Flush 3 ML SYRINGE IVFLUSH ×2 (00:28→09:06)
[2023-04-12 00:44] VITALS: PULSE 20; RESP 16; O2SAT 95
[2023-04-12 04:00] VITALS: BP 125/58; PULSE 70; RESP 18; TEMP 37.1; O2SAT 95
[2023-04-12] MEDS: Linezolid 600 MG TABLET PO (05:41)
[2023-04-12 08:00] VITALS: BP 120/57; PULSE 75; RESP 24; TEMP 36.9; O2SAT 97
[2023-04-12] MEDS: Fluticasone/Vilanterol 200/25 BLST.W.DEV 1 PUFF INHALE (08:26)
[2023-04-12 08:28] VITALS: PULSE 75; RESP 20; O2SAT 99
[2023-04-12] MEDS: PARoxetine HCL 40 MG TABLET PO (09:05)
[2023-04-12] MEDS: atenoloL 100 MG TABLET PO (09:05)
[2023-04-12] MEDS: buPROPion HCl XL 150 MG TAB.ER.24H PO (09:05)
[2023-04-12] MEDS: PARoxetine HCL 10 MG TABLET PO (09:05)
[2023-04-12] MEDS: Topiramate 100 MG TABLET PO (09:05)
[2023-04-12] MEDS: hydrALAZINE HCl 25 MG TABLET PO (09:06)
[2023-04-12] MEDS: Furosemide 40 MG TABLET PO ×2 (09:06→10:52)
[2023-04-12] MEDS: Sennosides/Docusate Sodium TABLET 1 TAB PO (09:06)
[2023-04-12] MEDS: Atorvastatin Calcium 80 MG TABLET PO (09:06)
[2023-04-12 10:51] VITALS: BP 112/60; PULSE 70
[2023-04-12] MEDS: Acetaminophen 325 MG TABLET 650 MG PO (10:52)
[2023-04-12] MEDS: amLODIPine Besylate 5 MG TABLET PO (10:52)
--- NOTE | 2023-04-12 10:53 | MHC.CM.PN ---
SNF indicates auth obtained for Pt to admit today. Transport set w/Venkat for 14:00pm. MD, nurse and unit operator all notified. Med nec completed and handed to unit operator and SNF notified of D/C time for today.
--- NOTE | 2023-04-12 10:59 | PM.DS ---
DS: Providers Provider Date of Service: 04/12/23 Date of admission: 04/04/23 15:31 Primary care physician: Alea Salinas NP Consults: 04/06/23 08:00 Consult to Infectious Diseases ONCE Consulting Provider: [facility] [place] Infectious Disease Reason for consultation: LINEZOLID 04/07/23 16:18 Consult to Gastroenterology Routine Consulting Provider: [facility] [place] Gastroenterology Services Reason for consultation: llq pain -hx of diverticulitis /renal stone Has provider been notified: No 04/08/23 14:40 Consult to Obstetrics / Gynecology Routine Consulting Provider: Tony Fair Reason for consultation: vaginal bleeding/left adexal mass Has provider been notified: No DS: Diagnosis Discharge Diagnosis (1) Asthma: Status: Acute DS: Summary Hospital Course Hospital Course: History of presenting illness. Date of Service: 04/04/23 Attending physician on admission: Shady Malhotra Chief Complaint: lower thigh cellulitis right side 57 yo female with PMH of KENZIE, DM, HTN, morbid obesity, asthma not on home O2, chronic lower ext edema, group b strep bacteremia here with c/o R leg cellulitis 4-5 days duration-patient is poor historian even with the help of japanese interpreter: She says that she had some question of blister initially on the right lower thigh area and which subsequently become more painful and now has more cellulitis in the area and even could not able to tell where it is due to her body habitus, and as well as given history of strep B bacteremia in the past ED physician requested admission for IV antibiotics since chances of getting cellulitis worsening more with self-care and also has history of group B strep bacteremia. In addition patient has shortness of breath when she came and wheezing: Patient has history of asthma received nebs and steroids in the ED, still short of breath with minimal exertion. Denies any new complaint of chest pain or abdominal pain or fever or chills or nausea or vomiting Denies any cough Denies any weakness or numbness. labs,imaging ,ekg reviewed: CBC: Seems fine, BMP: fine. crp: 2.44 lactic acid elevated 2.7-3 US/US extremity nonvascular IMPRESSION: No abscess demonstrated. ekg: nsr,lvh seems similar to previous. Hospital course: 57 yo female with PMH of KENZIE, DM, HTN, morbid obesity, asthma not on home O2, chronic lower ext edema, group b strep bacteremia here with c/o R leg cellulitis 4-5 days duration-admitted for right leg cellulitis and asthma execerbation . 1.Asthma exacerbation with history of possible mild persistent asthma patient treated with nebulizers and steroids with good response, currently oxygenation stable on room air will discharge on home inhalers. 2.Cellulitis RLE patient treated with IV Zosyn initially later seen by infectious disease she recommended linezolid for total 10 days, end date 04/15/2023 3.Hypertension continue home medications,Stable blood pressures. 4. Question Vaginal bleed patient noted to have blood on pad question vaginal versus rectal bleed, urine is clear, as per family patient has history of rectal bleed, CT abdomen and pelvis showed hepatic steatosis, diverticulosis, left complicated left ovarian/adnexal mass measuring 4 cm, recommend outpatient inhalation therapist evaluation, and outpatient colonoscopy , hematocrit stable, stool guaiac negative, no active bleeding noted prior to discharge. Time Attestation Discharge coordination time: Greater than 30 minutes Quality: Safe Use of Opioids Does Pt have an Active Cancer Diagnosis on the Problem List?: No Quality: Stroke Does the patient have a stroke diagnosis?: No Physical Exam Vital Signs: Vital Signs: Last Vital Signs Temp 98.5 F 04/12/23 08:00 Pulse 70 04/12/23 10:51 Resp 20 04/12/23 08:28 BP 112/60 04/12/23 10:51 Pulse Ox 97 04/12/23 08:00 O2 Del Method Room Air 04/12/23 08:00 O2 Flow Rate 2 04/10/23 19:32 BMI result Body Mass Index 53.1 Const: Other: General awake alert x3 morbidly obese, resting comfortably in no acute distress. Neck supple no JVD. CVS regular rate rhythm, Respiratory lungs clear to auscultation, diminished no respiratory distress, no wheeze, no rhonchi. Gastrointestinal abdomen soft, non tender, bowel sounds audible, no guarding , no rigidity. Extremities bilateral edema Neuro non focal ,moving all 4 extremity speech clear. Skin hyperemic rash groin/inner thighs DS: Data Data Completed and Pending Completed studies during hospitalization [Text1]: Procedures Insertion of Infusion Device into Upper Vein, Percutaneous Approach (08/23/21) Labs on day of discharge: Laboratory Results - last 24 hr 04/11/23 21:12 POC Glucose 114 Discharge Plan Discharge Patient Disposition: Xfer Inpatient Rehab Fac Discharge Diagnosis: cellulitis Referrals: [facility] [Outside] Alea Salinas NP [Primary Care Provider] - 1 Week Discharge Medications: New linezolid 600 mg Tablet 600 mg PO Q12H Qty: 14 0RF Continued losartan 50 mg tablet 1 tab PO BEDTIME atorvastatin 80 mg tablet 1 tab PO DAILY paroxetine HCl 10 mg tablet 1 tab PO DAILY Rx Instructions: with 40 mg atenolol 100 mg tablet 100 mg PO DAILY hydralazine 25 mg tablet 1 tab PO BIDWM amlodipine 5 mg tablet 1 tab PO DAILY@1200 topiramate 200 mg tablet 1 tab PO BEDTIME albuterol sulfate [ProAir HFA] 90 mcg/actuation HFA aerosol inhaler 2 puff PO Q4-6H PRN (Reason: Wheezing) paroxetine HCl 40 mg tablet 1 tab PO DAILY Rx Instructions: with 10 mg topiramate 100 mg tablet 1 tab PO BID@0900,1800 bupropion HCl 300 mg tablet extended release 24 hr 1 tab PO BEDTIME bupropion HCl 150 mg tablet extended release 24 hr 1 tab PO DAILY cholecalciferol (vitamin D3) 50 mcg (2,000 unit) capsule 2 cap PO DAILY Minerin Creme Cream 1 appl topical BID PRN (Reason: Dry Skin) furosemide 40 mg tablet 40 mg PO BID@0900,1200 albuterol sulfate 0.63 mg/3 mL solution for nebulization 1 amp inhalation Q4-6H PRN (Reason: wheezing) budesonide-formoterol [Symbicort] 160-4.5 mcg/actuation HFA aerosol inhaler 2 puff inhalation BID buspirone 10 mg tablet 10 mg PO BEDTIME buspirone 15 mg tablet 15 mg PO BID@0900,1800 sennosides-docusate sodium [Stimulant Laxative Plus] 8.6-50 mg tablet 1 tab PO DAILY Trulicity 1.5 mg/0.5 mL pen injector 1.5 mg subcut TH@0900 Discharge Orders: Discharge Order (Routine); Ordered 04/12/23 Ordered By: Maggy Vincent Diet: Diabetic diet Activity on Discharge: As tolerated Stand Alone Forms: Patient Portal Discharge page Care Plan Goals: Resume all prehospital meds Outpatient fish boning machine feeder follow-up, outpatient colonoscopy. Health Concerns: complete Linezolid as ordered Plan of Treatment: as per receiving facility Assessment: see dc summary
== END 2023-04-12 15:12 ==
LOC: HO.ED 14:00 → HO.EDOVER 15:49 → HO.S3 15:58
PROVIDERS: Hospitalist; Physician Assistant Medical; Admitting Provider Internal Medicine; Emergency Provider Emergency Medicine; PCP Nurse Practitioner Primary Care; Referring Provider Nurse Practitioner Primary Care; Visit Provider Hospitalist
DX: L03.115 Cellulitis of right lower limb (principal); J45.41 Moderate persistent asthma with (acute) exacerbation; E87.21 Acute metabolic acidosis; M79.651 Pain in right thigh; G47.33 Obstructive sleep apnea (adult) (pediatric); E66.01 Morbid (severe) obesity due to excess calories; E11.9 Type 2 diabetes mellitus without complications; N93.9 Abnormal uterine and vaginal bleeding, unspecified; I10 Essential (primary) hypertension; R07.9 Chest pain, unspecified; Z68.43 Body mass index [BMI] 50.0-59.9, adult; Z79.899 Other long term (current) drug therapy; Z20.822 Contact with and (suspected) exposure to COVID-19; Z20.828 Contact with and (suspected) exposure to other viral communicable diseases
CPT/HCPCS: 0241U; 36415; 71046; 74176; 76882; 80048; 80053; 82272; 82947; 83036; 83605; 83690; 83735; 83880; 84484; 85014; 85018; 85025; 85027; 85610; 85652; 86140; 86850; 86900; 86901; 87040; 87640; 87641; 93005; 94640; 94660; 96361; 96365; 96366; 96372; 96375; 96376; 97116; 97162; 99221; 99285; J1650; J2270; J2543; J2920; J2930

== ENCOUNTER → 2023-04-04 12:30 | Outpatient (BNV) | payer MEDICAID, SELFPAY | PROVIDERS: Emergency Provider Emergency Medicine; Visit Provider Internal Medicine | DX: R06.09 Other forms of dyspnea (principal) | CPT/HCPCS: 93010 ==

== ENCOUNTER → 2023-04-04 15:31 | Outpatient (BNV) | payer MEDICAID, SELFPAY | PROVIDERS: Admitting Provider Internal Medicine; Emergency Provider Emergency Medicine; Visit Provider Internal Medicine | DX: J45.41 Moderate persistent asthma with (acute) exacerbation (principal) | CPT/HCPCS: 99222; 99231; 99232; 99233; 99239 ==

== ENCOUNTER → 2023-04-04 15:31 | Outpatient (BNV) | payer MEDICAID, SELFPAY | PROVIDERS: Admitting Provider Internal Medicine; Emergency Provider Emergency Medicine; Visit Provider Physician Assistant Surgical | DX: L03.115 Cellulitis of right lower limb (principal) | CPT/HCPCS: 99222 ==

== ENCOUNTER → 2023-04-04 15:31 | Outpatient (BNV) | payer MEDICAID, SELFPAY | PROVIDERS: Admitting Provider Internal Medicine; Emergency Provider Emergency Medicine; Visit Provider Internal Medicine | DX: L03.115 Cellulitis of right lower limb (principal); E11.9 Type 2 diabetes mellitus without complications | CPT/HCPCS: 99222 ==

== ENCOUNTER 2023-05-09 14:49 | Outpatient (AMB) | payer MEDICAID, SELFPAY ==
--- NOTE | 2023-05-09 15:11 | MHC.OFFVIS ---
Intake Vital Signs 05/09/23 15:13 BMI Reason not done Patient refused/unable BP 146/80 H Intake Visit Reasons: anovulaory bleeding/PCP referral Commonwealth Attorney Required: Yes Commonwealth Attorney Language: Aquatic Biologist Name: Dalia YAP Information Interpreted: non-clinical & clinical Supervisor Cutting And Sewing Room: Supervisor Cutting And Sewing Room Present (Dalia YAP) Accompanied by: Daughter Allergies No Known Allergies Allergy (Verified 05/09/23 15:16) Post menopausal: Yes HPI HPI Comments History of Present Illness Details Presenting complaining of vaginal l bleeding last 3 months associated with passage of blood clot after many years of menopause Last co testing? No previous screening mammogram 03/02/2023 Pelvic ultrasound showed the following: IMPRESSION: Nondiagnostic study with nonvisualization of uterus or ovaries. On the prior CT scan from August 2021, uterus and adnexa appeared normal. 03/02/2023 CT scan showed the following: PELVIC VISCERA: The uterus and adnexa are unremarkable. There is fat stranding within the left adnexal region abutting the ovary and uterine fundus. PFSH Medical History Asthma HTN (hypertension) Diabetes KENZIE (obstructive sleep apnea) Morbid obesity Asthma Surgical History Hx of cholecystectomy Hx of hernia repair Hx of tubal ligation Family History Daughter No problems noted. Daughter No problems noted. Daughter No problems noted. Daughter No problems noted. Daughter No problems noted. Son No problems noted. Mother HTN (hypertension) Uterus cancer Sister Colon cancer Social History Household Members: Children Housing: Apartment Alcohol intake: never Patient Tobacco Use Status: Never used Tobacco service: No Current occupational status: unemployed Review of Systems Const All systems reviewed & are unremarkable except as noted in HPI and below Physical Exam Vital Signs: Last Vital Signs BP 146/80 H 05/09/23 15:13 General: Yes no CVA tenderness External Female Exam: normal external appearance and normal appearance of the urethra Speculum Exam - Vagina: normal appearance of the vagina, normal palpation, no lesions and no masses Speculum Exam - Cervix: normal appearance of the cervix, normal palpation, no lesions, no masses and nontender Bimanual exam- vagina & uterus: normal bimanual exam, normal palpation, uterine size normal, normal palpation, uterine shape normal, No Cervical tenderness present and non-tender Bimanual Exam- Adnexa, other: normal adnexae Back/Spine/Pelvis Back: no CVA tenderness Office Procedures Endometrial Biopsy Details: The patient was counseled regarding the indication and benefits of endometrial sampling to rule out endometrial pathology including not limited to endometrial hyperplasia or endometrial cancer and others; The alternatives (Either do nothing vs. hysteroscopy D&C) & the risks were discussed with the patient including but not limited: pain, uterine perforation, bleeding, infection, possible injury to bladder, bowel, ureter, possible need for blood transfusion with all its possible risks. The patient verbalized understanding all questions answered and signed consent. The patient was placed into the dorsal lithotomy position; a speculum was inserted in the vagina. Using aseptic technique for the procedure, the cervix was cleansed with Betadine. The anterior lip of the cervix was grasped with a single tooth tenaculum. The uterus was sounded to 7 cm with a 4 mm Pipelle was used. Tissues samples were obtained and placed in formalin, in a patient labeled container and sent to the pathology department. At the end of the procedure, there was minimal bleeding noted The patient tolerated the procedure well and was discharged in good condition with the following instructions: Nothing in the vagina until the bleeding stops. No sex until the bleeding stops, to call if any of the following occurs: fever (>100.4), flu-like symptoms, abdominal pain, heavy bleeding, four smelling vaginal discharge. The patient was instructed to schedule a Follow up appointment in 2 weeks to discuss pathology results of the biopsy and treatment options. This note was generated with a voice recognition program. Some errors may have been overlooked during the review of this note. Sometimes these errors may affect the content or meaning of a given sentence. [id number] Biopsy Assessment & Plan Assessment & Plan (1) Postmenopausal bleeding: Code(s): N95.0 - Postmenopausal bleeding Plan: Discussed with the patient the differential diagnosis of post menopausal bleeding with normal pelvic exam including but not limited to, endometrial hyperplasia, cancer, polyps and other causes; co testing done, EMB done, see procedure. Instructions given the patient to schedule a 2 week EMB follow-up appointment. All questions answered, the patient verbalized understanding Orders: Orders AMB Endometrial Biopsy Today N95.0 - Postmenopausal bleeding Coding Level of Care Code New Pt Level 3 (81490) Diagnoses Postmenopausal bleeding N95.0 CPT Codes Endometrial Biopsy - CPT: 68789-Gonzeisvvkk Biopsy ([id number])
[2023-05-09 15:13] VITALS: BP 146/80
== END 2023-05-09 16:01 | disposition home or self-care (01) ==
LOC: HO.HWS 14:49
PROVIDERS: PCP Nurse Practitioner Primary Care; Referring Provider Nurse Practitioner Primary Care; Visit Provider Obstetrics & Gynecology
DX: N95.0 Postmenopausal bleeding (principal)
CPT/HCPCS: 58100; 99203

== ENCOUNTER 2023-05-09 14:49 | Outpatient (REF) | payer MEDICAID, SELFPAY ==
[2023-05-16 04:23] LABS: HPV mRNA E6/E7 rflx Not Detected (Not Detected)
== END 2023-05-09 14:50 | disposition home or self-care (01) ==
LOC: HO.LNP 14:49
PROVIDERS: PCP Nurse Practitioner Primary Care; Visit Provider Obstetrics & Gynecology
DX: N95.0 Postmenopausal bleeding (principal)
CPT/HCPCS: 58100; 87624; 88142; 88305; 99202

== ENCOUNTER 2023-05-13 13:48 | Outpatient (REF) | payer MEDICAID, SELFPAY ==
[2023-05-14 12:43] LABS: CA-125 17 U/mL (<35)
[2023-05-16 10:34] LABS: Carbohydrate Antigen 19-9 11 U/mL (<34)
== END 2023-05-13 13:49 | disposition home or self-care (01) ==
LOC: HO.LAB 13:48
PROVIDERS: PCP Nurse Practitioner Primary Care; Visit Provider Obstetrics & Gynecology
DX: N83.299 Other ovarian cyst, unspecified side (principal)
CPT/HCPCS: 36415; 82378; 86301; 86304

== ENCOUNTER 2023-05-21 09:05 | Outpatient (AMB) | payer MEDICAID, SELFPAY ==
--- NOTE | 2023-05-21 09:30 | MHC.OFFVIS ---
Intake Intake Visit Reasons: results Bonsai Culturist Required: Yes Bonsai Culturist Language: Rides Supervisor Name: Dalia YAP Information Interpreted: non-clinical & clinical Allergies No Known Allergies Allergy (Verified 05/21/23 09:37) Post menopausal: Yes HPI HPI Comments History of Present Illness Details The patient is presenting after endometrial biopsy. The patient has no complaints, no vaginal bleeding, no feverishness chills or abdominal pain. 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 [facility] Medical History Asthma HTN (hypertension) Diabetes KENZIE (obstructive sleep apnea) Morbid obesity Asthma Surgical History Hx of cholecystectomy Hx of hernia repair Hx of tubal ligation Family History Daughter No problems noted. Daughter No problems noted. Daughter No problems noted. Daughter No problems noted. Daughter No problems noted. Son No problems noted. Mother HTN (hypertension) Uterus cancer Sister Colon cancer Social History Household Members: Children Housing: Apartment Alcohol intake: never Patient Tobacco Use Status: Never used Tobacco service: No Current occupational status: unemployed Review of Systems Const All systems reviewed & are unremarkable except as noted in HPI and below Reports as per HPI and Reports no additional complaints GI Reports no additional complaints Reports no additional complaints Assessment & Plan Assessment & Plan (1) EIN (endometrial intraepithelial neoplasia): Code(s): N85.02 - Endometrial intraepithelial neoplasia [EIN] Plan: Discussed with the patient the pathology of endometrial biopsy showing endometrial intraepithelial neoplasia. Discussed with the patient the following: -If untreated the risk of progression of EIN to endometrial carcinoma is 83 percent, -Coexistent endometrial carcinoma may be present in up to 40 percent of patients with EH with atypia -Given the high risk of concurrent, or progression to, endometrial carcinoma, for most postmenopausal patients and premenopausal patients who have completed childbearing, hysterectomy for treatment of EH with atypia is the preferred treatment. -Counseled the patients that she may benefit from referral for medical and/or surgical weight loss -Other options of treatment discussed with the patient include Progestin therapy: A- levonorgestrel (LNG)-releasing intrauterine device (IUD; LNG 52) B-Oral Progestin therapy . In addition, patients with a higher body mass index (BMI) may derive a greater relative benefit from the LNG 52 than those with lower BMIs Will refer to [facility] Health Analyst Oncology for further management. I spent a total of 20 minutes reviewing the chart, talking to the patient via video and documenting in the medical record. Orders: Referrals Gynecologic Oncology Referral N85.02 - Endometrial intraepithelial neoplasia [EIN] Telehealth Telehealth Location of provider rendering services: practice address Location of patient: address on file Patient Identification confirmed using: Name, : Yes Telehealth method: video Patient verbally consented to treatment: Yes Patient verbally consented to billing insurance company: Yes Patient informed of any privacy concerns related to visit: Yes Coding Level of Care Code Tele Est Pt Level 1 (74869) Diagnoses EIN (endometrial intraepithelial neoplasia) N85.02
== END 2023-05-21 11:47 | disposition home or self-care (01) ==
LOC: HO.HWS 09:05
PROVIDERS: PCP Nurse Practitioner Primary Care; Visit Provider Obstetrics & Gynecology
DX: N85.02 Endometrial intraepithelial neoplasia [EIN] (principal)
CPT/HCPCS: 99211

== ENCOUNTER → 2023-05-21 09:05 | Outpatient (BNVA) | payer MEDICAID, SELFPAY | PROVIDERS: PCP Nurse Practitioner Primary Care; Visit Provider Obstetrics & Gynecology ==

== ENCOUNTER 2023-10-14 01:39 | Emergency (ER) | payer MEDICAID, SELFPAY ==
[2023-10-14 01:52] VITALS: BP 176/90; PULSE 94; O2SAT 96
[2023-10-14 02:00] VITALS: BP 166/85; PULSE 83; RESP 22; TEMP 36.8; O2SAT 96; BMI 85.0
--- NOTE | 2023-10-14 02:07 | ECG_ITS ---
Test Reason : HYPERTENSION Blood Pressure : / mmHG Vent. Rate : 072 BPM Atrial Rate : 072 BPM P-R Int : 178 ms QRS Dur : 092 ms QT Int : 382 ms P-R-T Axes : 048 002 062 degrees QTc Int : 418 ms Normal sinus rhythm Minimal voltage criteria for LVH, may be normal variant ( R in aVL ) Borderline ECG When compared with ECG of 04-APR-2023 12:40, No significant change was found Referred By: Generic ED Physician Electronically Signed By:Sabas Maldonado
--- NOTE | 2023-10-14 02:14 | ED_ITS ---
HPI - General Adult General Chief complaint: General Medical Stated complaint: HTN ? INFECTED WOUND Time Seen by Provider: 10/14/23 02:14 History of Present Illness ED Provider: Kandice MARRERO narrative: The patient is a 58-year-old woman who has developed skin excoriations over the last couple of weeks on her right leg. The patient is morbidly obese and has multiple areas of her done on skin. She has developed excoriation on 2 patches on the lower medial thigh and 1 patch on the posterior thigh. No fevers, sweats, chills. The patient is also experiencing a headache. The patient also feels mildly short of breath which she considers typical for her asthma. No fevers or vomiting. Related Data Home Medications ?Medication ?Instructions ?Recorded ?Confirmed albuterol sulfate 0.63 mg/3 mL 1 amp inhalation Q4-6H PRN wheezing 08/23/21 04/04/23 solution for nebulization albuterol sulfate 90 mcg/actuation 2 puff PO Q4-6H PRN Wheezing 08/23/21 04/04/23 aerosol inhaler (ProAir HFA) amlodipine 5 mg tablet 1 tab PO DAILY@1200 08/23/21 04/04/23 atenolol 100 mg tablet 100 mg PO DAILY 08/23/21 04/04/23 atorvastatin 80 mg tablet 1 tab PO DAILY 08/23/21 04/04/23 budesonide-formoterol HFA 160 2 puff inhalation BID 08/23/21 04/04/23 mcg-4.5 mcg/actuation aerosol inhaler (Symbicort) bupropion HCl 150 mg 24 hr tablet, 1 tab PO DAILY 08/23/21 04/04/23 extended release bupropion HCl 300 mg 24 hr tablet, 1 tab PO BEDTIME 08/23/21 04/04/23 extended release cholecalciferol (vitamin D3) 50 2 cap PO DAILY 08/23/21 04/04/23 mcg (2,000 unit) capsule furosemide 40 mg tablet 40 mg PO BID@0900,1200 08/23/21 04/04/23 hydralazine 25 mg tablet 1 tab PO BIDWM 08/23/21 04/04/23 lanolin alcohols-mineral 1 appl topical BID PRN Dry Skin 08/23/21 04/04/23 oil-w.petrolatum-ceresin topical cream (Minerin Creme topical) losartan 50 mg tablet 1 tab PO BEDTIME 08/23/21 04/04/23 paroxetine HCl 10 mg tablet 1 tab PO DAILY 08/23/21 04/04/23 paroxetine HCl 40 mg tablet 1 tab PO DAILY 08/23/21 04/04/23 topiramate 100 mg tablet 1 tab PO BID@0900,1800 08/23/21 04/04/23 topiramate 200 mg tablet 1 tab PO BEDTIME 08/23/21 04/04/23 buspirone 10 mg tablet 10 mg PO BEDTIME 10/09/22 04/04/23 dulaglutide 1.5 mg/0.5 mL 1.5 mg subcut TH@0900 04/04/23 04/04/23 subcutaneous pen injector (Trulicity) sennosides 8.6 mg-docusate sodium 1 tab PO DAILY 04/04/23 04/04/23 50 mg tablet (Stimulant Laxative Plus) Previous Rx's ?Medication ?Instructions ?Recorded linezolid 600 mg tablet 600 mg PO Q12H #14 tabs 04/11/23 cephalexin 500 mg capsule 500 mg PO QID 10 days #40 caps 10/14/23 ketoconazole 2 % topical cream 1 appl topical BID #60 grams 10/14/23 Allergies Allergy/AdvReac Type Severity Reaction Status Date / Time No Known Allergies Allergy Verified 10/14/23 02:02 Review of Systems 2 Review of Systems: Yes all other systems are reviewed and are negative [facility] Past Medical History Medical History Asthma HTN (hypertension) Diabetes KENZIE (obstructive sleep apnea) Morbid obesity Asthma Surgical History Hx of cholecystectomy Hx of hernia repair Hx of tubal ligation Family History Family History Daughter No problems noted. Daughter No problems noted. Daughter No problems noted. Daughter No problems noted. Daughter No problems noted. Son No problems noted. Mother HTN (hypertension) Uterus cancer Sister Colon cancer Social History Social History Household Members: Children Housing: Apartment Alcohol intake: never Patient Tobacco Use Status: Never used Tobacco Advance Directives: No Advance Directives Information Provided: No Do you have a plan to hurt others: No Plan service: No Current occupational status: unemployed Physical Exam ED Vital Signs: Vital Signs - 24 hr 10/14/23 02:00 10/14/23 03:08 10/14/23 05:01 Temperature 98.3 F 98.0 F Pulse Rate 83 72 79 Respiratory Rate 22 H 34 H 16 Blood Pressure 166/85 H 147/71 H Pulse Oximetry 96 93 Oxygen Delivery Method Room Air Room Air 10/14/23 05:12 Temperature 98.0 F Pulse Rate 79 Respiratory Rate 16 Blood Pressure 147/71 H Pulse Oximetry 93 Oxygen Delivery Method Room Air BMI result Body Mass Index 85.0 Const Other: The patient is a morbidly obese 58-year-old. Her BMI is 85. She is awake and alert. She is mildly tachypneic with audible wheezing. She looks quite chronically ill. HENMT Other: Face is symmetrical. Mucous membranes moist. Eyes Other: Pupils are round equal, conjunctivae are clear, gaze is mildly dysconjugate suggestive of strabismus. Neck Other: The neck is thick. No apparent JVD. Resp Other: Mild wheezes bilaterally. Cardio Rate: regular rate Rhythm: regular rhythm Heart sounds: S1 normal heart sound present and S2 normal heart sound present GI Other: Abdomen is soft and nontender Skin Other: The patient has areas of redundant skin. On the medial right thigh there are 2 areas excoriation and skin breakdown. On the right posterior upper thigh is another, smaller, area of similar excoriation. Posterior right thigh: Neuro Other: The patient is awake and alert. Mental status is normal. Pupils are round equal. She has a mildly dysconjugate gaze consistent with strabismus. Face is symmetrical. She moves her extremities symmetrically. She was able to stand although with difficulty. Extrem Other: The patient has 3 areas of excoriated skin on the right thigh. The lower legs show intact skin with no calf swelling or tenderness or asymmetry. Medications Administered Discontinued Medications Generic Name Dose Route Start Last Admin Trade Name Freq PRN Reason Stop Dose Admin Albuterol/Ipratropium 3 ml 10/14/23 02:54 10/14/23 03:06 Albuterol/Iprat 2.5/0.5mg 3 Ml Ampul.Neb INHALE 10/14/23 02:55 3 ml ONCE ONE Administration Cephalexin HCl 1,000 mg 10/14/23 04:49 10/14/23 05:06 Cephalexin 500 Mg Capsule PO 10/14/23 04:50 1,000 mg ONCE ONE Administration Sodium Chloride 1,000 mls @ 999 mls/hr 10/14/23 03:00 10/14/23 05:06 Ns IV 10/14/23 04:00 Infused .Q1H1M FREDA Infusion Ketorolac Tromethamine 15 mg 10/14/23 02:54 10/14/23 03:45 Ketorolac Tromethamine 15 Mg/Ml Vial IVPUSH 10/14/23 02:55 15 mg ONCE ONE Administration Metoclopramide HCl 10 mg 10/14/23 02:54 10/14/23 03:45 Metoclopramide Hcl 10 Mg/2 Ml Vial IVPUSH 10/14/23 02:55 10 mg ONCE ONE Administration Medical Decision Making Medical Decision Making [facility] Narrative: The patient is a morbidly obese 58-year-old presents for evaluation of 3 areas of excoriation to the skin of her right thigh. She is 2 larger areas on the medial aspect of the thigh and a smaller area on the upper posterior aspect of the thigh. She has not had fevers. I believe that the areas of skin abnormalities are suggestive of an excoriation process probably related to intertrigo. I do not feel these areas of skin excoriation are definitely cellulitic. The patient's labs are unremarkable including her white count and differential. I think the patient may be started on oral cephalexin and topical ketoconazole. Additionally I stressed the need for good hygiene and skin cleanliness and dryness. Additionally the patient complained of a headache that improved with ketorolac and metoclopramide. Additionally the patient seemed to have some mild manifestation of asthma that improved with a DuoNeb updraft. The patient seemed comfortable with the prospect of being discharged. She should follow up soon with her PCP. Lab Data 10/14/23 02:21 10/14/23 02:21 Labs: Lab Results 10/14/23 Range/Units 02:21 WBC 5.6 (4.8-10.8) X10*3/uL RBC 4.28 (4.20-5.50) X10*6/uL Hgb 11.4 L (12.0-16.0) g/dl Hct 38.3 (37.0-47.0) % MCV 89.5 (80.0-98.0) fL MCH 26.6 L (27.0-33.0) pg MCHC 29.8 L (31.0-35.0) g/dl RDW 14.3 (11.0-16.0) % Plt Count 172 (160-400) X10*3/uL MPV 12.3 (9.4-12.3) fL Immature Gran % (Auto) 0.4 (0.0-0.4) % Neut % (Auto) 63.7 (45-73) % Lymph % (Auto) 27.5 (20-40) % Blaine % (Auto) 8.4 (2-11) % Eos % (Auto) 0.0 (0-4) % Baso % (Auto) 0.0 (0-2) % Lymph # (Auto) 1.5 (1.2-4.9) X10*3/uL Blaine # (Auto) 0.5 (0.1-1.2) X10*3/uL Eos # (Auto) 0.0 (0.0-0.4) X10*3/uL Baso # (Auto) 0.0 (0.0-0.2) X10*3/uL Abs Immat Gran (auto) 0.02 (0.00-0.03) X10*3/uL Absolute Neuts (auto) 3.6 (2.0-8.3) x10*3/uL Absolute Nucleated RBC 0.000 (0.0-0.012) X10*3/uL Nucleated RBC % (auto) 0.0 (0.0-0.2) /100WBC Sodium 141 (135-145) mmol/L Potassium 4.3 (3.3-5.1) mmol/L Chloride 107 (96-108) mmol/L Carbon Dioxide 26 (22-29) mmol/L Anion Gap 12 (12-20) BUN 10 (9-16) mg/dL Creatinine 0.81 (0.5-1.4) mg/dL Estim Creat Clear Calc 143.3 Estimated GFR > 60 Random Glucose 98 (60-115) mg/dL Calcium 9.1 (8.4-10.2) mg/dL Total Bilirubin 0.3 (0.0-1.0) mg/dL AST 16 (5-31) U/L ALT 13 (0-31) U/L Alkaline Phosphatase 94 (39-117) U/L Troponin I High Sens 5.3 (<3.5-17.0) ng/L C-Reactive Protein 1.25 H (< or = 0.50) mg/dL Total Protein 7.3 (6.5-8.0) g/dL Albumin 3.6 (3.5-5.0) g/dL Discharge Plan Discharge Clinical Impression: Intertrigo Patient Disposition: Home, Self-Care Additional Instructions: You have been started on antibiotic pills, cephalexin. Please take this medication 4 times a day, approximately every 6 hours. Additionally you have been prescribed a cream to apply to the affected areas of the skin on your right leg. Please apply this cream 2 times a day. Please make sure you keep the areas of affected skin clean and dry. Please wash the areas gently with soap and water 2 times a day before applying the cream. Please contact your regular doctor's office today for a follow up appointment later this week to keep an eye on how you are doing. Return to the emergency room if significantly worse. Prescriptions: New cephalexin 500 mg capsule 500 mg PO QID 10 Days Qty: 40 0RF ketoconazole 2 % cream 1 appl topical BID Qty: 60 0RF No Action losartan 50 mg tablet 1 tab PO BEDTIME atorvastatin 80 mg tablet 1 tab PO DAILY paroxetine HCl 10 mg tablet 1 tab PO DAILY Rx Instructions: with 40 mg atenolol 100 mg tablet 100 mg PO DAILY hydralazine 25 mg tablet 1 tab PO BIDWM amlodipine 5 mg tablet 1 tab PO DAILY@1200 topiramate 200 mg tablet 1 tab PO BEDTIME albuterol sulfate [ProAir HFA] 90 mcg/actuation HFA aerosol inhaler 2 puff PO Q4-6H PRN (Reason: Wheezing) paroxetine HCl 40 mg tablet 1 tab PO DAILY Rx Instructions: with 10 mg topiramate 100 mg tablet 1 tab PO BID@0900,1800 bupropion HCl 300 mg tablet extended release 24 hr 1 tab PO BEDTIME bupropion HCl 150 mg tablet extended release 24 hr 1 tab PO DAILY cholecalciferol (vitamin D3) 50 mcg (2,000 unit) capsule 2 cap PO DAILY Minerin Creme Cream 1 appl topical BID PRN (Reason: Dry Skin) furosemide 40 mg tablet 40 mg PO BID@0900,1200 albuterol sulfate 0.63 mg/3 mL solution for nebulization 1 amp inhalation Q4-6H PRN (Reason: wheezing) budesonide-formoterol [Symbicort] 160-4.5 mcg/actuation HFA aerosol inhaler 2 puff inhalation BID buspirone 10 mg tablet 10 mg PO BEDTIME sennosides-docusate sodium [Stimulant Laxative Plus] 8.6-50 mg tablet 1 tab PO DAILY Trulicity 1.5 mg/0.5 mL pen injector 1.5 mg subcut TH@0900 linezolid 600 mg Tablet 600 mg PO Q12H Qty: 14 0RF Interventions: ED Discharge Assessment Last Done: 10/14/23 05:12 Discharge Date/Time: 10/14/23 05:13 Print Language: Welsh
[2023-10-14 02:25] LABS: MANUAL DIFF FLAG NO
[2023-10-14 02:27] LABS: Hematocrit 38.3 % (37.0-47.0); Hemoglobin 11.4 g/dl (12.0-16.0); Imm Gran Abs Auto 0.02 X10*3/uL (0.00-0.03); Imm Gran Pct Auto 0.4 % (0.0-0.4); Lymphocytes Absolute Auto 1.5 X10*3/uL (1.2-4.9); Lymphocytes Percent Auto 27.5 % (20-40); Mean Corpuscular HGB Conc 29.8 g/dl (31.0-35.0); Mean Corpuscular Hemoglobin 26.6 pg (27.0-33.0); Mean Corpuscular Volume 89.5 fL (80.0-98.0); Mean Platelet Volume 12.3 fL (9.4-12.3); Monocytes Absolute Auto 0.5 X10*3/uL (0.1-1.2); Monocytes Percent Auto 8.4 % (2-11); Neutrophils Absolute Auto 3.6 x10*3/uL (2.0-8.3); Neutrophils Percent Auto 63.7 % (45-73); Platelet Count 172 X10*3/uL (160-400); Red Blood Count 4.28 X10*6/uL (4.20-5.50); Red Cell Distribution Width 14.3 % (11.0-16.0); White Blood Count 5.6 X10*3/uL (4.8-10.8)
[2023-10-14 02:46] LABS: Alanine Aminotransferase 13 U/L (0-31); Albumin Level 3.6 g/dL (3.5-5.0); Alkaline Phosphatase 94 U/L (39-117); Anion Gap 12 (12-20); Aspartate Amino Transferase 16 U/L (5-31); Bilirubin Total 0.3 mg/dL (0.0-1.0); Blood Urea Nitrogen 10 mg/dL (9-16); Calcium 9.1 mg/dL (8.4-10.2); Carbon Dioxide 26 mmol/L (22-29); Chloride 107 mmol/L (96-108); Creatinine Clr Calc Pharmacy 143.3; Estimated Glomerular Filt Rate > 60; Glucose Random 98 mg/dL (60-115); Potassium 4.3 mmol/L (3.3-5.1); Sodium 141 mmol/L (135-145); Total Protein 7.3 g/dL (6.5-8.0)
[2023-10-14 02:50] LABS: Troponin-I High Sensitivity 5.3 ng/L (<3.5-17.0)
[2023-10-14] MEDS: Albuterol/Iprat 2.5/0.5MG 3 ML AMPUL.NEB INHALE (03:06)
[2023-10-14 03:08] VITALS: PULSE 72; RESP 34; O2SAT 94
[2023-10-14 03:16] LABS: C Reactive Protein 1.25 mg/dL (< or = 0.50)
[2023-10-14] MEDS: Ketorolac Tromethamine 15 MG/ML VIAL IVPUSH (03:45)
[2023-10-14] MEDS: Metoclopramide HCl 10 MG/2 ML VIAL IVPUSH (03:45)
[2023-10-14] MEDS: 0.9 % Sodium Chloride 1,000 ML 999 ML IV (03:50)
[2023-10-14 05:01] VITALS: BP 147/71; PULSE 79; RESP 16; TEMP 36.7; O2SAT 93
[2023-10-14] MEDS: cephALEXin 500 MG CAPSULE 1000 MG PO (05:06)
[2023-10-14 05:12] VITALS: BP 147/71; PULSE 79; RESP 16; TEMP 36.7; O2SAT 93
== END 2023-10-14 05:13 | disposition home or self-care (01) ==
PROVIDERS: Emergency Provider Emergency Medicine
DX: L30.4 Erythema intertrigo (principal); R11.2 Nausea with vomiting, unspecified; R94.31 Abnormal electrocardiogram [ECG] [EKG]; Z79.899 Other long term (current) drug therapy
CPT/HCPCS: 36415; 80053; 84484; 85025; 86140; 93005; 94640; 96361; 96374; 96375; 99284; 99285; J1885; J2765

== ENCOUNTER → 2023-10-14 02:07 | Outpatient (BNV) | payer MEDICAID, SELFPAY | PROVIDERS: Emergency Provider Emergency Medicine; Visit Provider Internal Medicine Cardiovascular Disease | DX: I10 Essential (primary) hypertension (principal); R94.31 Abnormal electrocardiogram [ECG] [EKG] | CPT/HCPCS: 93010 ==

== ENCOUNTER 2024-02-19 00:13 | Emergency (ER) | payer MEDICAID, SELFPAY ==
--- NOTE | 2024-02-19 | ECG_ITS ---
Test Reason : CHEST PAIN Blood Pressure : / mmHG Vent. Rate : 079 BPM Atrial Rate : 079 BPM P-R Int : 192 ms QRS Dur : 102 ms QT Int : 382 ms P-R-T Axes : 045 -02 060 degrees QTc Int : 438 ms Normal sinus rhythm Moderate voltage criteria for LVH, may be normal variant ( R in aVL , Justin product ) Borderline ECG When compared with ECG of 14-OCT-2023 02:12, No significant change was found Referred By: Generic ED Physician Electronically Signed By:Sabas Maldonado
--- NOTE | ~2024-02-19 | XR_ITS ---
EXAMINATION: XR CHEST CLINICAL INFORMATION: Chest pain. Fever. COMPARISON: Chest radiograph 04/04/2023. TECHNIQUE: 2 views of the chest were obtained. FINDINGS: This focal airspace opacity is present within the left middle lung zone identified on the frontal view. No pleural effusions or pneumothoraces identified. Normal appearance of the cardiomediastinal structures. XR/XR chest 2V IMPRESSION: *Focal left middle lung zone airspace opacity suspicious for focal consolidation and pneumonia. Recommend follow-up chest radiographs in 4-6 weeks to demonstrate resolution and exclude findings related to underlying tumor. Electronically signed by: Josh Reyna MD 02/19/2024 03:15 AM [facility]
[2024-02-19 00:33] VITALS: BP 157/60; PULSE 80; O2SAT 99
[2024-02-19 00:34] LABS: MANUAL DIFF FLAG NO
[2024-02-19 00:35] VITALS: BP 159/77; PULSE 81; RESP 26; TEMP 36.6; O2SAT 98; BMI 76.9
[2024-02-19 00:36] LABS: Eosinophils Percent Auto 0.2 % (0-4); Hematocrit 37.8 % (37.0-47.0); Imm Gran Abs Auto 0.01 X10*3/uL (0.00-0.03); Imm Gran Pct Auto 0.2 % (0.0-0.4); Lymphocytes Absolute Auto 1.8 X10*3/uL (1.2-4.9); Lymphocytes Percent Auto 33.3 % (20-40); Mean Corpuscular HGB Conc 31.7 g/dl (31.0-35.0); Mean Corpuscular Hemoglobin 29.2 pg (27.0-33.0); Monocytes Absolute Auto 0.7 X10*3/uL (0.1-1.2); Monocytes Percent Auto 12.9 % (2-11); Neutrophils Absolute Auto 2.9 x10*3/uL (2.0-8.3); Neutrophils Percent Auto 53.4 % (45-73); Platelet Count 177 X10*3/uL (160-400); Red Blood Count 4.11 X10*6/uL (4.20-5.50); Red Cell Distribution Width 15.7 % (11.0-16.0); White Blood Count 5.4 X10*3/uL (4.8-10.8)
[2024-02-19 00:50] LABS: Alanine Aminotransferase 17 U/L (0-31); Albumin Level 3.7 g/dL (3.5-5.0); Alkaline Phosphatase 88 U/L (39-117); Anion Gap 15 (12-20); Aspartate Amino Transferase 19 U/L (5-31); Bilirubin Total 0.4 mg/dL (0.0-1.0); Blood Urea Nitrogen 7 mg/dL (9-16); Calcium 9.7 mg/dL (8.4-10.2); Carbon Dioxide 24 mmol/L (22-29); Chloride 107 mmol/L (96-108); Estimated Glomerular Filt Rate > 60; Glucose Random 67 mg/dL (60-115); Potassium 4.2 mmol/L (3.3-5.1); Sodium 142 mmol/L (135-145); Total Protein 7.4 g/dL (6.5-8.0)
[2024-02-19 00:57] LABS: Troponin-I High Sensitivity 4.8 ng/L (<3.5-17.0)
[2024-02-19 01:12] LABS: Influenza A PCR NEGATIVE (Negative); Influenza B PCR NEGATIVE (Negative); Resp Syncy Virus RNA Qual PCR NEGATIVE (Negative); SARS COV2 PCR INHOUSE NEGATIVE (Negative)
[2024-02-19 02:06] LABS: B Type Natriuretic Peptide 11 pg/mL (<100)
--- NOTE | 2024-02-19 06:36 | PC.NURSE ---
pt reports her thighs and legs are swollen x4 days, usually admitted for this per pt but does not take home medications. hx cellulitis, unknown is she has it now?? pain on rectal/coccyx when sitting. R knee hurts [id number] no injury, was given meds in ED previously for pain but now all out. frequent migraines, no meds at homes for this. heart also hurts, the pain just comes and goes, i'm just chilling and the pain comes and goes x4 weeks, stabbing sensation for 5 minutes than gone for 5 minutes, happens 3 times every morning 3am on, then has a hot sensations in my belly then feel cold
--- NOTE | 2024-02-19 06:45 | ED_ITS ---
HPI - General Adult General Chief complaint: General Medical Stated complaint: CHEST PAIN Time Seen by Provider: 02/19/24 06:42 Source: patient, EMS and marine surveyor (all interactions with this patient were facilitated with an [facility] clinical rn manager) Mode of arrival: EMS Limitations: language barrier (all interactions with this patient were facilitated with an [facility] clinical rn manager) History of Present Illness ED Provider: Katherine Hernandez PA-C HPI narrative: Patient is a 58 year old assigned female at with a history of HTN presenting to the emergency department today with intermittent fevers over the last month, a low back wound, chest pain, shortness of breath, and bilateral leg swelling. Patient states that over the last month she has had intermittent fevers with shortness of breath, chest pain, cough, bilateral leg swelling, and low back wound. Patient denies any dizziness, lightheadedness, abdominal pain, nausea, vomiting, chills, blurry vision, double vision, loss of vision, back pain, night sweats, pain with urination, increased urinary frequency, increased urinary urgency, blood in her urine or stool, syncope or a near syncopal episode, recent trauma or falls, bowel incontinence, bladder incontinence, or any other complaints at this time. Relieving factors: none Exacerbating factors: none Associated symptoms: chest pain, cough and shortness of breath Treatments prior to arrival: none Related Data Home Medications ?Medication ?Instructions ?Recorded ?Confirmed albuterol sulfate 0.63 mg/3 mL 1 amp inhalation Q4-6H PRN wheezing 08/23/21 04/04/23 solution for nebulization albuterol sulfate 90 mcg/actuation 2 puff PO Q4-6H PRN Wheezing 08/23/21 04/04/23 aerosol inhaler (ProAir HFA) amlodipine 5 mg tablet 1 tab PO DAILY@1200 08/23/21 04/04/23 atenolol 100 mg tablet 100 mg PO DAILY 08/23/21 04/04/23 atorvastatin 80 mg tablet 1 tab PO DAILY 08/23/21 04/04/23 budesonide-formoterol HFA 160 2 puff inhalation BID 08/23/21 04/04/23 mcg-4.5 mcg/actuation aerosol inhaler (Symbicort) bupropion HCl 150 mg 24 hr tablet, 1 tab PO DAILY 08/23/21 04/04/23 extended release bupropion HCl 300 mg 24 hr tablet, 1 tab PO BEDTIME 08/23/21 04/04/23 extended release cholecalciferol (vitamin D3) 50 2 cap PO DAILY 08/23/21 04/04/23 mcg (2,000 unit) capsule furosemide 40 mg tablet 40 mg PO BID@0900,1200 08/23/21 04/04/23 hydralazine 25 mg tablet 1 tab PO BIDWM 08/23/21 04/04/23 lanolin alcohols-mineral 1 appl topical BID PRN Dry Skin 08/23/21 04/04/23 oil-w.petrolatum-ceresin topical cream (Minerin Creme topical) losartan 50 mg tablet 1 tab PO BEDTIME 08/23/21 04/04/23 paroxetine HCl 10 mg tablet 1 tab PO DAILY 08/23/21 04/04/23 paroxetine HCl 40 mg tablet 1 tab PO DAILY 08/23/21 04/04/23 topiramate 100 mg tablet 1 tab PO BID@0900,1800 08/23/21 04/04/23 topiramate 200 mg tablet 1 tab PO BEDTIME 08/23/21 04/04/23 buspirone 10 mg tablet 10 mg PO BEDTIME 10/09/22 04/04/23 dulaglutide 1.5 mg/0.5 mL 1.5 mg subcut TH@0900 04/04/23 04/04/23 subcutaneous pen injector (Trulicity) sennosides 8.6 mg-docusate sodium 1 tab PO DAILY 04/04/23 04/04/23 50 mg tablet (Stimulant Laxative Plus) Previous Rx's ?Medication ?Instructions ?Recorded linezolid 600 mg tablet 600 mg PO Q12H #14 tabs 04/11/23 cephalexin 500 mg capsule 500 mg PO QID 10 days #40 caps 10/14/23 ketoconazole 2 % topical cream 1 appl topical BID #60 grams 10/14/23 amoxicillin 875 mg-potassium 1 tab PO BID 10 days #20 tabs 02/19/24 clavulanate 125 mg tablet azithromycin 250 mg tablet See Rx Instructions PO .COMPLEX #6 02/19/24 tabs Allergies Allergy/AdvReac Type Severity Reaction Status Date / Time No Known Allergies Allergy Verified 02/19/24 00:57 Review of Systems 2 Constitutional: Constitutional: Reports no additional constitutional complaints, Denies chills, Reports fever(s) and Denies night sweats Eyes: Eyes: Reports no additional eye complaints, Denies blurry vision, Denies change in vision, Denies diplopia, Denies eye discharge, Denies loss of vision and Denies eye pain ENT: Denies dizziness Cardiovascular: Cardiovascular: Reports no additional cardiovascular complaints, Reports chest pain, Denies lightheadedness, Denies Loss of Consciousness and Reports dyspnea Respiratory: Respiratory: Reports no additional respiratory complaints, Reports cough and Reports dyspnea Gastrointestinal: Gastrointestinal: Reports no additional gastrointestinal complaints, Denies abdominal pain, Denies melena, Denies hematochezia, Denies change in bowel habits and Denies change in stool character Genitourinary: Genitourinary: Denies hematuria, Denies urinary frequency, Denies dysuria, Denies urinary incontinence, Denies urinary hesitancy and Denies urinary urgency Musculoskeletal: Musculoskeletal: Reports no additional musculoskeletal complaints, Denies numbness and Denies tingling Comments: bilateral lower leg swelling Integumentary/Breasts: Comments: wound to low back pain Neurologic: Denies dizziness, Denies loss of vision, Denies numbness and Denies tingling Psychiatric: Psychiatric: Reports no additional psychiatric complaints Endocrine: Endocrine: Reports no additional endocrine complaints Hematologic/Lymphatic: Hematologic/Lymphatic: Reports no additional hematologic/lymphatic complaints Allergic/Immunologic: Allergic/Immunologic: Reports no additional allergic/immunologic complaints [facility] Past Medical History Attestation statement: The following information was validated with the patient. Source: old records reviewed and nursing notes reviewed Medical History Asthma HTN (hypertension) Diabetes KENZIE (obstructive sleep apnea) Morbid obesity Asthma Surgical History Hx of cholecystectomy Hx of hernia repair Hx of tubal ligation Family History Family History Daughter No problems noted. Daughter No problems noted. Daughter No problems noted. Daughter No problems noted. Daughter No problems noted. Son No problems noted. Mother HTN (hypertension) Uterus cancer Sister Colon cancer Social History Social History Household Members: Children Housing: Apartment Alcohol intake: never Patient Tobacco Use Status: Never used Tobacco Smoked in Last 30 Days: No Use of substances other than those prescribed or required for medical reasons: No Advance Directives: No Advance Directives Information Provided: Yes Do you have a plan to hurt others: No Plan Patient : No service: No Current occupational status: unemployed Physical Exam ED Vital Signs: Vital Signs - 24 hr 02/19/24 00:35 02/19/24 06:48 02/19/24 07:10 Temperature 97.8 F 97.6 F 97.6 F Pulse Rate 81 77 77 Respiratory Rate 26 H 16 18 Blood Pressure 159/77 H 129/51 L 129/51 L Pulse Oximetry 98 99 99 Oxygen Delivery Method Room Air Room Air Room Air BMI result Body Mass Index 76.9 Const General: cooperative, no acute distress, alert and awake Nutritional Appearance: well nourished Orientation/consciousness: patient oriented x3 Limitations: no limitations HENMT Head: Yes normal to inspection and Yes atraumatic Ears: hearing grossly normal bilaterally and external ears normal General nose exam: Normal external nose present, no nasal discharge noted and no epistaxis Face and sinus: Yes normal facial exam, No abrasion and No laceration Mouth: Normal oral and palatal mucosa present, no drooling and no muffled voice Eyes General: appearance normal, both eyes and all related structures Periorbital: periorbital findings normal Eyelids: Yes eyelids normal Conjunctivae: conjunctivae normal Pupils: Equal, round and reactive pupils present EOM: EOMs intact bilaterally Neck Neck: Yes normal visual inspection, Yes full ROM and Yes no lymphadenopathy Chest Chest palpation & inspection: normal inspection of the chest Resp Effort & Inspection: normal respiratory effort and able to speak in complete sentences Auscultation: diminished lung sounds diffuse Cardio Rate: regular rate Rhythm: regular rhythm GI Inspection: Yes normal to inspection Back/Spine/Pelvis Back/spine/pelvis image: 2 1. small abrasion - no active bleeding, no gaping areas Neuro General: patient oriented x3 and moves all extremities Cranial nerves: Yes Equal, round and reactive pupils present Cognition (Neuro): normal cognition Extrem Other: minimal bilateral lower extremity swelling and venous stasis dermatitis General: Yes full ROM and Yes capillary refill normal Psych Appearance: grossly normal Mental Status: mental status grossly normal Affect: normal affect Attitude: cooperative Thought process: Normal thought process present Thought content: Normal thought content present Insight: Good insight present (Psych) Medical Decision Making Medical Decision Making [facility] Narrative: Patient is a 58 year old assigned female at with a history of HTN presenting to the emergency department today with intermittent fevers over the last month, a low back wound, chest pain, shortness of breath, and bilateral leg swelling. Patient's physical exam was as noted in the physical exam portion of this note. Patient's blood work was unremarkable. Patient's EKG was unremarkable. Patient's chest x-ray showed a pneumonia. I explained my physical exam findings as well as all test results to the patient. I answered all questions asked by the patient. I stressed the importance of the patient taking her medication as directed (either prescribed or as the over the counter packaging recommends). I stressed the importance of the patient following up with her primary care provider. I stressed the importance of the patient returning to the emergency department immediately if her symptoms were to worsen or if she were to develop any dizziness, shortness of breath, difficulty breathing, chest pain, blurry vision, loss of vision, nausea, vomiting, abdominal pain, fever, chills, back pain, or any other complaints. Patient verbalized agreement and understanding with this treatment plan and discharge. Differential Diagnosis Differential Diagnoses: The differential diagnosis associated with the presentation includes Abrasion Venous stasis dermatitis Chromic edema PNA Admission/Observation Consideration of admission/observation: Escalation of care including admission/observation considered Patient would have been admitted to the hospital had her work up had any findings where hospital admission was appropriate and her clinical presentation warranted hospital admission. Lab Data [facility] Lab Attestation statement: I reviewed the patient's lab results. My interpretation of these results are in the MDM Rationale portion of this note. 02/19/24 00:28 02/19/24 00:28 Labs: Lab Results 02/19/24 Range/Units 00:28 WBC 5.4 (4.8-10.8) X10*3/uL RBC 4.11 L (4.20-5.50) X10*6/uL Hgb 12.0 (12.0-16.0) g/dl Hct 37.8 (37.0-47.0) % MCV 92.0 (80.0-98.0) fL MCH 29.2 (27.0-33.0) pg MCHC 31.7 (31.0-35.0) g/dl RDW 15.7 (11.0-16.0) % Plt Count 177 (160-400) X10*3/uL MPV 12.0 (9.4-12.3) fL Immature Gran % (Auto) 0.2 (0.0-0.4) % Neut % (Auto) 53.4 (45-73) % Lymph % (Auto) 33.3 (20-40) % Laurens % (Auto) 12.9 H (2-11) % Eos % (Auto) 0.2 (0-4) % Baso % (Auto) 0.0 (0-2) % Lymph # (Auto) 1.8 (1.2-4.9) X10*3/uL Laurens # (Auto) 0.7 (0.1-1.2) X10*3/uL Eos # (Auto) 0.0 (0.0-0.4) X10*3/uL Baso # (Auto) 0.0 (0.0-0.2) X10*3/uL Abs Immat Gran (auto) 0.01 (0.00-0.03) X10*3/uL Absolute Neuts (auto) 2.9 (2.0-8.3) x10*3/uL Absolute Nucleated RBC 0.000 (0.0-0.012) X10*3/uL Nucleated RBC % (auto) 0.0 (0.0-0.2) /100WBC Sodium 142 (135-145) mmol/L Potassium 4.2 (3.3-5.1) mmol/L Chloride 107 (96-108) mmol/L Carbon Dioxide 24 (22-29) mmol/L Anion Gap 15 (12-20) BUN 7 L (9-16) mg/dL Creatinine 0.83 (0.5-1.4) mg/dL Estim Creat Clear Calc TNP Estimated GFR > 60 Random Glucose 67 (60-115) mg/dL Calcium 9.7 D (8.4-10.2) mg/dL Total Bilirubin 0.4 (0.0-1.0) mg/dL AST 19 (5-31) U/L ALT 17 (0-31) U/L Alkaline Phosphatase 88 (39-117) U/L Troponin I High Sens 4.8 (<3.5-17.0) ng/L B-Natriuretic Peptide 11 (<100) pg/mL Total Protein 7.4 (6.5-8.0) g/dL Albumin 3.7 (3.5-5.0) g/dL Influenza Type A (PCR) NEGATIVE (Negative) Influenza Type B (PCR) NEGATIVE (Negative) RSV RNA Qual (PCR) NEGATIVE (Negative) SARS-CoV-2 RNA (RT-PCR) NEGATIVE (Negative) Independent Interpretation I performed an independent interpretation of an: EKG and Plain X-Ray Interpretation: My interpretation is in agreement with the radiologist's impression of this imaging study. L EXAMINATION: XR CHEST CLINICAL INFORMATION: Chest pain. Fever. COMPARISON: Chest radiograph 04/04/2023. TECHNIQUE: 2 views of the chest were obtained. FINDINGS: This focal airspace opacity is present within the left middle lung zone identified on the frontal view. No pleural effusions or pneumothoraces identified. Normal appearance of the cardiomediastinal structures. XR/XR chest 2V IMPRESSION: *Focal left middle lung zone airspace opacity suspicious for focal consolidation and pneumonia. Recommend follow-up chest radiographs in 4-6 weeks to demonstrate resolution and exclude findings related to underlying tumor. Electronically signed by: Josh Reyna MD 02/19/2024 03:15 AM [facility] Dictated By: Josh Reyna MD Signed By: Electronically signed by Josh Reyna MD 02/19/24 0315 Vent. Rate: 079 BPM Atrial Rate: 079 BPM P-R Int: 192 ms QRS Dur: 102 ms QT Int: 382 ms P-R-T Axes: 045 -02 060 degrees QTc Int: 438 ms Normal sinus rhythm Moderate voltage criteria for LVH, may be normal variant (R in aVL , Justin product) Borderline ECG When compared with ECG of 14-OCT-2023 02:12, No significant change was found DD/ 0013 Radiology Impression Discussion of test interpretation with radiology: I have reviewed the radiologist's reading. Independent Historian Clinical information obtained from an independent historian. History obtained from or confirmed by: EMS (EMS provided additional history and confirmed the history provided by the patient.) Prescription Management I considered prescription management with: Antibiotic (patient prescribed antibiotics for PNA) Chronic Conditions Patient?s care impacted by: Hypertension Discharge Plan Discharge Clinical Impression: Pneumonia, Edema, Abrasion Patient Disposition: Home, Self-Care Instructions: Leg Edema (ED), Abrasion (ED), Pneumonia (ED) Additional Instructions: Follow up with your primary care provider. Return to the emergency department immediately if your symptoms worsen or if you develop any dizziness, shortness of breath, difficulty breathing, chest pain, blurry vision, loss of vision, nausea, vomiting, abdominal pain, fever, chills, back pain, or any other complaints. Jody?seguimiento?con santamaria m?dico de atenci?n primaria. Acuda inmediatamente al servicio de urgencias si thor s?ntomas empeoran o si presenta falta de aliento, dificultad para respirar, dolor tor?cico, mareos, aturdimiento, dolor de espalda, dolor abdominal, fiebre, escalofr?os o cualquier otro s?ntoma. Prescriptions: New azithromycin 250 mg tablet See Rx Instructions .ROUTE .COMPLEX Qty: 6 0RF Rx Instructions: For 250 mg dose pack: take 500 mg today (day 1), then 250 mg for 4 days (days 2-5) amoxicillin-pot clavulanate 875-125 mg tablet 1 tab PO BID 10 Days Qty: 20 0RF No Action losartan 50 mg tablet 1 tab PO BEDTIME atorvastatin 80 mg tablet 1 tab PO DAILY paroxetine HCl 10 mg tablet 1 tab PO DAILY Rx Instructions: with 40 mg atenolol 100 mg tablet 100 mg PO DAILY hydralazine 25 mg tablet 1 tab PO BIDWM amlodipine 5 mg tablet 1 tab PO DAILY@1200 topiramate 200 mg tablet 1 tab PO BEDTIME albuterol sulfate [ProAir HFA] 90 mcg/actuation HFA aerosol inhaler 2 puff PO Q4-6H PRN (Reason: Wheezing) paroxetine HCl 40 mg tablet 1 tab PO DAILY Rx Instructions: with 10 mg topiramate 100 mg tablet 1 tab PO BID@0900,1800 bupropion HCl 300 mg tablet extended release 24 hr 1 tab PO BEDTIME bupropion HCl 150 mg tablet extended release 24 hr 1 tab PO DAILY cholecalciferol (vitamin D3) 50 mcg (2,000 unit) capsule 2 cap PO DAILY Minerin Creme Cream 1 appl topical BID PRN (Reason: Dry Skin) furosemide 40 mg tablet 40 mg PO BID@0900,1200 albuterol sulfate 0.63 mg/3 mL solution for nebulization 1 amp inhalation Q4-6H PRN (Reason: wheezing) budesonide-formoterol [Symbicort] 160-4.5 mcg/actuation HFA aerosol inhaler 2 puff inhalation BID cephalexin 500 mg capsule 500 mg PO QID 10 Days Qty: 40 0RF ketoconazole 2 % cream 1 appl topical BID Qty: 60 0RF buspirone 10 mg tablet 10 mg PO BEDTIME sennosides-docusate sodium [Stimulant Laxative Plus] 8.6-50 mg tablet 1 tab PO DAILY Trulicity 1.5 mg/0.5 mL pen injector 1.5 mg subcut TH@0900 linezolid 600 mg Tablet 600 mg PO Q12H Qty: 14 0RF Referrals: [facility] [Primary Care Provider] - Interventions: ED Discharge Assessment Last Done: 02/19/24 07:10 Discharge Date/Time: 02/19/24 07:11 Print Language: Slovenian
[2024-02-19 06:48] VITALS: BP 129/51; PULSE 77; RESP 16; TEMP 36.4; O2SAT 99
[2024-02-19 07:10] VITALS: BP 129/51; PULSE 77; RESP 18; TEMP 36.4; O2SAT 99
== END 2024-02-19 07:11 | disposition home or self-care (01) ==
PROVIDERS: Emergency Provider Emergency Medicine Emergency Medical Services
DX: J18.9 Pneumonia, unspecified organism (principal); R07.89 Other chest pain; R60.0 Localized edema; R06.02 Shortness of breath; Z79.899 Other long term (current) drug therapy; Z03.818 Encounter for observation for suspected exposure to other biological agents ruled out
CPT/HCPCS: 0241U; 36415; 71046; 80053; 83880; 84484; 85025; 93005; 99283; 99284

== ENCOUNTER → 2024-02-19 00:13 | Outpatient (BNV) | payer MEDICAID, SELFPAY | PROVIDERS: Emergency Provider Emergency Medicine Emergency Medical Services; Visit Provider Internal Medicine Cardiovascular Disease | DX: R07.9 Chest pain, unspecified (principal); R94.31 Abnormal electrocardiogram [ECG] [EKG] | CPT/HCPCS: 93010 ==

== ENCOUNTER 2024-05-29 12:58 | Outpatient (REF) | payer MEDICAID, SELFPAY ==
--- OUTSIDE RECORDS SUMMARY | 2024-05-29 13:28 | XMS_ITS | Encounter Summary ---
Author Organization [employer] Address [address] [place] [address] [address] [place] [address] Care Team Providers Care Stripping Shovel Operator Name Role Phone Alea Salinas Primary Care Provider [phone] Encounter Details Date Type Department Care Team (Late st Contact Info) Description 12/19/2022 Orders Only [facility] MED & PEDS [address] [place], [place] [id number] April Mason LPN Social History Tobacco Use Types Packs/Day Years Used Date Smoking Tobacco: Never Smokeless Tobacco: Never Alcohol Use Standard Drinks/Week Comments Not Currently 0 (1 standard drink = 0.6 oz pur e alcohol) Comments Unknown Sex and Gender Information Value Date Recorded Sex Assigned at Female 02/05/2022 10:15 AM EDT Legal Sex Female 10:15 AM EDT Gender Identity Female 02/05/2022 10:15 AM EDT Sexual Orientation Straight 02/05/2022 10 :15 AM EDT documented as of this encounter Plan of Treatment Upcoming Encounters Date Type Department Care Team (Late st Contact Info) Description 07/13/2024 11:15 AM EDT Office Visit [facility] MEDICINE [address] [place] [address] Alea Salinas ANP [address] [place] [address] documented as of this encounter Visit Diagnoses Not on filedocumented in this encounter Care Teams Stripping Shovel Operator Relationship Specialty Start Date End Date Alea Salinas ANP [address] [place], [place] [phone] PCP - General Family Medicine 11/29/20 Rebecca Ayala Chucking And Boring Machine OperatorOncology Rn 12/27/23 documented as of this encounter
--- OUTSIDE RECORDS SUMMARY | 2024-05-29 13:28 | XMS_ITS | Encounter Summary ---
Author Organization [facility] Address [address] [place] [address] [address] [place] [address] Care Team Providers Care Book Repairer Name Role Phone Alea Salinas Primary Care Provider [phone] Encounter Details Date Type Department Care Team (Late st Contact Info) Description 05/08/2022 Orders Only [facility] MED & PEDS [address] [place], [place] [phone] Loretta Cuello LPN Social History Tobacco Use Types Packs/Day Years Used Date Smoking Tobacco: Never Assessed Comments Unknown Sex and Gender Information Value [...] Description 07/13/2024 11:15 AM EDT Office Visit [facility] MEDICINE [address] [place] [address] Alea Salinas ANP [address] [place] [address] documented as of this encounter Visit Diagnoses Not on filedocumented in this encounter Care Teams Book Repairer Relationship Specialty Start Date End Date Alea Salinas ANP [address] [place] [address] PCP - General Family Medicine 11/29/20 Rebecca Ayala Spine SpecialistFarm Mortgage Agent 12/27/23 documented as of this encounter
--- OUTSIDE RECORDS SUMMARY | 2024-05-29 13:28 | XMS_ITS | Encounter Summary ---
Author Organization [employer] Address [address] [place] [address] Care Team Providers Care Slitting Machine Operator Name Role Phone Brad Alea MORRELL Primary Care Provider Encounter Details Date Type Department Care Team (Latest Contact Info) Description 05/28/2024 Outside Procedure [facility] OPTOMETRY [address] [place] [address] Donn, Kim, OD [address] [place] [address] Presbyopia (Primary Dx) Social History Tobacco Use Types Packs/Day Years Used Date Smoking Tobacco: Never Smokeless Tobacco: Never Alcohol Use Standard Drinks/Week Comments Not Currently 0 (1 standard drink = 0.6 oz pur e alcohol) Depression Answer Date Recorded Patient Health Questionnaire-9 Score 12 11/28/2023 Patient Health Questionnaire-9 Score 12 11/28/2023 Last PHQ-9: Questionnaire Data Not on file 0 11/28/2023 Housing Stability Answer Date Recorded What is your housing situation today? I have jostin landry 02/08/[address] you li ve. Do you have problems with any of the following? None of the above 02/08/2023 Food Insecurity Answer Date Recorded Within the past 12 months, y ou worried that your food would run out before you got money to buy more: Never True 02/08/2023 Within the past 12 months,th e food you bought just didn't last and you didn't have enough money to get more: Never True 06/2022 Transportation Answer Date Recorded In the past 12 months, has l ack of transportation kept you from medical appts, meetings, work or from getting things needed for daily living? No 02/08/2023 Utilities Answer Date Recorded In the past 12 months, has t he electric, gas, oil or water company threatened to shut off services in your home? No 02/08/2023 Depression Answer Date Recorded Patient Health Questionnaire-2 Score 2 11/28/2023 Comments Unknown Sex and Gender Information Value Date Recorded Sex Assigned at Female 02/05/2022 10:15 AM EDT Legal Sex Female 10:15 AM EDT Gender Identity Female 02/05/2022 10:15 AM EDT Sexual Orientation Straight 02/05/2022 10 :15 AM EDT documented as of this encounter Progress Notes * Kim Pop OD - 05/28/2024 1:43 PM EST MH glasses were dispensed, 2 of 2. documented in this encounter Plan of Treatment Upcoming Encounters Date Type Department Care Team (Late st Contact Info) Description 07/13/2024 11:15 AM EDT Office Visit [facility] MEDICINE [address] [place] [address] Alea Salinas ANP [address] [place] [address] documented as of this encounter Visit Diagnoses Diagnosis Presbyopia- Primary documented in this encounter Additional Health Concerns Assessment Noted Time PHQ-9 Depression Total Score: 12 024 2:27 PM EDT documented as of this encounter Care Teams Slitting Machine Operator Relationship Specialty Start Date End Date Alea Salinas ANP [address] [place] [address] PCP - General Family Medicine 11/29/20 Rebecca Ayala Boat WorkerOperations Agent 12/27/23 documented as of this encounter
--- OUTSIDE RECORDS SUMMARY | 2024-05-29 13:28 | XMS_ITS | Clinical Summary ---
Author Organization [employer] Address [address] [facility] 7t [place] [address] Care Team Providers Care Bore Miner Operator Name Role Phone Alberto Tejeda PETROS Primary Care Provider [phone] Allergies Active Allergy Reactions Criticality Noted Date Comments Gabapentin 12/26/2020 Other reaction(s): Tremor, xerostomia Medications * This document contains information received from the source organization and may not represent a complete record from that organization. albuterol 108 (90 Base) MCG/ACT inhalerIndicatio ns:Wheezing Inhale 2 puffs every 6 (six) hours if needed for wheezing. 18 g 11 023 Active hydrOXYzine pamoate (Vistaril) 50 MG capsuleIndicatio ns:Insomnia, unspecified type TAKE 2 CAPSULES BY MOUTH EVERY DAY AT BEDTIME 180 capsule 023 Active hydrocortisone (Anusol-HC) 2.5 % rectal creamIndications :External hemorrhoid APPLY RECTALLY THREE TIMES DAILY NEEDED 30 g 023 Active polyethylene glycol, PEG, 3350 (MiraLax) 17 GM/SCOOP powderIndication s:Constipation, unspecified constipation type Use as directed on package, mix 17G with water or juice twice daily as needed for constipation 527 g 2 023 Active Blood Pressure kitIndications:P rimary hypertension 1 kit in the morning. 1 kit 023 Active Skin Protectants, Misc. (Eucerin Original Healing) creamIndications :Morbid obesity (CMS/HCC),[place] g Apply 2 g topically if needed (chafing). Apply liberally as needed to chafed areas 454 g 11 Active atorvastatin (Lipitor) 80 MG tabletIndication s:Hyperlipidemia LDL goal <130 TAKE 1 TABLET BY MOUTH EVERY MORNING 90 tablet 1 024 Active buPROPion XL (Wellbutrin XL) 300 MG 24 hr tabletIndication s:Recurrent major depressive disorder, remission status unspecified (CMS/HCC) TAKE 1 TABLET BY MOUTH EVERY EVENING 90 tablet 1 024 Active amLODIPine (Norvasc) 5 MG tablet TAKE 1 TABLET BY MOUTH EVERYDAY AT NOON 90 tablet 3 024 Active losartan (Cozaar) 50 MG tabletIndication s:Essential (primary) hypertension TAKE 1 TABLET BY MOUTH EVERY EVENING 90 tablet 3 024 Active topiramate (Topamax) 100 MG tabletIndication s:Recurrent major depressive disorder, remission status unspecified (CMS/HCC) TAKE 1 TABLET BY MOUTH TWICE DAILY IN THE MORNING AND IN THE EVENING 180 tablet 1 024 Active topiramate (Topamax) 200 MG tabletIndication s:Recurrent major depressive disorder, remission status unspecified (CMS/HCC) TAKE 1 TABLET BY MOUTH AT BEDTIME 90 tablet 1 024 Active nystatin (Mycostatin) 053883 UNIT/GM powderIndication s:Chafing Apply topically 2 times daily. 60 g 2 024 2024 Active ketoconazole (NIZOral) 2 % creamIndications :Intertrigo Apply to affected areas twice a day 60 g 024 Active atenolol (Tenormin) 100 MG tabletIndication s:Primary hypertension TAKE 1 TABLET BY MOUTH EVERY MORNING 90 tablet 1 024 Active furosemide (Lasix) 40 MG tabletIndication s:Primary hypertension TAKE 1 TABLET BY MOUTH TWICE DAILY IN THE MORNING AND AT NOON 180 tablet 1 024 Active busPIRone (Buspar) 10 MG tabletIndication s:Anxiety TAKE 1 TABLET BY MOUTH EVERY EVENING 90 tablet 1 024 Active Symbicort 160-4.5 MCG/ACT inhalerIndicatio ns:Moderate persistent asthma, uncomplicated INHALE 2 PUFFS BY MOUTH TWICE DAILY IN THE MORNING AND IN THE EVENING. RINSE MOUTH AFTER USING. 10.2 g 2 024 Active D3 Super Strength 50 MCG (1999 UT) capsule TAKE 2 CAPSULES BY MOUTH ONCE DAILY IN THE MORNING 180 capsule 3 024 Active hydrALAZINE (Apresoline) 25 MG tabletIndication s:Essential hypertension TAKE 1 TABLET BY MOUTH TWICE DAILY IN THE MORNING AND IN THE EVENING WITH FOOD 180 tablet 3 024 Active PARoxetine (Paxil) 10 MG tabletIndication s:Anxiety TAKE 1 TABLET BY MOUTH EVERY MORNING 30 tablet 2 024 Active PARoxetine (Paxil) 40 MG tabletIndication s:Anxiety TAKE 1 TABLET BY MOUTH EVERY MORNING 30 tablet 2 024 Active Tirzepatide-Weig ht Management (Zepbound) 2.5 MG/0.5ML solution auto-injectorInd ications:BMI 70 and over, adult (CMS/HCC),Severe obesity (BMI >= 40) (CMS/HCC) Inject 0.5 mL (2.5 mg) under the skin 1 (one) time per week. 2 mL 025 Active Stimulant Laxative 8.6-50 MG tabletIndication s:Constipation, unspecified constipation type TAKE 1 TABLET BY MOUTH EVERY MORNING 90 tablet 1 025 Active busPIRone (Buspar) 15 MG tabletIndication s:Anxiety TAKE 1 TABLET BY MOUTH TWICE DAILY IN THE MORNING AND IN THE EVENING 60 tablet 2 025 Active buPROPion XL (Wellbutrin XL) 150 MG 24 hr tabletIndication s:Recurrent major depressive disorder, remission status unspecified (CMS/HCC) TAKE 1 TABLET BY MOUTH EVERY MORNING 90 tablet 1 025 Active buPROPion XL (Wellbutrin XL) 150 MG 24 hr tabletIndication s:Recurrent major depressive disorder, remission status unspecified (CMS/HCC) TAKE 1 TABLET BY MOUTH EVERY MORNING 90 tablet 1 024 2024 Discontinued busPIRone (Buspar) 15 MG tabletIndication s:Anxiety TAKE 1 TABLET BY MOUTH TWICE DAILY IN THE MORNING AND IN THE EVENING 60 tablet 2 024 2024 Discontinued Active Problems Problem Noted Date Diagnosed Date Preop cardiovascular exam 06/04/2023 Assessment & Plan (06/04/2023 2:05 PM EST): Kaelyn is here today for pre-operative evaluation. Reports no sx of CP, SOB, WILLIS, at rest. No LE swelling or palpitations. She does have dyspnea with exertion due to asthma. No h/o CVD, diabetes, kidney disease, recent anticoagulant or antithrombotic use, personal h/o coagulopathy. No allergies to iodine, latex or tape. RCRI score 0 points class 1 which is 3.9% I advise NPO after midnight the day of the procedure I advise to take her blood pressure and anxiety medications the morning of the procedure with a small sip of water External hemorrhoid 11/28/2022 Assessment & Plan (11/28/2022 2:45 PM EDT): Use preparation H rectal cream She's not cosntipated. Agreed to colonoscopy Flexural eczema 11/28/2022 Assessment & Plan (11/28/2022 2:36 PM EDT): On folds due to obesity. Counseled to keep areas clean and dry, avoid cracking of the skin with regular moisturizer and use betamethasone cream. Rectal bleeding 11/28/2022 Severe obesity 09/12/2022 Stasis dermatitis 09/01/2022 Stress incontinence in female 09/01/2022 Vascular insufficiency 09/01/2022 Bilateral leg edema 08/03/2022 Assessment & Plan (11/28/2022 2:44 PM EDT): Most likely either lymphedema or vasc insufficiency related to obesity Counseled re weight reduction FU w PCP Anemia 09/04/2012 Hernia of anterior abdominal wall 09/04/2012 Migraine 05/12/2012 Impaired fasting blood sugar 04/15/2012 Functional disorder of bladder 03/18/2012 Mixed urge and stress incontinence 03/18/2012 Morbid obesity 03/18/2012 Assessment & Plan (11/28/2022 2:43 PM EDT): Discussed re weight reduction options including exercise, life style modifications, diet, he has been seen at [facility] weight reduction program but she quit. I gave her infor re [facility] program instead FU w PCP re semiglutide rx. Discussed re lower calorie intake, increase dietary fiber Depressive disorder 02/11/2012 Noncompliance with treatment 02/11/2012 Hypercholesterolemia 10/08/2011 Hypertension 10/08/2011 Encounters Date Type Department Care Team Description 05/28/2024 Outside Procedure [facility] [address] [place] [address] Kim Pop, OD Presbyopia (Primary Dx) 05/27/2024 2:45 PM EST Office Visit [facility] [address] [place] [phone] Kim Pop, OD Regular astigmatism, bilateral (Primary Dx) 05/27/2024 Orders Only [facility] MED[facility] [address] [place] [phone] Swapna Maya MD Dysuria (Primary Dx) 05/27/2024 Telephone [facility] [address] [place] [phone] Alberto Tejeda ANP Nurse Triage 05/27/2024 Travel 05/27/2024 Refill [facility] [address] [place] [address] Alberto Tejeda ANP Recurrent major depressive disorder, remission status unspecified ([facility]) 05/26/2024 Telephone [facility] [address] [place] [address] Alberto Tejeda ANP Durable Medical Equipment 05/21/2024 Refill [facility] [address] [place] [address] Alberto Tejeda ANP Anxiety 05/20/2024 Telephone [facility] [address] [place] [phone] Alberto Tejeda ANP Durable Medical Equipment 05/06/2024 Telephone [facility] [address] [place] [phone] Alberto Tejeda ANP [employer] (Underpad, incont procare 21x36, underpad, reusable 34''36'') 04/28/2024 Refill [facility] [address] [place] [phone] Alberto Tejeda ANP Constipation, unspecified constipation type 04/22/2024 Telephone [facility] [address] [place] [phone] Alberto Tejeda ANP Durable Medical Equipment 04/17/2024 Telephone [facility] [address] [place] [address] Alberto Tejeda ANP Nurse Triage 04/16/[address] [facility] [address] [place] [address] Alberto Tejeda ANP 04/14/2024 Telephone [facility] [address] [place] [address] Alberto Tejeda ANP Nurse Triage 04/09/2024 3:15 PM EST Office Visit [facility] [address] [place] [address] Tarka, Laura, OD Combined forms of age-related cataract of both eyes (Primary Dx); Regular astigmatism, bilateral; Amblyopia, refractive, left; Chorioretinal scar of right eye; Exotropia, alternating 04/09/2024 Travel 03/15/2024 Refill [facility] [address] [place] [address] Alberto Tejeda ANP Anxiety 03/12/2024 Telephone [facility] [address] [place] [phone] Alberto Tejeda ANP Medication Question 03/11/2024 Telephone [facility] [address] [place] [phone] Rebecca Jimenez MA chart prep 03/04/2024 Travel from Last 3 Months Immunizations Name Administration Dates Next Due Hep A, Adult 09/06/2021,05/12/2012 Hep B, adult 09/06/2021,05/12/2012 Influenza injectable quadriv alent preservative free 01/31/2022,01/18/2021,04/11/2017 Influenza, Split (incl. luigi fied surface antigen) 05/12/2012 MMR 05/12/2012 Pneumococcal Polysaccharide PPSV23 04/11/2017 Tdap 02/27/2013 Family History Medical History Relation Name Comments Cancer Brother Cancer Mother ovarian Relation Name Status Comments Brother Mother Social History Tobacco Use Types Packs/Day Years Used Date Smoking Tobacco: Never Smokeless Tobacco: Never Tobacco Cessation:Counseling Given: Not Answered Alcohol Use Standard Drinks/Week Comments Not Currently [...] Orientation Straight 02/05/2022 10 :15 AM EDT Last Filed Vital Signs Vital Sign Reading Time Taken Comments Blood Pressure 140/80 06/04/2023 1:49 PM EST Pulse 96 06/04/2023 1:28 PM EST Temperature 36.1 ??C (96.9 ??F) 06/04/2023 1:28 PM ES T Respiratory Rate 21 06/04/2023 1:28 PM EST Oxygen Saturation 93% 06/04/2023 1:28 PM EST Inhaled Oxygen Concentration - - Weight 220 kg (484 lb 1.9 oz) 02/08/2023 2:44 PM EDT Height 160 cm (5' 3 ) 06/04/2023 1:28 PM EST Body Mass Index 85.76 02/08/2023 2:44 PM EDT Plan of Treatment Upcoming Encounters Date Type Department Care Team (Late st Contact Info) Description 07/13/2024 11:15 AM EDT Office Visit [facility] [address] [place] [address] Alberto Tejeda ANP [address] [place] [address] Health Maintenance Due Date Last Done Comments CT Colonography 1966 Colonoscopy 1966 Dental Oral Exam 1966 Dental Prophylaxis 1966 Dental X-Ray: Bitewings 1966 Dental X-Ray: Full Mouth 1966 FIT 1966 FOBT 1966 HIV Screening 1966 Sigmoidoscopy 1966 Alcohol/Substance Use Screening 1978 Hepatitis C Screening 1984 Zoster Vaccines (1 of 2) 2016 Pneumococcal Vaccine: 50+ Years (2 of 2 - PCV) 04/11/2018 04/11/2017 Mammogram 09/06/2019 09/05/2017 Hepatitis B Vaccines (3 of 3 - 19+ 3-dose series) 11/01/2021 09/06/2021, 05/12/2012 DTaP/Tdap/Td Vaccines (2 - Td or Tdap) 02/27/2023 02/27/2013 COVID-19 Vaccine (2 - season) 2023 01/23/2021 Influenza Vaccine (#1) 2023 , 01/18/2021, 04/11/2017, Additional history exists SDOH Screening 03/26/2024 03/26/2023 Depression Monitoring (PHQ-9) 05/30/2024 11/28/2023, 11/28/2023 Colorectal Cancer Screening 11/24/2024 FIT DNA/Cologuard 11/24/2024 11/24/2021 Depression Screening 11/27/2024 11/28/2023, 11/28/19 24 Tobacco Screening 04/09/2025 04/09/2024 Lipid Panel 06/14/2025 06/14/2020 Cervical Cancer Screening 05/09/2028 HPV/Cotest 05/09/2028 Pap Smear 05/09/2028 05/09/2023 RSV Patients and Patients Aged 60 years or older (1 - 1-dose 75+ series) 2041 Hepatitis A Vaccines Aged Out 09/06/2021, 05/12/19 13 No longer eligible based on patient's age to complete this topic HIB Vaccines Aged Out No longer eligi ble based on patient's age to complete this topic HPV Vaccines Aged Out No longer eligi ble based on patient's age to complete this topic IPV Vaccines Aged Out No longer eligi ble based on patient's age to complete this topic Meningococcal Vaccine Aged Out No ca santana eligible based on patient's age to complete this topic RSV under 20 months Aged Out No longe r eligible based on patient's age to complete this topic Rotavirus Vaccines Aged Out No longer eligible based on patient's age to complete this topic Procedures Procedure Name Priority Date/Time Associated Diagnosis Comments PAP SMEAR Routine 05/09/2023 4:00 PM EST HM FIT DNA/COLOGUARD CANCER SCREENING Routine 11/24/2021 LIPID PANEL, STANDARD Routine 06/14/2020 2:23 PM EST BI MAMMOGRAM SCREENING BILATERAL Routine 09/05/2017 1:00 PM EDT from Last 3 Months or Most Recently Relevant to Health Maintenance Results * Pap Smear (05/09/2023 4:00 PM EST) 05/09/2023 4:00 PM EST 05/10/2023 9:40 AM EST [facility] - 05/27/2023 9:38 AM EST ----- ------- Name: Kaelyn Samuel ? Age/Sex: 58/F ? : 1965 Unit#: [id number] ?? Attend Dr: Tony Fair MD ?Re05/09/23 ?Status: DEP REF ? Location: HO.LNP ?Disch: ? ----- ------- SPEC : [id number] ? RECD: 05/10/23 ? STATUS: ??SOUT ? REQ NUM: [id number] ? LIZ: 05/09/23-1600 ? SUBM DR: Tony Fair MD ? ENTERED: ??05/10/23-1002 ?SP TYPE: Pap Smr ?OTHR DR: ALBERTO TEJEDA NP ? ORDERED: ??Pap Smear, PAP path review ? Interpretation ?? General Category: ? Negative for intraepithelial lesion/malignancy. ?? Adequacy: ? Endocervical/transformation zone component present. ?? Interpretation: ? Reactive cellular changes. ?Trista present. ? HPV mRNA E6/E7: ?Not Detected ? This assay detects E6/E7 viral messenger RNA (mRNA) from 14 high-risk HPV types (16, 18, ?? 31, 33, 35, 39, 45, 51, 52, 56, 58, 59, 66, 68) ? HPV testing performed by [facility], [place], [place]. ??See reference laboratory ?? portion of the EMR for entire report. ?Clinical Information LMP: Postmenopausal Previous PAP test: Unknown date/findings Other history: Pm bleeding ? Material Received ?? ThinPrep-Cervical Copies To: ?? ALBERTO TEJEDA NP ?? [address] [facility] [address] ?? [place] [address] ?? [phone] ?? Tony Fair MD ?? [address] [facility] ?? [place] [address] ?? [phone] ----- ------- Signed (signature on file) Mady Wainscott 05/27/23 0938 ? ----- ------- ? END OF REPORT ? us Generic External Data Provider LAB CYTOLOGY ALCIRAJeremy GRISELDA Final Result [facility] [address] [place] [phone] [phone] * FIT DNA/Cologuard Cancer Screening (11/24/2021) Cologuard Cancer Screen Negative Stool Historical Provider HEALTH MAINTENANCE Final Result * (ABNORMAL) LIPID PANEL, STANDARD (06/14/2020 2:23 PM EST) Chol/HDLC Ratio 4.7 <5.0 (calc) [facility] Cholesterol, Total 227(H) <200 mg/dL [facility] HDL Cholesterol 48(L) > OR = 50 mg/dL [facility] LDL Cholesterol 147(H) mg/dL (calc) [facility] Comment: Reference range: <100 ?? Desirable range <100 mg/dL for primary prevention; ?? <70 mg/dL for patients with CHD or diabetic patients ?? with > or = 2 CHD risk factors. ?? LDL-C is now calculated using the Herson-Tapia ?? calculation, which is a validated novel method providing ?? better accuracy than the Friedewald equation in the ?? estimation of LDL-C. ?? Herson SOARES et al. MAKENNA. 2013;310(19): 8547-8615 ?? (http://education.[employer] Corn[employer].Traka/faq/WGH789) Non-HDL Cholesterol 179(H) <130 mg/dL (calc) [facility] Comment: For patients with diabetes plus 1 major ASCVD risk ?? factor, treating to a non-HDL-C goal of <100 mg/dL ?? (LDL-C of <70 mg/dL) is considered a therapeutic ?? option. Triglycerides 186(H) <150 mg/dL [facility] 06/14/2020 2:23 PM EST us Maya Wei HEAD OF SALES LAB BLOOD ORDERABLES Final Result [facility] [address] * DIGITAL BILATERAL SCREEN 1 (09/05/2017 1:00 PM EDT) Anatomical Region Laterality Modality Breast Bilateral Mammography 09/05/2017 1:00 PM EDT Narrative 09/05/2017 1:02 PM EDT Refer to the Notes tab for result details [facility] Procedure: DIGITAL BILATERAL SCREEN 1 Procedure Note Provider, Hussain, - 06/30/2022 Refer to the Notes tab for result details Legacy Procedure: DIGITAL BILATERAL SCREEN 1 Historical Provider IMG BI PROCEDURES Final R esult from Last 3 Months or Most Recently Relevant to Health Maintenance Insurance [facility] STANDARD DENTAL-[facility] MEDICAID STAND ADULT Advance Directives Documents on File Type Date Recorded Patient Harness Builder Expl anation Power of Web Database Developer 07/03/2023 Power of A ttorney Care Teams Bore Miner Operator Relationship Specialty Start Date End Date Alberto Tejeda ANP [address] [place] [phone] PCP - General Family Medicine 11/29/20 Rebecca Ayala Artist And Repertoire ManagerExhibits Manager 12/27/23
--- OUTSIDE RECORDS SUMMARY | 2024-05-29 13:28 | XMS_ITS | Encounter Summary ---
Author Organization [facility] Address [address] [place] [address] [address] [place] [address] Care Team Providers Care Men'S Leather Dress Belt Maker Name Role Phone Alea Salinas Primary Care Provider [phone] Reason for Visit * Reason Comments Med Refill Encounter Details Date Type Department Care Team (Late Contact Info) Description 01/01/2023 Refill [facility] [address] [place], [place] [phone] Alea Salinas ANP [address] [place], [place] [phone] Hyperlipidemia LDL goal <130 Social History Tobacco Use Types Packs/Day Years [...] Encounters Date Type Department Care Team (Late Contact Info) Description 07/13/2024 11:15 AM EDT Office Visit [facility] [address] [place], [place] [phone] Alea Salinas ANP [address] [place], [place] [phone] documented as of this encounter Visit Diagnoses Diagnosis Hyperlipidemia LDL goal <130 Other and unspecified hyperlipidemia documented in this encounter Care Teams Men'S Leather Dress Belt Maker Relationship Specialty Start Date End Date Alea Salinas ANP [address] [facility] [place] [address] PCP - General Family Medicine 11/29/20 Rebecca Ayala Spring Floor Service WorkerChief Administrative Officer 12/27/23 documented as of this encounter
--- OUTSIDE RECORDS SUMMARY | 2024-05-29 13:28 | XMS_ITS | Encounter Summary ---
Author Organization [employer] Address [address] [employer] [address] [place] [address] Care Team Providers Care Fruit Sprayer Name Role Phone Alea Salinas Primary Care Provider [phone] Reason for Visit * Reason Onset Date Comments Durable Medical Equipment 05/20/2024 Encounter Details Date Type Department Care Team ([facility] st Contact Info) Description 05/20/2024 Telephone [facility] [address] [place], [place] [phone] Alea Salinas ANP [address] [place] [address] Durable Medical Equipment Social History Tobacco Use Types Packs/Day Years [...] AM EDT documented as of this encounter Miscellaneous Notes * Telephone Encounter - Carey Rubin RN - 05/22/2024 3:32 PM EST Faxed DME request for adult briefs to [facility] Confirmation received. * Telephone Encounter - Ruthann Chan RN - 05/20/2024 3:07 PM EST Script generated and placed on PCP's desk. Pending signature. * Telephone Encounter - PETROS Smith - 05/20/2024 3:06 PM EST Thank you! Please pursue. * Telephone Encounter - David Sargent - 05/20/2024 11:50 AM EST Tc from Mitzi coordinator with [facility] care partners informing pt needs Diapers size 3x aspt is obese. documented in this encounter Plan of Treatment Upcoming Encounters Date Type Department Care Team (Late st Contact Info) Description 07/13/2024 11:15 AM EDT Office Visit [facility] [address] [place] [phone] Alea Salinas ANP [address] [place] [address] documented as of this encounter Visit Diagnoses Not on filedocumented in this encounter Additional Health Concerns Assessment Noted Time PHQ-9 Depression Total Score: 12 024 2:27 PM EDT documented as of this encounter Care Teams Fruit Sprayer Relationship Specialty Start Date End Date Alea Salinas ANP [address] [place] [address] PCP - General Family Medicine 11/29/20 Rebecca Ayala Foundry Worker ApprenticeGarnisher 12/27/23 documented as of this encounter
--- OUTSIDE RECORDS SUMMARY | 2024-05-29 13:28 | XMS_ITS | Encounter Summary ---
Author Organization [employer] Address [address] [facility] [address]t [place] [address] Care Team Providers Care Billing Clinician Name Role Phone Alea Salinas Primary Care Provider Reason for Visit * Reason Comments Med Refill Encounter Details Date Type Department Care Team ([facility] st Contact Info) Description 05/27/2024 Refill [facility] [address] [place], [place] [phone] Alea Salinas ANP [address] [place] [address] Recurrent major depressive disorder, remission status unspecified (CMS/HCC) Social History Tobacco Use Types Packs/Day Years [...] Description 07/13/2024 11:15 AM EDT Office Visit [facility] [address] [place] [address] Alea Salinas ANP [address] [place] [address] documented as of this encounter Visit Diagnoses Diagnosis Recurrent major depressive disorder, remission status unspecified (CMS/HCC) documented in this encounter Additional Health Concerns Assessment Noted Time PHQ-9 Depression Total Score: 12 024 2:27 PM EDT documented as of this encounter Care Teams Billing Clinician Relationship Specialty Start Date End Date Alea Salinas ANP [address] [place] [phone] PCP - General Family Medicine 11/29/20 Rebecca Ayala Envelope AdjusterUnderwear Trimmer 12/27/23 documented as of this encounter
--- OUTSIDE RECORDS SUMMARY | 2024-05-29 13:28 | XMS_ITS ---
Author Organization [facility] on Address Unknown Problems Problem Status Start Date End Date CELLULITIS OF RIGHT LOWER LI MB (Primary) (L03.115 - ICD-10-CM) ACTIVE 04/12/2023 SLEEP APNEA, UNSPECIFIED (G47.30 - ICD-10-CM) ACTIVE 04/12/2023 TYPE 2 DIABETES MELLITUS WIT HOUT COMPLICATIONS (E11.9 - ICD-10-CM) ACTIVE 04/12/2023 MORBID (SEVERE) OBESITY DUE TO EXCESS CALORIES (E66.01 - ICD-10-CM) ACTIVE 04/12/2023 ESSENTIAL (PRIMARY) HYPERTENSION (I10 - ICD-10-CM) ACT BRAULIO 04/12/2023 DEPRESSION, UNSPECIFIED (F32.A - ICD-10-CM) ACTIVE 04/12/2023 HYPERLIPIDEMIA, UNSPECIFIED (E78.5 - ICD-10-CM) ACTIVE 04/12/2023 UNSPECIFIED ASTHMA WITH (ACU TE) EXACERBATION (J45.901 - ICD-10-CM) ACTIVE 04/12/2023 CELLULITIS, UNSPECIFIED (L03.90 - ICD-10-CM) ACTIVE 04/12/2023 MUSCLE WEAKNESS (GENERALIZED) (M62.81 - ICD-10-CM) ACT BRAULIO 04/12/2023 DYSPHAGIA, UNSPECIFIED (R13.10 - ICD-10-CM) ACTIVE 04/12/2023 DIFFICULTY IN WALKING, NOT E LSEWHERE CLASSIFIED (R26.2 - ICD-10-CM) ACTIVE 04/12/2023 Encounters Encounter Performer Performer Role Encounter Diagnoses Location Date Discharge - Discharged to home or self care - [facility] - Private home/apt. with home health services [facility] [place] 04/12/2023 03:45 pm EST - 04/26/2023 11:39 am EST Immunizations Vaccine Date Influenza Influenza 01/31/2022 12:00 am EDT Pneumococcal Polysaccharide Vaccine (PPS V23) 04/11/2017 12:00 am EST SARS-COV-2 (COVID-19) SARS-COV-2 (COVID-19) 01/23/2021 12:00 a m EDT Prevnar 20 Pneumococcal conjugate (PCV20 ) SARS-COV-2 (COVID-19 BOOSTER) RSV, bivalent, protein subunit RSVpreF, diluent rec Social History
--- OUTSIDE RECORDS SUMMARY | 2024-05-29 13:28 | XMS_ITS | Encounter Summary ---
Author Organization [employer] Address [address] [facility] 7t [place] [address] Care Team Providers Care Industrial Maintenance Electrician Name Role Phone Alea Salinas Primary Care Provider Reason for Visit * Reason Onset Date Comments Durable Medical Equipment 05/26/2024 Encounter Details Date Type Department Care Team ([facility] st Contact Info) Description 05/26/2024 Telephone [facility] CHC MED & PEDS [address] [place] [address] Alea Salinas ANP [address] [place] [address] Durable Medical Equipment Social History Tobacco Use [...] encounter Miscellaneous Notes * Telephone Encounter - Kary Keenan MA - 05/26/2024 9:27 AM EST DME for Diapers/pull ups from [facility] received and is being processed. Placed on provider'sdesk for signature. documented in this encounter Plan of Treatment Upcoming Encounters Date Type Department Care Team (Late st Contact Info) Description 07/13/2024 11:15 AM EDT Office Visit [facility] MEDICINE [address] [place] [address] Alea Salinas ANP [address] [place] [address] documented as of this encounter Visit Diagnoses Not on filedocumented in this encounter Additional Health Concerns Assessment Noted Time PHQ-9 Depression Total Score: 12 024 2:27 PM EDT documented as of this encounter Care Teams Industrial Maintenance Electrician Relationship Specialty Start Date End Date Alea Salinas ANP [address] [place] [address] PCP - General Family Medicine 11/29/20 Rebecca Ayala Team Assembly Line Machine OperatorSintering Press Operator 12/27/23 documented as of this encounter
--- OUTSIDE RECORDS SUMMARY | 2024-05-29 13:28 | XMS_ITS | Encounter Summary ---
Author Organization [employer] Address [address] [facility] 7t [place] [address] Care Team Providers Care Roller Inspector Name Role Phone Salinas Alea MORRELL Primary Care Provider [phone] Encounter Details Date Type Department Care Team (Late st Contact Info) Description 05/27/2024 Orders Only [facility] MEDICINE [address] [place], [place] [phone] Swapna Maya MD [address] [place], [place] [phone] Dysuria (Primary Dx) Social History Tobacco Use Types [...] Description 07/13/2024 11:15 AM EDT Office Visit [facility] MEDICINE [address] [place] [address] Alea Salinas ANP [address] [place] [address] Scheduled Orders Name Type Priority Associated Diagnoses Orde r Schedule Culture, Urine, Routine Microbiology Routine Dysuria Expected: 05/27/2024 (Approximate), Expires: 05/27/2025 Urinalysis Complete Lab Routine Dysuria Expected: 05/27/2024, Expires: 05/27/2025 documented as of this encounter Visit Diagnoses Diagnosis Dysuria- Primary documented in this encounter Additional Health Concerns Assessment Noted Time PHQ-9 Depression Total Score: 12 024 2:27 PM EDT documented as of this encounter Care Teams Roller Inspector Relationship Specialty Start Date End Date Alea Salinas ANP [address] [place] [address] PCP - General Family Medicine 11/29/20 Rebecca Ayala Photographic Plate MakerBenefits Director 12/27/23 documented as of this encounter
--- OUTSIDE RECORDS SUMMARY | 2024-05-29 13:28 | XMS_ITS | Encounter Summary ---
Author Organization [email or web address] [facility] Address [address] [place] [address] 7 [place] [address] Care Team Providers Care Grab Operator Name Role Phone Alea Salinas Primary Care Provider [phone] Encounter Details Date Type Department Care Team (Late st Contact Info) Description 07/09/2022 Orders Only [facility] MEDICINE [address] [place] [address] April Mason LPN Social History Tobacco Use [...] AM EDT Office Visit [facility] MEDICINE [address] [place] [address] Alea Salinas ANP [address] [place] [address] documented as of this encounter Visit Diagnoses Not on filedocumented in this encounter Care Teams Grab Operator Relationship Specialty Start Date End Date Alea Salinas ANP [address] [place] [address] PCP - General Family Medicine 11/29/20 Rebecca Ayala Tiedown OperatorSearch Engine Optimizer 12/27/23 documented as of this encounter
--- OUTSIDE RECORDS SUMMARY | 2024-05-29 13:28 | XMS_ITS | Encounter Summary ---
Author Organization [employer] Address [address] [facility] 7t [place] [address] Care Team Providers Care Claims Collector Name Role Phone Alea Salinas Primary Care Provider Reason for Visit * Reason Onset Date Comments Nurse Triage 05/27/2024 Encounter Details Date Type Department Care Team ([facility] st Contact Info) Description 05/27/2024 Telephone [facility] MEDICINE [address] [place], [place] [phone] Alea Salinas ANP [address] [place] [address] Nurse Triage Social History Tobacco Use Types Packs/Day Years [...] Telephone Encounter - Carey Rubin RN - 05/27/2024 4:26 PM EST Telephone call returned to pt using [facility] gravity prospector Angel #[id number]. Patient reports odor, frequency, incontinence, denies hematuria, severe pain, or burning with urination. Strongly encouraged pt to come to walk in clinic today, explained hours of operation extended and tomorrow, explained importance of pt being seen by provider in person. Pt stated I will try to go but reports severe mobility issues especially with stairs. Spoke with covering provider Dr Maya in office who stated if no severe symptoms, she can order urine sample. Per nursing informatics analyst, pt's family can go to lab topick up container, get pt's sample, and bring it back to [facility] lab. Explained this to pt, family present on phone toward end of call, explained situation with pt's verbal consent. Explained again importance of coming to [facility] is preferred. Explained that pt must seek medical attention if develop fever, severe flank pain, hematuria, family member stated she had some pain 5 days ago but not now. Explained that pt denies hematuria now and repeated symptoms to monitor for. Pt verbalized understanding, in agreement with plan. * Telephone Encounter - Palak Moss RN - 05/27/2024 3:37 PM EST Triage call with [facility] Lao Intertpreter [place] [id number]. Pt reports question of UTI. Symptoms, bad odor, frequency, incontinence and flank pain. Pt is offered to come to [facility] this evening open till 8pm but, reports unable to ambulate. Pt requests that Pt send urine sample in. Daughter will bringto [facility] lab. Pt reports has done this in the past and has some lab cups at home. Pt is advised that filing writer will send this request to PCP and nursing team , to request lab order. Pt agrees with this plan. Protocol Used: Urinary Symptoms (Adult) Protocol-Based Disposition: See in Office or Video Visit Today Video visit not offered Positive Triage Questions: * Side (flank) or lower back pain present * Bad or foul-smelling urine * Urinating more frequently than usual (i.e., frequency) OR new-onset of the feeling of an urgent need to urinate (i.e., urgency) * Can't control passage of urine (i.e., urinary incontinence) and new-onset (< 2 weeks) or getting worse * All higher-acuity triage questions were negative Care Advice Discussed: * Reasons To Call Back - Fever occurs - Pain or burning with urination - You become worse * Reasons To Call Back - Fever occurs - Pain or burning with urination - Unable to urinate and bladder feels full - You become worse * Telephone Encounter - Nya Mckeon - 05/27/2024 3:13 PM EST Symptom: Urine Symptoms Outcome: Schedule a same-day appointment or talk to a nurse or provider today Reason: Caller denied all higher acuity questions The caller accepted this outcome. Contact pt at [phone] (yoruba) documented in this encounter Plan of Treatment Upcoming Encounters Date Type Department Care Team (Late st Contact Info) Description 07/13/2024 11:15 AM EDT Office Visit [facility] MEDICINE [address] [place] [address] Alea Salinas ANP [address] [place] [address] documented as of this encounter Visit Diagnoses Not on filedocumented in this encounter Additional Health Concerns Assessment Noted Time PHQ-9 Depression Total Score: 12 024 2:27 PM EDT documented as of this encounter Care Teams Claims Collector Relationship Specialty Start Date End Date Alea Salinas ANP [address] [place] [address] PCP - General Family Medicine 11/29/20 Rebecca Ayala Software EngineerKnocker Out 12/27/23 documented as of this encounter
--- OUTSIDE RECORDS SUMMARY | 2024-05-29 13:28 | XMS_ITS | Encounter Summary ---
Author Organization [employer] Address [address] [facility] [address] 7[address] [place] [address] Care Team Providers Care X Ray Control Equipment Repairer Name Role Phone Alea Salinas PETROS Primary Care Provider [phone] Encounter Details Date Type Department Care Team (Latest Contact Info) Description 05/27/2024 Travel Social History Tobacco Use Types Packs/Day Years [...] Description 07/13/2024 11:15 AM EDT Office Visit [facility] MEDICINE 230 [place] [address] Alea Salinas ANP 230 [place] [address] documented as of this encounter Visit Diagnoses Not on filedocumented in this encounter Additional Health Concerns Assessment Noted Time PHQ-9 Depression Total Score: 12 024 2:27 PM EDT documented as of this encounter Care Teams X Ray Control Equipment Repairer Relationship Specialty Start Date End Date Alea Salinas ANP [address] [place] [address] PCP - General Family Medicine 11/29/20 Rebecca Ayala Support EngineerElectrical Accessories Ii Assembler 12/27/23 documented as of this encounter
--- OUTSIDE RECORDS SUMMARY | 2024-05-29 13:28 | XMS_ITS | Encounter Summary ---
Author Organization [employer] Address [address] [facility] 7t [place] [address] Care Team Providers Care Hand Packer Name Role Phone Alea Salinas Primary Care Provider [phone] Reason for Visit * Reason Comments Med Refill Encounter Details Date Type Department Care Team ([facility] st Contact Info) Description 04/28/2024 Refill [facility] MEDICINE 230 [place], [place] [phone] Alea Salinas ANP 230 [place], [place] [phone] Constipation, unspecified constipation type Social History Tobacco Use Types Packs/Day Years [...] Description 07/13/2024 11:15 AM EDT Office Visit [facility] MEDICINE [address] [place] [address] Alea Salinas ANP 230 [place] [address] documented as of this encounter Visit Diagnoses Diagnosis Constipation, unspecified constipation type documented in this encounter Additional Health Concerns Assessment Noted Time PHQ-9 Depression Total Score: 12 024 2:27 PM EDT documented as of this encounter Care Teams Hand Packer Relationship Specialty Start Date End Date Alea Salinas ANP [address] [place] [address] PCP - General Family Medicine 11/29/20 Rebecca Ayala System Software ProgrammerHealthcare Educator 12/27/23 documented as of this encounter
--- OUTSIDE RECORDS SUMMARY | 2024-05-29 13:28 | XMS_ITS | Encounter Summary ---
Author Organization [employer] [facility] Address [address] [place] [address] [address], [place] [address] Care Team Providers Care Dry Roaster Name Role Phone Alea Salinas Primary Care Provider [phone] Reason for Visit * Reason Comments Med Refill Encounter Details Date Type Department Care Team (Late st Contact Info) Description 12/19/[address] [facility] MEDICINE [address] [place] [phone] Alea Salinas ANP [address] [place], [place] [phone] Essential hypertension Social History Tobacco Use Types Packs/Day Years [...] Description 07/13/2024 11:15 AM EDT Office Visit [facility] MEDICINE [address] [place] [phone] Alea Salinas ANP [address] [place], [place] [phone] documented as of this encounter Visit Diagnoses Diagnosis Essential hypertension Unspecified essential hypertension documented in this encounter Care Teams Dry Roaster Relationship Specialty Start Date End Date Alea Salinas ANP [address] [place] [address] PCP - General Family Medicine 11/29/20 Rebecca Ayala Breaking Machine OperatorSignal Repairer 12/27/23 documented as of this encounter
--- OUTSIDE RECORDS SUMMARY | 2024-05-29 13:28 | XMS_ITS | Encounter Summary ---
Author Organization [employer] Address [address] [facility] 7t [place] [address] Care Team Providers Care Advertising Associate Name Role Phone Alea Salinas Primary Care Provider [phone] Reason for Visit * Reason Comments Med Refill Encounter Details Date Type Department Care Team ([facility] st Contact Info) Description 05/21/2024 Refill [facility] CHC MED & PEDS [address] [place], [place] [phone] Alea Salinas ANP [address] [place] [address] Anxiety Social History Tobacco Use Types Packs/Day Years [...] Description 07/13/2024 11:15 AM EDT Office Visit [facility] MEDICINE 230 [place] [address] Alea Salinas ANP [address] [place] [address] documented as of this encounter Visit Diagnoses Diagnosis Anxiety Anxiety state, unspecified documented in this encounter Additional Health Concerns Assessment Noted Time PHQ-9 Depression Total Score: 12 024 2:27 PM EDT documented as of this encounter Care Teams Advertising Associate Relationship Specialty Start Date End Date Alea Salinas ANP [address] [place] [address] PCP - General Family Medicine 11/29/20 Rebecca Ayala Vegetable WasherUtilization Supervisor 12/27/23 documented as of this encounter
--- OUTSIDE RECORDS SUMMARY | 2024-05-29 13:28 | XMS_ITS | Encounter Summary ---
Author Organization [employer] Address [address] [place] [address] 7t [place] [address] Care Team Providers Care Accounting Instructor Name Role Phone Alea Salinas Primary Care Provider [phone] Reason for Visit * Reason Onset Date Comments [facility] [employer] 05/06/2024 U nderpad, incont procare 21x36, underpad, reusable 34''36'' Encounter Details Date Type Department Care Team (Late st Contact Info) Description 05/06/2024 Telephone [facility] MEDICINE [address] [place] [address] Alea Salinas ANP [address] [place] [address] [facility] [employer] (Underpad, incont procare 21x36, underpad, reusable 34''36'') Social History Tobacco Use Types Packs/Day Years [...] encounter Miscellaneous Notes * Telephone Encounter - Nedra Patel - 05/13/2024 1:54 PM EST [facility] prescription and medical necessity review form for Absorbant products for disposable andReusable underpads/bedpads signed and faxed to [facility] . Confirmation received and sent to scan. If patient calls to check status on above, please advise them to contact [facility] at [phone]. * Telephone Encounter - Norris Jimenez MA - 05/06/2024 10:43 AM EST Received medical necessity form frm [facility] for underpad, incont procare, and underpad, reusable. Form has been filled out and placed on PCP's desk for signature. documented in this encounter Plan of Treatment Upcoming Encounters Date Type Department Care Team (Late st Contact Info) Description 07/13/2024 11:15 AM EDT Office Visit [facility] MEDICINE [address] [place] [address] Alea Salinas ANP [address] [place] [address] documented as of this encounter Visit Diagnoses Not on filedocumented in this encounter Additional Health Concerns Assessment Noted Time PHQ-9 Depression Total Score: 12 024 2:27 PM EDT documented as of this encounter Care Teams Accounting Instructor Relationship Specialty Start Date End Date Alea Salinas ANP [address] [place] [address] PCP - General Family Medicine 11/29/20 Rebecca Ayala Computer Systems Technology InstructorEgg Setter 12/27/23 documented as of this encounter
--- OUTSIDE RECORDS SUMMARY | 2024-05-29 13:28 | XMS_ITS | Encounter Summary ---
Author Organization [employer] Address [address] [facility] 7t [place] [address] Care Team Providers Care Ammonia Still Operator Name Role Phone Brad Alea MORRELL Primary Care Provider [phone] Encounter Details Date Type Department Care Team (Late st Contact Info) Description 05/27/2024 2:45 PM EST Office Visit [facility] OPTOMETRY [address] [place] [address] Donn, Kim, OD [address] [place] [address] Regular astigmatism, bilateral (Primary Dx) Social History Tobacco Use Types [...] Progress Notes * Kim Pop OD - 05/27/2024 2:45 PM EST MH glasses were dispensed, 1 of 2. documented in this encounter Plan of Treatment Upcoming Encounters Date Type Department Care Team (Late st Contact Info) Description 07/13/2024 11:15 AM EDT Office Visit [facility] MEDICINE 230 [place] [address] Alea Salinas ANP [address] [place] [address] documented as of this encounter Visit Diagnoses Diagnosis Regular astigmatism, bilateral- Primary documented in this encounter Additional Health Concerns Assessment Noted Time PHQ-9 Depression Total Score: 12 024 2:27 PM EDT documented as of this encounter Care Teams Ammonia Still Operator Relationship Specialty Start Date End Date Alea Salinas ANP [address] [place] [address] PCP - General Family Medicine 11/29/20 Rebecca Ayala Audit InternParenting Skills Instructor 12/27/23 documented as of this encounter
--- OUTSIDE RECORDS SUMMARY | 2024-05-29 13:29 | XMS_ITS | Encounter Summary ---
Author Organization [employer] Address [address] [facility] 7t [place] [address] Care Team Providers Care Healthcare Economics Consultant Name Role Phone Alea Salinas Primary Care Provider [phone] Reason for Visit * Reason Onset Date Comments Hospital Follow-up 05/09/2023 Encounter Details Date Type Department Care Team ([facility] Contact Info) Description 05/09/2023 Telephone [facility] MEDICINE 230 [place], [place] [phone] Alea Salinas ANP [address] [place], [place] [phone] Hospital Follow-up Social History Tobacco Use Types Packs/Day Years [...] encounter Miscellaneous Notes * Telephone Encounter - Vahid Rod - 05/09/2023 3:03 PM EST Tc from pt requesting to r/s HDF appt scheduled for 05/10/23 , pt is requesting a afternoon appt if possible. Please contact at [phone] documented in this encounter Plan of Treatment Upcoming Encounters Date Type Department Care Team (Late st Contact Info) Description 07/13/2024 11:15 AM EDT Office Visit [facility] MEDICINE [address] [place] [address] Alea Salinas ANP [address] [place] [address] documented as of this encounter Visit Diagnoses Not on filedocumented in this encounter Additional Health Concerns Assessment Noted Time PHQ-9 Depression Total Score: 16 023 2:42 PM EDT documented as of this encounter Care Teams Healthcare Economics Consultant Relationship Specialty Start Date End Date Alea Salinas ANP [address] [place] [address] PCP - General Family Medicine 11/29/20 Rebecca Ayala Dba DeveloperBuilding Construction Estimator 12/27/23 documented as of this encounter
--- OUTSIDE RECORDS SUMMARY | 2024-05-29 13:29 | XMS_ITS | Encounter Summary ---
Author Organization [facility] Address [address] [place] [address] 7 [place] [address] Care Team Providers Care Supervisor Color Making Name Role Phone Alea Salinas Primary Care Provider [phone] Encounter Details Date Type Department Care Team (Late st Contact Info) Description 04/11/2022 Orders Only [facility] CHC MED & PEDS [address] [place], [place] [phone] Loretta Cuello LPN Social History Tobacco Use [...] Description 07/13/2024 11:15 AM EDT Office Visit [facility] MEDICINE [address] [place] [address] Alea Salinas ANP [address] [place] [address] documented as of this encounter Visit Diagnoses Not on filedocumented in this encounter Care Teams Supervisor Color Making Relationship Specialty Start Date End Date Alea Salinas ANP [address] [place] [address] PCP - General Family Medicine 11/29/20 Rebecca Ayala Business Records ManagerRiveter Helper 12/27/23 documented as of this encounter
--- OUTSIDE RECORDS SUMMARY | 2024-05-29 13:29 | XMS_ITS | Encounter Summary ---
Author Organization [employer] Address [address] [facility] 7[address] [place] [address] Care Team Providers Care Dispatcher Bus And Trolley Name Role Phone Alea Salinas Primary Care Provider [phone] Reason for Visit * Reason Onset Date Comments Nurse Triage 05/31/2023 Encounter Details Date Type Department Care Team ([facility] st Contact Info) Description 05/31/2023 Telephone [facility] MEDICINE [address] [place], [place] [phone] Alea Salinas ANP [address] [place] [address] Nurse Triage Social History Tobacco Use Types Packs/Day Years Used Date Smoking Tobacco: Never Smokeless Tobacco: Never Alcohol Use Standard Drinks/Week Comments Not Currently 0 (1 standard drink = 0.6 oz pur e alcohol) Depression Answer Date Recorded Patient Health Questionnaire-9 Score 16 02/08/2023 Patient Health Questionnaire-9 Score 16 02/08/2023 Last PHQ-9: Questionnaire Data Not on file 1 04/10/2022 Housing Stability Answer Date Recorded What is [...] Answer Date Recorded Patient Health Questionnaire-2 Score 5 02/08/2023 Comments Unknown Sex and Gender Information Value Date Recorded Sex Assigned at Female 02/05/2022 10:15 AM EDT Legal Sex Female 10:15 AM EDT Gender Identity Female 02/05/2022 10:15 AM EDT Sexual Orientation Straight 02/05/2022 10 :15 AM EDT documented as of this encounter Miscellaneous Notes * Telephone Encounter - Marsha Diop RN - 05/31/2023 12:15 PM EST Called pt. Via [employer] tank filler [id number] Lee [place]. No answer. Stoker Installation Mechanic left message for pt. To call back [facility] triage nurses at [phone]. RE: Positive Covid, sore throat fever. Stoker Installation Mechanic called pt. Back. Pt sounds weak to triager. Pt. States that she was sleeping. Pt. States she does not have Covid. Pt states she called office because her leg is hurting. Pt states her left knee has been hurting x 2 weeks. Pt. Has been taking Ibuprofen without much relief. Pt states she can bear weight but has to slide leg to walk. I offered Uber to pick and shovel man pt. For in office appt. And pt declines stating that she cannot bend leg because of something she had done to leg. I asked pt. If she had any recent surgery on leg and she states no. I asked pt. If she has any redness along leg or a lump and she states no. Pt. Is talking very low and slow (mumbling). I asked pt. If she took any other pain medications besides Ibuprofen and she states no. Pt. Said she is talking like this because she is tired and in pain in her left knee. I asked pt. To try to sit up and drink some water andget more alert so that when provider calls she can be more clear with her symptoms. Protocol Used: Knee Pain (Adult) Protocol-Based Disposition: See in Office or Video Visit Today- Pt. Declines- given televisit at 115pm with PCP Positive Triage Question: * Severe pain (e.g., excruciating, unable to walk) * All higher-acuity triage questions were negative Care Advice Discussed: * Reassurance and Education - Knee Pain * Pain Medicines * Telephone Encounter - Denise Tellez - 05/31/2023 12:09 PM EST Symptoms: Sore Throat, Cough, Fever, COVID-19 Suspected Outcome: Schedule a same-day appointment or talk to a nurse or provider today Reason: Covid positive The caller accepted this outcome Nigerian speaker documented in this encounter Plan of Treatment Upcoming Encounters Date Type Department Care Team (Late st Contact Info) Description 07/13/2024 11:15 AM EDT Office Visit [facility] MEDICINE [address] [place] [address] Alea Salinas ANP [address] [place] [address] documented as of this encounter Visit Diagnoses Not on filedocumented in this encounter Additional Health Concerns Assessment Noted Time PHQ-9 Depression Total Score: 16 023 2:42 PM EDT documented as of this encounter Care Teams Dispatcher Bus And Trolley Relationship Specialty Start Date End Date Alea Salinas ANP [address] [place] [address] PCP - General Family Medicine 11/29/20 Rebecca Ayala Security Incident Response SpecialistClerical Dentist Assistant 12/27/23 documented as of this encounter
[2024-05-29 16:59] LABS: Appearance Urine Turbid; Color Urine Yellow; Glucose Urine UA Negative (Negative); Leukocyte Esterase Urine Negative (Negative); Nitrite Urine Negative (Negative); Urine Blood Negative (Negative); Urine Ketones Negative (Negative); Urine Protein Negative (Neg-Trace)
[2024-05-29 17:15] LABS: Bacteria Urine None Seen (None Seen); Calcium Oxalate Crystals Urine Present; Hyaline Casts Urine 0-2 /LPF (0-2); Other Crystals Urine Present; RBC Urine 0-2 /HPF (0-2); Squamous Epithelial Cell Urine 0-2 /HPF (0-2); WBC Urine 0-5 /HPF (0-5)
== END 2024-05-29 12:59 | disposition home or self-care (01) ==
LOC: HO.HHCL 12:58
PROVIDERS: Visit Provider Family Medicine
DX: R30.0 Dysuria (principal)
CPT/HCPCS: 81001; 87086

== ENCOUNTER 2024-07-08 00:51 | Inpatient (IN) | payer MEDICAID, SELFPAY ==
[2024-07-08] VITALS (19 sets, daily range): BP systolic 115–184; BP diastolic 40–110; PULSE 84–107; RESP 14–35; TEMP 36.4–37; O2SAT 86–99; BMI 81.7
--- NOTE | ~2024-07-08 | XR_ITS ---
CLINICAL HISTORY: Shortness a breath? Pneumonia 1 view chest x-ray Comparison: CR/SR - XR CHEST 1V - 03/02/23 16:52 EST Findings: Exam limited by patient body habitus. No consolidation or effusion. Mild enlargement of the cardiac silhouette. No acute fracture. IMPRESSION: 1. No acute findings. This document has been electronically signed by: Jam Lagunas MD, PHD on 07/08/2024 02:41:23
--- NOTE | 2024-07-08 01:06 | ECG_ITS ---
Test Reason : cp Blood Pressure : */* mmHG Vent. Rate : 95 BPM Atrial Rate : 95 BPM P-R Int : 138 ms QRS Dur : 84 ms QT Int : 358 ms P-R-T Axes : 51 5 56 degrees QTcB Int : 449 ms Normal sinus rhythm Normal ECG When compared with ECG of 19-Feb-2024 00:13, No significant change was found Referred By: Generic ED Physician Electronically Signed By: DANIELLE MAYES
--- NOTE | 2024-07-08 01:10 | ED_ITS ---
HPI - SOB/Dyspnea General Chief Complaint: Dyspnea Stated Complaint: SOB & CP x1 week NSR, O2 given Time Seen by Provider: 07/08/24 01:09 Source: patient Mode of arrival: ambulatory Limitations: no limitations History of Present Illness ED Provider: HPI Narrative: Patient is 59 years old with history of KENZIE, diabetes, hypotension, morbid obesity, asthma, chronic lower extremity edema with recurrent cellulitis comes here for increased shortness a breath and chest tightness for last 1 week patient has been coughing up mucopurulent phlegm no high-grade fever patient has tried nebulizing treatment at home without much relief Related Data Home Medications ?Medication ?Instructions ?Recorded ?Confirmed albuterol sulfate 0.63 mg/3 mL 1 amp inhalation Q4-6H PRN wheezing 08/23/21 04/04/23 solution for nebulization albuterol sulfate 90 mcg/actuation 2 puff PO Q4-6H PRN Wheezing 08/23/21 04/04/23 aerosol inhaler (ProAir HFA) amlodipine 5 mg tablet 1 tab PO DAILY@1200 08/23/21 04/04/23 atenolol 100 mg tablet 100 mg PO DAILY 08/23/21 04/04/23 atorvastatin 80 mg tablet 1 tab PO DAILY 08/23/21 04/04/23 budesonide-formoterol HFA 160 2 puff inhalation BID 08/23/21 04/04/23 mcg-4.5 mcg/actuation aerosol inhaler (Symbicort) bupropion HCl 150 mg 24 hr tablet, 1 tab PO DAILY 08/23/21 04/04/23 extended release bupropion HCl 300 mg 24 hr tablet, 1 tab PO BEDTIME 08/23/21 04/04/23 extended release cholecalciferol (vitamin D3) 50 2 cap PO DAILY 08/23/21 04/04/23 mcg (2,000 unit) capsule furosemide 40 mg tablet 40 mg PO BID@0900,1200 08/23/21 04/04/23 hydralazine 25 mg tablet 1 tab PO BIDWM 08/23/21 04/04/23 lanolin alcohols-mineral 1 appl topical BID PRN Dry Skin 08/23/21 04/04/23 oil-w.petrolatum-ceresin topical cream (Minerin Creme topical) losartan 50 mg tablet 1 tab PO BEDTIME 08/23/21 04/04/23 paroxetine HCl 10 mg tablet 1 tab PO DAILY 08/23/21 04/04/23 paroxetine HCl 40 mg tablet 1 tab PO DAILY 08/23/21 04/04/23 topiramate 100 mg tablet 1 tab PO BID@0900,1800 08/23/21 04/04/23 topiramate 200 mg tablet 1 tab PO BEDTIME 08/23/21 04/04/23 buspirone 10 mg tablet 10 mg PO BEDTIME 10/09/22 04/04/23 dulaglutide 1.5 mg/0.5 mL 1.5 mg subcut TH@0900 04/04/23 04/04/23 subcutaneous pen injector (Trulicity) sennosides 8.6 mg-docusate sodium 1 tab PO DAILY 04/04/23 04/04/23 50 mg tablet (Stimulant Laxative Plus) Previous Rx's ?Medication ?Instructions ?Recorded linezolid 600 mg tablet 600 mg PO Q12H #14 tabs 04/11/23 cephalexin 500 mg capsule 500 mg PO QID 10 days #40 caps 10/14/23 ketoconazole 2 % topical cream 1 appl topical BID #60 grams 10/14/23 amoxicillin 875 mg-potassium 1 tab PO BID 10 days #20 tabs 02/19/24 clavulanate 125 mg tablet azithromycin 250 mg tablet See Rx Instructions PO .COMPLEX #6 02/19/24 tabs Allergies Allergy/AdvReac Type Severity Reaction Status Date / Time No Known Allergies Allergy Verified 07/08/24 01:15 Review of Systems 2 Review of Systems: Yes all other systems are reviewed and are negative [facility] Past Medical History Medical History Asthma HTN (hypertension) Diabetes KENZIE (obstructive sleep apnea) Morbid obesity Asthma Surgical History Hx of cholecystectomy Hx of hernia repair Hx of tubal ligation Family History Family History Daughter No problems noted. Daughter No problems noted. Daughter No problems noted. Daughter No problems noted. Daughter No problems noted. Son No problems noted. Mother HTN (hypertension) Uterus cancer Sister Colon cancer Social History Social History Household Members: Children Housing: Apartment Alcohol intake: never Patient Tobacco Use Status: Never used Tobacco Smoked in Last 30 Days: No Use of substances other than those prescribed or required for medical reasons: No Advance Directives: No Advance Directives Information Provided: Yes Do you have a plan to hurt others: No Plan Patient : No service: No Current occupational status: unemployed Physical Exam 2 Vital Signs: Vital Signs: Last Vital Signs Temp 98.0 F 07/08/24 05:52 Pulse 105 H 07/08/24 05:52 Resp 20 07/08/24 05:52 BP 149/56 H 07/08/24 05:52 Pulse Ox 97 07/08/24 05:52 O2 Del Method Nasal Cannula wit h Capnography 07/08/24 05:52 O2 Flow Rate 2 07/08/24 05:52 Oxygen Flow Rate 2 07/08/24 01:11 BMI result Body Mass Index 81.7 Appearance: Alert. Oriented X3. Obese wheezes++ Eyes: PERRLA, No Nystagmus ENT: Pharynx normal. Oral Mucosa moist Neck: Normal inspection. Neck supple. CVS: Normal heart rate and rhythm. Pulses normal. Respiratory: Mode respiratory distress. Equal air entry bilateral, bilateral wheezing Abdomen: Soft and nontender. Bowel sounds are present, no mass palpable, no CVA tenderness Skin: Skin warm and dry. Normal skin color. Normal skin turgor. Extremities: Nonpitting bilateral lower extremity edema. No calf tenderness Neuro: Oriented X 3. No motor deficit. No sensory deficit.No cerebellar signs , cranial nerves II-XII intact Medications Administered Discontinued Medications Generic Name Dose Route Start Last Admin Trade Name Freq PRN Reason Stop Dose Admin Albuterol Sulfate 7.5 mg/ 10 mg 07/08/24 01:23 07/08/24 01:28 Albuterol Sulfate 2.5 mg INHALE 07/08/24 01:24 10 mg ONCE ONE Administration Albuterol Sulfate 7.5 mg/ 10 mg 07/08/24 05:10 07/08/24 05:15 Albuterol Sulfate 2.5 mg INHALE 07/08/24 05:11 10 mg ONCE ONE Administration Methylprednisolone Sodium Succinate 125 mg 07/08/24 01:16 07/08/24 01:52 Methylprednisolone Sod Succ 125 Mg/2 Ml Vial IVPUSH 07/08/24 01:17 125 mg ONCE ONE Administration Medical Decision Making Medical Decision Making [facility] Narrative: Patient is 59 years old with history of KENZIE, diabetes, hypotension, morbid obesity, asthma, chronic lower extremity edema with recurrent cellulitis comes here for increased shortness of breath and chest tightness for last 1 week workup showed she is COVID positive saturating 89% at room patient does not have oxygen at home does not use any CPAP machine will admit patient for hypoxia with COVID Patient does not have any CPAP machine at home and does not have any official oxygen uses her son's oxygen 1-2 L/min. Patient did desaturate to 84% at room. Will admit patient for COVID with hypoxia with asthma Patient is placed on CPAP machine for short time for pCO2 of 57 and pH of 7.31 patient has refused BiPAP machine in the ER hospitalist aware Differential Diagnosis Differential Diagnoses: The differential diagnosis associated with the presentation includes Admission/Observation Consideration of admission/observation: Escalation of care including admission/observation considered Consult Healthcare Provider Management of the patient was discussed with: Hospitalist Lab Data [facility] Lab Attestation statement: I reviewed the patient's lab results. 07/08/24 02:50 07/08/24 02:50 Labs: Lab Results 07/08/24 07/08/24 07/08/24 Range/Units 01:55 02:50 02:53 WBC 6.5 (4.8-10.8) X10*3/uL RBC 3.96 L (4.20-5.50) X10*6/uL Hgb 11.2 L (12.0-16.0) g/dl Hct 38.1 (37.0-47.0) % MCV 96.2 (80.0-98.0) fL MCH 28.3 (27.0-33.0) pg MCHC 29.4 L (31.0-35.0) g/dl RDW 15.2 (11.0-16.0) % Plt Count 162 (160-400) X10*3/uL MPV 12.3 (9.4-12.3) fL Immature Gran % (Auto) 0.5 H (0.0-0.4) % Neut % (Auto) 61.0 (45-73) % Lymph % (Auto) 32.6 (20-40) % Morris % (Auto) 5.9 (2-11) % Eos % (Auto) 0.0 (0-4) % Baso % (Auto) 0.0 (0-2) % Lymph # (Auto) 2.1 (1.2-4.9) X10*3/uL Morris # (Auto) 0.4 (0.1-1.2) X10*3/uL Eos # (Auto) 0.0 (0.0-0.4) X10*3/uL Baso # (Auto) 0.0 (0.0-0.2) X10*3/uL Abs Immat Gran (auto) 0.03 (0.00-0.03) X10*3/uL Absolute Neuts (auto) 4.0 (2.0-8.3) x10*3/uL Absolute Nucleated RBC 0.000 (0.0-0.012) X10*3/uL Nucleated RBC % (auto) 0.0 (0.0-0.2) /100WBC VBG pH 7.31 L (7.32-7.43) VBG pCO2 57 mmHg VBG pO2 35 mmHg VBG HCO3 29 H (22-26) mmol/L VBG O2 Saturation 56.0 % VBG Base Excess 2.3 mmol/L Sodium 144 (135-145) mmol/L Potassium 4.1 (3.3-5.1) mmol/L Chloride 107 (96-108) mmol/L Carbon Dioxide 26 (22-29) mmol/L Anion Gap 15 (12-20) BUN 11 (9-16) mg/dL Creatinine 0.82 (0.5-1.4) mg/dL Estim Creat Clear Calc 135.9 Estimated GFR > 60 Random Glucose 92 (60-115) mg/dL Calcium 9.2 (8.4-10.2) mg/dL Total Bilirubin 0.3 (0.0-1.0) mg/dL AST 18 (5-31) U/L ALT 10 (0-31) U/L Alkaline Phosphatase 83 (39-117) U/L Troponin I High Sens 8.1 D (<3.5-17.0) ng/L B-Natriuretic Peptide 41 (<100) pg/mL Total Protein 7.7 (6.5-8.0) g/dL Albumin 3.7 (3.5-5.0) g/dL Influenza Type A (PCR) NEGATIVE (Negative) Influenza Type B (PCR) NEGATIVE (Negative) RSV RNA Qual (PCR) NEGATIVE (Negative) SARS-CoV-2 RNA (RT-PCR) POSITIVE A (Negative) Independent Interpretation I performed an independent interpretation of an: EKG and Plain X-Ray Interpretation: Normal sinus rhythm heart rate 95 beats per minute normal intervals normal axis no acute STT wave changes no acute ischemia Radiology Impression Discussion of test interpretation with radiology: I have reviewed the radiologist's reading. Radiologist Impression: CLINICAL HISTORY: Shortness a breath? Pneumonia 1 view chest x-ray Comparison: CR/SR - XR CHEST 1V - 03/02/23 16:52 EST Findings: Exam limited by patient body habitus. No consolidation or effusion. Mild enlargement of the cardiac silhouette. No acute fracture. IMPRESSION: 1. No acute findings. This document has been electronically signed by: Jam Lagunas MD, PHD on 07/08/2024 02:41:23 Discharge Plan Discharge Clinical Impression: COVID-19, Asthma, Acute hypoxemic respiratory failure Patient Disposition: Admitted As Inpatient Print Language: Niuean
[2024-07-08] MEDS: Albuterol Sulfate 7.5 MG, Albuterol Sulfate (0.083%) 2.5 MG 10 MG INHALE ×2 (01:28→05:15)
--- NOTE | 2024-07-08 01:39 | PC.NURSE ---
Unsucessful attempt at obtaining an IV line. A different nurse will attempt.
[2024-07-08] MEDS: methylPREDNISolone Sod Succ 125 MG/2 ML VIAL IVPUSH (01:52)
--- OUTSIDE RECORDS SUMMARY | 2024-07-08 02:38 | XMS_ITS | Encounter Summary ---
Author Organization [employer] Address [address] [facility] 7[address] [place] [address] Care Team Providers Care Vaccine Customer Representative Name Role Phone Alea Salinas Primary Care Provider [phone] Reason for Visit * Reason Onset Date Comments Nurse Triage 05/31/2023 Encounter Details Date Type Department Care Team ([facility] st Contact Info) Description 05/31/2023 Telephone [facility] MEDICINE [address] [place], [place] [phone] Alea Salinas ANP [address] [place] [address] Nurse Triage Social History Tobacco Use Types [...] 05/31/2023 12:15 PM EST Called pt. Via [employer] cabinet abrasive sandblaster [id number] [place]. No answer. Volleyball Commentator left message for pt. To call back [facility] triage nurses at [phone]. RE: Positive Covid, sore throat fever. Volleyball Commentator called pt. Back. Pt sounds weak to [...] leg to walk. I offered Uber to slat pickler pt. For in office appt. And pt [...] Covid positive The caller accepted this outcome Turkish speaker documented in this encounter Plan of Treatment Upcoming Encounters Date Type Department Care Team (Late st Contact Info) Description 07/13/2024 11:15 AM EDT Office Visit [facility] MEDICINE [address] [place] [address] Alea Salinas ANP [address] [place] [address] documented as of this encounter Visit Diagnoses Not on filedocumented in this encounter Additional Health Concerns Assessment Noted Time PHQ-9 Depression Total Score: 16 023 2:42 PM EDT documented as of this encounter Care Teams Vaccine Customer Representative Relationship Specialty Start Date End Date Alea Salinas ANP [address] [place] [address] PCP - General Family Medicine 11/29/20 Rebecca Ayala Elevator Repairer ApprenticeSurveyor Geodetic 12/27/23 documented as of this encounter
--- OUTSIDE RECORDS SUMMARY | 2024-07-08 02:38 | XMS_ITS | Encounter Summary ---
Author Organization [employer] [facility] Address [address] [place] [address] [address] [place] [address] Care Team Providers Care Demand Planner Name Role Phone Alea Salinas Primary Care Provider [phone] Reason for Visit * Reason Comments Med Refill Encounter Details Date Type Department Care Team (Late Contact Info) Description 01/01/2023 Refill [facility] [address] [place], [place] [phone] Alea Salinas ANP [address] [place], [place] [phone] Hyperlipidemia LDL goal <130 Social History Tobacco [...] Description 07/13/2024 11:15 AM EDT Office Visit [facility] MEDICINE [address] [place], [place] [phone] Alea Salinas ANP [address] [place], [place] [phone] documented as of this encounter Visit Diagnoses Diagnosis Hyperlipidemia LDL goal <130 Other and unspecified hyperlipidemia documented in this encounter Care Teams Demand Planner Relationship Specialty Start Date End Date Alea Salinas ANP [address] [place] [address] PCP - General Family Medicine 11/29/20 Rebecca Ayala Colorist FormulatorStuffing Machine Operator 12/27/23 documented as of this encounter
--- OUTSIDE RECORDS SUMMARY | 2024-07-08 02:38 | XMS_ITS ---
Author Organization [facility] on Care Team Providers Care Poison Information Specialist Name Role Phone Lucero Sy Unavailable Unavailable Valentina Arredondo Unavailable Unavailable Laura Gupta Unavailable Unavailable Jordana Huang Unavailable Unavailable David Monzon Unavailable Unavailable Yanely Alfred Unavailable Unavailable Allergies and adverse reactions No Known Allergies Care Team Name Role Address Phone Organization Dates Valentina Arredondo PCP [address] [place] [address], [address], [place] (Office): : [facility] 04/12/2023 - 04/26/2023 Lucero Sy Attending Physician [address] [place], [address], [place] (Office): [facility] 04/12/2023 - 04/26/2023 Laura Gupta Attending Physician [address] [place], [address], [place] (Office): [facility] 04/12/2023 - 04/26/2023 Jordana Huang Attending Physician [address] [place], [address], [place] (Office): [facility] 04/12/2023 - 04/26/2023 David Monzon Attending Physician [address] [place], [address], [place] (Office): [facility] 04/12/2023 - 04/26/2023 Yanely Alfred Attending Physician [address] [place], [address], [place] (Office): : [facility] 04/12/2023 - 04/26/2023 Immunizations Immunization Status Vaccine Details Vaccine Code CodeSystem Date Notes Influenza cancelled Influenza, split virus, trivalent, injectable, contains preservative 141 CVX created date: 04/15/2023 consent date: 04/15/2023 Educated by Rebecca Renner on 04/15/2023 Influenza completed Influenza, split virus, trivalent, injectable, contains preservative 141 CVX created date: 04/13/2023 administer ed date: 01/31/2022 Pneumococcal Polysaccharide Vaccine (PPSV23) completed pneumococcal polysaccharide vaccine, 23 valent 33 CVX created date: 04/13/2023 administer ed date: 04/11/2017 SARS-COV-2 (COVID-19) normal SARS-COV-2 (COVID-19) vaccine, vector non-replicating, recombinant spike protein-Ad26, preservative free, 0.5 mL 212 CVX created date: 04/13/2023 consent date: 04/12/2023 SARS-COV-2 (COVID-19) completed SARS-COV-2 (COVID-19) vaccine, vector non-replicating, recombinant spike protein-Ad26, preservative free, 0.5 mL Mfg: j&j Step 1 of Multi-step with next step required 212 CVX created date: 04/13/2023 administer ed date: 01/23/2021 Prevnar 20 Pneumococcal conjugate (PCV20) cancelled Pneumococcal conjugate vaccine 20-valent (PCV20), polysaccharide [id number] conjugate, adjuvant, preservative free 216 CVX created date: 04/15/2023 consent date: 04/15/2023 Educated by Rebecca Renner on 04/15/2023 SARS-COV-2 (COVID-19 BOOSTER) cancelled SARS-COV-2 (COVID-19) vaccine, mRNA, spike protein, LNP, preservative free, 25 mcg/0.25 mL dose 311 CVX created date: 04/15/2023 consent date: 04/15/2023 Educated by Rebecca Renner on 04/15/2023 RSV, bivalent, protein subunit RSVpreF, diluent rec cancelled Respiratory syncytial virus (RSV), vaccine, bivalent, protein subunit RSV prefusion F, diluent reconstituted, 0.5 mL, preservative free 305 CVX created date: 04/15/2023 consent date: 04/15/2023 Educated by Rebecca Renner on 04/15/2023 Mental Status Section Date Assessment Total Score Description 04/26/2023 BIMS 15 cognitively int act CAM 0 No delirium ind icated 04/18/2023 BIMS 13 cognitively int act CAM 0 No delirium ind icated Problems Problem # Description Date of onset Resolved Date Code CodeSystem Concern Status 1 CELLULITIS OF RIGHT LOWER LIMB 04/12/[address] active 2 CELLULITIS, UNSPECIFIED 04/12/[address] active 3 DEPRESSION, UNSPECIFIED 04/12/[address] active 4 DIFFICULTY IN WALKING, NOT ELSEWHERE CLASSIFIED 04/12/[address] active 5 DYSPHAGIA, UNSPECIFIED 04/12/[address] active 6 ESSENTIAL (PRIMARY) HYPERTENSION 04/12/[address] active 7 HYPERLIPIDEMIA, UNSPECIFIED 04/12/[address] active 8 MORBID (SEVERE) OBESITY DUE TO EXCESS CALORIES 04/12/[address] active 9 MUSCLE WEAKNESS (GENERALIZED) 04/12/[address] active 10 SLEEP APNEA, UNSPECIFIED 04/12/[address] active 11 TYPE 2 DIABETES MELLITUS WITHOUT COMPLICATIONS 04/12/[address] active 12 UNSPECIFIED ASTHMA WITH (ACUTE) EXACERBATION 04/12/[address] active Reason for Referral No Reasons for Referral Entered Social History Social History Observation Description Start Date End Date Code Code System Current Smoking Status Tobacco smoking consumption unknown 159298376 SNOMED CT Sex Assigned At Female 1965 33996-1 [facility] Vital Signs Code Code System Vitals Name Values and Units Timing Information 89649-8 [facility] Pain Level Value=0.0 04/26/2023 9279-1 [facility] Respiratory Rate Value=19.0 Units=/m in 04/26/2023 8462-4 [facility] Blood Pressure-Diastolic Value=68 Un its=mmHg 04/26/2023 8480-6 [facility] Blood Pressure-Systolic Zfglv=706 Un its=mmHg 04/26/2023 8310-5 [facility] Body Temperature Value=97.5 Units=?? F 04/26/2023 8867-4 [facility] Heart rate Value=88.0 Units=/min 65833-8 [facility] O2 % dC Oximetry Value=96.0 Units= % 04/26/2023 81521-1 [facility] Weight Xfmzc=242.0 Units=Lbs 2339-0 [facility] Blood Sugar Bqefa=673.0 Units=mg/dL 04/17/2023 8302-2 [facility] Height Value=65.0 Units=Inches 04/17/2023
--- OUTSIDE RECORDS SUMMARY | 2024-07-08 02:38 | XMS_ITS | Encounter Summary ---
Author Organization [employer] Address [address] [facility] 7t [place] [address] Care Team Providers Care Printing Estimator Name Role Phone Salinas Alea MORRELL Primary Care Provider [phone] Encounter Details Date Type Department Care Team (Late st Contact Info) Description 05/27/2024 Orders Only [facility] MED[facility]INE [address] [place], [place] [phone] Swapna Maya MD [address] [place], [place] [phone] Dysuria (Primary Dx) Social History Tobacco Use [...] your housing situation today? I have jostin ladnry 02/08/[address] you li [...] 11:15 AM EDT Office Visit [facility] MEDICINE [address] [place], [place] [phone] Alea Salinas ANP [address] [place], [place] [phone] documented as of this encounter Procedures Procedure Name Priority Date/Time Associated Diagnosis Comments URINALYSIS, COMPLETE Routine 05/29/2024 12:15 PM EST Dysuria CULTURE, URINE, ROUTINE Routine 05/29/2024 12:15 PM EST Dysuria documented in this encounter Results * Urinalysis Complete (05/29/2024 12:15 PM EST) Color Urine Yellow [facility] Appearance Urine Turbid [facility] PH 8.0 5.0 - 9.0 [facility] Glucose Urine UA Negative Negative mg/dL [facility] Urine Blood Negative Negative [facility] Specific [place] - Urine 1.020 1.005 - 1.025 [facility] Urine Protein Negative Neg-Trace mg/dL [facility] Urine Ketones Negative Negative mg/dL [facility] Nitrite Urine Negative Negative [facility] Leukocyte Esterase Urine Negative Negative [facility] RBC Urine 0-2 0 - 2 /HPF [facility] Urine WBC 0-5 0 - 5 /HPF [facility] Urine Squamous Epithelial Cell 0-2 0 - 2 /HPF [facility] CALCIUM OXALATE CRYSTAL, UR Present [facility] Other Crystals Urine Present [facility] Urine Bacteria None Seen None Seen [facility] Hyaline Casts, Urine 0-2 0 - 2 /LPF [facility] Urine (Urine, Random) 05/29/2024 12:15 PM EST 05/29/2024 4:36 PM EST us Swapna Maya MD LAB URINE ORDERABLES Final Resul t Performing Organization Address [facility]/ZIP Co de Phone Number [facility] [address] [place] [phone] * Culture, Urine, Routine (05/29/2024 12:15 PM EST) Urine Urine specimen obtained by clean catch procedure / Unknown 05/29/2024 12:15 PM EST 05/29/2024 4:36 PM EST Comment:UACC Narrative [facility] - 05/31/2024 12:08 PM EST Urine Culture Report Result Urine Culture 50,000 to 100,000 cfu/ml Urine Culture Mixed bacterial joao characteristic of Urine Culture urogenital contamination. Specimen Source: Urine clean catch Swapna Maya MD LAB MICROBIOLOGY - GENERAL ORDER SIM Final Result Performing Organization Address [facility] Co de Phone Number [facility] [address] [place] [phone] documented in this encounter Visit Diagnoses Diagnosis Dysuria- Primary documented in this encounter Additional Health Concerns Assessment Noted Time PHQ-9 Depression Total Score: 12 024 2:27 PM EDT documented as of this encounter Care Teams Printing Estimator Relationship Specialty Start Date End Date Alea Salinas ANP [address] [place] [phone] PCP - General Family Medicine 11/29/20 Rebecca Ayala Plant Breeder ScientistIndustrial Equipment Mechanic 12/27/23 documented as of this encounter
--- OUTSIDE RECORDS SUMMARY | 2024-07-08 02:38 | XMS_ITS | Encounter Summary ---
Author Organization [employer] [facility] Address [address] [place] [address] 7 [place] [address] Care Team Providers Care Bone Drier Operator Name Role Phone Alea Salinas Primary Care Provider [phone] Encounter Details Date Type Department Care Team (Late st Contact Info) Description 05/08/2022 Orders Only [facility] CHC MED & PEDS [address] [place], [place] [phone] Loretta Cuello LPN Social History Tobacco Use [...] Description 07/13/2024 11:15 AM EDT Office Visit [facility] MEDICINE [address] [place] [address] Alea Salinas ANP [address] [place] [address] documented as of this encounter Visit Diagnoses Not on filedocumented in this encounter Care Teams Bone Drier Operator Relationship Specialty Start Date End Date Alea Salinas ANP [address] [place] [address] PCP - General Family Medicine 11/29/20 Rebecca Ayala Alternative Energy TechnicianTubing Oiler 12/27/23 documented as of this encounter
--- OUTSIDE RECORDS SUMMARY | 2024-07-08 02:38 | XMS_ITS | Encounter Summary ---
Author Organization [employer] Address [address] [facility] 7t [place] [address] Care Team Providers Care Bank Boss Name Role Phone Alea Salinas Primary Care Provider [phone] Reason for Visit * Reason Comments Pre-visit Planning Pre-visit planning - unable to leave a message, phone number are not working Encounter Details Date Type Department Care Team ([facility] Contact Info) Description 07/03/2024 Patient Outreach [facility] MEDICINE [address] [place] [address] Alea Salinas ANP [address] [place] [address] Pre-visit Planning (Pre-visit planning - unable to leave a message, phone number are not working ) Social History Tobacco Use Types Packs/Day Years [...] as of this encounter Progress Notes * Valerie Harrison - 07/03/2024 9:45 AM EDT ALEJO Vincent placed outbound call to patient to complete pre-visit planning. No answer at this time. Patient name and were not confirmed. CC unable to leave a message, phone number [phone] is not accepting calls at this time and [phone] the service you attempting use has been restricted or is unavailable. documented in this encounter Plan of Treatment Upcoming Encounters Date Type Department Care Team (Late st Contact Info) Description 07/13/2024 11:15 AM EDT Office Visit [facility] MEDICINE [address] [place] [address] Alea Salinas ANP [address] [place] [address] documented as of this encounter Visit Diagnoses Not on filedocumented in this encounter Additional Health Concerns Assessment Noted Time PHQ-9 Depression Total Score: 12 024 2:27 PM EDT documented as of this encounter Care Teams Bank Boss Relationship Specialty Start Date End Date Alea Salinas ANP [address] [place] [address] PCP - General Family Medicine 11/29/20 Rebecca Ayala Handling TechJob Site Supervisor 12/27/23 documented as of this encounter
--- OUTSIDE RECORDS SUMMARY | 2024-07-08 02:38 | XMS_ITS | Encounter Summary ---
Author Organization [facility] Address [address] [place] [address] 7 [place] [address] Care Team Providers Care Weld Inspector Name Role Phone Alea Salinas Primary Care Provider [phone] Encounter Details Date Type Department Care Team (Late st Contact Info) Description 04/11/2022 Orders Only [facility] CHC MED & PEDS [address] [place], [place] [phone] Loretta Cuello LPN Social History Tobacco Use [...] Description 07/13/2024 11:15 AM EDT Office Visit [facility] MEDICINE [address] [place] [address] Alea Salinas ANP [address] [place] [address] documented as of this encounter Visit Diagnoses Not on filedocumented in this encounter Care Teams Weld Inspector Relationship Specialty Start Date End Date Alea Salinas ANP [address] [place] [address] PCP - General Family Medicine 11/29/20 Rebecca Ayala Chicle Grinder FeederGraphic Art Sales Representative 12/27/23 documented as of this encounter
--- OUTSIDE RECORDS SUMMARY | 2024-07-08 02:38 | XMS_ITS | Encounter Summary ---
Author Organization [employer] [facility] Address [address] [place] [address] 7 [place] [address] Care Team Providers Care Broaching Machine Repairer Name Role Phone Alea Salinas Primary Care Provider [phone] Encounter Details Date Type Department Care Team (Late st Contact Info) Description 07/09/2022 Orders Only [facility] MEDICINE [address] [place] [address] April Mason LPN Social History Tobacco Use [...] Description 07/13/2024 11:15 AM EDT Office Visit [facility] MEDICINE [address] [place] [address] Alea Salinas ANP [address] [place] [address] documented as of this encounter Visit Diagnoses Not on filedocumented in this encounter Care Teams Broaching Machine Repairer Relationship Specialty Start Date End Date Alea Salinas ANP [address] [place] [phone] PCP - General Family Medicine 11/29/20 Rebecca Ayala Statistical EngineerSewing Techniques Demonstrator 12/27/23 documented as of this encounter
--- OUTSIDE RECORDS SUMMARY | 2024-07-08 02:38 | XMS_ITS | Clinical Summary ---
Author Organization [employer] Address [address] [place] [address] 7t [place] [address] Care Team Providers Care Shield Runner Name Role Phone Alberto Tejeda PETROS Primary Care Provider [phone] Allergies Active Allergy Reactions Criticality Noted Date [...] needed to chafed areas 454 g 11 024 Active atorvastatin (Lipitor) 80 MG tabletIndication s:Hyperlipidemia [...] 90 tablet 1 024 Active nystatin (Mycostatin) 097652 UNIT/GM powderIndication s:Chafing Apply topically 2 times daily. 60 g 2 024 2024 Active ketoconazole (NIZOral) 2 % creamIndications :Intertrigo Apply to affected areas twice a day 60 g 1 024 Active atenolol (Tenormin) 100 MG tabletIndication [...] EVERY EVENING 90 tablet 1 024 Active D3 Super Strength 50 MCG (1999) capsule TAKE 2 CAPSULES BY MOUTH ONCE [...] solution auto-injectorInd ications:BMI 70 and over, adult ([facility]),Severe obesity (BMI >= 40) ([facility]) Inject 0.5 mL (2.5 mg) under the [...] s:Recurrent major depressive disorder, remission status unspecified ([facility]) TAKE 1 TABLET BY MOUTH EVERY MORNING 90 tablet 1 025 Active Symbicort 160-4.5 MCG/ACT inhalerIndicatio ns:Moderate persistent asthma, uncomplicated INHALE 2 PUFFS BY MOUTH TWICE DAILY IN THE MORNING AND IN THE EVENING, RINSE MOUTH AFTER USING. 10.2 g 2 025 Active Symbicort 160-4.5 MCG/ACT inhalerIndicatio ns:Moderate persistent asthma, uncomplicated INHALE 2 PUFFS BY MOUTH TWICE DAILY IN THE MORNING AND IN THE EVENING. RINSE MOUTH AFTER USING. 10.2 g 2 024 2024 Discontinued Active Problems Problem [...] modifications, diet, he has been seen at [facility] weight reduction program but she quit. I gave her infor re [facility] program instead FU w PCP re semiglutide rx. Discussed re lower calorie intake, increase dietary fiber Depressive disorder 02/11/2012 Noncompliance with treatment 02/11/2012 Hypercholesterolemia 10/08/2011 Hypertension 10/08/2011 Encounters Date Type Department Care Team Description 07/03/2024 Patient Outreach [facility] MEDICINE [address] [place] [address] Alberto Tejeda ANP Pre-visit Planning (Pre-visit planning - unable to leave a message, phone number are not working ) 06/19/2024 Population Health Risk Score [facility] ([facility] Department [address] [place] [phone] Provider, Population Health Generic 06/19/2024 Refill [facility] MED & PEDS [address] [place] [address] Alberto Tejeda ANP Moderate persistent asthma, uncomplicated 05/28/2024 Outside Procedure [facility] [address] [place] [address] Donn, Kim, OD Presbyopia (Primary Dx) 05/27/2024 2:45 PM EST Office Visit [facility] [address] [place] [address] Donn, Kim, OD Regular astigmatism, bilateral (Primary Dx) 05/27/2024 Orders Only [facility] [address] [place] [address] Swapna Maya MD Dysuria (Primary Dx) 05/27/2024 Telephone [facility] [address] [place] [address] Alberto Tejeda ANP Nurse Triage 05/27/2024 Travel 05/27/2024 Refill [facility] PEDS [address] [place] [address] Alberto Tejeda ANP Recurrent major depressive disorder, remission status unspecified ([facility]) 05/26/2024 Telephone [facility] MED & PEDS [address] [place] [address] Alberto Tejeda ANP Durable Medical Equipment 05/21/2024 Refill [facility] MED & PEDS [address] [place] [address] Alberto Tejeda ANP Anxiety 05/20/2024 Telephone [facility] [address] [place] [address] Alberto Tejeda ANP Durable Medical Equipment 05/06/2024 Telephone [facility] [address] [place] [address] Alberto Tejeda ANP [employer] [facility] (Underpad, incont procare 21x36, underpad, reusable 34''36'') 04/28/2024 Refill [facility] [address] [place] [address] Alberto Tejeda ANP Constipation, unspecified constipation type 04/22/2024 Telephone [facility] [address] [place] [address] Alberto Tejeda ANP Durable Medical Equipment 04/17/[address] [address] Alberto Tejeda ANP Nurse Triage 04/16/[address] [address] Alberto Tejeda ANP 04/14/[address] [address] Alberto Tejeda ANP Nurse Triage 04/09/2024 3:15 PM EST Office Visit [facility] [address] [place] [address] Laura Jon, OD Combined forms of age-related cataract of both eyes (Primary Dx); Regular astigmatism, bilateral; Amblyopia, refractive, left; Chorioretinal scar of right eye; Exotropia, alternating 04/09/2024 Travel from Last 3 Months Immunizations Name [...] 11:15 AM EDT Office Visit [facility] [address] [place] [address] Alberto Tejeda, ANP [address] [place] [address] Health Maintenance Due Date Last Done Comments CT Colonography 1966 Colonoscopy 1966 Dental Oral Exam 1966 Dental Prophylaxis 1966 Dental X-Ray: Bitewings 1966 Dental X-Ray: Full Mouth 1966 FIT 1966 HIV Screening 1965 Sigmoidoscopy 1966 Alcohol/Substance Use Screening 1978 Hepatitis C Screening 1984 Zoster Vaccines (1 of 2) 2016 Pneumococcal Vaccine: 50+ Years (2 of 2 - PCV) 04/11/2018 04/11/2017 Mammogram 09/06/2019 09/05/2017 Hepatitis B Vaccines (3 of 3 - 19+ 3-dose series) 11/01/2021 09/06/2021, 05/12/2012 FOBT 11/24/2022 11/24/2021 DTaP/Tdap/Td Vaccines (2 - Td or Tdap) 02/27/2023 02/27/2013 COVID-19 Vaccine (2 - 2023- season) 2023 01/23/2021 Influenza Vaccine (#1) 2023 , 01/18/2021, 04/11/2017, Additional history exists SDOH Screening 03/26/2024 03/26/2023 Depression Monitoring (PHQ-9) 05/30/2024 11/28/2023, 11/28/2023 Colorectal Cancer Screening 11/24/2024 FIT DNA/Cologuard 11/24/2024 11/24/2021 Depression Screening 11/27/2024 11/28/2023, 11/28/19 Tobacco Screening 04/09/2025 04/09/2024 Lipid Panel 06/14/2025 [...] ROUTINE Routine 05/29/2024 12:15 PM EST Dysuria PAP SMEAR Routine 05/09/2023 4:00 PM EST HM FIT DNA/COLOGUARD CANCER SCREENING Routine 11/24/2021 LIPID PANEL, STANDARD Routine 06/14/2020 2:23 PM EST BI MAMMOGRAM SCREENING BILATERAL Routine 09/05/2017 1:00 PM EDT from Last 3 Months or Most Recently Relevant to Health Maintenance Results * Urinalysis Complete (05/29/2024 12:15 PM EST) Color Urine Yellow [facility] Appearance Urine Turbid [facility] PH 8.0 5.0 - 9.0 [facility] Glucose Urine UA Negative Negative mg/dL [facility] Urine Blood Negative Negative [facility] Specific [place] - Urine 1.020 1.005 - 1.025 [facility] Urine Protein Negative Neg-Trace mg/dL [facility] Urine Ketones Negative Negative mg/dL [facility] Nitrite Urine Negative Negative [facility] Leukocyte Esterase Urine Negative Negative [facility] RBC Urine 0-2 0 - 2 /HPF [facility] Urine WBC 0-5 0 - 5 /HPF [facility] Urine Squamous Epithelial Cell 0-2 0 - 2 /HPF [facility] CALCIUM OXALATE CRYSTAL, UR Present [facility] Other Crystals Urine Present [facility] Urine Bacteria None Seen None Seen [facility] Hyaline Casts, Urine 0-2 0 - 2 /LPF [facility] Urine (Urine, Random) 05/29/2024 12:15 PM EST 05/29/2024 4:36 PM EST Swapna Maya MD LAB URINE ORDERABLES Final Resul t Performing Organization Address [facility] Co de Phone Number [facility] [address] [place] [phone] * Culture, Urine, Routine (05/29/2024 12:15 PM EST) Urine Urine specimen obtained by clean catch procedure / Unknown 05/29/2024 12:15 PM EST 05/29/2024 4:36 PM EST Comment:UACC Narrative [facility] - 05/31/2024 12:08 PM EST Urine Culture Report Result Urine Culture 50,000 to 100,000 cfu/ml Urine Culture Mixed bacterial joao characteristic of Urine Culture urogenital contamination. Specimen Source: Urine clean catch Swapna Maya MD LAB MICROBIOLOGY - GENERAL ORDER SIM Final Result Performing Organization Address [facility] Co de Phone Number [facility] [address] [place] [phone] * Pap Smear (05/09/2023 4:00 PM EST) 05/09/2023 4:00 PM EST 05/10/2023 9:40 AM EST Narrative [facility] - 05/27/2023 9:38 AM EST ----- ------- Name: Kaelyn Samuel ? Age/Sex: 58/F ? : 1965 Unit#: [id number] ?? Attend Dr: Tony Fair MD ?Re05/09/23 ?Status: DEP REF ? Location: HO.LNP ?Disch: ? ----- ------- SPEC : [id number] ? RECD: 05/10/23 ? STATUS: ??SOUT ? REQ NUM: [id number] ? LIZ: 05/09/23-1600 ? SUBM DR: Tony Fair MD ? ENTERED: ??05/10/23-1001 ?SP TYPE: Pap Smr ?OTHR DR: ALBERTO [...] 66, 68) ? HPV testing performed by [facility], [place], [place]. ??See reference laboratory ?? portion of the EMR for entire report. ?Clinical Information LMP: Postmenopausal Previous PAP test: Unknown date/findings Other history: Pm bleeding ? Material Received ?? ThinPrep-Cervical Copies To: ?? ALBERTO TEJEDA NP ?? [address] [facility] [address] ?? [place] [address] ?? [phone] ?? Tony Fair MD ?? [address] [place] [address] Dr. Blum [facility] ?? [place] [address] ?? [phone] ----- ------- Signed (signature on file) Mady Ny 05/27/23 0938 ? ----- ------- ? END OF REPORT ? us Generic External Data Provider LAB CYTOLOGY MARYA VILLALOBOS Final Result [facility] [address] [place] [phone] * FIT DNA/Cologuard Cancer Screening (11/24/2021) [facility] Cologuard Cancer Screen Negative Stool Historical Provider HEALTH MAINTENANCE Final Result * (ABNORMAL) LIPID PANEL, STANDARD (06/14/2020 2:23 PM EST) [facility] Chol/HDLC Ratio 4.7 <5.0 (calc) [facility] ?? LDL-C is now calculated using the Mike ?? calculation, which is a validated novel method providing ?? better accuracy than the Friedewald equation in the ?? estimation of LDL-C. ?? Herson SOARES et al. MAKENNA. 2013;310(19): 2610-9748 ?? (http://AirPOS.Fibrenetix/faq/GDZ845) Non-HDL Cholesterol 179(H) <130 mg/dL (calc) [facility] Comment: For patients with diabetes plus 1 major ASCVD risk ?? factor, treating to a non-HDL-C goal of <100 mg/dL ?? (LDL-C of <70 mg/dL) is considered a therapeutic ?? option. Triglycerides 186(H) <150 mg/dL [facility] 06/14/2020 2:23 PM EST us Maya Wei TABLE OPERATOR LAB BLOOD ORDERABLES Final Result [facility] [address] * DIGITAL BILATERAL SCREEN 1 (09/05/2017 1:00 PM EDT) Anatomical Region Laterality Modality Breast Bilateral Mammography 09/05/2017 1:00 PM EDT Narrative 09/05/2017 1:02 PM EDT Refer to the Notes tab for result details [facility] Procedure: DIGITAL BILATERAL SCREEN 1 Procedure Note Provider, MD Hussain - 06/30/2022 Refer to the Notes tab for result details [facility] Procedure: DIGITAL BILATERAL SCREEN 1 Historical Provider IMG BI PROCEDURES Final R esult from Last 3 Months or Most Recently Relevant to Health Maintenance Insurance [facility] [place] STAND AD[place] Advance Directives Documents on File Type Date Recorded Patient Horologist Expl anation Power of Industrial Automation Specialist 07/03/2023 Power of A ttorney Care Teams Shield Runner Relationship Specialty Start Date End Date Alberto Tejeda ANP [address] [place] [address] PCP - General Family Medicine 11/29/20 Rebecca Ayala Vessel Slag WorkerMeteorology Professor 12/27/23
--- OUTSIDE RECORDS SUMMARY | 2024-07-08 02:38 | XMS_ITS | Encounter Summary ---
Author Organization [facility] Address [address] [place] [address] 7 [place] [address] Care Team Providers Care Labor And Delivery Registered Nurse Name Role Phone Alea Salinas Primary Care Provider [phone] Encounter Details Date Type Department Care Team (Late st Contact Info) Description 12/19/2022 Orders Only [facility] MED & PEDS [address] [place], [place] [phone] April Mason LPN Social History Tobacco Use [...] Description 07/13/2024 11:15 AM EDT Office Visit [facility] MEDICINE [address] [place] [address] Alea Salinas ANP [address] [place] [address] documented as of this encounter Visit Diagnoses Not on filedocumented in this encounter Care Teams Labor And Delivery Registered Nurse Relationship Specialty Start Date End Date Alea Salinas ANP [address] [place], [place] [phone] PCP - General Family Medicine 11/29/20 Rebecca Ayala Open Hearth LaborerInstructional Services Librarian 12/27/23 documented as of this encounter
[2024-07-08 02:39] LABS: Influenza A PCR NEGATIVE (Negative); Influenza B PCR NEGATIVE (Negative); Resp Syncy Virus RNA Qual PCR NEGATIVE (Negative); SARS COV2 PCR INHOUSE POSITIVE (Negative)
[2024-07-08 02:55] LABS: Hematocrit 38.1 % (37.0-47.0); Hemoglobin 11.2 g/dl (12.0-16.0); Imm Gran Abs Auto 0.03 X10*3/uL (0.00-0.03); Imm Gran Pct Auto 0.5 % (0.0-0.4); Lymphocytes Absolute Auto 2.1 X10*3/uL (1.2-4.9); Lymphocytes Percent Auto 32.6 % (20-40); MANUAL DIFF FLAG NO; Mean Corpuscular HGB Conc 29.4 g/dl (31.0-35.0); Mean Corpuscular Hemoglobin 28.3 pg (27.0-33.0); Mean Corpuscular Volume 96.2 fL (80.0-98.0); Mean Platelet Volume 12.3 fL (9.4-12.3); Monocytes Absolute Auto 0.4 X10*3/uL (0.1-1.2); Monocytes Percent Auto 5.9 % (2-11); Platelet Count 162 X10*3/uL (160-400); Red Blood Count 3.96 X10*6/uL (4.20-5.50); Red Cell Distribution Width 15.2 % (11.0-16.0); Venous Blood Gas Refer to POC result; White Blood Count 6.5 X10*3/uL (4.8-10.8)
[2024-07-08 02:57] LABS: VBG Base Excess 2.3 mmol/L; VBG HCO3 29 mmol/L (22-26); VBG pCO2 57 mmHg; VBG pH 7.31 (7.32-7.43); VBG pO2 35 mmHg
[2024-07-08 03:14] LABS: Troponin-I High Sensitivity 8.1 ng/L (<3.5-17.0)
[2024-07-08 03:15] LABS: Alanine Aminotransferase 10 U/L (0-31); Albumin Level 3.7 g/dL (3.5-5.0); Alkaline Phosphatase 83 U/L (39-117); Anion Gap 15 (12-20); Aspartate Amino Transferase 18 U/L (5-31); B Type Natriuretic Peptide 41 pg/mL (<100); Bilirubin Total 0.3 mg/dL (0.0-1.0); Blood Urea Nitrogen 11 mg/dL (9-16); Calcium 9.2 mg/dL (8.4-10.2); Carbon Dioxide 26 mmol/L (22-29); Chloride 107 mmol/L (96-108); Creatinine Clr Calc Pharmacy 135.9; Estimated Glomerular Filt Rate > 60; Glucose Random 92 mg/dL (60-115); Potassium 4.1 mmol/L (3.3-5.1); Sodium 144 mmol/L (135-145); Total Protein 7.7 g/dL (6.5-8.0)
--- NOTE | 2024-07-08 10:22 | PHA.MEDREC ---
Addendum entered by Maxine Mensah RPh 07/08/24 11:27: Spoke to Michael at [facility] who confirmed that both paroxetine 10 mg and 40 mg were last filled on 07/04/24 for 30 day supply and topiramate 100 mg and 200 mg were both filled on 04/28/24 for 90 day supply. Med rec was reviewed by [facility]. Original Note: Pharmacy Consult ? Medication Reconciliation Pharmacy has completed the medication reconciliation. Spoke to patient through masonry teacher service (Arvin) to confirm med list. Patient is a poor historian. Patient states there are to many to remember, however she fills all her medications at [facility]. Utilized list from [facility] pharmacy to confirm med list.
[2024-07-08] MEDS: Albuterol Sulfate 2.5 MG, Albuterol/Iprat 2.5/0.5MG 3 ML 3 ML INHALE (14:30)
[2024-07-08] MEDS: dexAMETHasone sod phosphate 4 MG/ML VIAL 6 MG IVPUSH (15:14)
[2024-07-08] MEDS: Loratadine 10 MG TABLET PO (15:16)
[2024-07-08] MEDS: Azithromycin 500 MG TABLET PO (15:16)
[2024-07-08] MEDS: 0.9 % Sodium Chloride Flush 3 ML SYRINGE IVFLUSH (15:20)
--- NOTE | 2024-07-08 16:13 | P.HPHOSP_ITS ---
History of Present Illness Date of Service: 07/08/24 Attending physician on admission: Shady Malhotra Chief Complaint: sob HPI:59 y/o F with pmhx KENZIE, diabetes, htn , morbid obesity, asthma, chronic lower extremity edema comes here for increased shortness a breath ,coughing up mucopurulent phlegm , also patient has fevers and myalgia for few days. She said she tried her nebulizer treatment at home but did not help so decided come to the hospital. As per the emergency room physician patient received nebulizer earlier overnight as well as during the daytime and patient still not feeling well, came complaining of shortness of breath and generalized weak. Patient was also hypoxic earlier from 86-89%. Lab imaging and EKG reviewed:No leukocytosis, BMP seems fine, hemoglobin A1c is 5.5, chest x-ray negative. Patient is positive for COVID( SARS-Cov-2 Rna). Review of Systems 2 Review of Systems: as above. Yes all other systems are reviewed and are negative [facility] Medical History Asthma HTN (hypertension) Diabetes KENZIE (obstructive sleep apnea) Morbid obesity Asthma Family History Daughter No problems noted. Daughter No problems noted. Daughter No problems noted. Daughter No problems noted. Daughter No problems noted. Son No problems noted. Mother HTN (hypertension) Uterus cancer Sister Colon cancer Surgical History Hx of cholecystectomy Hx of hernia repair Hx of tubal ligation Social History Household Members: Children Housing: Apartment Alcohol intake: never Patient Tobacco Use Status: Never used Tobacco Smoked in Last 30 Days: No Use of substances other than those prescribed or required for medical reasons: No Advance Directives: No Advance Directives Information Provided: Yes Do you have a plan to hurt others: No Plan Patient : No service: No Current occupational status: unemployed Meds Allergies Allergy/AdvReac Type Severity Reaction Status Date / Time No Known Allergies Allergy Verified 07/08/24 01:15 Active Medications: Current Medications Acetaminophen (Acetaminophen 325 Mg Tablet) 650 mg PO Q6H PRN PRN Reason: Pain, Mild 1-3,fever,headache Albuterol/Ipratropium (Albuterol/Iprat 2.5/0.5mg 3 Ml Ampul.Neb) 3 ml INHALE Q4H [facility] Last Admin: 07/08/24 15:09 Dose: Not Given Albuterol/Ipratropium (Albuterol/Iprat 2.5/0.5mg 3 Ml Ampul.Neb) 3 ml INHALE Q3H PRN PRN Reason: Sob Amlodipine Besylate (Amlodipine Besylate 5 Mg Tablet) 5 mg PO DAILY@1200 [facility]; Protocol Atenolol (Atenolol 100 Mg Tablet) 100 mg PO DAILY [facility]; Protocol Atorvastatin Calcium (Atorvastatin Calcium 80 Mg Tablet) 80 mg PO DAILY [facility] Azithromycin (Azithromycin 500 Mg Tablet) 500 mg PO Q24H [facility] Last Admin: 07/08/24 15:16 Dose: 500 mg Bupropion HCl (Bupropion Hcl Xl 150 Mg Tab.Er.24h) 150 mg PO DAILY [facility] Bupropion HCl (Bupropion Hcl Xl 300 Mg Tab.Er.24h) 300 mg PO BEDTIME [facility] Buspirone HCl (Buspirone Hcl 5 Mg Tablet) 15 mg PO BID [facility] Calcium Carbonate (Calcium Carbonate 750 Mg Tab.Chew) 750 mg PO Q4H PRN PRN Reason: Heartburn Dexamethasone Sodium Phosphate (Dexamethasone Sod Phosphate 4 Mg/Ml Vial) 6 mg IVPUSH DAILY [facility] Last Admin: 07/08/24 15:14 Dose: 6 mg Furosemide (Furosemide 40 Mg Tablet) 40 mg PO BID@0900,1200 [facility]; Protocol Guaifenesin (Guaifenesin 200 Mg/10 Ml 10 Ml Liquid) 10 ml PO Q6H PRN PRN Reason: Cough Hydralazine HCl (Hydralazine Hcl 25 Mg Tablet) 25 mg PO BIDWM [facility]; Protocol Loratadine (Loratadine 10 Mg Tablet) 10 mg PO DAILY [facility] Last Admin: 07/08/24 15:16 Dose: 10 mg Losartan Potassium (Losartan Potassium 50 Mg Tablet) 50 mg PO BEDTIME [facility]; Protocol Magnesium Hydroxide (Milk Of Magnesia 30 Ml Oral.Susp) 30 ml PO DAILY PRN PRN Reason: Constipation Melatonin (Melatonin 3 Mg Tablet) 6 mg PO BEDTIME PRN PRN Reason: Insomnia Paroxetine HCl (Paroxetine Hcl 10 Mg Tablet) 10 mg PO DAILY [facility] Paroxetine HCl (Paroxetine Hcl 40 Mg Tablet) 40 mg PO DAILY [facility] Senna/Docusate Sodium (Sennosides/Docusate Sodium Tablet) 1 tab PO DAILY [facility] Sodium Chloride (0.9 % Sodium Chloride Flush 3 Ml Syringe) 3 ml IVFLUSH QSHIFT [facility] Last Admin: 07/08/24 15:20 Dose: 3 ml Topiramate (Topiramate 100 Mg Tablet) 100 mg PO BID@0900,1800 [facility] Topiramate (Topiramate 100 Mg Tablet) 200 mg PO BEDTIME [facility] Vitamin D (Cholecalciferol (Vitamin D3) 25 Mcg Tablet) 100 mcg PO DAILY [facility] Home Medications ?Medication ?Instructions ?Recorded ?Confirmed ?Last Taken ?Type amlodipine 5 mg tablet 1 tab PO DAILY@1200 08/23/21 07/08/24 04/04/23 09:00 History atenolol 100 mg tablet 100 mg PO DAILY 08/23/21 07/08/24 04/04/23 09:00 History atorvastatin 80 mg tablet 80 mg PO DAILY 08/23/21 07/08/24 04/04/23 09:00 History budesonide-formoterol HFA 160 2 puff inhalation BID 08/23/21 07/08/24 04/04/23 09:00 History mcg-4.5 mcg/actuation aerosol inhaler (Symbicort) bupropion HCl 150 mg 24 hr tablet, 150 mg PO DAILY 08/23/21 07/08/24 04/04/23 09:00 History extended release bupropion HCl 300 mg 24 hr tablet, 300 mg PO BEDTIME 08/23/21 07/08/24 10/08/22 History extended release cholecalciferol (vitamin D3) 50 100 mcg PO DAILY 08/23/21 07/08/24 04/04/23 09:00 History mcg (2,000 unit) capsule furosemide 40 mg tablet 40 mg PO BID@0900,1200 08/23/21 07/08/24 04/04/23 09:00 History hydralazine 25 mg tablet 25 mg PO BIDWM 08/23/21 07/08/24 04/04/23 09:00 History losartan 50 mg tablet 50 mg PO BEDTIME 08/23/21 07/08/24 10/08/22 History paroxetine HCl 10 mg tablet 10 mg PO DAILY 08/23/21 07/08/24 04/04/23 09:00 History paroxetine HCl 40 mg tablet 40 mg PO DAILY 08/23/21 07/08/24 04/04/23 09:00 History topiramate 100 mg tablet 100 mg PO BID@0900,1800 08/23/21 07/08/24 04/04/23 09:00 History topiramate 200 mg tablet 200 mg PO BEDTIME 08/23/21 07/08/24 10/08/22 History sennosides 8.6 mg-docusate sodium 1 tab PO DAILY 04/04/23 07/08/24 04/04/23 09:00 History 50 mg tablet (Stimulant Laxative Plus) buspirone 15 mg tablet 15 mg PO BID 07/08/24 07/08/24 Unknown History dulaglutide 3 mg/0.5 mL 3 mg subcut TH 07/08/24 07/08/24 Unknown History subcutaneous pen injector (Trulicity) Physical Exam 2 Vital Signs and Narrative: Vital Signs: Last Vital Signs Temp 98.3 F 07/08/24 12:13 Pulse 105 H 07/08/24 14:31 Resp 16 07/08/24 14:31 BP 131/51 L 07/08/24 12:13 Pulse Ox 91 L 07/08/24 12:13 O2 Del Method Room Air 07/08/24 12:13 O2 Flow Rate 2 07/08/24 05:52 Oxygen Flow Rate 2 07/08/24 01:11 BMI result Body Mass Index 81.7 Appearance: Alert.? Oriented X3.? cvs: rrr, [id number] . res: air entry diminshed ,b/l wheezing abd: no rebound or guarding ,nt, bs present. ext pulses present , no cyanosis . neuro: axo3 , nonfocal. Results Labs 07/08/24 02:50 07/08/24 02:50 Labs: Laboratory Results - last 24 hr 07/08/24 07/08/24 07/08/24 01:55 02:50 02:53 MCV 96.2 MCH 28.3 MCHC 29.4 L RDW 15.2 Plt Count 162 MPV 12.3 Immature Gran % (Auto) 0.5 H Neut % (Auto) 61.0 Lymph % (Auto) 32.6 [place] % (Auto) 5.9 Eos % (Auto) 0.0 Baso % (Auto) 0.0 Lymph # (Auto) 2.1 [place] # (Auto) 0.4 Eos # (Auto) 0.0 Baso # (Auto) 0.0 Abs Immat Gran (auto) 0.03 Absolute Neuts (auto) 4.0 Absolute Nucleated RBC 0.000 Nucleated RBC % (auto) 0.0 VBG pH 7.31 L VBG pCO2 57 VBG pO2 35 VBG HCO3 29 H VBG O2 Saturation 56.0 VBG Base Excess 2.3 Anion Gap 15 Estim Creat Clear Calc 135.9 Estimated GFR > 60 Random Glucose 92 Calcium 9.2 Total Bilirubin 0.3 AST 18 ALT 10 Alkaline Phosphatase 83 B-Natriuretic Peptide 41 Total Protein 7.7 Albumin 3.7 Influenza Type A (PCR) NEGATIVE Influenza Type B (PCR) NEGATIVE RSV RNA Qual (PCR) NEGATIVE SARS-CoV-2 RNA (RT-PCR) POSITIVE A Assessment and Plan (1) COVID-19: Status: Acute (2) Acute hypoxemic respiratory failure: Status: Acute Plan 59 y/o F with pmhx KENZIE, diabetes, htn , morbid obesity, asthma, chronic lower extremity edema comes here for increased shortness a breath ,coughing up mucopurulent phlegm , also patient has fevers and myalgia for few days. Acute hypoxemic respiratory failure in the setting of asthma ( asthma moderate persistent) excerebation/covid: Shortness of breaths somewhat improving Started on nebs, steroids, antibiotics, oxygen as needed. Diabetes: Hold Trulicity, hemoglobin A1c is 5.5, fingerstick with sliding scale coverage. Hypotension: Start home losartan and hydralazine Morbid obesity: Encouraged to lose weight and cutdown calories. Possible Anxiety: Continue home medications including paroxetine and bupropion. dvt prophylax: s/c lovenox Above management discussed with the patient detail length she understand and in agreement with the above plan, time spent 70 minute. Patient will benefit from 2 midnight stay considering acute hypoxemic respiratory failure secondary to Acute hypoxemic respiratory failure in the setting of asthma ( asthma moderate persistent) excerebation/covid: Needs steroids, nebs, antibiotics , close monitoring of respiratory status. Quality Stroke Does the patient have a stroke diagnosis?: No VTE Prior VTE?: No VTE Risk Level:: Medical - moderate - high VTE Device Contraindication: N/A - Device Ordered VTE Drug Contraindication: N/A - Med Ordered
[2024-07-08 16:25] LABS: Estimated Average Glucose 111 mg/dL; Hemoglobin A1c % 5.5 % (<6.0); Total Hemoglobin (HGBA1C) 2975.2863 umol/L
[2024-07-08] MEDS: hydrALAZINE HCl 25 MG TABLET PO (17:12)
[2024-07-08] MEDS: Enoxaparin Sodium 40 MG/0.4 ML SYRINGE SUBCUT (17:12)
[2024-07-08] MEDS: Topiramate 100 MG TABLET PO (17:12)
[2024-07-08] MEDS: Albuterol/Iprat 2.5/0.5MG 3 ML AMPUL.NEB INHALE (18:20)
[2024-07-08 20:45] LABS: Glucose, Whole Blood 137 mg/dL (60-115)
[2024-07-08] MEDS: busPIRone HCl 5 MG TABLET 15 MG PO (20:58)
[2024-07-08] MEDS: Topiramate 100 MG TABLET 200 MG PO (20:58)
[2024-07-08] MEDS: Losartan Potassium 50 MG TABLET PO (20:59)
[2024-07-08] MEDS: buPROPion HCl XL 300 MG TAB.ER.24H PO (20:59)
[2024-07-09] VITALS (20 sets, daily range): BP systolic 131–168; BP diastolic 54–77; PULSE 67–100; RESP 17–32; TEMP 36.6–37.1; O2SAT 95–98
[2024-07-09] MEDS: 0.9 % Sodium Chloride Flush 3 ML SYRINGE IVFLUSH ×3 (00:11→18:16)
[2024-07-09] MEDS: guaiFENesin 200 MG/10 ML 10 ML LIQUID PO (04:13)
[2024-07-09] MEDS: Albuterol/Iprat 2.5/0.5MG 3 ML AMPUL.NEB INHALE ×6 (04:24→23:18)
[2024-07-09 08:44] LABS: Glucose, Whole Blood 164 mg/dL (60-115)
[2024-07-09] MEDS: Cholecalciferol (Vitamin D3) 25 MCG TABLET 100 MCG PO (08:53)
[2024-07-09] MEDS: buPROPion HCl XL 150 MG TAB.ER.24H PO (08:53)
[2024-07-09] MEDS: Sennosides/Docusate Sodium TABLET 1 TAB PO (08:54)
[2024-07-09] MEDS: Topiramate 100 MG TABLET PO ×2 (08:54→18:16)
[2024-07-09] MEDS: Loratadine 10 MG TABLET PO (08:54)
[2024-07-09] MEDS: hydrALAZINE HCl 25 MG TABLET PO ×2 (08:54→16:09)
[2024-07-09] MEDS: Atorvastatin Calcium 80 MG TABLET PO (08:54)
[2024-07-09] MEDS: Furosemide 40 MG TABLET PO ×2 (08:55→13:56)
[2024-07-09] MEDS: dexAMETHasone sod phosphate 4 MG/ML VIAL 6 MG IVPUSH (08:55)
[2024-07-09] MEDS: busPIRone HCl 5 MG TABLET 15 MG PO ×2 (08:55→20:39)
[2024-07-09] MEDS: PARoxetine HCL 40 MG TABLET PO (08:55)
--- NOTE | 2024-07-09 08:59 | MHC.CM.PN ---
Met with patient with the assistance of the parts interpreter. 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 PCP verified as Alea Salinas. Copy of HCP verified to be on file. Patient does not have her own oxygen at home. Patient states she uses her son's oxygen. Patient positive for Covid on 07/08. Patient feels she can safely return home when medically stable and will decline STR if recommended. Patient's family will transport home when medically stable. Continue to monitor for d/c needs.
--- NOTE | 2024-07-09 10:25 | PC.NURSE ---
Pt resting quietly in room; awaiting bed for admission; pt's POC BG this morning 164; pt refused insulin coverage per orders, stating I'm not diabetic ; vss @ baseline; pt has +WILLIS; 94% 2 ltr NC
[2024-07-09] MEDS: atenoloL 100 MG TABLET PO (12:48)
[2024-07-09] MEDS: PARoxetine HCL 10 MG TABLET PO (12:49)
[2024-07-09 13:10] LABS: Glucose, Whole Blood 157 mg/dL (60-115)
[2024-07-09] MEDS: amLODIPine Besylate 5 MG TABLET PO (13:53)
[2024-07-09] MEDS: Insulin Lispro 100 UNIT/ML 3 ML VIAL SUBCUT ×2 (14:03→20:38)
--- NOTE | 2024-07-09 14:06 | PC.NURSE ---
Pt agreed to receive sliding scale insulin per orders
--- NOTE | 2024-07-09 14:24 | MHC.EDTECH ---
Patient got clean up, placed new purewick, and bed changed over. She is resting comfortably on hospital bed within call mchugh in her reach.
[2024-07-09] MEDS: Azithromycin 500 MG TABLET PO (16:09)
[2024-07-09] MEDS: Enoxaparin Sodium 40 MG/0.4 ML SYRINGE SUBCUT (16:09)
--- NOTE | 2024-07-09 16:46 | HO.PM.IMPN ---
Subjective Subjective Date of Service: 07/09/24 Interval History: Shortness of breaths/COVID Review of Systems Patient says shortness of breaths similar as yesterday Has lot of cough No fever Physical Exam Vital Signs: Vital Signs: Last Vital Signs Temp 98.3 F 07/09/24 16:11 Pulse 72 07/09/24 16:11 Resp 19 07/09/24 16:11 BP 136/54 L 07/09/24 16:11 Pulse Ox 96 07/09/24 16:11 O2 Del Method Room Air 07/09/24 16:11 O2 Flow Rate 2 07/09/24 12:46 Oxygen Flow Rate 2 07/08/24 01:11 BMI result Body Mass Index 81.7 Appearance: Alert.? Oriented X3.? cvs: rrr, [id number] . res: air entry diminshed ,b/l wheezing abd: no rebound or guarding ,nt, bs present. ext pulses present , no cyanosis . neuro: axo3 , nonfocal. Objective Data Active Medications Acetaminophen (Acetaminophen 325 Mg Tablet) 650 mg PO Q6H PRN PRN Reason: Pain, Mild 1-3,fever,headache Albuterol/Ipratropium (Albuterol/Iprat 2.5/0.5mg 3 Ml Ampul.Neb) 3 ml INHALE Q3H PRN PRN Reason: Sob Last Admin: 07/09/24 04:24 Dose: 3 ml Documented By: CARMELLA Albuterol/Ipratropium (Albuterol/Iprat 2.5/0.5mg 3 Ml Ampul.Neb) 3 ml INHALE RQ4H [facility] Last Admin: 07/09/24 15:27 Dose: 3 ml Documented By: RIZWAN Comments: computer not working Amlodipine Besylate (Amlodipine Besylate 5 Mg Tablet) 5 mg PO DAILY@1200 [facility]; Protocol Last Admin: 07/09/24 13:53 Dose: 5 mg Documented By: ARIEL Atenolol (Atenolol 100 Mg Tablet) 100 mg PO DAILY [facility]; Protocol Last Admin: 07/09/24 12:48 Dose: 100 mg Documented By: ASHLEY Atorvastatin Calcium (Atorvastatin Calcium 80 Mg Tablet) 80 mg PO DAILY [facility] Last Admin: 07/09/24 08:54 Dose: 80 mg Documented By: ASHLEY Azithromycin (Azithromycin 500 Mg Tablet) 500 mg PO Q24H [facility] Last Admin: 07/09/24 16:09 Dose: 500 mg Documented By: ASHLEY Bupropion HCl (Bupropion Hcl Xl 150 Mg Tab.Er.24h) 150 mg PO DAILY [facility] Last Admin: 07/09/24 08:53 Dose: 150 mg Documented By: ASHLEY Bupropion HCl (Bupropion Hcl Xl 300 Mg Tab.Er.24h) 300 mg PO BEDTIME [facility] Last Admin: 07/08/24 20:59 Dose: 300 mg Documented By: CARLOS Buspirone HCl (Buspirone Hcl 5 Mg Tablet) 15 mg PO BID [facility] Last Admin: 07/09/24 08:55 Dose: 15 mg Documented By: ASHLEY Calcium Carbonate (Calcium Carbonate 750 Mg Tab.Chew) 750 mg PO Q4H PRN PRN Reason: Heartburn Dexamethasone Sodium Phosphate (Dexamethasone Sod Phosphate 4 Mg/Ml Vial) 6 mg IVPUSH DAILY [facility] Last Admin: 07/09/24 08:55 Dose: 6 mg Documented By: ASHLEY Dextrose (Dextrose 50 % 25 Gm/50 Ml Syringe) 25 gm IVPUSH Q15M PRN; Protocol PRN Reason: per Hypoglycemia Standing Ord. Enoxaparin Sodium (Enoxaparin Sodium 40 Mg/0.4 Ml Syringe) 40 mg SUBCUT Q24H [facility] Last Admin: 07/09/24 16:09 Dose: 40 mg Documented By: ASHLEY Furosemide (Furosemide 40 Mg Tablet) 40 mg PO BID@0900,1200 [facility]; Protocol Last Admin: 07/09/24 13:56 Dose: 40 mg Documented By: ARIEL Glucose (Glucose Gel 15 Gm Gel..Gram.) 15 gm PO Q15M PRN; Protocol PRN Reason: per Hypoglycemia Standing Ord. Guaifenesin (Guaifenesin 200 Mg/10 Ml 10 Ml Liquid) 10 ml PO Q6H PRN PRN Reason: Cough Last Admin: 07/09/24 04:13 Dose: 10 ml Documented By: CARLOS Hydralazine HCl (Hydralazine Hcl 25 Mg Tablet) 25 mg PO BIDWM [facility]; Protocol Last Admin: 07/09/24 16:09 Dose: 25 mg Documented By: ASHLEY Insulin Human Lispro (Insulin Lispro 100 Unit/Ml 3 Ml Vial) 0 unit SUBCUT QIDACHS [facility]; Protocol Last Admin: 07/09/24 14:03 Dose: 2 unit Documented By: ASHLEY Loratadine (Loratadine 10 Mg Tablet) 10 mg PO DAILY [facility] Last Admin: 07/09/24 08:54 Dose: 10 mg Documented By: ASHLEY Losartan Potassium (Losartan Potassium 50 Mg Tablet) 50 mg PO BEDTIME [facility]; Protocol Last Admin: 07/08/24 20:59 Dose: 50 mg Documented By: CARLOS Magnesium Hydroxide (Milk Of Magnesia 30 Ml Oral.Susp) 30 ml PO DAILY PRN PRN Reason: Constipation Melatonin (Melatonin 3 Mg Tablet) 6 mg PO BEDTIME PRN PRN Reason: Insomnia Paroxetine HCl (Paroxetine Hcl 10 Mg Tablet) 10 mg PO DAILY [facility] Last Admin: 07/09/24 12:49 Dose: 10 mg Documented By: ASHLEY Paroxetine HCl (Paroxetine Hcl 40 Mg Tablet) 40 mg PO DAILY [facility] Last Admin: 07/09/24 08:55 Dose: 40 mg Documented By: ASHLEY Senna/Docusate Sodium (Sennosides/Docusate Sodium Tablet) 1 tab PO DAILY [facility] Last Admin: 07/09/24 08:54 Dose: 1 tab Documented By: ASHLEY Sodium Chloride (0.9 % Sodium Chloride Flush 3 Ml Syringe) 3 ml IVFLUSH QSHIFT [facility] Last Admin: 07/09/24 08:55 Dose: 3 ml Documented By: ASHLEY Topiramate (Topiramate 100 Mg Tablet) 100 mg PO BID@0900,1800 [facility] Last Admin: 07/09/24 08:54 Dose: 100 mg Documented By: ASHLEY Topiramate (Topiramate 100 Mg Tablet) 200 mg PO BEDTIME [facility] Last Admin: 07/08/24 20:58 Dose: 200 mg Documented By: CARLOS Vitamin D (Cholecalciferol (Vitamin D3) 25 Mcg Tablet) 100 mcg PO DAILY [facility] Last Admin: 07/09/24 08:53 Dose: 100 mcg Documented By: ASHLEY Labs 07/08/24 02:50 07/08/24 02:50 Labs: Laboratory Results - last 24 hr 07/08/24 07/09/24 07/09/24 20:38 08:41 13:06 POC Glucose 137 H 164 H 157 H Assessment and Plan (1) Acute hypoxemic respiratory failure: Status: Acute Assessment and Plan: 59 y/o F with pmhx KENZIE, diabetes, htn , morbid obesity, asthma, chronic lower extremity edema comes here for increased shortness a breath ,coughing up mucopurulent phlegm , also patient has fevers and myalgia for few days. Acute hypoxemic respiratory failure in the setting of asthma ( asthma moderate persistent) excerebation/covid: Shortness of breaths similar Started on nebs, steroids, antibiotics, off oxygen Diabetes: Hold Trulicity, hemoglobin A1c is 5.5, fingerstick with sliding scale coverage. Hypotension: Start home losartan and hydralazine Morbid obesity: Encouraged to lose weight and cutdown calories. Possible Anxiety: Continue home medications including paroxetine and bupropion. dvt prophylax: s/c lovenox ongoing need:acute hypoxemic respiratory failure secondary to Acute hypoxemic respiratory failure in the setting of asthma ( asthma moderate persistent) excerebation/covid: Needs steroids, nebs, antibiotics , close monitoring of respiratory status. Quality Stroke Does the patient have a stroke diagnosis?: No VTE Prior VTE?: No VTE Risk Level:: Medical - moderate - high VTE Device Contraindication: N/A - Device Ordered VTE Drug Contraindication: N/A - Med Ordered
--- NOTE | 2024-07-09 17:22 | PC.NURSE ---
Pt's family at bedside; family member educated numerous times about wearing a mask and hand hygeine; visitor repeatedly removing mask, bringing infants and small children into pt's room without masks or washing/geling hands; will cont to try and educate family members on Covid precuations
[2024-07-09 17:34] LABS: Glucose, Whole Blood 121 mg/dL (60-115)
--- NOTE | 2024-07-09 19:21 | PC.NURSE ---
this rn assumed care of pt, pt resting in stretcher,no acute distress noted, vss.
[2024-07-09 20:27] LABS: Glucose, Whole Blood 175 mg/dL (60-115)
[2024-07-09] MEDS: buPROPion HCl XL 300 MG TAB.ER.24H PO (20:39)
[2024-07-09] MEDS: Losartan Potassium 50 MG TABLET PO (20:39)
[2024-07-09] MEDS: Topiramate 100 MG TABLET 200 MG PO (20:39)
--- NOTE | 2024-07-09 21:16 | PC.NURSE ---
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
[2024-07-10] VITALS (10 sets, daily range): BP systolic 102–163; BP diastolic 50–75; PULSE 61–91; RESP 16–28; TEMP 36.3–36.6; O2SAT 91–99
--- NOTE | 2024-07-10 01:24 | PC.NURSE ---
RT spoke to this RN and states pt refused night CPAP, provider aware.
[2024-07-10] MEDS: Albuterol/Iprat 2.5/0.5MG 3 ML AMPUL.NEB INHALE ×3 (08:11→20:18)
[2024-07-10 08:23] LABS: Glucose, Whole Blood 95 mg/dL (60-115)
[2024-07-10] MEDS: busPIRone HCl 5 MG TABLET 15 MG PO ×2 (08:41→22:30)
[2024-07-10] MEDS: Cholecalciferol (Vitamin D3) 25 MCG TABLET 100 MCG PO (08:41)
[2024-07-10] MEDS: hydrALAZINE HCl 25 MG TABLET PO ×2 (08:41→16:19)
[2024-07-10] MEDS: Loratadine 10 MG TABLET PO (08:41)
[2024-07-10] MEDS: Furosemide 40 MG TABLET PO ×2 (08:41→12:14)
[2024-07-10] MEDS: PARoxetine HCL 40 MG TABLET PO (08:41)
[2024-07-10] MEDS: Topiramate 100 MG TABLET PO ×2 (08:41→17:59)
[2024-07-10] MEDS: Sennosides/Docusate Sodium TABLET 1 TAB PO (08:41)
[2024-07-10] MEDS: buPROPion HCl XL 150 MG TAB.ER.24H PO (08:42)
[2024-07-10] MEDS: Atorvastatin Calcium 80 MG TABLET PO (08:42)
[2024-07-10] MEDS: 0.9 % Sodium Chloride Flush 3 ML SYRINGE IVFLUSH ×3 (08:45→22:31)
[2024-07-10] MEDS: PARoxetine HCL 10 MG TABLET PO (08:47)
[2024-07-10] MEDS: atenoloL 100 MG TABLET PO (08:48)
[2024-07-10] MEDS: dexAMETHasone sod phosphate 10 MG/ML VIAL 6 MG IVPUSH (09:36)
[2024-07-10] MEDS: guaiFENesin 200 MG/10 ML 10 ML LIQUID PO (09:53)
--- NOTE | 2024-07-10 11:59 | MHC.CM.PN ---
Per rounds, pt. is not yet ready to go home, she requires further treatment for Covid and Hypoxia. CM to follow for DC needs.
[2024-07-10 12:06] LABS: Glucose, Whole Blood 123 mg/dL (60-115)
[2024-07-10] MEDS: amLODIPine Besylate 5 MG TABLET PO (12:14)
--- NOTE | 2024-07-10 13:57 | P.PNIM_ITS ---
Subjective Subjective Date of Service: 07/10/24 Interval History: covid aggresive cough ,sob is similar Review of Systems as above. Physical Exam 2 Vital Signs: Vital Signs: Last Vital Signs Temp 97.8 F 07/10/24 08:58 Pulse 61 07/10/24 12:03 Resp 28 H 07/10/24 12:03 BP 114/50 L 07/10/24 12:03 Pulse Ox 92 07/10/24 12:03 O2 Del Method Room Air 07/10/24 12:03 O2 Flow Rate 2 07/10/24 08:58 Oxygen Flow Rate 2 07/08/24 01:11 BMI result Body Mass Index 81.7 Appearance: Alert.? Oriented X3.? cvs: rrr, [id number] . res: air entry diminshed ,b/l wheezing abd: no rebound or guarding ,nt, bs present. ext pulses present , no cyanosis . neuro: axo3 , nonfocal. Objective Data Active Medications Acetaminophen (Acetaminophen 325 Mg Tablet) 650 mg PO Q6H PRN PRN Reason: Pain, Mild 1-3,fever,headache Albuterol/Ipratropium (Albuterol/Iprat 2.5/0.5mg 3 Ml Ampul.Neb) 3 ml INHALE Q3H PRN PRN Reason: Sob Last Admin: 07/09/24 04:24 Dose: 3 ml Documented By: CARMELLA Albuterol/Ipratropium (Albuterol/Iprat 2.5/0.5mg 3 Ml Ampul.Neb) 3 ml INHALE RQ4H [facility] Last Admin: 07/10/24 11:32 Dose: 3 ml Documented By: RIZWAN Amlodipine Besylate (Amlodipine Besylate 5 Mg Tablet) 5 mg PO DAILY@1200 [facility]; Protocol Last Admin: 07/10/24 12:14 Dose: 5 mg Documented By: COMFORT Atenolol (Atenolol 100 Mg Tablet) 100 mg PO DAILY [facility]; Protocol Last Admin: 07/10/24 08:48 Dose: 100 mg Documented By: COMFORT Atorvastatin Calcium (Atorvastatin Calcium 80 Mg Tablet) 80 mg PO DAILY [facility] Last Admin: 07/10/24 08:42 Dose: 80 mg Documented By: COMFORT Azithromycin (Azithromycin 500 Mg Tablet) 500 mg PO Q24H [facility] Last Admin: 07/09/24 16:09 Dose: 500 mg Documented By: ASHLEY Bupropion HCl (Bupropion Hcl Xl 150 Mg Tab.Er.24h) 150 mg PO DAILY [facility] Last Admin: 07/10/24 08:42 Dose: 150 mg Documented By: COMFORT Bupropion HCl (Bupropion Hcl Xl 300 Mg Tab.Er.24h) 300 mg PO BEDTIME [facility] Last Admin: 07/09/24 20:39 Dose: 300 mg Documented By: TARUN Buspirone HCl (Buspirone Hcl 5 Mg Tablet) 15 mg PO BID [facility] Last Admin: 07/10/24 08:41 Dose: 15 mg Documented By: COMFORT Calcium Carbonate (Calcium Carbonate 750 Mg Tab.Chew) 750 mg PO Q4H PRN PRN Reason: Heartburn Dexamethasone Sodium Phosphate (Dexamethasone Sod Phosphate 10 Mg/Ml Vial) 6 mg IVPUSH DAILY [facility] Last Admin: 07/10/24 09:36 Dose: 6 mg Documented By: COMFORT Dextrose (Dextrose 50 % 25 Gm/50 Ml Syringe) 25 gm IVPUSH Q15M PRN; Protocol PRN Reason: per Hypoglycemia Standing Ord. Enoxaparin Sodium (Enoxaparin Sodium 40 Mg/0.4 Ml Syringe) 40 mg SUBCUT Q24H [facility] Last Admin: 07/09/24 16:09 Dose: 40 mg Documented By: ASHLEY Furosemide (Furosemide 40 Mg Tablet) 40 mg PO BID@0900,1200 [facility]; Protocol Last Admin: 07/10/24 12:14 Dose: 40 mg Documented By: COMFORT Glucose (Glucose Gel 15 Gm Gel..Gram.) 15 gm PO Q15M PRN; Protocol PRN Reason: per Hypoglycemia Standing Ord. Guaifenesin (Guaifenesin 200 Mg/10 Ml 10 Ml Liquid) 10 ml PO Q6H PRN PRN Reason: Cough Last Admin: 07/10/24 09:53 Dose: 10 ml Documented By: COMFORT Hydralazine HCl (Hydralazine Hcl 25 Mg Tablet) 25 mg PO BIDWM [facility]; Protocol Last Admin: 07/10/24 08:41 Dose: 25 mg Documented By: COMFORT Insulin Human Lispro (Insulin Lispro 100 Unit/Ml 3 Ml Vial) 0 unit SUBCUT QIDACHS [facility]; Protocol Last Admin: 07/10/24 12:05 Dose: Not Given Documented By: COMFORT Non-Admin Reason: No Insulin Coverage Loratadine (Loratadine 10 Mg Tablet) 10 mg PO DAILY [facility] Last Admin: 07/10/24 08:41 Dose: 10 mg Documented By: COMFORT Losartan Potassium (Losartan Potassium 50 Mg Tablet) 50 mg PO BEDTIME [facility]; Protocol Last Admin: 07/09/24 20:39 Dose: 50 mg Documented By: TARUN Magnesium Hydroxide (Milk Of Magnesia 30 Ml Oral.Susp) 30 ml PO DAILY PRN PRN Reason: Constipation Melatonin (Melatonin 3 Mg Tablet) 6 mg PO BEDTIME PRN PRN Reason: Insomnia Paroxetine HCl (Paroxetine Hcl 10 Mg Tablet) 10 mg PO DAILY [facility] Last Admin: 07/10/24 08:47 Dose: 10 mg Documented By: COMFORT Paroxetine HCl (Paroxetine Hcl 40 Mg Tablet) 40 mg PO DAILY [facility] Last Admin: 07/10/24 08:41 Dose: 40 mg Documented By: COMFORT Senna/Docusate Sodium (Sennosides/Docusate Sodium Tablet) 1 tab PO DAILY [facility] Last Admin: 07/10/24 08:41 Dose: 1 tab Documented By: COMFORT Sodium Chloride (0.9 % Sodium Chloride Flush 3 Ml Syringe) [facility] Last Admin: 07/10/24 08:45 Dose: 3 ml Documented By: COMFORT Topiramate (Topiramate 100 Mg Tablet) 100 mg PO BID@0900,1800 [facility] Last Admin: 07/10/24 08:41 Dose: 100 mg Documented By: COMFORT Topiramate (Topiramate 100 Mg Tablet) 200 mg PO BEDTIME [facility] Last Admin: 07/09/24 20:39 Dose: 200 mg Documented By: TARUN Vitamin D (Cholecalciferol (Vitamin D3) 25 Mcg Tablet) 100 mcg PO DAILY [facility] Last Admin: 07/10/24 08:41 Dose: 100 mcg Documented By: COMFORT Labs 07/08/24 02:50 07/08/24 02:50 Labs: Laboratory Results - last 24 hr 07/09/24 07/09/24 07/10/24 17:30 20:24 08:20 POC Glucose 121 H 175 H 95 07/10/24 12:02 POC Glucose 123 H Assessment and Plan (1) Acute hypoxemic respiratory failure: Status: Acute Assessment and Plan: 59 y/o F with pmhx KENZIE, diabetes, htn , morbid obesity, asthma, chronic lower extremity edema comes here for increased shortness a breath ,coughing up mucopurulent phlegm , also patient has fevers and myalgia for few days. Acute hypoxemic respiratory failure in the setting of asthma ( asthma moderate persistent) excerebation/covid: Shortness of breaths similar Started on nebs, steroids, antibiotics, off oxygen Diabetes: Hold Trulicity, hemoglobin A1c is 5.5, fingerstick with sliding scale coverage. Hypotension: Start home losartan and hydralazine Morbid obesity: Encouraged to lose weight and cutdown calories. Possible Anxiety: Continue home medications including paroxetine and bupropion. dvt prophylax: s/c lovenox ongoing need:acute hypoxemic respiratory failure secondary to Acute hypoxemic respiratory failure in the setting of asthma ( asthma moderate persistent) excerebation/covid: Needs steroids, nebs, antibiotics , close monitoring of respiratory status. Quality Stroke Does the patient have a stroke diagnosis?: No VTE Prior VTE?: No VTE Risk Level:: Medical - moderate - high VTE Device Contraindication: N/A - Device Ordered VTE Drug Contraindication: N/A - Med Ordered
[2024-07-10] MEDS: Azithromycin 500 MG TABLET PO (16:19)
[2024-07-10] MEDS: Enoxaparin Sodium 40 MG/0.4 ML SYRINGE SUBCUT (16:19)
--- NOTE | 2024-07-10 16:35 | PC.NURSE ---
pt intermittently wears O2. she is encouraged to wear the canula but often takes it off. educated
[2024-07-10 16:46] LABS: Glucose, Whole Blood 174 mg/dL (60-115)
[2024-07-10] MEDS: Insulin Lispro 100 UNIT/ML 3 ML VIAL SUBCUT (17:59)
[2024-07-10 21:21] LABS: Glucose, Whole Blood 127 mg/dL (60-115)
[2024-07-10] MEDS: Losartan Potassium 50 MG TABLET PO (22:29)
[2024-07-10] MEDS: buPROPion HCl XL 300 MG TAB.ER.24H PO (22:29)
[2024-07-10] MEDS: Topiramate 100 MG TABLET 200 MG PO (22:31)
[2024-07-11] VITALS (13 sets, daily range): BP systolic 107–128; BP diastolic 54–61; PULSE 60–95; RESP 16–20; TEMP 36.3–37.1; O2SAT 93–100; BMI 79.2
[2024-07-11] MEDS: Albuterol/Iprat 2.5/0.5MG 3 ML AMPUL.NEB INHALE ×4 (01:10→19:32)
[2024-07-11 07:31] LABS: Glucose, Whole Blood 117 mg/dL (60-115)
[2024-07-11] MEDS: guaiFENesin 200 MG/10 ML 10 ML LIQUID PO ×2 (08:58→16:28)
[2024-07-11] MEDS: PARoxetine HCL 10 MG TABLET PO (08:59)
[2024-07-11] MEDS: Furosemide 40 MG TABLET PO ×2 (08:59→11:52)
[2024-07-11] MEDS: PARoxetine HCL 40 MG TABLET PO (08:59)
[2024-07-11] MEDS: Acetaminophen 325 MG TABLET 650 MG PO (08:59)
[2024-07-11] MEDS: busPIRone HCl 5 MG TABLET 15 MG PO ×2 (08:59→22:31)
[2024-07-11] MEDS: atenoloL 100 MG TABLET PO (08:59)
[2024-07-11] MEDS: Cholecalciferol (Vitamin D3) 25 MCG TABLET 100 MCG PO (08:59)
[2024-07-11] MEDS: Topiramate 100 MG TABLET PO ×2 (08:59→17:13)
[2024-07-11] MEDS: Loratadine 10 MG TABLET PO (08:59)
[2024-07-11] MEDS: buPROPion HCl XL 150 MG TAB.ER.24H PO (09:00)
[2024-07-11] MEDS: Sennosides/Docusate Sodium TABLET 1 TAB PO (09:00)
[2024-07-11] MEDS: Atorvastatin Calcium 80 MG TABLET PO (09:00)
[2024-07-11] MEDS: hydrALAZINE HCl 25 MG TABLET PO ×2 (09:00→16:24)
[2024-07-11] MEDS: dexAMETHasone sod phosphate 10 MG/ML VIAL 6 MG IVPUSH (09:03)
[2024-07-11] MEDS: 0.9 % Sodium Chloride Flush 3 ML SYRINGE IVFLUSH ×2 (09:04→16:30)
[2024-07-11 11:29] LABS: Glucose, Whole Blood 218 mg/dL (60-115)
[2024-07-11] MEDS: amLODIPine Besylate 5 MG TABLET PO (11:52)
[2024-07-11] MEDS: Insulin Lispro 100 UNIT/ML 3 ML VIAL SUBCUT ×3 (11:52→22:31)
--- NOTE | 2024-07-11 13:40 | HO.PM.IMPN ---
Subjective Subjective Date of Service: 07/11/24 Interval History: covid Review of Systems sob improving has cough taper oxygen Physical Exam Vital Signs: Vital Signs: Last Vital Signs Temp 97.3 F 07/11/24 11:20 Pulse 90 07/11/24 12:22 Resp 20 07/11/24 12:22 BP 107/54 L 07/11/24 11:20 Pulse Ox 95 07/11/24 11:20 O2 Del Method Nasal Cannula 07/11/24 11:20 O2 Flow Rate 1 07/11/24 11:20 Oxygen Flow Rate 2 07/08/24 01:11 BMI result Body Mass Index 79.2 Appearance: Alert.? Oriented X3.? cvs: rrr, [id number] . res: air entry diminshed ,b/l wheezing abd: no rebound or guarding ,nt, bs present. ext pulses present , no cyanosis . neuro: axo3 , nonfoca Objective Data Active Medications Acetaminophen (Acetaminophen 325 Mg Tablet) 650 mg PO Q6H PRN PRN Reason: Pain, Mild 1-3,fever,headache Last Admin: 07/11/24 08:59 Dose: 650 mg Documented By: DRE Albuterol/Ipratropium (Albuterol/Iprat 2.5/0.5mg 3 Ml Ampul.Neb) 3 ml INHALE Q3H PRN PRN Reason: Sob Last Admin: 07/09/24 04:24 Dose: 3 ml Documented By: CARMELLA Albuterol/Ipratropium (Albuterol/Iprat 2.5/0.5mg 3 Ml Ampul.Neb) 3 ml INHALE RQ4H [facility] Last Admin: 07/11/24 12:16 Dose: 3 ml Documented By: ZACH Amlodipine Besylate (Amlodipine Besylate 5 Mg Tablet) 5 mg PO DAILY@1200 [facility]; Protocol Last Admin: 07/11/24 11:52 Dose: 5 mg Documented By: DRE Atenolol (Atenolol 100 Mg Tablet) 100 mg PO DAILY [facility]; Protocol Last Admin: 07/11/24 08:59 Dose: 100 mg Documented By: DRE Atorvastatin Calcium (Atorvastatin Calcium 80 Mg Tablet) 80 mg PO DAILY [facility] Last Admin: 07/11/24 09:00 Dose: 80 mg Documented By: DRE Azithromycin (Azithromycin 500 Mg Tablet) 500 mg PO Q24H [facility] Last Admin: 07/10/24 16:19 Dose: 500 mg Documented By: COMFORT Bupropion HCl (Bupropion Hcl Xl 150 Mg Tab.Er.24h) 150 mg PO DAILY [facility] Last Admin: 07/11/24 09:00 Dose: 150 mg Documented By: DRE Bupropion HCl (Bupropion Hcl Xl 300 Mg Tab.Er.24h) 300 mg PO BEDTIME [facility] Last Admin: 07/10/24 22:29 Dose: 300 mg Documented By: RONDA Buspirone HCl (Buspirone Hcl 5 Mg Tablet) 15 mg PO BID [facility] Last Admin: 07/11/24 08:59 Dose: 15 mg Documented By: RDE Calcium Carbonate (Calcium Carbonate 750 Mg Tab.Chew) 750 mg PO Q4H PRN PRN Reason: Heartburn Dexamethasone Sodium Phosphate (Dexamethasone Sod Phosphate 10 Mg/Ml Vial) 6 mg IVPUSH DAILY [facility] Last Admin: 07/11/24 09:03 Dose: 6 mg Documented By: DRE Dextrose (Dextrose 50 % 25 Gm/50 Ml Syringe) 25 gm IVPUSH Q15M PRN; Protocol PRN Reason: per Hypoglycemia Standing Ord. Enoxaparin Sodium (Enoxaparin Sodium 40 Mg/0.4 Ml Syringe) 40 mg SUBCUT Q24H [facility] Last Admin: 07/10/24 16:19 Dose: 40 mg Documented By: COMFORT Furosemide (Furosemide 40 Mg Tablet) 40 mg PO BID@0900,1200 [facility]; Protocol Last Admin: 07/11/24 11:52 Dose: 40 mg Documented By: DRE Glucose (Glucose Gel 15 Gm Gel..Gram.) 15 gm PO Q15M PRN; Protocol PRN Reason: per Hypoglycemia Standing Ord. Guaifenesin (Guaifenesin 200 Mg/10 Ml 10 Ml Liquid) 10 ml PO Q6H PRN PRN Reason: Cough Last Admin: 07/11/24 08:58 Dose: 10 ml Documented By: DRE Guaifenesin/Codeine Phosphate (Guaifen/Codeine Sf 200/20/10ml 10 Ml Liquid) 10 ml PO Q6H PRN PRN Reason: Cough Hydralazine HCl (Hydralazine Hcl 25 Mg Tablet) 25 mg PO BIDWM [facility]; Protocol Last Admin: 07/11/24 09:00 Dose: 25 mg Documented By: DRE Insulin Human Lispro (Insulin Lispro 100 Unit/Ml 3 Ml Vial) 0 unit SUBCUT QIDACHS [facility]; Protocol Last Admin: 07/11/24 11:52 Dose: 4 unit Documented By: DRE Loratadine (Loratadine 10 Mg Tablet) 10 mg PO DAILY [facility] Last Admin: 07/11/24 08:59 Dose: 10 mg Documented By: DRE Losartan Potassium (Losartan Potassium 50 Mg Tablet) 50 mg PO BEDTIME [facility]; Protocol Last Admin: 07/10/24 22:29 Dose: 50 mg Documented By: RONDA Magnesium Hydroxide (Milk Of Magnesia 30 Ml Oral.Susp) 30 ml PO DAILY PRN PRN Reason: Constipation Melatonin (Melatonin 3 Mg Tablet) 6 mg PO BEDTIME PRN PRN Reason: Insomnia Paroxetine HCl (Paroxetine Hcl 10 Mg Tablet) 10 mg PO DAILY [facility] Last Admin: 07/11/24 08:59 Dose: 10 mg Documented By: DRE Paroxetine HCl (Paroxetine Hcl 40 Mg Tablet) 40 mg PO DAILY [facility] Last Admin: 07/11/24 08:59 Dose: 40 mg Documented By: DRE Senna/Docusate Sodium (Sennosides/Docusate Sodium Tablet) 1 tab PO DAILY [facility] Last Admin: 07/11/24 09:00 Dose: 1 tab Documented By: DRE Sodium Chloride (0.9 % Sodium Chloride Flush 3 Ml Syringe) 3 ml IVFLUSH QSHIFT [facility] Last Admin: 07/11/24 09:04 Dose: 3 ml Documented By: DRE Topiramate (Topiramate 100 Mg Tablet) 100 mg PO BID@0900,1800 [facility] Last Admin: 07/11/24 08:59 Dose: 100 mg Documented By: DRE Topiramate (Topiramate 100 Mg Tablet) 200 mg PO BEDTIME [facility] Last Admin: 07/10/24 22:31 Dose: 200 mg Documented By: RONDA Vitamin D (Cholecalciferol (Vitamin D3) 25 Mcg Tablet) 100 mcg PO DAILY [facility] Last Admin: 07/11/24 08:59 Dose: 100 mcg Documented By: DRE Labs 07/08/24 02:50 07/08/24 02:50 Labs: Laboratory Results - last 24 hr 07/10/24 07/10/24 07/11/24 16:43 21:17 07:24 POC Glucose 174 H 127 H 117 H 07/11/24 11:22 POC Glucose 218 H Assessment and Plan (1) Acute hypoxemic respiratory failure: Status: Acute Assessment and Plan: 59 y/o F with pmhx KENZIE, diabetes, htn , morbid obesity, asthma, chronic lower extremity edema comes here for increased shortness a breath ,coughing up mucopurulent phlegm , also patient has fevers and myalgia for few days. Acute hypoxemic respiratory failure in the setting of asthma ( asthma moderate persistent) excerebation/covid: Shortness of breaths similar Started on nebs, steroids, antibiotics, off oxygen Diabetes: Hold Trulicity, hemoglobin A1c is 5.5, fingerstick with sliding scale coverage. Hypotension: Start home losartan and hydralazine Morbid obesity: Encouraged to lose weight and cutdown calories. Possible Anxiety: Continue home medications including paroxetine and bupropion. dvt prophylax: s/c lovenox ongoing need:acute hypoxemic respiratory failure secondary to Acute hypoxemic respiratory failure in the setting of asthma ( asthma moderate persistent) excerebation/covid: Needs steroids, nebs, antibiotics , close monitoring of respiratory status. Quality Stroke Does the patient have a stroke diagnosis?: No VTE Prior VTE?: No VTE Risk Level:: Medical - moderate - high VTE Device Contraindication: N/A - Device Ordered VTE Drug Contraindication: N/A - Med Ordered
[2024-07-11 16:17] LABS: Glucose, Whole Blood 158 mg/dL (60-115)
[2024-07-11] MEDS: Azithromycin 500 MG TABLET PO (16:24)
[2024-07-11] MEDS: Enoxaparin Sodium 40 MG/0.4 ML SYRINGE SUBCUT (16:24)
[2024-07-11 21:15] LABS: Glucose, Whole Blood 184 mg/dL (60-115)
[2024-07-11] MEDS: buPROPion HCl XL 300 MG TAB.ER.24H PO (22:31)
[2024-07-11] MEDS: Losartan Potassium 50 MG TABLET PO (22:31)
[2024-07-11] MEDS: Topiramate 100 MG TABLET 200 MG PO (22:31)
[2024-07-12] VITALS (14 sets, daily range): BP systolic 104–136; BP diastolic 52–60; PULSE 67–96; RESP 17–20; TEMP 36.3–37.2; O2SAT 92–98
[2024-07-12] MEDS: Albuterol/Iprat 2.5/0.5MG 3 ML AMPUL.NEB INHALE ×5 (00:02→19:55)
[2024-07-12] MEDS: Melatonin 3 MG TABLET 6 MG PO (01:00)
[2024-07-12] MEDS: Acetaminophen 325 MG TABLET 650 MG PO ×3 (01:01→16:51)
[2024-07-12 07:25] LABS: Glucose, Whole Blood 104 mg/dL (60-115)
[2024-07-12] MEDS: Furosemide 40 MG TABLET PO ×2 (09:05→11:57)
[2024-07-12] MEDS: PARoxetine HCL 10 MG TABLET PO (09:05)
[2024-07-12] MEDS: hydrALAZINE HCl 25 MG TABLET PO ×2 (09:05→16:51)
[2024-07-12] MEDS: busPIRone HCl 5 MG TABLET 15 MG PO ×2 (09:05→21:05)
[2024-07-12] MEDS: Sennosides/Docusate Sodium TABLET 1 TAB PO (09:05)
[2024-07-12] MEDS: atenoloL 100 MG TABLET PO (09:05)
[2024-07-12] MEDS: dexAMETHasone sod phosphate 10 MG/ML VIAL 6 MG IVPUSH (09:05)
[2024-07-12] MEDS: Loratadine 10 MG TABLET PO (09:05)
[2024-07-12] MEDS: buPROPion HCl XL 150 MG TAB.ER.24H PO (09:06)
[2024-07-12] MEDS: PARoxetine HCL 40 MG TABLET PO (09:06)
[2024-07-12] MEDS: 0.9 % Sodium Chloride Flush 3 ML SYRINGE IVFLUSH ×3 (09:06→16:52)
[2024-07-12] MEDS: Atorvastatin Calcium 80 MG TABLET PO (09:06)
[2024-07-12] MEDS: Cholecalciferol (Vitamin D3) 25 MCG TABLET 100 MCG PO (09:06)
[2024-07-12] MEDS: Topiramate 100 MG TABLET PO ×2 (09:06→16:51)
[2024-07-12] MEDS: guaiFENesin 200 MG/10 ML 10 ML LIQUID PO (09:14)
[2024-07-12 11:50] LABS: Glucose, Whole Blood 240 mg/dL (60-115)
[2024-07-12] MEDS: Insulin Lispro 100 UNIT/ML 3 ML VIAL SUBCUT ×2 (11:57→21:05)
[2024-07-12] MEDS: amLODIPine Besylate 5 MG TABLET PO (11:59)
--- NOTE | 2024-07-12 12:14 | HO.PM.IMPN ---
Subjective Subjective Date of Service: 07/12/24 Interval History: covid Review of Systems sob somewhat improving has cough Physical Exam Vital Signs: Vital Signs: Last Vital Signs Temp 98.0 F 07/12/24 11:27 Pulse 95 07/12/24 11:27 Resp 20 07/12/24 11:27 BP 104/53 L 07/12/24 11:57 Pulse Ox 94 07/12/24 11:27 O2 Del Method Nasal Cannula 07/12/24 11:27 O2 Flow Rate 2 07/12/24 11:27 Oxygen Flow Rate 2 07/08/24 01:11 BMI result Body Mass Index 79.2 Appearance: Alert.? Oriented X3.? cvs: rrr, [id number] . res: air entry diminshed ,b/l wheezing abd: no rebound or guarding ,nt, bs present. ext pulses present , no cyanosis . neuro: axo3 , nonfocal Objective Data Active Medications Acetaminophen (Acetaminophen 325 Mg Tablet) 650 mg PO Q6H PRN PRN Reason: Pain, Mild 1-3,fever,headache Last Admin: 07/12/24 09:06 Dose: 650 mg Documented By: DRE Albuterol/Ipratropium (Albuterol/Iprat 2.5/0.5mg 3 Ml Ampul.Neb) 3 ml INHALE Q3H PRN PRN Reason: Sob Last Admin: 07/09/24 04:24 Dose: 3 ml Documented By: CARMELLA Albuterol/Ipratropium (Albuterol/Iprat 2.5/0.5mg 3 Ml Ampul.Neb) 3 ml INHALE RQ4H [facility] Last Admin: 07/12/24 11:20 Dose: 3 ml Documented By: MY Amlodipine Besylate (Amlodipine Besylate 5 Mg Tablet) 5 mg PO DAILY@1200 [facility]; Protocol Last Admin: 07/12/24 11:59 Dose: 5 mg Documented By: DRE Atenolol (Atenolol 100 Mg Tablet) 100 mg PO DAILY [facility]; Protocol Last Admin: 07/12/24 09:05 Dose: 100 mg Documented By: DRE Atorvastatin Calcium (Atorvastatin Calcium 80 Mg Tablet) 80 mg PO DAILY [facility] Last Admin: 07/12/24 09:06 Dose: 80 mg Documented By: DRE Azithromycin (Azithromycin 500 Mg Tablet) 500 mg PO Q24H [facility] Last Admin: 07/11/24 16:24 Dose: 500 mg Documented By: DRE Bupropion HCl (Bupropion Hcl Xl 150 Mg Tab.Er.24h) 150 mg PO DAILY [facility] Last Admin: 07/12/24 09:06 Dose: 150 mg Documented By: DRE Bupropion HCl (Bupropion Hcl Xl 300 Mg Tab.Er.24h) 300 mg PO BEDTIME [facility] Last Admin: 07/11/24 22:31 Dose: 300 mg Documented By: ANMOLOC Buspirone HCl (Buspirone Hcl 5 Mg Tablet) 15 mg PO BID [facility] Last Admin: 07/12/24 09:05 Dose: 15 mg Documented By: DRE Calcium Carbonate (Calcium Carbonate 750 Mg Tab.Chew) 750 mg PO Q4H PRN PRN Reason: Heartburn Dexamethasone Sodium Phosphate (Dexamethasone Sod Phosphate 10 Mg/Ml Vial) 6 mg IVPUSH DAILY [facility] Last Admin: 07/12/24 09:05 Dose: 6 mg Documented By: DRE Dextrose (Dextrose 50 % 25 Gm/50 Ml Syringe) 25 gm IVPUSH Q15M PRN; Protocol PRN Reason: per Hypoglycemia Standing Ord. Enoxaparin Sodium (Enoxaparin Sodium 40 Mg/0.4 Ml Syringe) 40 mg SUBCUT Q24H [facility] Last Admin: 07/11/24 16:24 Dose: 40 mg Documented By: RDE Furosemide (Furosemide 40 Mg Tablet) 40 mg PO BID@0900,1200 [facility]; Protocol Last Admin: 07/12/24 11:57 Dose: 40 mg Documented By: DRE Comments: aware of BP; ok to be given Glucose (Glucose Gel 15 Gm Gel..Gram.) 15 gm PO Q15M PRN; Protocol PRN Reason: per Hypoglycemia Standing Ord. Guaifenesin (Guaifenesin 200 Mg/10 Ml 10 Ml Liquid) 10 ml PO Q6H PRN PRN Reason: Cough Last Admin: 07/12/24 09:14 Dose: 10 ml Documented By: DRE Guaifenesin/Codeine Phosphate (Guaifen/Codeine Sf 200/20/10ml 10 Ml Liquid) 10 ml PO Q6H PRN PRN Reason: Cough Hydralazine HCl (Hydralazine Hcl 25 Mg Tablet) 25 mg PO BIDWM [facility]; Protocol Last Admin: 07/12/24 09:05 Dose: 25 mg Documented By: DRE Insulin Human Lispro (Insulin Lispro 100 Unit/Ml 3 Ml Vial) 0 unit SUBCUT QIDACHS [facility]; Protocol Last Admin: 07/12/24 11:57 Dose: 4 unit Documented By: DRE Loratadine (Loratadine 10 Mg Tablet) 10 mg PO DAILY [facility] Last Admin: 07/12/24 09:05 Dose: 10 mg Documented By: DRE Losartan Potassium (Losartan Potassium 50 Mg Tablet) 50 mg PO BEDTIME [facility]; Protocol Last Admin: 07/11/24 22:31 Dose: 50 mg Documented By: SOÍFA Magnesium Hydroxide (Milk Of Magnesia 30 Ml Oral.Susp) 30 ml PO DAILY PRN PRN Reason: Constipation Melatonin (Melatonin 3 Mg Tablet) 6 mg PO BEDTIME PRN PRN Reason: Insomnia Last Admin: 07/12/24 01:00 Dose: 6 mg Documented By: SOFÍA Paroxetine HCl (Paroxetine Hcl 10 Mg Tablet) 10 mg PO DAILY [facility] Last Admin: 07/12/24 09:05 Dose: 10 mg Documented By: DRE Paroxetine HCl (Paroxetine Hcl 40 Mg Tablet) 40 mg PO DAILY [facility] Last Admin: 07/12/24 09:06 Dose: 40 mg Documented By: DRE Senna/Docusate Sodium (Sennosides/Docusate Sodium Tablet) 1 tab PO DAILY [facility] Last Admin: 07/12/24 09:05 Dose: 1 tab Documented By: DRE Sodium Chloride (0.9 % Sodium Chloride Flush 3 Ml Syringe) 3 ml IVFLUSH QSHIFT [facility] Last Admin: 07/12/24 09:06 Dose: 3 ml Documented By: DRE Topiramate (Topiramate 100 Mg Tablet) 100 mg PO BID@0900,1800 [facility] Last Admin: 07/12/24 09:06 Dose: 100 mg Documented By: DRE Topiramate (Topiramate 100 Mg Tablet) 200 mg PO BEDTIME [facility] Last Admin: 07/11/24 22:31 Dose: 200 mg Documented By: SOFÍA Vitamin D (Cholecalciferol (Vitamin D3) 25 Mcg Tablet) 100 mcg PO DAILY [facility] Last Admin: 07/12/24 09:06 Dose: 100 mcg Documented By: DRE Labs 07/08/24 02:50 07/08/24 02:50 Labs: Laboratory Results - last 24 hr 07/11/24 07/11/24 07/12/24 16:10 21:10 07:21 POC Glucose 158 H 184 H 104 07/12/24 11:37 POC Glucose 240 H Assessment and Plan (1) Acute hypoxemic respiratory failure: Status: Acute (2) COVID-19: Status: Acute Assessment and Plan: 59 y/o F with pmhx KENZIE, diabetes, htn , morbid obesity, asthma, chronic lower extremity edema comes here for increased shortness a breath ,coughing up mucopurulent phlegm , also patient has fevers and myalgia for few days. Acute hypoxemic respiratory failure in the setting of asthma ( asthma moderate persistent) excerebation/covid: Shortness of breaths similar Started on nebs, steroids, antibiotics, off oxygen Diabetes:Hold Trulicity, hemoglobin A1c is 5.5, fingerstick with sliding scale coverage. Hypotension: Start home losartan and hydralazine Morbid obesity: Encouraged to lose weight and cutdown calories. Possible Anxiety: Continue home medications including paroxetine and bupropion. hx of kenzie: As per the daughter it is unclear but she is saying her mother is using her brother's CPAP machine at home? Will order overnight pulse oximetry dvt prophylax: s/c lovenox ongoing need:acute hypoxemic respiratory failure secondary to Acute hypoxemic respiratory failure in the setting of asthma ( asthma moderate persistent) excerebation/covid: Needs steroids, nebs, antibiotics , close monitoring of respiratory status. Quality Stroke Does the patient have a stroke diagnosis?: No VTE Prior VTE?: No VTE Risk Level:: Medical - moderate - high VTE Device Contraindication: N/A - Device Ordered VTE Drug Contraindication: N/A - Med Ordered
[2024-07-12 16:15] LABS: Glucose, Whole Blood 138 mg/dL (60-115)
[2024-07-12] MEDS: Enoxaparin Sodium 40 MG/0.4 ML SYRINGE SUBCUT (16:51)
[2024-07-12] MEDS: Azithromycin 500 MG TABLET PO (16:51)
[2024-07-12 20:45] LABS: Glucose, Whole Blood 160 mg/dL (60-115)
[2024-07-12] MEDS: buPROPion HCl XL 300 MG TAB.ER.24H PO (21:01)
[2024-07-12] MEDS: Losartan Potassium 50 MG TABLET PO (21:02)
[2024-07-12] MEDS: Topiramate 100 MG TABLET 200 MG PO (21:05)
[2024-07-13] VITALS (11 sets, daily range): BP systolic 97–136; BP diastolic 53–63; PULSE 64–88; RESP 17–24; TEMP 36.4–37.8; O2SAT 92–96
[2024-07-13] MEDS: Albuterol/Iprat 2.5/0.5MG 3 ML AMPUL.NEB INHALE ×3 (00:13→11:23)
[2024-07-13 08:19] LABS: Glucose, Whole Blood 95 mg/dL (60-115)
[2024-07-13] MEDS: Acetaminophen 325 MG TABLET 650 MG PO (08:49)
[2024-07-13] MEDS: dexAMETHasone sod phosphate 10 MG/ML VIAL 6 MG IVPUSH (08:49)
[2024-07-13] MEDS: atenoloL 100 MG TABLET PO (08:49)
[2024-07-13] MEDS: busPIRone HCl 5 MG TABLET 15 MG PO (08:49)
[2024-07-13] MEDS: Cholecalciferol (Vitamin D3) 25 MCG TABLET 100 MCG PO (08:49)
[2024-07-13] MEDS: PARoxetine HCL 40 MG TABLET PO (08:49)
[2024-07-13] MEDS: guaiFEN/Codeine SF 200/20/10ML 10 ML LIQUID PO (08:49)
[2024-07-13] MEDS: PARoxetine HCL 10 MG TABLET PO (08:50)
[2024-07-13] MEDS: Topiramate 100 MG TABLET PO (08:51)
[2024-07-13] MEDS: Loratadine 10 MG TABLET PO (08:51)
[2024-07-13] MEDS: buPROPion HCl XL 150 MG TAB.ER.24H PO (08:51)
[2024-07-13] MEDS: 0.9 % Sodium Chloride Flush 3 ML SYRINGE IVFLUSH (08:51)
[2024-07-13] MEDS: hydrALAZINE HCl 25 MG TABLET PO (08:51)
[2024-07-13] MEDS: Sennosides/Docusate Sodium TABLET 1 TAB PO (08:51)
[2024-07-13] MEDS: Atorvastatin Calcium 80 MG TABLET PO (08:51)
[2024-07-13] MEDS: Furosemide 40 MG TABLET PO ×2 (08:51→12:08)
--- NOTE | 2024-07-13 12:01 | P.DS_ITS ---
DS: Providers Provider Date of Service: 07/13/24 Date of admission: 07/08/24 14:49 Date of discharge: 07/13/24 Primary care physician: Alea Salinas NP Attending physician on discharge: Shady Malhotra Discharging clinician: Shady Malhotra DS: Diagnosis Discharge Diagnosis (1) Acute hypoxemic respiratory failure: Status: Acute (2) COVID-19: Status: Acute DS: Summary Hospital Course Hospital Course: HPI:59 y/o F with pmhx KENZIE, diabetes, htn , morbid obesity, asthma, chronic lower extremity edema comes here for increased shortness a breath ,coughing up mucopurulent phlegm , also patient has fevers and myalgia for few days. She said she tried her nebulizer treatment at home but did not help so decided come to the hospital. As per the emergency room physician patient received nebulizer earlier overnight as well as during the daytime and patient still not feeling well, came complaining of shortness of breath and generalized weak. Patient was also hypoxic earlier from 86-89%. Lab imaging and EKG reviewed:No leukocytosis, BMP seems fine, hemoglobin A1c is 5.5, chest x-ray negative. Patient is positive for COVID( SARS-Cov-2 Rna). hospital course: Patient was admitted to the hospital because of URI like symptoms cough and sputum: Patient was admitted for acute hypoxemic respiratory failure secondary to asthma ( asthma moderate persistent) excerebation/covid: cxr negative , no leucocytosis : Patient was started on nebs, steroids, azithromycin-patient seems to be improved significantly. In addition patient has sleep apnea: Pulse oxim etry overnight done and patient qualify for overnight oxygen. completed 5 days of azithrimycin for possible supperimposed bacterial acute brnchitis. Patient is to consider outpatient follow-up with PCP as well as consider outpatient pulmonary follow-up( for asthma and kenzie). hx of EIN, adexal mass : follow up with chemistry physics teacher dr elam and [facility] oncology dr lanier. PT recommended rehab but patient declines to go, patient will go home with VNA and PT. plan: Dexamethasone 6 mg daily for 6 days. Added loratadine and omeprazole short term because patient is on steroid. going home with nighttime oxygen Patient is to consider outpatient follow-up with PCP as well as consider outpatient pulmonary follow-up( for asthma and kenzie). Above management discussed with the patient and her daughter in detail length with the help of assignment desk assistant, they both understand and in agreement with the above plan. Time spent 40 minute. Time Attestation Total time managing care of this patient today: 40 mintues. Discharge Coordination Time (in mins): 40 min Quality: Safe Use of Opioids Does Pt have an Active Cancer Diagnosis on the Problem List?: No Quality: Stroke Does the patient have a stroke diagnosis?: No Physical Exam Vital Signs: Vital Signs: Last Vital Signs Temp 97.6 F 07/13/24 08:00 Pulse 75 07/13/24 11:24 Resp 22 H 07/13/24 11:24 BP 136/58 L 07/13/24 08:51 Pulse Ox 95 07/13/24 08:00 O2 Del Method Room Air 07/13/24 08:00 O2 Flow Rate 2 07/12/24 15:33 Oxygen Flow Rate 2 07/08/24 01:11 BMI result Body Mass Index 79.2 Appearance: Alert.? Oriented X3.? cvs: rrr, [id number] . res: air entry fair , no rales or wheezing abd: no rebound or guarding ,nt, bs present. ext pulses present , no cyanosis . neuro: axo3 , nonfocal DS: Data Data Completed and Pending Completed studies during hospitalization [Text1]: Procedures Insertion of Infusion Device into Upper Vein, Percutaneous Approach (08/23/21) Labs on day of discharge: Laboratory Results - last 24 hr 07/12/24 07/12/24 07/13/24 16:12 20:41 08:07 POC Glucose 138 H 160 H 95 Imaging Chest x-ray: My impression: cxr: 1. No acute findings. Discharge Plan Discharge Anticipated Discharge Date/Time: 07/13/24 11:54 Patient Disposition: Home Health Service Discharge Diagnosis: Acute hypoxemic respiratory failure in the setting of asthma ( asthma moderate persistent) excerebation/covid Referrals: [facility] [Outside] - 1 Week Alea Salinas, PHOTOGRAPHER APPRENTICE [Primary Care Provider] - 1 Week Discharge Medications: New loratadine 10 mg Tablet 10 mg PO DAILY Qty: 10 0RF dexamethasone 6 mg tablet 6 mg PO DAILY Qty: 6 0RF omeprazole 20 mg capsule,delayed release(DR/EC) 20 mg PO DAILY Qty: 30 0RF guaifenesin 100 mg/5 mL Liquid 100 mg PO Q6H PRN (Reason: Cough) Qty: 180 0RF Continued losartan 50 mg tablet 50 mg PO BEDTIME atorvastatin 80 mg tablet 80 mg PO DAILY paroxetine HCl 10 mg tablet 10 mg PO DAILY Rx Instructions: with 40 mg atenolol 100 mg tablet 100 mg PO DAILY hydralazine 25 mg tablet 25 mg PO BIDWM amlodipine 5 mg tablet 1 tab PO DAILY@1200 topiramate 200 mg tablet 200 mg PO BEDTIME paroxetine HCl 40 mg tablet 40 mg PO DAILY Rx Instructions: with 10 mg topiramate 100 mg tablet 100 mg PO BID@0900,1800 bupropion HCl 300 mg tablet extended release 24 hr 300 mg PO BEDTIME bupropion HCl 150 mg tablet extended release 24 hr 150 mg PO DAILY cholecalciferol (vitamin D3) 50 mcg (2,000 unit) capsule 100 mcg PO DAILY furosemide 40 mg tablet 40 mg PO BID@0900,1200 budesonide-formoterol [Symbicort] 160-4.5 mcg/actuation HFA aerosol inhaler 2 puff inhalation BID sennosides-docusate sodium [Stimulant Laxative Plus] 8.6-50 mg tablet 1 tab PO DAILY buspirone 15 mg tablet 15 mg PO BID Trulicity 3 mg/0.5 mL pen injector 3 mg subcut TH Discharge Orders: Discharge Order (Routine); Ordered 07/13/24 Ordered By: Shady Malhotra Diet: Advance to usual diet Activity on Discharge: As tolerated Stand Alone Forms: Patient Portal Discharge page Print Language: Palestinian Care Plan Goals: Patient was admitted to the hospital because of URI like symptoms cough and sputum: Patient was admitted for acute hypoxemic respiratory failure secondary to asthma ( asthma moderate persistent) excerebation/covid: Patient was started on nebs, steroids, azithromycin-patient seems to be improved significantly. In addition patient has sleep apnea: Pulse oximetry overnight done and patient qualify for overnight oxygen. Patient is to consider outpatient follow-up with PCP as well as consider outpatient pulmonary follow-up. Health Concerns: Dexamethasone 6 mg daily for 6 days. Plan of Treatment: As above. Assessment: As above.
[2024-07-13 12:02] LABS: Glucose, Whole Blood 194 mg/dL (60-115)
[2024-07-13] MEDS: Insulin Lispro 100 UNIT/ML 3 ML VIAL SUBCUT (12:08)
[2024-07-13] MEDS: amLODIPine Besylate 5 MG TABLET PO (12:08)
--- NOTE | 2024-07-13 12:13 | W.MHC.F2F ---
Service Date Service Date: 07/13/24 Encounter Date of encounter: 07/13/24 Encounter: covid ,romelia Reasons for Services Signs and symptoms assessed: sob or new symptoms Reason for long term: CV/CP assess and/or care, medication management, medication treatment and teach disease management Reason for physical therapy: home safety and mobility, therapeutic exercises, restore joint function, gait/transfer training, assess need for DME, ADL training, energy conservation and other MD Overseeing Care: Alea Salinas Homebound: Leaving the home is medically contraindicated at this time without the asist of a device and/or another person due th the listed conditions above and below. Reason homebound: weakness related to hospital stay Homebound supporting statement: Patient is generalised weak post hospitlisation and need help with going to appointments and labs draws as well as PT. Certification: Based on the above findings, I certify that this patient is confined to the home and needs intermittent long term care, physical therapy and/or speech therapy, or continues to need occupational therapy. The patient is under my care, and I have initiated the establishment of the plan of care. The patient will be followed by a physician who will periodically review the plan of care. Time Spent With Patient Time: Total time managing care of this patient today ____ minutes.
--- NOTE | 2024-07-13 12:31 | MHC.CM.PN ---
Pt has been medically cleared for DC. CM met with pt. and per diem interpreter, she said that family can bring her home, and she is aware that [facility] will provide home care services.
== END 2024-07-13 15:56 | disposition home health service (06) | DRG 137 ==
LOC: HO.ED 11:09 → HO.EDOVER 15:00 → HO.IMC 07-10 19:36
PROVIDERS: Admitting Provider Internal Medicine; Emergency Provider Internal Medicine; PCP Nurse Practitioner Primary Care; Visit Provider Internal Medicine
DX: U07.1 COVID-19 (principal); J96.01 Acute respiratory failure with hypoxia; J45.41 Moderate persistent asthma with (acute) exacerbation; G47.33 Obstructive sleep apnea (adult) (pediatric); I95.9 Hypotension, unspecified; E11.9 Type 2 diabetes mellitus without complications; F41.9 Anxiety disorder, unspecified; E66.01 Morbid (severe) obesity due to excess calories; Z68.45 Body mass index [BMI] 70 or greater, adult; Z71.3 Dietary counseling and surveillance; Z79.85 Long-term (current) use of injectable non-insulin antidiabetic drugs; Z79.899 Other long term (current) drug therapy
CPT/HCPCS: 0241U; 36415; 71045; 80053; 82803; 82947; 83036; 83880; 84484; 85025; 93005; 94640; 97116; 97162; 99285; J1100; J1650; J2919

== ENCOUNTER → 2024-07-08 01:06 | Outpatient (BNV) | payer MEDICAID, SELFPAY | PROVIDERS: Admitting Provider Internal Medicine; Emergency Provider Internal Medicine; Visit Provider Internal Medicine | DX: R07.9 Chest pain, unspecified (principal) | CPT/HCPCS: 93010 ==

== ENCOUNTER → 2024-07-08 01:17 | Outpatient (BNV) | payer MEDICAID, SELFPAY | PROVIDERS: Emergency Provider Internal Medicine; Visit Provider General Practice | DX: R06.02 Shortness of breath (principal); J18.9 Pneumonia, unspecified organism | CPT/HCPCS: 71045 ==

== ENCOUNTER → 2024-07-08 14:49 | Outpatient (BNV) | payer MEDICAID, SELFPAY | PROVIDERS: Admitting Provider Internal Medicine; Emergency Provider Internal Medicine; Visit Provider Internal Medicine | DX: J96.01 Acute respiratory failure with hypoxia (principal); J45.41 Moderate persistent asthma with (acute) exacerbation; U07.1 COVID-19 | CPT/HCPCS: 99222; 99231; 99232; 99239; G0180 ==